=== PATIENT | male | born 1965 | race American Indian/Alaskan Native ===

== ENCOUNTER 2017-03-22 17:28 | Inpatient (IN) | payer MEDICARE, BC ==
[2017-03-22 17:34] VITALS: BMI 26.8
[2017-03-22 18:22] LABS: ADD MANUAL DIFF? NO
[2017-03-22 18:31] LABS: BASO # 0.01 [, K/mm3] (0.0-2.0); BASO % 0.2 % (0.0-3.0); EOS # 0.1 (0.0-0.7); EOS % 1.2 % (1.5-5.0); GRAN # 2.94 (1.4-6.5); GRAN % 59.7 % (50.0-68.0); HEMATOCRIT 38.9 % (42.0-52.0); LYMPH # 1.6 (1.2-3.4); MEAN CELL VOLUME 86.8 fL (80.0-105.0); MEAN CORPUSCULAR HEMOGLOBIN 30.4 pg (25.0-35.0); MEAN PLATELET VOLUME 8.7 fl (7.0-11.0); MONO # 0.3 (0.1-0.6); MONO % 6.9 % (1.0-6.0); PLATELET COUNT 222 [, 10^3/uL] (120.0-450.0); RED CELL DISTRIBUTION WIDTH 12.7 % (11.5-14.5); WHITE BLOOD COUNT 4.9 [, 10^3/ul] (4.5-11.0)
[2017-03-22 18:41] LABS: INR 2.85 (0.93-1.08); PARTIAL THROMBOPLASTIN TIME 39.8 Seconds (23.7-30.8)
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
[2017-03-22] MEDS ORDERED: Iohexol 350 MG/100 ML VIAL ONE (19:05)
[2017-03-22 19:29] LABS: ALB/GLOB RATIO 1.3 (1.1-1.8); ALKALINE PHOSPHATASE 59 U/L (38-133); ALT/SGPT 37 U/L (7-56); AST/SGOT 15 U/L (15-59); BILIRUBIN,TOTAL 0.8 mg/dL (0.2-1.3); BLOOD UREA NITROGEN 12 mg/dL (7-21); CALCIUM 9.8 mg/dL (8.4-10.5); CARBON DIOXIDE 31 mmol/L (21-33); GFR AFRICAN-AMERICAN > 60; GLUCOSE,RANDOM 95 mg/dL (70-110); POTASSIUM 3.9 mmol/L (3.6-5.0); SODIUM 140 mmol/L (132-148); TOTAL PROTEIN 7.5 g/dL (5.8-8.3)
[2017-03-22 19:43] LABS: CHLORIDE 101 mmol/L (98-107)
[2017-03-22 19:44] LABS: TROPONIN I 0.01 ng/mL
[2017-03-22] MEDS ORDERED: Morphine 2 mg/ml ISec IVP STA (23:27)
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
[2017-03-23 01:50] LABS: TROPONIN I 0.02 ng/mL
[2017-03-23 06:05] LABS: ADD MANUAL DIFF? NO
[2017-03-23 06:08] LABS: BASO # 0.02 [, K/mm3] (0.0-2.0); BASO % 0.4 % (0.0-3.0); EOS # 0.1 (0.0-0.7); GRAN # 2.67 (1.4-6.5); GRAN % 58.1 % (50.0-68.0); LYMPH # 1.5 (1.2-3.4); MEAN CELL VOLUME 86.3 fL (80.0-105.0); MEAN CORPUSCULAR HEMOGLOBIN 30.5 pg (25.0-35.0); MEAN CORPUSCULAR HGB CONC 35.3 g/dl (31.0-37.0); MEAN PLATELET VOLUME 7.9 fl (7.0-11.0); MONO # 0.3 (0.1-0.6); MONO % 6.5 % (1.0-6.0); PLATELET COUNT 181 [, 10^3/uL] (120.0-450.0); RED CELL DISTRIBUTION WIDTH 12.6 % (11.5-14.5); WHITE BLOOD COUNT 4.6 [, 10^3/ul] (4.5-11.0)
[2017-03-23 06:26] LABS: BLOOD UREA NITROGEN 11 mg/dL (7-21); CALCIUM 9.4 mg/dL (8.4-10.5); CARBON DIOXIDE 28 mmol/L (21-33); CHLORIDE 102 mmol/L (98-107); CHOLESTEROL 106 mg/dL (130-200); GFR AFRICAN-AMERICAN > 60; GLUCOSE,RANDOM 132 mg/dL (70-110); POTASSIUM 3.3 mmol/L (3.6-5.0); SODIUM 139 mmol/L (132-148)
[2017-03-23 06:37] LABS: TROPONIN I 0.03 ng/mL
[2017-03-23] MEDS ORDERED: Potassium Chloride 20 mEq ER Tab PO ONE (07:13)
--- NOTE | 2017-03-23 07:25 | RAD ---
HISTORY: chest pain COMPARISON: Comparison is made to 07/06/2016 FINDINGS: LUNGS: No active pulmonary disease. PLEURA: No significant pleural effusion identified, no pneumothorax apparent. CARDIOVASCULAR: Normal. OSSEOUS STRUCTURES: No significant abnormalities. VISUALIZED UPPER ABDOMEN: Normal. OTHER FINDINGS: None. IMPRESSION: No active disease.
[2017-03-23] MEDS: Insulin Reg-LOW-Coverage SC SCH ×4 (08:05→22:36)
--- NOTE | 2017-03-23 08:50 | CARD ---
APPROVED REPORT EKG Measurement Heart [id number] TN 150P40 [id number] <Conclusion> Marked sinus bradycardia Left ventricular hypertrophy with repolarization abnormality Septal infarct, age undetermined Abnormal ECG
--- NOTE | 2017-03-23 09:04 | CT ---
PROCEDURE: CT Angiography Chest, Abdomen and Pelvis with and without intravenous contrast HISTORY: ro disection COMPARISON: Comparison is made to the previous CT of the chest with contrast dated 06/19/2016 CT of the abdomen with contrast dated 12/16/2015 TECHNIQUE: Contiguous axial images of the chest, abdomen and pelvis were obtained in the phase of aortic enhancement. A noncontrast enhanced CT of the chest was also obtained to evaluate for possible intramural thrombus. Coronal and sagittal reformats were generated. IV dose administered: 100 mL Omnipaque 350 Radiation dose: Total exam DLP = 1540.67 mGy-cm. This CT exam was performed using one or more of the following dose reduction techniques: Automated exposure control, adjustment of the mA and/or kV according to patient size, and/or use of iterative reconstruction technique. FINDINGS: CT ANGIOGRAPHY OF THE CHEST WITH & WITHOUT CONTRAST: AORTA (CHEST AND ABDOMEN): The thoracic and abdominal aorta are unremarkable, without aneurysm, dissection or rupture. No intramural thrombus identified in the thoracic aorta on the non-contrast ct of the chest. There is focal dissection seen at the distal celiac trunk just before the bifurcation without evidence of obstruction aneurysm or extension into the branch vessels. The celiac axis, superior mesenteric artery, inferior mesenteric artery and the renal arteries are widely patent. The pelvic arteries are unremarkable. LUNGS: Mild emphysematous changes noted at the lung apices. No evidence of acute pulmonary disease. Mild posterior dependent atelectasis. MEDIASTINUM: Unremarkable. Normal caliber aorta and pulmonary arterial trunk. No aortic dissection. Normal size heart. LYMPH NODES: Unremarkable. PLEURA: Unremarkable. No pneumothorax. No pleural fluid. BONES: Unremarkable. OTHER FINDINGS: None. CT ANGIOGRAPHY OF THE ABDOMEN AND PELVIS WITH CONTRAST: LIVER: Unremarkable. No gross lesion or ductal dilatation. GALLBLADDER AND BILE DUCTS: Gallstones are seen without evidence of acute cholecystitis. The biliary tree is not dilated. PANCREAS: Unremarkable. No gross lesion or ductal dilatation. SPLEEN: Unremarkable. ADRENALS: Unremarkable. No mass. KIDNEYS AND URETERS: Unremarkable. No hydronephrosis. No solid mass. VASCULATURE: Unremarkable. No aortic aneurysm. STOMACH AND BOWEL: Unremarkable. No obstruction. No gross mural thickening. APPENDIX: Normal appendix. PERITONEUM: Unremarkable. No free fluid. No free air. LYMPH NODES: Unremarkable. No enlarged lymph nodes. BLADDER: Unremarkable. REPRODUCTIVE: Unremarkable. BONES: No acute fracture. OTHER FINDINGS: IVC filter is seen in place. IMPRESSION: No evidence of artery dissection or aneurysm. 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 All the aortic branches are patent. Cholelithiasis without evidence of acute cholecystitis or biliary tree dilatation. No evidence of acute pathology in the chest. Preliminary report was submitted by [facility].
[2017-03-23] MEDS: Meloxicam 7.5 MG TAB PO SCH ×2 (09:12→17:17)
[2017-03-23 10:19] LABS: MAGNESIUM 1.7 mg/dL (1.7-2.2)
--- NOTE | 2017-03-23 11:56 | PN ---
DATE: 03/23/2017 I reviewed the CTA of the abdomen on the patient. He is a 52-year-old vasculopath. His celiac axis demonstrates tortuosity at the trifurcation into the hepatic, left gastric, and splenic arteries. I do not believe a dissection is present. Certainly it is not clinically significant. No further vascular imaging of that area is required at this time. Monico Nix MD cc: [id number] TT: 03/23/2017 11:56:06 Confirmation # [id number] Dictation # [id number] payam COLES
--- NOTE | 2017-03-23 13:40 | US ---
HISTORY: Leg pain and swelling. Evaluate for DVT PHYSICIAN(S): Monico Nix MD. TECHNIQUE: Duplex sonography and color-flow Doppler with graded compression were used to evaluate the deep venous systems of both lower extremities. FINDINGS: The visualized deep venous systems of both lower extremities are sonographically normal and compressible. Normal wave forms and augmentation are seen. There is no sonographic evidence for deep venous thrombosis in the visualized segments of both lower extremities. IMPRESSION: No sonographic evidence for deep venous thrombosis in the visualized segments of both lower extremities.
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
[2017-03-24] MEDS ORDERED: Morphine 2 mg/ml ISec IVP STA (00:13)
[2017-03-24 00:35] VITALS: RESP 20
[2017-03-24 06:02] LABS: ADD MANUAL DIFF? NO
[2017-03-24 06:13] VITALS: O2SAT 99
[2017-03-24 06:21] LABS: INR 1.77 (0.93-1.08); PARTIAL THROMBOPLASTIN TIME 35.2 Seconds (23.7-30.8)
[2017-03-24 06:22] LABS: BASO # 0.01 [, K/mm3] (0.0-2.0); BASO % 0.2 % (0.0-3.0); EOS # 0.1 (0.0-0.7); EOS % 1.8 % (1.5-5.0); GRAN # 2.67 (1.4-6.5); GRAN % 59.9 % (50.0-68.0); HEMATOCRIT 36.7 % (42.0-52.0); LYMPH # 1.4 (1.2-3.4); LYMPH % 30.9 % (22.0-35.0); MEAN CELL VOLUME 86.2 fL (80.0-105.0); MEAN CORPUSCULAR HGB CONC 34.9 g/dl (31.0-37.0); MEAN PLATELET VOLUME 8.1 fl (7.0-11.0); MONO # 0.3 (0.1-0.6); MONO % 7.2 % (1.0-6.0); PLATELET COUNT 184 [, 10^3/uL] (120.0-450.0); RED CELL DISTRIBUTION WIDTH 12.5 % (11.5-14.5); WHITE BLOOD COUNT 4.5 [, 10^3/ul] (4.5-11.0)
[2017-03-24 06:55] LABS: BLOOD UREA NITROGEN 10 mg/dL (7-21); CALCIUM 9.3 mg/dL (8.4-10.5); CARBON DIOXIDE 28 mmol/L (21-33); CHLORIDE 103 mmol/L (98-107); GFR AFRICAN-AMERICAN > 60; GLUCOSE,RANDOM 135 mg/dL (70-110); POTASSIUM 3.9 mmol/L (3.6-5.0); SODIUM 138 mmol/L (132-148)
[2017-03-24] MEDS: Insulin Reg-LOW-Coverage SC SCH ×2 (07:50→12:42)
[2017-03-24] MEDS: Meloxicam 7.5 MG TAB PO SCH (09:17)
--- NOTE | 2017-03-24 09:39 | CON ---
DATE: 03/24/2017 CARDIOLOGY CONSULTATION HISTORY: The patient is a 52-year-old male who presents with diffuse body aches including the chest, belly, and lower extremity. Because of his extensive history, the patient presented to the Emergency Room. PAST MEDICAL HISTORY: Notable for coronary artery disease in which he underwent coronary stent of th e RCA in 06/2016 in which a drug-eluting stent was placed in the RCA. In addition, the patient has had a history of DVT and has been taking Coumadin this entire time. He denies shortness of breath. The patient's pain is much improved today. The patient's past medical history is also notable for diabetes mellitus and hypertension, as well as hypercholesterolemia. SOCIAL HISTORY: He denies smoking. REVIEW OF SYSTEMS: A 14-point review of systems was reviewed in detail. He is free of cardiac sympt omatology today. PHYSICAL EXAMINATION: VITAL SIGNS: Blood pressure 127/85. Heart rate is in the 50s. NECK: Negative JVD. LUNGS: Without rales. HEART: Reveals S1, S2. EXTREMITIES: Without edema. EKG shows diffuse ST-T changes, which are unchanged from his previous. LABORATORIES: Reveal troponins that are negative x 2. The glucose is 135. The hemoglobin is 12.8. CT angio reveals no dissection of the aorta in the chest. Cholelithiasis is noted. IMPRESSION: 1. Atypical chest pain extending to the belly as well as the lower extremities. 2. No evidence for acute coronary syndrome. 3. Stable angina. 4. Diabetes mellitus. 5. Hypertension. 6. Hypercholesterolemia. Given these findings, I do not think that his chest pain represents an acute coronary syndrome in [facility] there is no evidence so far. We will continue to obtain serial troponins. We will obtain an echocardiogram to evaluate his LV function. GI consultation has been called. Monico Hernandez MD cc: [phone] TT: 03/24/2017 09:39:32 Confirmation # [id number] Dictation # [id number] calvin
[2017-03-24 12:00] VITALS: BP 124/83; PULSE 60; TEMP 98.4
--- NOTE | 2017-03-24 12:26 | CP.PCM.DIS ---
<Luz Vidales - Last Filed: 03/25/17 10:07> Provider - Provider Date of Admission: 03/22/17 22:00 Attending physician: Tanner Roth MD Primary care physician: Tanner Roth MD Consults: IR: Dr Monico Nix Gi: Dr Clinton Cardio: Dr Hernandez Time Spent in preparation of Discharge (in minutes): 40 Diagnosis - Discharge Diagnosis (1) Atypical chest pain Status: Resolved (2) Diabetes Status: Chronic (3) HTN (hypertension) Status: Chronic (4) DVT (deep venous thrombosis) Status: Chronic (5) Pulmonary air embolism Status: Chronic (6) Myocardial infarct, old Status: Chronic (7) CVA (cerebral vascular accident) Status: Chronic Hospital Course - Lab Results Lab Results: Most Recent Lab Values WBC 4.5 10^3/ul (4.5-11.0) 03/24/17 05:30 RBC 4.26 10^6/uL (3.5-6.1) 03/24/17 05:30 Hgb 12.8 gm/dL (14.0-18.0) L 03/24/17 05:30 Hct 36.7 % (42.0-52.0) L 03/24/17 05:30 MCV 86.2 fL (80.0-105.0) 03/24/17 05:30 MCH 30.0 pg (25.0-35.0) 03/24/17 05:30 MCHC 34.9 g/dl (31.0-37.0) 03/24/17 05:30 RDW 12.5 % (11.5-14.5) 03/24/17 05:30 Plt Count 184 10^3/uL (120.0-450.0) 03/24/17 05:30 MPV 8.1 fl (7.0-11.0) 03/24/17 05:30 Gran % 59.9 % (50.0-68.0) 03/24/17 05:30 Lymph % (Auto) 30.9 % (22.0-35.0) 03/24/17 05:30 Aurora % (Auto) 7.2 % (1.0-6.0) H 03/24/17 05:30 Eos % (Auto) 1.8 % (1.5-5.0) 03/24/17 05:30 Baso % (Auto) 0.2 % (0.0-3.0) 03/24/17 05:30 Gran # 2.67 (1.4-6.5) 03/24/17 05:30 Lymph # 1.4 (1.2-3.4) 03/24/17 05:30 Aurora # 0.3 (0.1-0.6) 03/24/17 05:30 Eos # 0.1 (0.0-0.7) 03/24/17 05:30 Baso # 0.01 K/mm3 (0.0-2.0) 03/24/17 05:30 PT 19.1 Seconds (9.9-11.8) H 03/24/17 05:30 INR 1.77 (0.93-1.08) H 03/24/17 05:30 APTT 35.2 Seconds (23.7-30.8) H 03/24/17 05:30 Sodium 138 mmol/L (132-148) 03/24/17 05:30 Potassium 3.9 mmol/L (3.6-5.0) 03/24/17 05:30 Chloride 103 mmol/L (98-107) 03/24/17 05:30 Carbon Dioxide 28 mmol/L (21-33) 03/24/17 05:30 Anion Gap 11 (10-20) 03/24/17 05:30 BUN 10 mg/dL (7-21) 03/24/17 05:30 Creatinine 0.7 mg/dL (0.5-1.4) 03/24/17 05:30 Est GFR ( Amer) > 60 03/24/17 05:30 Est GFR (Non-Af Amer) > 60 03/24/17 05:30 POC Glucose (mg/dL) 92 mg/dL (65-110) 03/22/17 19:05 Random Glucose 135 mg/dL (70-110) H 03/24/17 05:30 Hemoglobin A1c 5.8 % (4.2-6.5) 03/23/17 01:10 Calcium 9.3 mg/dL (8.4-10.5) 03/24/17 05:30 Magnesium 1.7 mg/dL (1.7-2.2) 03/23/17 10:00 Total Bilirubin 0.8 mg/dL (0.2-1.3) 03/22/17 19:10 AST 15 U/L (15-59) 03/22/17 19:10 ALT 37 U/L (7-56) 03/22/17 19:10 Alkaline Phosphatase 59 U/L (38-133) 03/22/17 19:10 Lactate Dehydrogenase 327 U/L (333-699) L 03/23/17 05:00 Total Creatine Kinase 65 U/L (35-230) 03/23/17 05:00 Troponin I 0.03 ng/mL D 03/23/17 05:00 Total Protein 7.5 g/dL (5.8-8.3) 03/22/17 19:10 Albumin 4.3 g/dL (3.0-4.8) 03/22/17 19:10 Globulin 3.2 gm/dL 03/22/17 19:10 Albumin/Globulin Ratio 1.3 (1.1-1.8) 03/22/17 19:10 Triglycerides 134 mg/dL (35-160) 03/23/17 05:00 Cholesterol 106 mg/dL (130-200) L 03/23/17 05:00 LDL Cholesterol Direct 61 mg/dL (0-129) 03/23/17 05:00 HDL Cholesterol 26 mg/dL (29-60) L 03/23/17 05:00 Lipase 98 U/L (23-300) 03/23/17 10:00 - Hospital Course Hospital Course: Patient is a 52 y/o with PMH of DM type 2, hypertension, DVT with PE, [place]/CAD s/ p stents, h/o CVA with residual left hemiparesis presented with left sided chest pain, and epigastric tenderness for 2 days. In the ER patient was hypertensive with SBP of 160s with HR in the 50s. BB was held, and patient was giving home dose norvasc for his htn. Patient underwent basic labs which were normal, including normal cardiac markers and TSH. EKG with no ST/T wave abnormalities. Aspirin, lipitor, and plavix were resumed. Patient had CTA to rule out dissection or PE, which revealed focal dissection in the distal celiac trunk without aneurysm, which is not changed from patient's prior CT, from june 2016. Patient's coumadin was held. IR was consulted, and upon reviewing the images, didn't believe dissection was present. Patient was monitored on tele for 48 hrs, cardiology was consulted and recommended repeat echo. Furthermore, patient was evaluated by GI and recommended conservative management. 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 Patient to resume his coumadin, plavix and asa. - Date & Time of H&P Date of H&P: 03/23/17 Time of H&P: 01:03 Discharge Exam - Head Exam Head Exam: ATRAUMATIC, NORMAL INSPECTION, NORMOCEPHALIC - Eye Exam Eye Exam: Normal appearance, PERRL. absent: Scleral icterus - ENT Exam ENT Exam: Mucous Membranes Moist - Neck Exam Neck exam: Normal Inspection - Respiratory Exam Respiratory Exam: Clear to PA & Lateral, NORMAL BREATHING PATTERN, UNREMARKABLE. absent: Rales, Rhonchi, Wheezes, Respiratory Distress, Stridor - Cardiovascular Exam Cardiovascular Exam: REGULAR RHYTHM, RRR, +S1, +S2. absent: Diastolic murmur, Systolic Murmur - GI/Abdominal Exam GI & Abdominal Exam: Normal Bowel Sounds, Unremarkable. absent: Distended, Firm , Guarding, Rigid, Soft, Tenderness - Extremities Exam Extremities exam: normal inspection - Back Exam Back exam: NORMAL INSPECTION - Neurological Exam Neurological exam: Alert, Oriented x3 - Psychiatric Exam Psychiatric exam: Normal Affect, Normal Mood - Skin Skin Exam: Dry, Intact, Normal Color, Warm Discharge Plan - Follow Up Plan Condition: FAIR Disposition: HOME/ ROUTINE Patient education suggested?: Yes Instructions: Chest Pain (DC), Heart Healthy Diet (DC) Additional Instructions: Please take 5 mg of Coumadin when you get home Follow up with Dr Lockhart/Ira in the office Continue with all your home medications. Go to the nearest ER if you experience chest pain, shortness of breath, fever or chills. Referrals: Tanner Roth MD [Primary Care Provider] - <Jacob Lockhart - Last Filed: 03/26/17 09:21> Provider - Provider Date of Admission: 03/22/17 22:00 Attending physician: Tanner Roth MD Primary care physician: Tanner Roth MD Hospital Course - Lab Results Lab Results: Most Recent Lab Values WBC 4.5 10^3/ul (4.5-11.0) 03/24/17 05:30 RBC 4.26 10^6/uL (3.5-6.1) 03/24/17 05:30 Hgb 12.8 gm/dL (14.0-18.0) L 03/24/17 05:30 Hct 36.7 % (42.0-52.0) L 03/24/17 05:30 MCV 86.2 fL (80.0-105.0) 03/24/17 05:30 MCH 30.0 pg (25.0-35.0) 03/24/17 05:30 MCHC 34.9 g/dl (31.0-37.0) 03/24/17 05:30 RDW 12.5 % (11.5-14.5) 03/24/17 05:30 Plt Count 184 10^3/uL (120.0-450.0) 03/24/17 05:30 MPV 8.1 fl (7.0-11.0) 03/24/17 05:30 Gran % 59.9 % (50.0-68.0) 03/24/17 05:30 Lymph % (Auto) 30.9 % (22.0-35.0) 03/24/17 05:30 Aurora % (Auto) 7.2 % (1.0-6.0) H 03/24/17 05:30 Eos % (Auto) 1.8 % (1.5-5.0) 03/24/17 05:30 Baso % (Auto) 0.2 % (0.0-3.0) 03/24/17 05:30 Gran # 2.67 (1.4-6.5) 03/24/17 05:30 Lymph # 1.4 (1.2-3.4) 03/24/17 05:30 Aurora # 0.3 (0.1-0.6) 03/24/17 05:30 Eos # 0.1 (0.0-0.7) 03/24/17 05:30 Baso # 0.01 K/mm3 (0.0-2.0) 03/24/17 05:30 PT 19.1 Seconds (9.9-11.8) H 03/24/17 05:30 INR 1.77 (0.93-1.08) H 03/24/17 05:30 APTT 35.2 Seconds (23.7-30.8) H 03/24/17 05:30 Sodium 138 mmol/L (132-148) 03/24/17 05:30 Potassium 3.9 mmol/L (3.6-5.0) 03/24/17 05:30 Chloride 103 mmol/L (98-107) 03/24/17 05:30 Carbon Dioxide 28 mmol/L (21-33) 03/24/17 05:30 Anion Gap 11 (10-20) 03/24/17 05:30 BUN 10 mg/dL (7-21) 03/24/17 05:30 Creatinine 0.7 mg/dL (0.5-1.4) 03/24/17 05:30 Est GFR ( Amer) > 60 03/24/17 05:30 Est GFR (Non-Af Amer) > 60 03/24/17 05:30 POC Glucose (mg/dL) 171 mg/dL (65-110) H 03/24/17 11:28 Random Glucose 135 mg/dL (70-110) H 03/24/17 05:30 Hemoglobin A1c 5.8 % (4.2-6.5) 03/23/17 01:10 Calcium 9.3 mg/dL (8.4-10.5) 03/24/17 05:30 Magnesium 1.7 mg/dL (1.7-2.2) 03/23/17 10:00 Total Bilirubin 0.8 mg/dL (0.2-1.3) 03/22/17 19:10 AST 15 U/L (15-59) 03/22/17 19:10 ALT 37 U/L (7-56) 03/22/17 19:10 Alkaline Phosphatase 59 U/L (38-133) 03/22/17 19:10 Lactate Dehydrogenase 327 U/L (333-699) L 03/23/17 05:00 Total Creatine Kinase 65 U/L (35-230) 03/23/17 05:00 Troponin I 0.03 ng/mL D 03/23/17 05:00 Total Protein 7.5 g/dL (5.8-8.3) 03/22/17 19:10 Albumin 4.3 g/dL (3.0-4.8) 03/22/17 19:10 Globulin 3.2 gm/dL 03/22/17 19:10 Albumin/Globulin Ratio 1.3 (1.1-1.8) 03/22/17 19:10 Triglycerides 134 mg/dL (35-160) 03/23/17 05:00 Cholesterol 106 mg/dL (130-200) L 03/23/17 05:00 LDL Cholesterol Direct 61 mg/dL (0-129) 03/23/17 05:00 HDL Cholesterol 26 mg/dL (29-60) L 03/23/17 05:00 Lipase 98 U/L (23-300) 03/23/17 10:00 Attending/Attestation - Attestation I have personally seen and examined this patient.: Yes I have fully participated in the care of the patient.: Yes I have reviewed all pertinent clinical information, including history, physical exam and plan: Yes Notes (Text): 03/26/17 09:21 Medical record note made by the resident after discussion with my direction and input after the patient was personally seen and examined by me. I have reviewed the chart and agree that the record accurately reflects by personal performance of the history, physical exam, data review, and medical decision-making, in the course for the patient. I have also personally directed the plan of care.
--- NOTE | 2017-03-25 16:35 | CARD ---
APPROVED REPORT EXAM: Two-dimensional and M-mode echocardiogram with Doppler and color Doppler. INDICATION Chest Pain 2D DIMENSIONS Left Atrium (2D)5.4 (1.6-4.0cm)IVSd1.7 (0.7-1.1cm) LVDd4.6 (3.9-5.9cm)PWd1.7 (0.7-1.1cm) LVDs3.0 (2.5-4.0cm)FS (%) 35.1 % LVEF (%)64.5 (>50%) M-Mode DIMENSIONS Aortic Root3.80 (2.2-3.7cm)Aortic Cusp Exc.2.40 (1.5-2.0cm) Aortic Valve AoV Peak Gjdrozie050.0cm/Vineet Peak GR.8mmHg Mitral Valve MV E Xbfmmqit85.8cm/sMV A Bzxrtuhw44.8cm/sE/A ratio0.7 TDI Lateral E' Peak V6.73cm/sMedial E' Peak V4.97cm/sE/Lateral E'7.7 E/Medial E'10.4 Pulmonary Valve PV Peak Llzexhsi600.0cm/sPV Peak Grad.4mmHg Tricuspid Valve TR Peak [id number]/sRAP [id number] Peak Gr.21mmHg [id number] LEFT VENTRICLE The left ventricle is normal size. There is moderate to severe concentric left ventricular hypertrophy. The left ventricular ejection fraction is within the normal range. Mild Septal hypokinesis Transmitral Doppler flow pattern is Grade I-abnormal relaxation pattern. RIGHT VENTRICLE The right ventricle is normal size. There is normal right ventricular wall thickness. The right ventricular systolic function is normal. ATRIA The left atrium is mildly dilated. The right atrium size is normal. AORTIC VALVE The aortic valve is normal in structure. No aortic regurgitation is present. MITRAL VALVE The mitral valve is normal in structure. There is no mitral valve regurgitation noted. GREAT VESSELS The aortic root displays mild sclerocalcific changes of the aortic root. The IVC is normal in size and collapses >50% with inspiration. PERICARDIAL EFFUSION There is no pericardial effusion. <Conclusion> The left ventricle is normal size. There is moderate to severe concentric left ventricular hypertrophy. The left ventricular ejection fraction is within the normal range. Mild Septal hypokinesis Transmitral Doppler flow pattern is Grade I-abnormal relaxation pattern.
== END 2017-03-24 16:06 | disposition home or self-care (01) | DRG 313 ==
LOC: ED 17:28 → ERH 22:00 → 2RNO 03-23 00:07
PROVIDERS: ADMIT Internal Medicine; ATTEND Internal Medicine
DX: R07.89 Other chest pain (principal); I69.354 Hemiplegia and hemiparesis following cerebral infarction affecting left non-dominant side; I10 Essential (primary) hypertension; I25.119 Atherosclerotic heart disease of native coronary artery with unspecified angina pectoris; E11.9 Type 2 diabetes mellitus without complications; I77.79 Dissection of other specified artery; F32.9 Major depressive disorder, single episode, unspecified; K80.20 Calculus of gallbladder without cholecystitis without obstruction; R10.13 Epigastric pain; E78.00 Pure hypercholesterolemia, unspecified; I25.2 Old myocardial infarction; Z86.718 Personal history of other venous thrombosis and embolism; Z86.711 Personal history of pulmonary embolism; Z95.5 Presence of coronary angioplasty implant and graft; Z87.891 Personal history of nicotine dependence; Z82.49 Family history of ischemic heart disease and other diseases of the circulatory system; Z83.3 Family history of diabetes mellitus; Z82.3 Family history of stroke

== ENCOUNTER 2017-06-28 07:02 | Day surgery (SDC) | payer MEDICARE, BC ==
[2017-06-28] MEDS ORDERED: Midazolam 2 MG/2 ML VIAL ONE ×2 (07:30→08:27)
[2017-06-28] MEDS ORDERED: Lidocaine 2% Inj (20ml) ONE (07:30)
[2017-06-28 07:51] LABS: BASO # 0.01 K/mm3 (0.0-2.0); BASO % 0.2 % (0.0-3.0); EOS # 0.1 (0.0-0.7); EOS % 2.3 % (1.5-5.0); GRAN # 2.34 (1.4-6.5); GRAN % 53.7 % (50.0-68.0); HEMOGLOBIN 13.9 g/dL (14.0-18.0); LYMPH # 1.6 (1.2-3.4); MEAN CELL VOLUME 87.1 fl (80.0-105.0); MEAN CORPUSCULAR HEMOGLOBIN 30.4 pg (25.0-35.0); MEAN CORPUSCULAR HGB CONC 34.9 g/dl (31.0-37.0); MEAN PLATELET VOLUME 8.1 fl (7.0-11.0); MONO # 0.3 (0.1-0.6); MONO % 7.8 % (1.0-6.0); PLATELET COUNT 206 10^3/uL (120.0-450.0); RBC 4.57 10^6/uL (3.5-6.1); RED CELL DISTRIBUTION WIDTH 12.3 % (11.5-14.5); WHITE BLOOD COUNT 4.4 10^3/ul (4.5-11.0)
[2017-06-28 08:01] LABS: BLOOD UREA NITROGEN 14 mg/dL (7-21); CALCIUM 9.8 mg/dL (8.4-10.5); GFR AFRICAN-AMERICAN > 60; GFR NON-AFRICAN AMERICAN > 60; HDL CHOLESTEROL 32 mg/dL (29-60)
[2017-06-28 08:03] LABS: INR 1.05 (0.93-1.08); PARTIAL THROMBOPLASTIN TIME 29.4 Seconds (23.7-30.8); PROTHROMBIN TIME 11.3 Seconds (9.9-11.8)
[2017-06-28 08:12] LABS: LDL CHOLESTEROL 157 mg/dL (0-129)
[2017-06-28 08:15] VITALS: BMI 22.3
[2017-06-28] MEDS ORDERED: Iodixanol 320 MG/ML 200 ML BOTTLE IV ONE (08:27)
[2017-06-28] MEDS ORDERED: Sodium Chloride 0.9% 1,000 ML IV SCH (09:45)
[2017-06-28 09:51] VITALS: TEMP 97.5
[2017-06-28 13:44] VITALS: O2SAT 99
[2017-06-28 13:46] VITALS: BP 147/78; PULSE 52; RESP 19
--- NOTE | 2017-06-28 14:47 | CARDCATH ---
PROCEDURE DATE: 06/28/2017 HISTORY: The patient is a 52-year-old male who presents with recurrence of angina. He was seen in an outpatient office and because of his ongoing symptoms at rest, the patient was brought in for cardiac catheterization. The patient has diabetes mellitus, hypercholesterolemia, and previous stent in the past. PROCEDURE: Left heart catheterization with coronarography and left ventriculogram. The right femoral artery was cannulated with a 6-Palauan sheath. There were no complications. The findings on catheterization revealed a left ventricle that contracted normally. Estimated ejection fraction is 55%. His coronary anatomy revealed a right dominant circulation. The RCA was revealed intimal irregularities without significant stenoses. The left main artery was unremarkable. The LAD revealed a patent stent in its proximal portion. The rest of the LAD revealed diffuse intimal irregularities included an eccentric 50% stenoses in the mid/distal portion. The circumflex artery and obtuse marginal branch was free of significant disease. Angio-Seal was used to close the femoral artery site. The patient tolerated the procedure well. In summary, the procedure revealed a patent stent in the proximal LAD with a noncritical lesion in the mid/distal LAD of approximately 50%. LV function is normal. Given these findings, the patient's treatment will be continued with medical therapy. We will restart him on his Coumadin which he was on as an outpatient. Monico Hernandez MD
== END 2017-06-28 16:08 | disposition home or self-care (01) ==
LOC: SDSVAS 07:02 → CATH 07:02
PROVIDERS: ATTEND Internal Medicine Cardiovascular Disease
DX: I25.10 Atherosclerotic heart disease of native coronary artery without angina pectoris (principal); E11.9 Type 2 diabetes mellitus without complications; E78.00 Pure hypercholesterolemia, unspecified; Z95.5 Presence of coronary angioplasty implant and graft; Z79.84 Long term (current) use of oral hypoglycemic drugs
CPT/HCPCS: 36415; 80048; 80061; 85025; 85610; 85730; 86850; 86900; 93458; 99152; C1760; C1769; C2629; J1644; J2250; J3010; J7040

== ENCOUNTER 2017-07-20 10:00 | Inpatient (IN) | payer MEDICARE, BC ==
--- NOTE | 2017-07-20 10:22 | ED PDOC ---
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 Patient states he saw his PMD last week who advised coming to ER. Patient at home over past few days has been persistently short of breath but last night at rest developed chest pain, constant. Chest pain severe, nonradiating, persistent, and continued until this morning, thus he presented to ED. He states pain "feels like my stroke", and he described that when he has had a stroke in the past he experienced "pain" and also reports he has been feeling "more heaviness in my left arm than usual" " for past few days". Also reports intermittent pain in his left leg but also right leg. Also complains of lower back pain for several days, worse with movement. No associated urinary symptoms or incontinence of urine or stool reported. Time/Duration: < week Symptom Onset: Gradual Symptom Course: Unchanged Severity Level: Mild Context: Home Past Medical History - Provider Review Nursing Documentation Reviewed: Yes - Infectious Disease Hx of Infectious Diseases: None - Tetanus Immunization Tetanus Immunization: Unknown - Cardiac Hx Cardiac Disorders: Yes Hx NJ: Yes (stents) Hx Pacemaker: No - Pulmonary Hx Respiratory Disorders: No - Neurological Hx Neurological Disorder: Yes HX Cerebrovascular Accident: Yes Hx Paralysis: Yes (LT SIDED WEAKNESS) - HEENT Hx HEENT Disorder: No - Renal Hx Renal Disorder: No - Endocrine/Metabolic Hx Diabetes Mellitus Type 2: Yes - Hematological/Oncological Hx Blood Transfusions: No Hx Blood Transfusion Reaction: No - Integumentary Hx Dermatological Disorder: No - Musculoskeletal/Rheumatological Hx Musculoskeletal Disorders: Yes - Gastrointestinal Hx Gastrointestinal Disorders: No - Genitourinary/Gynecological Hx Genitourinary Disorders: No - Psychiatric Hx Emotional Abuse: No Hx Physical Abuse: No Hx Substance Use: Yes (MARIJUANA - 1 BAG EVERY OTHER DAY) - Surgical History Hx Cardiac Catheterization: Yes (stents) - Anesthesia Hx Anesthesia: Yes Hx Anesthesia Reactions: No Hx Malignant Hyperthermia: No - Suicidal Assessment Feels Threatened In Home Enviroment: No Family/Social History - Physician Review Nursing Documentation Reviewed: Yes Family/Social History: No Known Family HX Smoking Status: Never Smoked Hx Alcohol Use: No Hx Substance Use: Yes (MARIJUANA - 1 BAG EVERY OTHER DAY) Hx Substance Use Treatment: No Allergies/Home Meds Allergies/Adverse Reactions: Allergies No Known Allergies Allergy (Verified 07/20/17 10:11) Home Medications: Home Meds Medication Instructions Recorded Confirmed Gabapentin [Neurontin] 600 mg PO TID 06/24/16 07/20/17 Atorvastatin [Lipitor] 40 mg PO DIN 06/25/17 07/20/17 Sitagliptin Phos/Metformin HCl 1 each PO BID 06/25/17 07/20/17 [Janumet Xr 50-500 mg Tablet] Review of Systems - Review of Systems Constitutional: absent: Fatigue, Fevers, Night Sweats Eyes: absent: Vision Changes, Eye Pain ENT: absent: Hearing Changes, Voice Changes Respiratory: SOB. absent: Cough, Wheezing Cardiovascular: Chest Pain, MARKHAM Gastrointestinal: absent: Abdominal Pain, Diarrhea Genitourinary Male: absent: Dysuria, Frequency Musculoskeletal: Back Pain, Other (left leg pain, greater than right). absent: Arthralgias, Neck Pain, Joint Swelling Skin: absent: Rash, Pruritis Neurological: Focal Weakness, Gait Changes. absent: Headache, Dizziness, Speech Changes, Facial Droop, Disequilibrium Hemo/Lymphatic: absent: Adenopathy Psychiatric: absent: Depression Physical Exam - Physical Exam Narrative Physical Exam (Text): Head: Atraumatic. Normocephalic. Eyes: PERRL. EOMI. Conjunctivae are not pale. ENT: Mucous membranes are moist and intact. Oropharynx is clear and symmetric. Neck: Supple. Full ROM. No JVD. No lymphadenopathy. Cardiovascular: Regular rate. Regular rhythm. Systolic murmur. Distal pulses are 2+ and symmetric. Blood pressure and pulse equal in both upper extremities. Pulmonary/Chest: No evidence of respiratory distress. Clear to auscultation bilaterally. No wheezing, rales or rhonchi. Abdominal: Soft and non-distended. There is no tenderness. No rebound, guarding, or rigidity. No organomegaly. Good bowel sounds. Back: No CVA tenderness. Paraspinal tenderness. Extremities: No edema. No cyanosis. No clubbing. Full range of motion in all extremities. No calf tenderness. There are STRONG and palpable distal pulses bilaterally, strong femoral pulses. No knee or hip pain noted with ROM. No warmth or erythema. Skin: Skin is diaphoretic. Neurological: Alert, awake, and oriented. No facial droop. Patient with slight pronator drift left arm and leg. Reflexes symmetric and intact. No saddle anesthesia. No facial droop. Cranial nerves intact. Psychiatric: Good eye contact. Normal interaction, affect, and behavior. Vital Signs Reviewed: Yes Vital Signs Temp Pulse Resp BP Pulse Ox 07/20/17 14:07 57 L 16 138/85 100 07/20/17 12:13 55 L 16 141/80 100 07/20/17 10:01 98.4 F 56 L 16 151/91 H 97 Temperature: Afebrile Medical Decision Making ED Course and Treatment: 07/20/17 10:02 Impression: 52 year old male complaining of shortness of breath for 3-4 days and chest pain since yesterday. Differential Diagnosis included but are not limited to: CVA vs. NJ vs. aortic dissection vs. vascular disease vs. PVD Plan: -- EKG -- Head CT w/o contrast -- Chest X-ray -- Urinalysis -- Labs -- Reassess and disposition Prior Visits: Notes and results from previous visits were reviewed. Patient last seen in the ED on 03/22/17 for 2 day history of worsening chest pain. Patient was admitted to hospitalist care for further evaluation. Progress Notes: Patient's prior history extensively reviewed through past records as well as through the patient. He has significant past history of NJ, Pulmonary Embolism currently on Coumadin, as well as history of CVA. Prior CT's have been reviewed has has been noted to have vascular disease as well. On exam, patient reports left sided "heaviness". He believes this is more severe than his baseline, although on exam he does have motor strength which he does state is his baseline despite feeling of heaviness. 07/20/17 11:05 Chest X-ray: Dictator : Thomas Hercules MD IMPRESSION: No active disease. 07/20/17 12:17 CT HEAD WITHOUT CONTRAST: Dictator : Thomas Hercules MD FINDINGS: HEMORRHAGE:No intracranial hemorrhage. BRAIN:No mass effect or edema. There is a chronic infarct in the right medial occipital lobe with cystic encephalomalacia. No acute findings VENTRICLES:Unremarkable. No hydrocephalus. CALVARIUM:Unremarkable. PARANASAL SINUSES:Unremarkable as visualized. No significant inflammatory changes. MASTOID AIR CELLS:Unremarkable as visualized. No inflammatory changes. OTHER FINDINGS:None. IMPRESSION: No acute intracranial findings Not a tpa candidate as patient on Coumadin and sensation of heaviness for 2-[address] t wave changes ALTHOUGH WHEN COMPARED TO PRIOR it is similar in character and patient with initial unremarkable troponin after one day of chest pain described. Patient is noted to have pain to his legs, although strong palpable distal pulses, no acute calf pain. I did review prior ct's and given prior vascular disease, CT dissection ordered and reviewed. Patient with improvement in pain after Morphine. I discussed with patient limitations of imaging studies and labs, and due to his significant past history, case reviewed with Dr. Lockhart, he will be admitted for close monitoring and specialty consultations. Recent cardiac cath was reviewed. 07/24/17 11:55 - Lab Interpretations Lab Results: 07/20/17 10:30 07/20/17 10:30 Lab Results 07/20/17 10:30: Sodium 139, Potassium 3.7, Chloride 104, Carbon Dioxide 23, Anion Gap 16, BUN 11, Creatinine 0.7, Est GFR ( Amer) > 60, Est GFR (Non- Af Amer) > 60, Random Glucose 197 H, Calcium 9.6, Total Bilirubin 0.6, AST 21, ALT 18, Alkaline Phosphatase 64, Lactate Dehydrogenase 415, Total Creatine Kinase 90, Troponin I < 0.01 D, NT-Pro-B Natriuret Pep 29.7, Total Protein 7.4 , Albumin 4.6, Globulin 2.8, Albumin/Globulin Ratio 1.6 07/20/17 10:30: PT 19.4 H, INR 1.80 H, APTT 36.0 H 07/20/17 10:30: WBC 3.5 L D, RBC 4.47, Hgb 13.6 L, Hct 38.4 L, MCV 85.9, MCH 30.4, MCHC 35.4, RDW 12.0, Plt Count 206, MPV 8.1, Gran % 60.8, Lymph % (Auto) 30.3, [place] % (Auto) 6.6 H, Eos % (Auto) 2.0, Baso % (Auto) 0.3, Gran # 2.11, Lymph # 1.1 L, [place]on # 0.2, Eos # 0.1, Baso # 0.01 I have reviewed the lab results: Yes - RAD Interpretation Radiology Orders: 07/20/17 10:15 HEAD W/O CONTRAST [CT] Stat CHEST ONE VIEW [RAD] Stat Pilot Safety Inspector: ED Physician, Radiologist - EKG Interpretation Interpreted by ED Physician: Yes Type: 12 lead EKG - Medication Orders Current Medication Orders: Discontinued Medications Acetaminophen (Tylenol 325mg Tab) 650 mg PO Q4H PRN PRN Reason: Pain, moderate (4-7) Last Admin: 07/23/17 17:52 Dose: 650 mg Amlodipine Besylate (Norvasc) 10 mg PO DAILY [facility] Last Admin: 07/23/17 09:55 Dose: 10 mg Aspirin (Aspirin Chewable) 81 mg PO STAT STA Stop: 07/20/17 11:42 Last Admin: 07/20/17 11:48 Dose: 81 mg Aspirin (Ecotrin) 81 mg PO DAILY [facility] Last Admin: 07/23/17 09:55 Dose: 81 mg Atorvastatin Calcium (Lipitor) 40 mg PO DIN [facility] Last Admin: 07/23/17 17:54 Dose: 40 mg Clopidogrel Bisulfate (Plavix) 75 mg PO DAILY [facility] Last Admin: 07/23/17 09:55 Dose: 75 mg Docusate Sodium (Colace) 100 mg PO BID PRN PRN Reason: Constipation Last Admin: 07/23/17 09:53 Dose: 100 mg Gabapentin (Neurontin) 600 mg PO TID MICHAEL PRN Reason: Protocol Gabapentin (Neurontin) 600 mg PO TID MICHAEL PRN Reason: Protocol Last Admin: 07/23/17 17:52 Dose: 600 mg Gabapentin (Neurontin) 600 mg PO ONCE ONE PRN Reason: Protocol Stop: 07/20/17 20:31 Last Admin: 07/20/17 20:22 Dose: 600 mg Re-Assess: Reassess Psych Meds Document 07/20/17 21:22 PAUL (Rec: 07/20/17 21:30 PAUL [id number]) Reassess Psych Med Effective Magnesium Sulfate/Dextrose (Magnesium Sulfate 1 Gm/100 Ml D5w) 1 gm in 100 mls @ 100 mls/hr IVPB ONCE ONE Stop: 07/21/17 08:40 Last Admin: 07/21/17 09:45 Dose: 100 mls/hr Insulin Human Regular (Humulin R Low) 0 units SC ACHS MICHAEL PRN Reason: Protocol Last Admin: 07/23/17 17:51 Dose: 1 units Iohexol (Omnipaque 350 150 Ml) Confirm Administered Dose 150 ml .ROUTE .STK-MED ONE Stop: 07/20/17 12:59 Losartan Potassium (Cozaar) 100 mg PO DAILY MICHAEL Last Admin: 07/23/17 09:54 Dose: 100 mg Magnesium Oxide (Mag-Ox) 400 mg PO STAT STA Stop: 07/21/17 01:57 Last Admin: 07/21/17 02:12 Dose: 400 mg Morphine Sulfate (Morphine) 4 mg IVP STAT STA Stop: 07/20/17 12:54 Last Admin: 07/20/17 13:03 Dose: 4 mg Pantoprazole Sodium (Protonix Inj) 40 mg IVP Q12 [facility] Last Admin: 07/23/17 09:55 Dose: 40 mg Pneumococcal Polyvalent Vaccine (Pneumovax 23 Vaccine) 0.5 ml IM .ONCE ONE Stop: 07/20/17 16:54 Polyethylene Glycol (Miralax) 17 gm PO Q4H MICHAEL Stop: 07/22/17 22:46 Last Admin: 07/23/17 05:28 Dose: Not Given Non-Admin Reason: Patient Refused Sodium Phosphate (Fleet Enema) 135 ml RC ONCE ONE Stop: 07/23/17 12:14 Last Admin: 07/23/17 13:51 Dose: 135 ml Warfarin Sodium (Coumadin) 5 mg PO 1800 MICHAEL PRN Reason: Protocol Last Admin: 07/23/17 17:51 Dose: - Scribe Statement The provider has reviewed the documentation as recorded by the Edward Sena Provider Scribe Attestation: All medical record entries made by the Dominickibmikala were at my direction and personally dictated by me. I have reviewed the chart and agree that the record accurately reflects my personal performance of the history, physical exam, medical decision making, and the department course for this patient. I have also personally directed, reviewed, and agree with the discharge instructions and disposition. Disposition/Present on Arrival - Present on Arrival Any Indicators Present on Arrival: Yes History of DVT/PE: Yes History of Uncontrolled Diabetes: No Urinary Catheter: No History of Decub. Ulcer: No History Surgical Site Infection Following: None - Disposition Have Diagnosis and Disposition been Completed?: Yes Diagnosis: Chest pain, Leg pain, Back pain Disposition: HOSPITALIZED Disposition Time: 12:00 Patient Plan: Admission Condition: SERIOUS
[2017-07-20 10:46] LABS: BASO # 0.01 K/mm3 (0.0-2.0); BASO % 0.3 % (0.0-3.0); EOS # 0.1 (0.0-0.7); GRAN # 2.11 (1.4-6.5); GRAN % 60.8 % (50.0-68.0); HEMATOCRIT 38.4 % (42.0-52.0); LYMPH # 1.1 (1.2-3.4); LYMPH % 30.3 % (22.0-35.0); MEAN CELL VOLUME 85.9 fl (80.0-105.0); MEAN CORPUSCULAR HEMOGLOBIN 30.4 pg (25.0-35.0); MEAN CORPUSCULAR HGB CONC 35.4 g/dl (31.0-37.0); MEAN PLATELET VOLUME 8.1 fl (7.0-11.0); MONO # 0.2 (0.1-0.6); MONO % 6.6 % (1.0-6.0); WHITE BLOOD COUNT 3.5 10^3/ul (4.5-11.0)
--- NOTE | 2017-07-20 10:55 | CT ---
PROCEDURE: CT HEAD WITHOUT CONTRAST. HISTORY: left sided weakness COMPARISON: 06/21/2016 TECHNIQUE: Axial computed tomography images were obtained through the head/brain without intravenous contrast. Radiation dose: Total exam DLP = 677 mGy-cm. This CT exam was performed using one or more of the following dose reduction techniques: Automated exposure control, adjustment of the mA and/or kV according to patient size, and/or use of iterative reconstruction technique. FINDINGS: HEMORRHAGE: No intracranial hemorrhage. BRAIN: No mass effect or edema. There is a chronic infarct in the right medial occipital lobe with cystic encephalomalacia. No acute findings VENTRICLES: Unremarkable. No hydrocephalus. CALVARIUM: Unremarkable. PARANASAL SINUSES: Unremarkable as visualized. No significant inflammatory changes. MASTOID AIR CELLS: Unremarkable as visualized. No inflammatory changes. OTHER FINDINGS: None. IMPRESSION: No acute intracranial findings
[2017-07-20 10:56] LABS: INR 1.8 (0.93-1.08)
[2017-07-20 10:58] LABS: ALB/GLOB RATIO 1.6 (1.1-1.8); ALKALINE PHOSPHATASE 64 U/L (38-126); ALT/SGPT 18 U/L (7-56); AST/SGOT 21 U/L (17-59); BILIRUBIN,TOTAL 0.6 mg/dL (0.2-1.3); BLOOD UREA NITROGEN 11 mg/dL (7-21); CALCIUM 9.6 mg/dL (8.4-10.5); CARBON DIOXIDE 23 mmol/L (21-33); CHLORIDE 104 mmol/L (98-107); GFR AFRICAN-AMERICAN > 60; GLUCOSE,RANDOM 197 mg/dL (70-110); POTASSIUM 3.7 mmol/L (3.6-5.0); SODIUM 139 mmol/L (132-148); TOTAL PROTEIN 7.4 g/dL (5.8-8.3)
--- NOTE | 2017-07-20 11:07 | RAD ---
PROCEDURE: CHEST RADIOGRAPH, 1 VIEW HISTORY: sob COMPARISON: 03/22/2017 FINDINGS: LUNGS: Clear. PLEURA: No pneumothorax or pleural fluid seen. CARDIOVASCULAR: Normal. OSSEOUS STRUCTURES: No significant abnormalities. VISUALIZED UPPER ABDOMEN: Normal. OTHER FINDINGS: None. IMPRESSION: No active disease.
[2017-07-20 11:08] LABS: TROPONIN I < 0.01 ng/mL
[2017-07-20] MEDS ORDERED: Morphine 2 mg/ml ISec IVP STA (12:53)
[2017-07-20 14:05] LABS: URINE BILIRUBIN NEGATIVE (NEGATIVE); URINE BLOOD NEGATIVE (NEGATIVE); URINE GLUCOSE (UA) NEGATIVE (NEGATIVE); URINE KETONE NEGATIVE (NEGATIVE); URINE LEUKOCYTE ESTERASE NEGATIVE Leu/uL (NEGATIVE); URINE PROTEIN NEGATIVE mg/dL (<30 mg/dL)
[2017-07-20 14:06] LABS: URINE APPEARANCE CLEAR (CLEAR); URINE COLOR YELLOW (YELLOW)
--- NOTE | 2017-07-20 14:12 | CT ---
PROCEDURE: CT Angiography Chest, Abdomen and Pelvis with and without intravenous contrast HISTORY: chest pain/back pain COMPARISON: None. TECHNIQUE: Contiguous axial images of the chest, abdomen and pelvis were obtained in the phase of aortic enhancement. A noncontrast enhanced CT of the chest was also obtained to evaluate for possible intramural thrombus. Coronal and sagittal reformats were generated. IV dose administered: 150 mL Omnipaque 350 Radiation dose: Total exam DLP = 1445.21 mGy-cm. This CT exam was performed using one or more of the following dose reduction techniques: Automated exposure control, adjustment of the mA and/or kV according to patient size, and/or use of iterative reconstruction technique. FINDINGS: CT ANGIOGRAPHY OF THE CHEST WITH & WITHOUT CONTRAST: AORTA (CHEST AND ABDOMEN): The thoracic and abdominal aorta are unremarkable, without aneurysm, dissection or rupture. No intramural thrombus identified in the thoracic aorta on the non-contrast ct of the chest. The celiac axis, superior mesenteric artery, inferior mesenteric artery and the renal arteries are widely patent. The pelvic arteries are unremarkable. LUNGS: Clear. No nodule, mass or consolidation. Multiple subpleural blebs are noted in the right lung apex. MEDIASTINUM: Unremarkable. Normal caliber aorta and pulmonary arterial trunk. No aortic dissection. Normal size heart. LYMPH NODES: Unremarkable. PLEURA: Unremarkable. No pneumothorax. No pleural fluid. BONES: Unremarkable. OTHER FINDINGS: None. CT ANGIOGRAPHY OF THE ABDOMEN AND PELVIS WITH CONTRAST: LIVER: Unremarkable. No gross lesion or ductal dilatation. GALLBLADDER AND BILE DUCTS: Cholelithiasis. No mural thickening or pericholecystic fluid. PANCREAS: Unremarkable. No gross lesion or ductal dilatation. SPLEEN: Unremarkable. ADRENALS: Unremarkable. No mass. KIDNEYS AND URETERS: Unremarkable. No hydronephrosis. No solid mass. VASCULATURE: Inferior vena caval filter noted. STOMACH AND BOWEL: Unremarkable. No obstruction. No gross mural thickening. APPENDIX: Normal appendix. PERITONEUM: Unremarkable. No free fluid. No free air. LYMPH NODES: Unremarkable. No enlarged lymph nodes. BONES: No acute fracture. OTHER FINDINGS: None. IMPRESSION: No evidence of thoracic or abdominal aortic dissection or aneurysm. Inferior vena caval filter noted. No other significant abnormality identified. Minor findings as above.
[2017-07-20 16:52] VITALS: BMI 26.6
[2017-07-20] MEDS ORDERED: Pneumococcal 23-Valent Vaccine IM ONE (16:53)
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
[2017-07-20 19:39] LABS: MAGNESIUM 1.6 mg/dL (1.7-2.2); PHOSPHOROUS 3.5 mg/dL (2.5-4.5)
[2017-07-20 19:53] LABS: TROPONIN I < 0.01 ng/mL
[2017-07-20] MEDS: Insulin Reg-LOW-Coverage SC SCH (21:29)
--- NOTE | 2017-07-20 23:26 | CARD ---
APPROVED REPORT EKG Measurement Heart [id number] <Conclusion> Sinus bradycardia Left ventricular hypertrophy with repolarization abnormality Cannot rule out Septal infarct, age undetermined Consider lateral ischemia Abnormal ECG
[2017-07-21] MEDS ORDERED: Magnesium Oxide 400 mg Tab UD PO STA (01:56)
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
[2017-07-21 06:27] LABS: HEMATOCRIT 40.3 % (42.0-52.0); MEAN CELL VOLUME 85.4 fl (80.0-105.0); MEAN CORPUSCULAR HEMOGLOBIN 30.9 pg (25.0-35.0); MEAN CORPUSCULAR HGB CONC 36.2 g/dl (31.0-37.0); WHITE BLOOD COUNT 4.5 10^3/ul (4.5-11.0)
[2017-07-21 06:32] LABS: INR 1.71 (0.93-1.08); PARTIAL THROMBOPLASTIN TIME 34.2 Seconds (23.7-30.8)
[2017-07-21] MEDS ORDERED: Magnesium Sulfate 1 gm in D5W 1 GM/100 ML BAG IVPB ONE (07:41)
[2017-07-21 08:27] LABS: ALB/GLOB RATIO 1.7 (1.1-1.8); ALKALINE PHOSPHATASE 67 U/L (38-126); ALT/SGPT 37 U/L (7-56); AST/SGOT 17 U/L (17-59); BILIRUBIN,TOTAL 0.8 mg/dL (0.2-1.3); BLOOD UREA NITROGEN 11 mg/dL (7-21); CALCIUM 9.9 mg/dL (8.4-10.5); CARBON DIOXIDE 24 mmol/L (21-33); CHLORIDE 104 mmol/L (98-107); CHOLESTEROL 193 mg/dL (130-200); GFR AFRICAN-AMERICAN > 60; GLUCOSE,RANDOM 117 mg/dL (70-110); POTASSIUM 3.9 mmol/L (3.6-5.0); SODIUM 140 mmol/L (132-148); TOTAL PROTEIN 7.1 g/dL (5.8-8.3)
[2017-07-21] MEDS: Insulin Reg-LOW-Coverage SC SCH ×4 (08:43→22:35)
--- NOTE | 2017-07-21 09:03 | CON ---
CARDIOLOGY CONSULTATION DATE: 07/21/2017. HISTORY: The patient is a 52-year-old male with multiple admissions for diffuse body aches. He presents with again diffuse body aches described as pain in his pelvis and his belly and his chest and in his neck. The patient's past medical history is notable for coronary stent placed in June 2016 in the RCA. He is on Coumadin for previous DVT. His factors includes diabetes mellitus and hypertension. He underwent a cardiac catheterization 2 weeks ago which his stent was found to be patent with no critical lesions seen. SOCIAL HISTORY: Denies smoking. REVIEW OF SYSTEMS: Free of cardiac symptomatology. On physical exam, blood pressure 144/85, heart rate in the 50s. Neck: Negative JVD. Lungs: Without rales. Heart is S1, S2. Extremities: Without edema. EKG reveals normal sinus rhythm with diffuse ST-T changes. This is unchanged from his previous. LABORATORY DATA: Hemoglobin is 14.6. Chemistries, troponins are negative x2 with a glucose of 197. IMPRESSION: 1. Atypical chest pain associated with total body aches. 2. Stable angina. 3. CAD. 4. No evidence for acute coronary syndrome. 5. Previous PTCA and stent. 6. History of recent catheterization reveals no critical lesions. 7. Diabetes mellitus. 8. Hypertension. 9. Hypercholesterolemia. 10. History of deep venous thrombosis. Given these findings, a trial of his of Protonix to be appropriate. There is no evidence for acute coronary syndrome. Monico Hernandez MD
--- NOTE | 2017-07-21 09:48 | CP.PCM.PN ---
Subjective - Date & Time of Evaluation Date of Evaluation: 07/21/17 Time of Evaluation: 09:15 - Subjective Subjective: Patient seen and examined at bedside. No acute events since admission. Patient states that he continues to experience throbbing/aching pain near the sternum which radiates throughout his body. States that he is SOB with exertion. Also admits to back pain. Resting comfortably in bed. Denies fever, chills, abdominal pain, N/V, diarrhea, constipation. Objective - Vital Signs/Intake and Output Vital Signs (last 24 hours): Temp Pulse Resp BP Pulse Ox 98.2 F 49 L 20 144/85 100 07/21/17 06:00 07/21/17 06:00 07/21/17 06:00 07/21/17 06:00 07/21/17 06:00 Intake and Output: 07/21/17 07/21/17 06:59 18:59 Intake Total 0 Balance 0 - Medications Medications: Current Medications Amlodipine Besylate (Norvasc) 10 mg PO DAILY [facility] Aspirin (Ecotrin) 81 mg PO DAILY [facility] Atorvastatin Calcium (Lipitor) 40 mg PO DIN [facility] Last Admin: 07/20/17 18:54 Dose: 40 mg Clopidogrel Bisulfate (Plavix) 75 mg PO DAILY [facility] Last Admin: 07/20/17 18:54 Dose: 75 mg Gabapentin (Neurontin) 600 mg PO TID [facility] PRN Reason: Protocol Insulin Human Regular (Humulin R Low) 0 units SC ACHS [facility] PRN Reason: Protocol Last Admin: 07/21/17 08:43 Dose: Not Given Losartan Potassium (Cozaar) 100 mg PO DAILY [facility] Pantoprazole Sodium (Protonix Inj) 40 mg IVP Q12 [facility] Warfarin Sodium (Coumadin) 5 mg PO 1800 [facility] PRN Reason: Protocol Last Admin: 07/20/17 18:54 Dose: 5 mg - Labs Labs: 07/21/17 05:30 07/21/17 06:00 PT 18.5 Seconds (9.9-11.8) H 07/21/17 05:30 INR 1.71 (0.93-1.08) H 07/21/17 05:30 APTT 34.2 Seconds (23.7-30.8) H 07/21/17 05:30 - Additional Findings Additional findings: - Constitutional Appears: Non-toxic, No Acute Distress, Chronically Ill - Head Exam Head Exam: ATRAUMATIC, NORMAL INSPECTION, NORMOCEPHALIC - Eye Exam Eye Exam: Conjunctival injection, EOMI, Normal appearance, PERRL. absent: Scleral icterus Pupil Exam: NORMAL ACCOMODATION, PERRL. absent: Fixed, Irregular, Unequal - ENT Exam ENT Exam: Mucous Membranes Moist - Neck Exam Neck exam: Positive for: Full Rom, Normal Inspection. Negative for: Lymphadenopathy, Tenderness, Thyromegaly - Respiratory Exam Respiratory Exam: absent: Accessory Muscle Use, Chest Wall Tenderness, Rales, Rhonchi, Respiratory Distress - Cardiovascular Exam Cardiovascular Exam: Bradycardia, REGULAR RHYTHM, +S1, +S2. absent: Tachycardia , Irregular Rhythm, JVD, RRR, +S4 - GI/Abdominal Exam GI & Abdominal Exam: Normal Bowel Sounds, Soft. absent: Diminished Bowel Sounds , Distended, Firm, Hyperactive Bowel Sounds, Hypoactive Bowel Sounds, Rigid, Tenderness - Extremities Exam Extremities exam: Positive for: normal inspection, pedal pulses present (+1 radials bilaterally, faintly palpable dorsalis pedis bilaterally). Negative for : calf tenderness, pedal edema, tenderness - Back Exam Back exam: absent: CVA tenderness (L), CVA tenderness (R) - Neurological Exam Neurological exam: Alert, CN II-XII Intact, Oriented x3 Additional comments: motor and sensory grossly intact in all rogel 3/5 motor strength in left UE and 5/5 right UE 3/5 motor strength in left LE and 5/5 left LE Hesitant gait when moving from sitting to standing and maintaining pose Orthostatics: lying 148/88, sitting 142/92, standing 152/96 (dizziness when standing, prompting eye closing, no nystagmus) - Psychiatric Exam Psychiatric exam: Normal Affect, Normal Mood - Skin Skin Exam: Dry, Intact, Normal Color, Warm Assessment and Plan - Assessment and Plan (Free Text) Assessment: 52 y/o M with PMH of DM2, HTN, DVT with PE, 3 previous myocardial infarctions with stent placements, 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 CTA of chest and abdomen negative, Head CT negative, and troponins negative at this time. Will consult cardio and neuro for further follow up and continue home medications. Chest pain r/o aortic dissection Trops negative, continue to trend Cardiology consulted, Dr. Hernandez- stated it was atypical chest pain, no evidence of ACS, recommended PPI Continue ASA, Plavix CTA negative for dissection or PE Lipid Profile- ordered pending HgbA1c- ordered pending History of CVA Head CT negative Residual left side weakness, worsening numbness PT Eval pending OT Eval pending Hypertension Continue Norvasc and Cozaar Hold Lopressor due to bradycardia Hx DVT and PE Continue Warfarin 5 mg daily trend PT- INR, it is currently subtherapeutic at 1.71 Hypomagnesium Mag was 1.9, repleted and repeat Mag level DM 2 ISS low Finger sticks ACHS Gabapentin PPX Warfarin Protonix
--- NOTE | 2017-07-21 11:29 | CP.PCM.DIS ---
Addendum entered and electronically signed by Bradley Espinoza DO 07/21/17 17:25: Patient kept in hospital secondary to pending MRI report. Addendum entered and electronically signed by Bradley Espinoza DO 07/21/17 11:50: Physical Exam: MSK: Chest pain reproducible on palpation to the sternal region Original Note: <Bradley Espinoza - Last Filed: 07/21/17 11:47> Provider - Provider Date of Admission: 07/20/17 12:27 Attending physician: Tanner Roth MD Primary care physician: Tanner Roth MD Time Spent in preparation of Discharge (in minutes): 30 Diagnosis - Discharge Diagnosis (1) Chest pain Status: Acute Priority: Medium (2) Coronary artery disease Status: Acute Priority: Medium (3) Subtherapeutic anticoagulation Status: Acute Priority: Medium (4) Diabetes Status: Chronic Priority: Medium (5) HTN (hypertension) Status: Chronic Priority: Medium (6) Myocardial infarct, old Status: Chronic Priority: Medium Hospital Course - Lab Results Lab Results: Most Recent Lab Values WBC 4.5 10^3/ul (4.5-11.0) D 07/21/17 05:30 RBC 4.72 10^6/uL (3.5-6.1) 07/21/17 05:30 Hgb 14.6 g/dL (14.0-18.0) 07/21/17 05:30 Hct 40.3 % (42.0-52.0) L 07/21/17 05:30 MCV 85.4 fl (80.0-105.0) 07/21/17 05:30 MCH 30.9 pg (25.0-35.0) 07/21/17 05:30 MCHC 36.2 g/dl (31.0-37.0) 07/21/17 05:30 RDW 12.0 % (11.5-14.5) 07/21/17 05:30 Plt Count 199 10^3/uL (120.0-450.0) 07/21/17 05:30 MPV 8.0 fl (7.0-11.0) 07/21/17 05:30 Gran % 60.8 % (50.0-68.0) 07/20/17 10:30 Lymph % (Auto) 30.3 % (22.0-35.0) 07/20/17 10:30 Ness % (Auto) 6.6 % (1.0-6.0) H 07/20/17 10:30 Eos % (Auto) 2.0 % (1.5-5.0) 07/20/17 10:30 Baso % (Auto) 0.3 % (0.0-3.0) 07/20/17 10:30 Gran # 2.11 (1.4-6.5) 07/20/17 10:30 Lymph # 1.1 (1.2-3.4) L 07/20/17 10:30 Ness # 0.2 (0.1-0.6) 07/20/17 10:30 Eos # 0.1 (0.0-0.7) 07/20/17 10:30 Baso # 0.01 K/mm3 (0.0-2.0) 07/20/17 10:30 PT 18.5 Seconds (9.9-11.8) H 07/21/17 05:30 INR 1.71 (0.93-1.08) H 07/21/17 05:30 APTT 34.2 Seconds (23.7-30.8) H 07/21/17 05:30 Sodium 140 mmol/L (132-148) 07/21/17 06:00 Potassium 3.9 mmol/L (3.6-5.0) 07/21/17 06:00 Chloride 104 mmol/L (98-107) 07/21/17 06:00 Carbon Dioxide 24 mmol/L (21-33) 07/21/17 06:00 Anion Gap 16 (10-20) 07/21/17 06:00 BUN 11 mg/dL (7-21) 07/21/17 06:00 Creatinine 0.8 mg/dL (0.5-1.4) 07/21/17 06:00 Est GFR ( Amer) > 60 07/21/17 06:00 Est GFR (Non-Af Amer) > 60 07/21/17 06:00 POC Glucose (mg/dL) 183 mg/dL (65-110) H 07/21/17 10:59 Random Glucose 117 mg/dL (70-110) H 07/21/17 06:00 Calcium 9.9 mg/dL (8.4-10.5) 07/21/17 06:00 Phosphorus 3.5 mg/dL (2.5-4.5) 07/20/17 19:25 Magnesium 1.7 mg/dL (1.7-2.2) 07/21/17 06:30 Total Bilirubin 0.8 mg/dL (0.2-1.3) 07/21/17 06:00 AST 17 U/L (17-59) 07/21/17 06:00 ALT 37 U/L (7-56) 07/21/17 06:00 Alkaline Phosphatase 67 U/L (38-126) 07/21/17 06:00 Lactate Dehydrogenase 415 U/L (333-699) 07/20/17 10:30 Total Creatine Kinase 90 U/L (35-230) 07/20/17 10:30 Troponin I < 0.01 ng/mL 07/20/17 19:25 NT-Pro-B Natriuret Pep 29.7 pg/mL (0-450) 07/20/17 10:30 Total Protein 7.1 g/dL (5.8-8.3) 07/21/17 06:00 Albumin 4.5 g/dL (3.0-4.8) 07/21/17 06:00 Globulin 2.6 gm/dL 07/21/17 06:00 Albumin/Globulin Ratio 1.7 (1.1-1.8) 07/21/17 06:00 Triglycerides 182 mg/dL (35-160) H 07/21/17 06:00 Cholesterol 193 mg/dL (130-200) 07/21/17 06:00 LDL Cholesterol Direct 137 mg/dL (0-129) H 07/21/17 06:00 HDL Cholesterol 37 mg/dL (29-60) 07/21/17 06:00 TSH 3rd Generation 1.99 mIU/mL (0.46-4.68) 07/21/17 06:00 Urine Color Yellow (YELLOW) 07/20/17 13:50 Urine Appearance Clear (CLEAR) 07/20/17 13:50 Urine pH 7.0 (4.7-8.0) 07/20/17 13:50 Ur Specific [place] 1.010 (1.005-1.035) 07/20/17 13:50 Urine Protein Negative mg/dL (<30 mg/dL) 07/20/17 13:50 Urine Glucose (UA) Negative mg/dL (NEGATIVE) 07/20/17 13:50 Urine Ketones Negative mg/dL (NEGATIVE) 07/20/17 13:50 Urine Blood Negative (NEGATIVE) 07/20/17 13:50 Urine Nitrate Negative (NEGATIVE) 07/20/17 13:50 Urine Bilirubin Negative (NEGATIVE) 07/20/17 13:50 Urine Urobilinogen 1.0 E.U./dL (<1 E.U./dL) H 07/20/17 13:50 Ur Leukocyte Esterase Negative Josy/uL (NEGATIVE) 07/20/17 13:50 - Hospital Course Hospital Course: Patient is a 52 year old male PMH of DM2, HTN, DVT with PE, 3 previous myocardial infarctions with stent placements, 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 CTA of chest was negative for dissection and PE. Troponins negative x 2 to rule out acute NC. CT of the head was negative to rule out acute stroke. Cardiology and neurology were consulted. Cardiology determined there was no evidence of ACS and stated patient experienced atypical chest pain. Neurology stated that patients numbness and weakness were likely secondary to residual effects from his prior CVAs and recommended continuing ASA /Plavix/Lipitor for stroke prevention. During the hospital stay the patients INR was subtherapeutic and so his home warfarin will be increased from 2.5mg to 3mg. Patient instructed to also continue home medications and take medications as prescribed. He was instructed to follow up with primary care physician on Wednesday07/23/[address] Hernandez in 1 week. Patient informed to return to ED for evaluation of fever, chills, intractable headache, dizziness, chest pain, SOB, abdominal pain, N/V, diarrhea, constipation, and urinary symptoms. Patient understands, appreciates, and agrees with discharge plan. Patient is stable for discharge to home with self care. Discharge Exam - Head Exam Head Exam: ATRAUMATIC, NORMAL INSPECTION, NORMOCEPHALIC - Additional Findings Additional findings: - Constitutional Appears: Non-toxic, No Acute Distress, Chronically Ill - Head Exam Head Exam: ATRAUMATIC, NORMAL INSPECTION, NORMOCEPHALIC - Eye Exam Eye Exam: Conjunctival injection, EOMI, Normal appearance, PERRL. absent: Scleral icterus Pupil Exam: NORMAL ACCOMODATION, PERRL. absent: Fixed, Irregular, Unequal - ENT Exam ENT Exam: Mucous Membranes Moist - Neck Exam Neck exam: Positive for: Full Rom, Normal Inspection. Negative for: Lymphadenopathy, Tenderness, Thyromegaly - Respiratory Exam Respiratory Exam: absent: Accessory Muscle Use, Chest Wall Tenderness, Rales, Rhonchi, Respiratory Distress - Cardiovascular Exam Cardiovascular Exam: Bradycardia, REGULAR RHYTHM, +S1, +S2. absent: Tachycardia , Irregular Rhythm, JVD, RRR, +S4 - GI/Abdominal Exam GI & Abdominal Exam: Normal Bowel Sounds, Soft. absent: Diminished Bowel Sounds , Distended, Firm, Hyperactive Bowel Sounds, Hypoactive Bowel Sounds, Rigid, Tenderness - Extremities Exam Extremities exam: Positive for: normal inspection, pedal pulses present (+1 radials bilaterally, faintly palpable dorsalis pedis bilaterally). Negative for : calf tenderness, pedal edema, tenderness - Back Exam Back exam: absent: CVA tenderness (L), CVA tenderness (R) - Neurological Exam Neurological exam: Alert, CN II-XII Intact, Oriented x3 Additional comments: sensory intact to touch in all rogel 4/5 motor strength in left UE and 5/5 right UE 4/5 motor strength in left LE and 5/5 left LE - Psychiatric Exam Psychiatric exam: Normal Affect, Normal Mood - Skin Skin Exam: Dry, Intact, Normal Color, Warm Discharge Plan - Discharge Medications Prescriptions: Warfarin [Coumadin] 3 mg PO 1800 #2 tab - Follow Up Plan Condition: SERIOUS Disposition: TRANSF TO SNF Patient education suggested?: Yes Instructions: Chest Pain (DC), Chest Pain (GEN), Acute Abdominal Pain (DC) Additional Instructions: Discharge Instructions Patient is in dual antiplatelet therapy and anticoagulant. Please exercise fall precautions and bleeding precautions. Follow up with primary care doctor in [facility] Follow up with cardiology in 1-2 weeks New Meds Increase coumadin from 2.5mg daily to 3mg daily Please take this med per doctor instruction. Protonix trial x 4 weeks. Referrals: Tanner Roth MD [Primary Care Provider] - Monico Hernandez MD [Staff Provider] - <ChantelleJacob - Last Filed: 08/27/17 16:47> Provider - Provider Date of Admission: 07/20/17 12:27 Attending physician: Tanner Roth MD Primary care physician: Tanner Roth MD Hospital Course - Lab Results Lab Results: Most Recent Lab Values WBC 4.0 10^3/ul (4.5-11.0) L 07/22/17 06:15 RBC 4.63 10^6/uL (3.5-6.1) 07/22/17 06:15 Hgb 13.9 g/dL (14.0-18.0) L 07/22/17 06:15 Hct 39.9 % (42.0-52.0) L 07/22/17 06:15 MCV 86.2 fl (80.0-105.0) 07/22/17 06:15 MCH 30.0 pg (25.0-35.0) 07/22/17 06:15 MCHC 34.8 g/dl (31.0-37.0) 07/22/17 06:15 RDW 12.2 % (11.5-14.5) 07/22/17 06:15 Plt Count 201 10^3/uL (120.0-450.0) 07/22/17 06:15 MPV 8.2 fl (7.0-11.0) 07/22/17 06:15 Gran % 60.8 % (50.0-68.0) 07/20/17 10:30 Lymph % (Auto) 30.3 % (22.0-35.0) 07/20/17 10:30 Ness % (Auto) 6.6 % (1.0-6.0) H 07/20/17 10:30 Eos % (Auto) 2.0 % (1.5-5.0) 07/20/17 10:30 Baso % (Auto) 0.3 % (0.0-3.0) 07/20/17 10:30 Gran # 2.11 (1.4-6.5) 07/20/17 10:30 Lymph # 1.1 (1.2-3.4) L 07/20/17 10:30 Ness # 0.2 (0.1-0.6) 07/20/17 10:30 Eos # 0.1 (0.0-0.7) 07/20/17 10:30 Baso # 0.01 K/mm3 (0.0-2.0) 07/20/17 10:30 PT 18.2 Seconds (9.9-11.8) H 07/23/17 13:22 INR 1.69 (0.93-1.08) H 07/23/17 13:22 APTT 33.3 Seconds (23.7-30.8) H 07/22/17 06:15 Sodium 141 mmol/L (132-148) 07/22/17 06:15 Potassium 4.2 mmol/L (3.6-5.0) 07/22/17 06:15 Chloride 106 mmol/L (98-107) 07/22/17 06:15 Carbon Dioxide 27 mmol/L (21-33) 07/22/17 06:15 Anion Gap 12 (10-20) 07/22/17 06:15 BUN 14 mg/dL (7-21) 07/22/17 06:15 Creatinine 0.8 mg/dL (0.5-1.4) 07/22/17 06:15 Est GFR ( Amer) > 60 07/22/17 06:15 Est GFR (Non-Af Amer) > 60 07/22/17 06:15 POC Glucose (mg/dL) 195 mg/dL (65-110) H 07/23/17 15:58 Random Glucose 132 mg/dL (70-110) H 07/22/17 06:15 Hemoglobin A1c 6.2 % (4.2-6.5) 07/21/17 06:00 Calcium 9.8 mg/dL (8.4-10.5) 07/22/17 06:15 Phosphorus 3.5 mg/dL (2.5-4.5) 07/20/17 19:25 Magnesium 1.7 mg/dL (1.7-2.2) 07/21/17 06:30 Total Bilirubin 0.6 mg/dL (0.2-1.3) 07/22/17 06:15 AST 27 U/L (17-59) 07/22/17 06:15 ALT 40 U/L (7-56) 07/22/17 06:15 Alkaline Phosphatase 60 U/L (38-126) 07/22/17 06:15 Lactate Dehydrogenase 415 U/L (333-699) 07/20/17 10:30 Total Creatine Kinase 90 U/L (35-230) 07/20/17 10:30 Troponin I < 0.01 ng/mL 07/20/17 19:25 NT-Pro-B Natriuret Pep 29.7 pg/mL (0-450) 07/20/17 10:30 Total Protein 7.0 g/dL (5.8-8.3) 07/22/17 06:15 Albumin 4.2 g/dL (3.0-4.8) 07/22/17 06:15 Globulin 2.8 gm/dL 07/22/17 06:15 Albumin/Globulin Ratio 1.5 (1.1-1.8) 07/22/17 06:15 Triglycerides 182 mg/dL (35-160) H 07/21/17 06:00 Cholesterol 193 mg/dL (130-200) 07/21/17 06:00 LDL Cholesterol Direct 137 mg/dL (0-129) H 07/21/17 06:00 HDL Cholesterol 37 mg/dL (29-60) 07/21/17 06:00 TSH 3rd Generation 1.99 mIU/mL (0.46-4.68) 07/21/17 06:00 Urine Color Yellow (YELLOW) 07/20/17 13:50 Urine Appearance Clear (CLEAR) 07/20/17 13:50 Urine pH 7.0 (4.7-8.0) 07/20/17 13:50 Ur Specific [place] 1.010 (1.005-1.035) 07/20/17 13:50 Urine Protein Negative mg/dL (<30 mg/dL) 07/20/17 13:50 Urine Glucose (UA) Negative mg/dL (NEGATIVE) 07/20/17 13:50 Urine Ketones Negative mg/dL (NEGATIVE) 07/20/17 13:50 Urine Blood Negative (NEGATIVE) 07/20/17 13:50 Urine Nitrate Negative (NEGATIVE) 07/20/17 13:50 Urine Bilirubin Negative (NEGATIVE) 07/20/17 13:50 Urine Urobilinogen 1.0 E.U./dL (<1 E.U./dL) H 07/20/17 13:50 Ur Leukocyte Esterase Negative Josy/uL (NEGATIVE) 07/20/17 13:50 Attending/Attestation - Attestation I have personally seen and examined this patient.: Yes I have fully participated in the care of the patient.: Yes I have reviewed all pertinent clinical information, including history, physical exam and plan: Yes Notes (Text): 08/27/17 16:47 Medical record note made by the resident after discussion with my direction and input after the patient was personally seen and examined by me. I have reviewed the chart and agree that the record accurately reflects by personal performance of the history, physical exam, data review, and medical decision-making, in the course for the patient. I have also personally directed the plan of care.
--- NOTE | 2017-07-21 14:02 | CP.PCM.PN ---
<Dillon Sandhu - Last Filed: 07/21/17 13:58> Subjective - Date & Time of Evaluation Date of Evaluation: 07/21/17 Time of Evaluation: 10:20 - Subjective Subjective: Neurology Progress Note for Dr. De Guzman Service Patient seen and examined at bedside, no acute complaints at time of exam. Reports some dizziness with standing only. No overnight events reported. Denies current chest pain, shortness of breath, vision changes, nausea/emesis, or new/worsened paresthesias. Objective - Vital Signs/Intake and Output Vital Signs (last 24 hours): Temp Pulse Resp BP Pulse Ox 98.3 F 61 18 156/99 H 100 07/21/17 11:52 07/21/17 11:52 07/21/17 11:52 07/21/17 11:52 07/21/17 06:00 Intake and Output: 07/21/17 07/21/17 06:59 18:59 Intake Total 0 Balance 0 - Medications Medications: Current Medications Acetaminophen (Tylenol 325mg Tab) 650 mg PO Q4H PRN PRN Reason: Pain, moderate (4-7) Last Admin: 07/21/17 13:04 Dose: 650 mg Amlodipine Besylate (Norvasc) 10 mg PO DAILY [facility] Last Admin: 07/21/17 09:48 Dose: 10 mg Aspirin (Ecotrin) 81 mg PO DAILY [facility] Last Admin: 07/21/17 09:47 Dose: 81 mg Atorvastatin Calcium (Lipitor) 40 mg PO DIN [facility] Last Admin: 07/20/17 18:54 Dose: 40 mg Clopidogrel Bisulfate (Plavix) 75 mg PO DAILY [facility] Last Admin: 07/21/17 09:47 Dose: 75 mg Gabapentin (Neurontin) 600 mg PO TID [facility] PRN Reason: Protocol Last Admin: 07/21/17 09:47 Dose: 600 mg Insulin Human Regular (Humulin R Low) 0 units SC ACHS [facility] PRN Reason: Protocol Last Admin: 07/21/17 12:24 Dose: 1 units Losartan Potassium (Cozaar) 100 mg PO DAILY [facility] Last Admin: 07/21/17 09:47 Dose: 100 mg Pantoprazole Sodium (Protonix Inj) 40 mg IVP Q12 [facility] Last Admin: 07/21/17 09:48 Dose: 40 mg Warfarin Sodium (Coumadin) 5 mg PO 1800 [facility] PRN Reason: Protocol Last Admin: 07/20/17 18:54 Dose: 5 mg - Labs Labs: 07/21/17 05:30 07/21/17 06:00 PT 18.5 Seconds (9.9-11.8) H 07/21/17 05:30 INR 1.71 (0.93-1.08) H 07/21/17 05:30 APTT 34.2 Seconds (23.7-30.8) H 07/21/17 05:30 - Additional Findings Additional findings: - Constitutional Appears: Non-toxic, No Acute Distress, Chronically Ill - Head Exam Head Exam: ATRAUMATIC, NORMAL INSPECTION, NORMOCEPHALIC - Eye Exam Eye Exam: Conjunctival injection, EOMI. absent: Scleral icterus Pupil Exam: absent: Irregular, Unequal - ENT Exam ENT Exam: Mucous Membranes Moist - Neck Exam Neck exam: Positive for: Full Rom, Normal Inspection. - Respiratory Exam Respiratory Exam: Decreased Breath Sounds (mildly decreased breath sounds all rogel), Prolonged Expiratory Phase, Wheezes (faint end-expiratory wheezes in all rogel, unchanged from yesterday). absent: Accessory Muscle Use, Chest Wall Tenderness, Rales, Rhonchi, Respiratory Distress - Cardiovascular Exam Cardiovascular Exam: Bradycardia, REGULAR RHYTHM, +S1, +S2. absent: Tachycardia , Irregular Rhythm, JVD, RRR, +S4 - GI/Abdominal Exam GI & Abdominal Exam: Normal Bowel Sounds, Soft. absent: Diminished Bowel Sounds , Distended, Firm, Hyperactive Bowel Sounds, Hypoactive Bowel Sounds, Rigid, Tenderness - Extremities Exam Extremities exam: Positive for: normal inspection, pedal pulses present (+1 radials bilaterally, faintly palpable dorsalis pedis bilaterally). Negative for : calf tenderness, pedal edema, tenderness - Neurological Exam Neurological exam: Alert, CN II-XII Intact, Oriented x3 Additional comments: motor and sensory grossly intact in all rogel 4/5 motor strength in bilateral UE and LE Hesitant gait when moving from sitting to standing and maintaining pose - Psychiatric Exam Psychiatric exam: Normal Affect, Normal Mood - Skin Skin Exam: Dry, Intact, Normal Color, Warm Assessment and Plan - Assessment and Plan (Free Text) Assessment: This is a 52 yo AA M with PMH of DM2, HTN, DVT with PE, 3 prior MIs s/p stenting , 2 prior CVAs with residual left-sided weakness who presented to [facility] with initial complaint of shortness of breath, but is now complaining of bilateral LE pain and LUE numbness/pain. His symptoms are likely secondary to chronic lumbosacral neuritis (underlying cause of chronic back pain) as well as neuropathy (2/2 DM and residual from prior CVAs). Less likely new embolic disease as on dual anti-platelets and a blood thinner, but as INR indicates currently subtherapeutic, will obtain an MRI to rule out new embolic disease; if MRI is normal then clear for d/c from Neuro standpoint. Plan: 1) Continue current Neurontin regimen (600mg TID) 2) Noted to be on dual anti-platelets (ASA and Plavix) as well as blood thinner (Coumadin), high risk for bleeding if falls but benefits outweigh risks as this is regimen that patient has been successful with as per Primary 3) MRI ordered to rule out embolic disease; if MRI normal, clear for d/c from neuro standpoint 4) PT/OT assessment for possible RICARDO after d/c Patient seen, reviewed, and discussed with attending, Dr. Maricruz De Guzman. <Renzo De Guzman - Last Filed: 07/21/17 14:55> Objective - Vital Signs/Intake and Output Vital Signs (last 24 hours): Temp Pulse Resp BP Pulse Ox 98.3 F 61 18 156/99 H 100 07/21/17 11:52 07/21/17 11:52 07/21/17 11:52 07/21/17 11:52 07/21/17 06:00 Intake and Output: 07/21/17 07/21/17 06:59 18:59 Intake Total 0 Balance 0 - Medications Medications: Current Medications Acetaminophen (Tylenol 325mg Tab) 650 mg PO Q4H PRN PRN Reason: Pain, moderate (4-7) Last Admin: 07/21/17 13:04 Dose: 650 mg Amlodipine Besylate (Norvasc) 10 mg PO DAILY [facility] Last Admin: 07/21/17 09:48 Dose: 10 mg Aspirin (Ecotrin) 81 mg PO DAILY [facility] Last Admin: 07/21/17 09:47 Dose: 81 mg Atorvastatin Calcium (Lipitor) 40 mg PO DIN [facility] Last Admin: 07/20/17 18:54 Dose: 40 mg Clopidogrel Bisulfate (Plavix) 75 mg PO DAILY [facility] Last Admin: 07/21/17 09:47 Dose: 75 mg Gabapentin (Neurontin) 600 mg PO TID [facility] PRN Reason: Protocol Last Admin: 07/21/17 09:47 Dose: 600 mg Insulin Human Regular (Humulin R Low) 0 units SC ACHS [facility] PRN Reason: Protocol Last Admin: 07/21/17 12:24 Dose: 1 units Losartan Potassium (Cozaar) 100 mg PO DAILY [facility] Last Admin: 07/21/17 09:47 Dose: 100 mg Pantoprazole Sodium (Protonix Inj) 40 mg IVP Q12 [facility] Last Admin: 07/21/17 09:48 Dose: 40 mg Warfarin Sodium (Coumadin) 5 mg PO 1800 [facility] PRN Reason: Protocol Last Admin: 07/20/17 18:54 Dose: 5 mg - Labs Labs: 07/21/17 05:30 07/21/17 06:00 PT 18.5 Seconds (9.9-11.8) H 07/21/17 05:30 INR 1.71 (0.93-1.08) H 07/21/17 05:30 APTT 34.2 Seconds (23.7-30.8) H 07/21/17 05:30 Attending/Attestation - Attestation I have personally seen and examined this patient.: Yes I have fully participated in the care of the patient.: Yes I have reviewed all pertinent clinical information, including history, physical exam and plan: Yes
--- NOTE | 2017-07-21 18:02 | MRI ---
PROCEDURE: MRI BRAIN WITHOUT CONTRAST HISTORY: LEFT SIDE WEKANESS. COMPARISON: Comparison is made to the previous study dated 06/21/2016 TECHNIQUE: Multiplanar, multisequence MR images of the brain were obtained without intravenous contrast enhancement. FINDINGS: HEMORRHAGE: None DWI: No evidence of an acute or early subacute infarction. BRAIN PARENCHYMA: Again seen is focal encephalomalacia at the right occipital lobe surrounding with the mild edema. No evidence of mass lesion mass effect or midline shift. Few small foci of hyperintense signal in the white matter likely represent mild chronic microvascular disease. VENTRICLES: Mild ex vacuo dietitian of the right lateral ventricle occipital horn. CRANIUM: Unremarkable. ORBITS: Grossly unremarkable. PARANASAL SINUSES/MASTOIDS: Clear VASCULAR SYSTEM: Skull base flow voids intact. OTHER FINDINGS: None. IMPRESSION: No evidence of acute infarction or acute pathology in the brain. No significant interval change compared to the previous study dated 06/21/2016. Re- demonstration of old infarction at the right occipital lobe.
[2017-07-22 07:21] LABS: HEMATOCRIT 39.9 % (42.0-52.0); MEAN CELL VOLUME 86.2 fl (80.0-105.0); MEAN CORPUSCULAR HGB CONC 34.8 g/dl (31.0-37.0); MEAN PLATELET VOLUME 8.2 fl (7.0-11.0); RED CELL DISTRIBUTION WIDTH 12.2 % (11.5-14.5)
[2017-07-22 07:25] LABS: ALB/GLOB RATIO 1.5 (1.1-1.8); ALKALINE PHOSPHATASE 60 U/L (38-126); ALT/SGPT 40 U/L (7-56); AST/SGOT 27 U/L (17-59); BILIRUBIN,TOTAL 0.6 mg/dL (0.2-1.3); BLOOD UREA NITROGEN 14 mg/dL (7-21); CALCIUM 9.8 mg/dL (8.4-10.5); CARBON DIOXIDE 27 mmol/L (21-33); CHLORIDE 106 mmol/L (98-107); GFR AFRICAN-AMERICAN > 60; GLUCOSE,RANDOM 132 mg/dL (70-110); POTASSIUM 4.2 mmol/L (3.6-5.0); SODIUM 141 mmol/L (132-148)
[2017-07-22 07:27] LABS: INR 1.61 (0.93-1.08); PARTIAL THROMBOPLASTIN TIME 33.3 Seconds (23.7-30.8)
[2017-07-22] MEDS: Insulin Reg-LOW-Coverage SC SCH ×4 (08:46→21:40)
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
--- NOTE | 2017-07-22 11:37 | CP.PCM.PN ---
Subjective - Date & Time of Evaluation Date of Evaluation: 07/22/17 Time of Evaluation: 10:30 - Subjective Subjective: Patient seen and examined. No acute events overnight. Patient states chest pain has improved. However, he states that he has nonradiating epigastric pain. Patient is tolerating diet. Admits to constipation. Denies f/c/cp/sob/n/v/ diarrhea. Objective - Vital Signs/Intake and Output Vital Signs (last 24 hours): Temp Pulse Resp BP Pulse Ox 98.5 F 55 L 18 152/66 H 99 07/22/17 05:58 07/22/17 06:00 07/22/17 05:58 07/22/17 10:05 07/22/17 05:58 Intake and Output: 07/22/17 07/22/17 06:59 18:59 Intake Total 740 Balance 740 - Medications Medications: Current Medications Acetaminophen (Tylenol 325mg Tab) 650 mg PO Q4H PRN PRN Reason: Pain, moderate (4-7) Last Admin: 07/21/17 20:26 Dose: 650 mg Amlodipine Besylate (Norvasc) 10 mg PO DAILY [facility] Last Admin: 07/22/17 10:05 Dose: 10 mg Aspirin (Ecotrin) 81 mg PO DAILY [facility] Last Admin: 07/22/17 10:06 Dose: 81 mg Atorvastatin Calcium (Lipitor) 40 mg PO DIN [facility] Last Admin: 07/21/17 18:12 Dose: 40 mg Clopidogrel Bisulfate (Plavix) 75 mg PO DAILY [facility] Last Admin: 07/22/17 10:06 Dose: 75 mg Docusate Sodium (Colace) 100 mg PO BID PRN PRN Reason: Constipation Last Admin: 07/22/17 00:22 Dose: 100 mg Gabapentin (Neurontin) 600 mg PO TID [facility] PRN Reason: Protocol Last Admin: 07/22/17 10:06 Dose: 600 mg Insulin Human Regular (Humulin R Low) 0 units SC ACHS [facility] PRN Reason: Protocol Last Admin: 07/22/17 08:46 Dose: Not Given Losartan Potassium (Cozaar) 100 mg PO DAILY [facility] Last Admin: 07/22/17 10:06 Dose: 100 mg Pantoprazole Sodium (Protonix Inj) 40 mg IVP Q12 [facility] Last Admin: 07/22/17 10:06 Dose: 40 mg Polyethylene Glycol (Miralax) 17 gm PO Q4H [facility] Stop: 07/22/17 22:46 Warfarin Sodium (Coumadin) 5 mg PO 1800 [facility] PRN Reason: Protocol Last Admin: 07/21/17 18:12 Dose: 5 mg - Labs Labs: 07/22/17 06:15 07/22/17 06:15 PT 17.4 Seconds (9.9-11.8) H 07/22/17 06:15 INR 1.61 (0.93-1.08) H 07/22/17 06:15 APTT 33.3 Seconds (23.7-30.8) H 07/22/17 06:15 - Additional Findings Additional findings: - Head Exam Head Exam: ATRAUMATIC, NORMAL INSPECTION, NORMOCEPHALIC - Additional Findings Additional findings: - Constitutional Appears: Non-toxic, No Acute Distress, Chronically Ill - Head Exam Head Exam: ATRAUMATIC, NORMAL INSPECTION, NORMOCEPHALIC - Eye Exam Eye Exam: Conjunctival injection, EOMI, Normal appearance, PERRL. absent: Scleral icterus Pupil Exam: NORMAL ACCOMODATION, PERRL. absent: Fixed, Irregular, Unequal - ENT Exam ENT Exam: Mucous Membranes Moist - Neck Exam Neck exam: Positive for: Full Rom, Normal Inspection. Negative for: Lymphadenopathy, Tenderness, Thyromegaly - Respiratory Exam Respiratory Exam: absent: Accessory Muscle Use, Chest Wall Tenderness, Rales, Rhonchi, Respiratory Distress - Cardiovascular Exam Cardiovascular Exam: Bradycardia, REGULAR RHYTHM, +S1, +S2. absent: Tachycardia , Irregular Rhythm, JVD, RRR, +S4 - GI/Abdominal Exam GI & Abdominal Exam: Normal Bowel Sounds, Soft, tender to palpation in epigastric region. absent: Diminished Bowel Sounds, Distended, Firm, Hyperactive Bowel Sounds, Hypoactive Bowel Sounds, Rigid - Extremities Exam Extremities exam: Positive for: normal inspection, pedal pulses present (+1 radials bilaterally, faintly palpable dorsalis pedis bilaterally). Negative for : calf tenderness, pedal edema, tenderness - Back Exam Back exam: absent: CVA tenderness (L), CVA tenderness (R) - Neurological Exam Neurological exam: Alert, CN II-XII Intact, Oriented x3 Additional comments: sensory intact to touch in all rogel 4/5 motor strength in left UE and 5/5 right UE 4/5 motor strength in left LE and 5/5 left LE - Psychiatric Exam Psychiatric exam: Normal Affect, Normal Mood - Skin Skin Exam: Dry, Intact, Normal Color, Warm Assessment and Plan (1) Chest pain Status: Acute (2) Coronary artery disease Status: Acute (3) Subtherapeutic anticoagulation Status: Acute (4) Diabetes Status: Chronic (5) HTN (hypertension) Status: Chronic (6) Myocardial infarct, old Status: Chronic - Assessment and Plan (Free Text) Assessment: 52 y/o M with PMH of DM2, HTN, DVT with PE, 3 previous myocardial infarctions with stent placements, 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 Abdominal Pain - ultrasound of gallbladde rule out gallstones - CT of abdomen - GI Consult Chest pain - CTA negative r/o aortic dissection and PE - Trops negative- no ACS continue to trend - Cardiology consulted, Dr. Hernandez- no ACS, recommended PPI trial - Continue ASA, Plavix Constipation - Miralax regiment History of CVA - Head CT negative - Residual left side weakness, worsening numbness - RICARDO on discharge pending case management - Neuro following- MRI reviewed, no acute findings Hypertension - Continue Norvasc and Cozaar - Hold Lopressor due to bradycardia Hx DVT and PE - PT noted to decrease from 1.71 to 1.61 - Continue Warfarin 5 mg daily recheck PT- INR tmr DM 2 - ISS low - Finger sticks ACHS - Gabapentin PPX - Warfarin - Protonix
[2017-07-22] MEDS: POLYETHYLENE GLYCOL 3350 17 GM/Dose PACKET PO SCH ×3 (12:28→18:25)
[2017-07-22 12:37] VITALS: RESP 20
--- NOTE | 2017-07-22 12:51 | PN ---
DATE: 07/22/2017 SUBJECTIVE: The patient is ambulating without symptoms. PHYSICAL EXAMINATION: VITAL SIGNS: Blood pressure is 152/66, heart rate in the 50s. NECK: Negative JVD. LUNGS: Without rales. HEART: S1, S2. EXTREMITIES: Without edema. LABORATORY DATA: Hemoglobin is 13.9. Chemistries, troponins are negative. IMPRESSION 1. Stable angina. 2. Coronary artery disease. 3. History of percutaneous transluminal coronary angioplasty and stent. 4. Diabetes mellitus. 5. History of deep venous thrombosis. PLAN: Given these findings, the patient will discontinue telemetry today. The patient is for GI workup. Monico Hernandez MD
--- NOTE | 2017-07-22 13:14 | CT ---
PROCEDURE: CT Abdomen and Pelvis without intravenous contrast HISTORY: epigastric pain COMPARISON: 12/16/2015 TECHNIQUE: Without contrast.. Contrast Dose: 0 Radiation dose: Total exam DLP = 670.63 mGy-cm. This CT exam was performed using one or more of the following dose reduction techniques: Automated exposure control, adjustment of the mA and/or kV according to patient size, and/or use of iterative reconstruction technique. FINDINGS: LOWER THORAX: Linear scar/ atelectasis in left lower lobe. LIVER: Unremarkable. No gross lesion or ductal dilatation. GALLBLADDER AND BILE DUCTS: Contracted with calcified gallstones. No mural thickening or pericholecystic fluid. PANCREAS: Unremarkable. No gross lesion or ductal dilatation. SPLEEN: Unremarkable. ADRENALS: Unremarkable. No mass. KIDNEYS AND URETERS: Unremarkable. No hydronephrosis. No solid mass. VASCULATURE: Unremarkable. No aortic aneurysm. BOWEL: Unremarkable. No obstruction. No gross mural thickening. APPENDIX: Unremarkable. Normal appendix. PERITONEUM: Unremarkable. No free fluid. No free air. LYMPH NODES: Unremarkable. No enlarged lymph nodes. BLADDER: Nondistended REPRODUCTIVE: Unremarkable prostate BONES: No acute fracture. OTHER FINDINGS: None. IMPRESSION: Cholelithiasis without evidence of cholecystitis. No other significant abnormality.
--- NOTE | 2017-07-22 13:43 | US ---
HISTORY: epigastric pain COMPARISON: None. TECHNIQUE: Sonographic evaluation of the right upper quadrant of the abdomen. FINDINGS: LIVER: Measures 16.7 cm in length. Normal echogenicity of the liver parenchyma. No mass. No intrahepatic bile duct dilatation. GALLBLADDER: Numerous gallstones. Contracted. Mild mural thickening up to 4 mm. No pericholecystic fluid. Negative sonographic Nuñez sign. COMMON BILE DUCT: Measures 4 mm. No stones. No dilatation. PANCREAS: Limited visualization. No gross abnormality. RIGHT KIDNEY: Measures 11.2 cm in length. Normal echogenicity. No calculus, mass, or hydronephrosis. AORTA: Could not be visualized due to overlying bowel gas. IVC: Unremarkable. OTHER FINDINGS: None . IMPRESSION: Cholelithiasis without sonographic evidence of cholecystitis. Otherwise unremarkable.
--- NOTE | 2017-07-22 21:19 | CP.PCM.PN ---
<Dillon Sandhu - Last Filed: 07/22/17 21:08> Subjective - Date & Time of Evaluation Date of Evaluation: 07/22/17 Time of Evaluation: 10:30 - Subjective Subjective: Neurology Progress Note for Dr. De Guzman Service Patient seen and examined at bedside, still no acute complaints at time of exam. No further dizziness with standing reported. No overnight events reported. Denies current chest pain, shortness of breath, vision changes, nausea/emesis, or new/worsened paresthesias. Objective - Vital Signs/Intake and Output Vital Signs (last 24 hours): Temp Pulse Resp BP Pulse Ox 98.1 F 57 L 20 141/93 H 99 07/22/17 17:40 07/22/17 17:40 07/22/17 17:40 07/22/17 17:40 07/22/17 05:58 - Medications Medications: Current Medications Acetaminophen (Tylenol 325mg Tab) 650 mg PO Q4H PRN PRN Reason: Pain, moderate (4-7) Last Admin: 07/22/17 15:39 Dose: 650 mg Amlodipine Besylate (Norvasc) 10 mg PO DAILY [facility] Last Admin: 07/22/17 10:05 Dose: 10 mg Aspirin (Ecotrin) 81 mg PO DAILY [facility] Last Admin: 07/22/17 10:06 Dose: 81 mg Atorvastatin Calcium (Lipitor) 40 mg PO DIN [facility] Last Admin: 07/22/17 18:21 Dose: 40 mg Clopidogrel Bisulfate (Plavix) 75 mg PO DAILY [facility] Last Admin: 07/22/17 10:06 Dose: 75 mg Docusate Sodium (Colace) 100 mg PO BID PRN PRN Reason: Constipation Last Admin: 07/22/17 14:47 Dose: 100 mg Gabapentin (Neurontin) 600 mg PO TID [facility] PRN Reason: Protocol Last Admin: 07/22/17 18:21 Dose: 600 mg Insulin Human Regular (Humulin R Low) 0 units SC ACHS [facility] PRN Reason: Protocol Last Admin: 07/22/17 18:21 Dose: 1 units Losartan Potassium (Cozaar) 100 mg PO DAILY [facility] Last Admin: 07/22/17 10:06 Dose: 100 mg Pantoprazole Sodium (Protonix Inj) 40 mg IVP Q12 [facility] Last Admin: 07/22/17 10:06 Dose: 40 mg Polyethylene Glycol (Miralax) 17 gm PO Q4H [facility] Stop: 07/22/17 22:46 Last Admin: 07/22/17 18:25 Dose: 17 gm Warfarin Sodium (Coumadin) 5 mg PO 1800 [facility]EL PRN Reason: Protocol Last Admin: 07/22/17 18:21 Dose: 5 mg - Labs Labs: 07/22/17 06:15 07/22/17 06:15 PT 17.4 Seconds (9.9-11.8) H 07/22/17 06:15 INR 1.61 (0.93-1.08) H 07/22/17 06:15 APTT 33.3 Seconds (23.7-30.8) H 07/22/17 06:15 - Additional Findings Additional findings: - Constitutional Appears: Non-toxic, No Acute Distress, Chronically Ill - Head Exam Head Exam: ATRAUMATIC, NORMAL INSPECTION, NORMOCEPHALIC - Eye Exam Eye Exam: Conjunctival injection (improved), EOMI. absent: Scleral icterus Pupil Exam: absent: Irregular, Unequal - ENT Exam ENT Exam: Mucous Membranes Moist - Neck Exam Neck exam: Positive for: Full Rom, Normal Inspection. - Respiratory Exam Respiratory Exam: Decreased Breath Sounds (mildly decreased breath sounds all rogel), Prolonged Expiratory Phase. absent: Accessory Muscle Use, Chest Wall Tenderness, Wheezes, Rales, Rhonchi, Respiratory Distress - Cardiovascular Exam Cardiovascular Exam: Bradycardia, REGULAR RHYTHM, +S1, +S2. absent: Tachycardia , Irregular Rhythm, JVD, RRR, +S4 - GI/Abdominal Exam GI & Abdominal Exam: Normal Bowel Sounds, Soft. absent: Diminished Bowel Sounds , Distended, Firm, Hyperactive Bowel Sounds, Hypoactive Bowel Sounds, Rigid, Tenderness - Extremities Exam Extremities exam: Positive for: normal inspection. 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 His symptoms are likely secondary to chronic lumbosacral neuritis (underlying cause of chronic back pain) as well as neuropathy (2/2 DM and residual from prior CVAs). MRI brain negative for new acute infarct, so clear for discharge from Neuro standpoint. Patient instructed to follow up as outpatient at Neuro office (has not followed up in over 1 yr). Plan: 1) Continue current Neurontin regimen (600mg TID) 2) Noted to be on dual anti-platelets (ASA and Plavix) as well as blood thinner (Coumadin), high risk for bleeding if falls but benefits outweigh risks as this is regimen that patient has been successful with as per Primary 3) MRI negative for new infarct 4) PT/OT assessment for possible RICARDO after d/c Patient seen, reviewed, and discussed with attending, Dr. De Guzman. Please reconsult if patient experiences acute change in condition. <Renzo De Guzman - Last Filed: 07/23/17 10:18> Objective - Vital Signs/Intake and Output Vital Signs (last 24 hours): Temp Pulse Resp BP Pulse Ox 98.1 F 80 20 139/91 H 99 07/22/17 17:40 07/23/17 06:00 07/22/17 17:40 07/23/17 09:55 07/22/17 05:58 Intake and Output: 07/23/17 07/23/17 06:59 18:59 Intake Total 0 Balance 0 - Medications Medications: Current Medications Acetaminophen (Tylenol 325mg Tab) 650 mg PO Q4H PRN PRN Reason: Pain, moderate (4-7) Last Admin: 07/23/17 05:31 Dose: 650 mg Amlodipine Besylate (Norvasc) 10 mg PO DAILY [facility] Last Admin: 07/23/17 09:55 Dose: 10 mg Aspirin (Ecotrin) 81 mg PO DAILY [facility] Last Admin: 07/23/17 09:55 Dose: 81 mg Atorvastatin Calcium (Lipitor) 40 mg PO DIN [facility] Last Admin: 07/22/17 18:21 Dose: 40 mg Clopidogrel Bisulfate (Plavix) 75 mg PO DAILY [facility] Last Admin: 07/23/17 09:55 Dose: 75 mg Docusate Sodium (Colace) 100 mg PO BID PRN PRN Reason: Constipation Last Admin: 07/23/17 09:53 Dose: 100 mg Gabapentin (Neurontin) 600 mg PO TID [facility] PRN Reason: Protocol Last Admin: 07/23/17 09:55 Dose: 600 mg Insulin Human Regular (Humulin R Low) 0 units SC ACHS [facility] PRN Reason: Protocol Last Admin: 07/23/17 08:24 Dose: Not Given Losartan Potassium (Cozaar) 100 mg PO DAILY [facility] Last Admin: 07/23/17 09:54 Dose: 100 mg Pantoprazole Sodium (Protonix Inj) 40 mg IVP Q12 [facility] Last Admin: 07/23/17 09:55 Dose: 40 mg Warfarin Sodium (Coumadin) 5 mg PO 1800 [facility]EL PRN Reason: Protocol Last Admin: 07/22/17 18:21 Dose: 5 mg - Labs Labs: 07/22/17 06:15 07/22/17 06:15 PT 17.4 Seconds (9.9-11.8) H 07/22/17 06:15 INR 1.61 (0.93-1.08) H 07/22/17 06:15 APTT 33.3 Seconds (23.7-30.8) H 07/22/17 06:15 Attending/Attestation - Attestation I have personally seen and examined this patient.: Yes I have fully participated in the care of the patient.: Yes I have reviewed all pertinent clinical information, including history, physical exam and plan: Yes
[2017-07-23] MEDS: POLYETHYLENE GLYCOL 3350 17 GM/Dose PACKET PO SCH (05:28)
[2017-07-23] MEDS: Insulin Reg-LOW-Coverage SC SCH ×3 (08:24→17:51)
--- NOTE | 2017-07-23 12:22 | CP.PCM.DIS ---
<Bradley Espinoza - Last Filed: 07/23/17 14:06> Provider - Provider Date of Admission: 07/20/17 12:27 Attending physician: Tanner Roth MD Primary care physician: Tanner Roth MD Time Spent in preparation of Discharge (in minutes): 30 Diagnosis - Discharge Diagnosis (1) Chest pain Status: Acute Priority: Medium (2) Coronary artery disease Status: Acute Priority: Medium (3) Subtherapeutic anticoagulation Status: Acute Priority: Medium (4) Diabetes Status: Chronic Priority: Medium (5) HTN (hypertension) Status: Chronic Priority: Medium (6) Myocardial infarct, old Status: Chronic Priority: Medium (7) Constipation Status: Acute Priority: Medium (8) Abdominal pain Status: Acute Priority: Medium Hospital Course - Lab Results Lab Results: Most Recent Lab Values WBC 4.0 10^3/ul (4.5-11.0) L 07/22/17 06:15 RBC 4.63 10^6/uL (3.5-6.1) 07/22/17 06:15 Hgb 13.9 g/dL (14.0-18.0) L 07/22/17 06:15 Hct 39.9 % (42.0-52.0) L 07/22/17 06:15 MCV 86.2 fl (80.0-105.0) 07/22/17 06:15 MCH 30.0 pg (25.0-35.0) 07/22/17 06:15 MCHC 34.8 g/dl (31.0-37.0) 07/22/17 06:15 RDW 12.2 % (11.5-14.5) 07/22/17 06:15 Plt Count 201 10^3/uL (120.0-450.0) 07/22/17 06:15 MPV 8.2 fl (7.0-11.0) 07/22/17 06:15 Gran % 60.8 % (50.0-68.0) 07/20/17 10:30 Lymph % (Auto) 30.3 % (22.0-35.0) 07/20/17 10:30 [place] % (Auto) 6.6 % (1.0-6.0) H 07/20/17 10:30 Eos % (Auto) 2.0 % (1.5-5.0) 07/20/17 10:30 Baso % (Auto) 0.3 % (0.0-3.0) 07/20/17 10:30 Gran # 2.11 (1.4-6.5) 07/20/17 10:30 Lymph # 1.1 (1.2-3.4) L 07/20/17 10:30 [place] # 0.2 (0.1-0.6) 07/20/17 10:30 Eos # 0.1 (0.0-0.7) 07/20/17 10:30 Baso # 0.01 K/mm3 (0.0-2.0) 07/20/17 10:30 PT 17.4 Seconds (9.9-11.8) H 07/22/17 06:15 INR 1.61 (0.93-1.08) H 07/22/17 06:15 APTT 33.3 Seconds (23.7-30.8) H 07/22/17 06:15 Sodium 141 mmol/L (132-148) 07/22/17 06:15 Potassium 4.2 mmol/L (3.6-5.0) 07/22/17 06:15 Chloride 106 mmol/L (98-107) 07/22/17 06:15 Carbon Dioxide 27 mmol/L (21-33) 07/22/17 06:15 Anion Gap 12 (10-20) 07/22/17 06:15 BUN 14 mg/dL (7-21) 07/22/17 06:15 Creatinine 0.8 mg/dL (0.5-1.4) 07/22/17 06:15 Est GFR ( Amer) > 60 07/22/17 06:15 Est GFR (Non-Af Amer) > 60 07/22/17 06:15 POC Glucose (mg/dL) 211 mg/dL (65-110) H 07/23/17 11:06 Random Glucose 132 mg/dL (70-110) H 07/22/17 06:15 Hemoglobin A1c 6.2 % (4.2-6.5) 07/21/17 06:00 Calcium 9.8 mg/dL (8.4-10.5) 07/22/17 06:15 Phosphorus 3.5 mg/dL (2.5-4.5) 07/20/17 19:25 Magnesium 1.7 mg/dL (1.7-2.2) 07/21/17 06:30 Total Bilirubin 0.6 mg/dL (0.2-1.3) 07/22/17 06:15 AST 27 U/L (17-59) 07/22/17 06:15 ALT 40 U/L (7-56) 07/22/17 06:15 Alkaline Phosphatase 60 U/L (38-126) 07/22/17 06:15 Lactate Dehydrogenase 415 U/L (333-699) 07/20/17 10:30 Total Creatine Kinase 90 U/L (35-230) 07/20/17 10:30 Troponin I < 0.01 ng/mL 07/20/17 19:25 NT-Pro-B Natriuret Pep 29.7 pg/mL (0-450) 07/20/17 10:30 Total Protein 7.0 g/dL (5.8-8.3) 07/22/17 06:15 Albumin 4.2 g/dL (3.0-4.8) 07/22/17 06:15 Globulin 2.8 gm/dL 07/22/17 06:15 Albumin/Globulin Ratio 1.5 (1.1-1.8) 07/22/17 06:15 Triglycerides 182 mg/dL (35-160) H 07/21/17 06:00 Cholesterol 193 mg/dL (130-200) 07/21/17 06:00 LDL Cholesterol Direct 137 mg/dL (0-129) H 07/21/17 06:00 HDL Cholesterol 37 mg/dL (29-60) 07/21/17 06:00 TSH 3rd Generation 1.99 mIU/mL (0.46-4.68) 07/21/17 06:00 Urine Color Yellow (YELLOW) 07/20/17 13:50 Urine Appearance Clear (CLEAR) 07/20/17 13:50 Urine pH 7.0 (4.7-8.0) 07/20/17 13:50 Ur Specific [place] 1.010 (1.005-1.035) 07/20/17 13:50 Urine Protein Negative mg/dL (<30 mg/dL) 07/20/17 13:50 Urine Glucose (UA) Negative mg/dL (NEGATIVE) 07/20/17 13:50 Urine Ketones Negative mg/dL (NEGATIVE) 07/20/17 13:50 Urine Blood Negative (NEGATIVE) 07/20/17 13:50 Urine Nitrate Negative (NEGATIVE) 07/20/17 13:50 Urine Bilirubin Negative (NEGATIVE) 07/20/17 13:50 Urine Urobilinogen 1.0 E.U./dL (<1 E.U./dL) H 07/20/17 13:50 Ur Leukocyte Esterase Negative Josy/uL (NEGATIVE) 07/20/17 13:50 - Hospital Course Hospital Course: Patient is a 52 year old male PMH of DM2, HTN, DVT with PE, 3 previous myocardial infarctions with stent placements, 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 CTA of chest was negative for dissection and PE. Troponins negative x 2 to rule out acute [place]. CT of the head was negative to rule out acute stroke. Cardiology and neurology were consulted. Cardiology determined there was no evidence of ACS and stated patient experienced atypical chest pain. Neurology stated that patients numbness and weakness were likely secondary to residual effects from his prior CVAs and recommended continuing ASA /Plavix/Lipitor for stroke prevention. MRI was ordered and showed no evidence of acute infarction or acute pathology in the brain. During the hospital stay the patients INR was subtherapeutic and so his home warfarin will be increased from 2.5mg to 3mg. Patient also c/o abdominal pain. GI was consulted. Gallbladder ultrasound and CT of abdomen revealed cholelithiasis without sonographic evidence of cholecystitis. Patients abdominal discomfort likely due to constipation. Patient given miralax and fleet enema. Patient instructed to also continue home medications and take medications as prescribed. He was instructed to follow up with primary care physician at [facility] and Dr. Hernandez in 1 week. Patient informed to return to ED for evaluation of fever, chills, intractable headache, dizziness, chest pain, SOB, abdominal pain, N/V, diarrhea , constipation, and urinary symptoms. Patient understands, appreciates, and agrees with discharge plan. Patient is stable for discharge to [facility]. Discharge Exam - Head Exam Head Exam: ATRAUMATIC, NORMAL INSPECTION, NORMOCEPHALIC - Additional Findings Additional findings: - Head Exam Head Exam: ATRAUMATIC, NORMAL INSPECTION, NORMOCEPHALIC - Additional Findings Additional findings: - Constitutional Appears: Non-toxic, No Acute Distress, Chronically Ill - Head Exam Head Exam: ATRAUMATIC, NORMAL INSPECTION, NORMOCEPHALIC - Eye Exam Eye Exam: Conjunctival injection, EOMI, Normal appearance, PERRL. absent: Scleral icterus Pupil Exam: NORMAL ACCOMODATION, PERRL. absent: Fixed, Irregular, Unequal - ENT Exam ENT Exam: Mucous Membranes Moist - Neck Exam Neck exam: Positive for: Full Rom, Normal Inspection. Negative for: Lymphadenopathy, Tenderness, Thyromegaly - Respiratory Exam Respiratory Exam: absent: Accessory Muscle Use, Chest Wall Tenderness, Rales, Rhonchi, Respiratory Distress - Cardiovascular Exam Cardiovascular Exam: Bradycardia, REGULAR RHYTHM, +S1, +S2. absent: Tachycardia , Irregular Rhythm, JVD, RRR, +S4 - GI/Abdominal Exam GI & Abdominal Exam: Normal Bowel Sounds, Soft, tender to palpation in epigastric region. absent: Diminished Bowel Sounds, Distended, Firm, Hyperactive Bowel Sounds, Hypoactive Bowel Sounds, Rigid - Extremities Exam Extremities exam: Positive for: normal inspection, pedal pulses present (+1 radials bilaterally, faintly palpable dorsalis pedis bilaterally). Negative for : calf tenderness, pedal edema, tenderness - Back Exam Back exam: absent: CVA tenderness (L), CVA tenderness (R) - Neurological Exam Neurological exam: Alert, CN II-XII Intact, Oriented x3 Additional comments: sensory intact to touch in all rogel 4/5 motor strength in left UE and 5/5 right UE 4/5 motor strength in left LE and 5/5 left LE - Psychiatric Exam Psychiatric exam: Normal Affect, Normal Mood - Skin Skin Exam: Dry, Intact, Normal Color, Warm Discharge Plan - Discharge Medications Prescriptions: Warfarin [Coumadin] 3 mg PO 1800 #2 tab - Follow Up Plan Condition: SERIOUS Disposition: TRANSF TO SNF Instructions: Chest Pain (DC), Chest Pain (GEN), Acute Abdominal Pain (DC) Additional Instructions: Discharge Instructions Patient is in dual antiplatelet therapy and anticoagulant. Please exercise fall precautions and bleeding precautions. Follow up with primary care doctor in [facility] Follow up with cardiology in 1-2 weeks New Meds Increase coumadin from 2.5mg daily to 3mg daily Please take this med per doctor instruction. Protonix trial x 4 weeks. Referrals: Tanner Roht MD [Primary Care Provider] - Monico Hernandez MD [Staff Provider] - <Jacob Lockhart - Last Filed: 08/27/17 16:48> Provider - Provider Date of Admission: 07/20/17 12:27 Attending physician: Tanner Roth MD Primary care physician: Tanner Roth MD Hospital Course - Lab Results Lab Results: Most Recent Lab Values WBC 4.0 10^3/ul (4.5-11.0) L 07/22/17 06:15 RBC 4.63 10^6/uL (3.5-6.1) 07/22/17 06:15 Hgb 13.9 g/dL (14.0-18.0) L 07/22/17 06:15 Hct 39.9 % (42.0-52.0) L 07/22/17 06:15 MCV 86.2 fl (80.0-105.0) 07/22/17 06:15 MCH 30.0 pg (25.0-35.0) 07/22/17 06:15 MCHC 34.8 g/dl (31.0-37.0) 07/22/17 06:15 RDW 12.2 % (11.5-14.5) 07/22/17 06:15 Plt Count 201 10^3/uL (120.0-450.0) 07/22/17 06:15 MPV 8.2 fl (7.0-11.0) 07/22/17 06:15 Gran % 60.8 % (50.0-68.0) 07/20/17 10:30 Lymph % (Auto) 30.3 % (22.0-35.0) 07/20/17 10:30 [place] % (Auto) 6.6 % (1.0-6.0) H 07/20/17 10:30 Eos % (Auto) 2.0 % (1.5-5.0) 07/20/17 10:30 Baso % (Auto) 0.3 % (0.0-3.0) 07/20/17 10:30 Gran # 2.11 (1.4-6.5) 07/20/17 10:30 Lymph # 1.1 (1.2-3.4) L 07/20/17 10:30 [place] # 0.2 (0.1-0.6) 07/20/17 10:30 Eos # 0.1 (0.0-0.7) 07/20/17 10:30 Baso # 0.01 K/mm3 (0.0-2.0) 07/20/17 10:30 PT 18.2 Seconds (9.9-11.8) H 07/23/17 13:22 INR 1.69 (0.93-1.08) H 07/23/17 13:22 APTT 33.3 Seconds (23.7-30.8) H 07/22/17 06:15 Sodium 141 mmol/L (132-148) 07/22/17 06:15 Potassium 4.2 mmol/L (3.6-5.0) 07/22/17 06:15 Chloride 106 mmol/L (98-107) 07/22/17 06:15 Carbon Dioxide 27 mmol/L (21-33) 07/22/17 06:15 Anion Gap 12 (10-20) 07/22/17 06:15 BUN 14 mg/dL (7-21) 07/22/17 06:15 Creatinine 0.8 mg/dL (0.5-1.4) 07/22/17 06:15 Est GFR ( Amer) > 60 07/22/17 06:15 Est GFR (Non-Af Amer) > 60 07/22/17 06:15 POC Glucose (mg/dL) 195 mg/dL (65-110) H 07/23/17 15:58 Random Glucose 132 mg/dL (70-110) H 07/22/17 06:15 Hemoglobin A1c 6.2 % (4.2-6.5) 07/21/17 06:00 Calcium 9.8 mg/dL (8.4-10.5) 07/22/17 06:15 Phosphorus 3.5 mg/dL (2.5-4.5) 07/20/17 19:25 Magnesium 1.7 mg/dL (1.7-2.2) 07/21/17 06:30 Total Bilirubin 0.6 mg/dL (0.2-1.3) 07/22/17 06:15 AST 27 U/L (17-59) 07/22/17 06:15 ALT 40 U/L (7-56) 07/22/17 06:15 Alkaline Phosphatase 60 U/L (38-126) 07/22/17 06:15 Lactate Dehydrogenase 415 U/L (333-699) 07/20/17 10:30 Total Creatine Kinase 90 U/L (35-230) 07/20/17 10:30 Troponin I < 0.01 ng/mL 07/20/17 19:25 NT-Pro-B Natriuret Pep 29.7 pg/mL (0-450) 07/20/17 10:30 Total Protein 7.0 g/dL (5.8-8.3) 07/22/17 06:15 Albumin 4.2 g/dL (3.0-4.8) 07/22/17 06:15 Globulin 2.8 gm/dL 07/22/17 06:15 Albumin/Globulin Ratio 1.5 (1.1-1.8) 07/22/17 06:15 Triglycerides 182 mg/dL (35-160) H 07/21/17 06:00 Cholesterol 193 mg/dL (130-200) 07/21/17 06:00 LDL Cholesterol Direct 137 mg/dL (0-129) H 07/21/17 06:00 HDL Cholesterol 37 mg/dL (29-60) 07/21/17 06:00 TSH 3rd Generation 1.99 mIU/mL (0.46-4.68) 07/21/17 06:00 Urine Color Yellow (YELLOW) 07/20/17 13:50 Urine Appearance Clear (CLEAR) 07/20/17 13:50 Urine pH 7.0 (4.7-8.0) 07/20/17 13:50 Ur Specific [place] 1.010 (1.005-1.035) 07/20/17 13:50 Urine Protein Negative mg/dL (<30 mg/dL) 07/20/17 13:50 Urine Glucose (UA) Negative mg/dL (NEGATIVE) 07/20/17 13:50 Urine Ketones Negative mg/dL (NEGATIVE) 07/20/17 13:50 Urine Blood Negative (NEGATIVE) 07/20/17 13:50 Urine Nitrate Negative (NEGATIVE) 07/20/17 13:50 Urine Bilirubin Negative (NEGATIVE) 07/20/17 13:50 Urine Urobilinogen 1.0 E.U./dL (<1 E.U./dL) H 07/20/17 13:50 Ur Leukocyte Esterase Negative Josy/uL (NEGATIVE) 07/20/17 13:50 Attending/Attestation - Attestation I have personally seen and examined this patient.: Yes I have fully participated in the care of the patient.: Yes I have reviewed all pertinent clinical information, including history, physical exam and plan: Yes Notes (Text): 08/27/17 16:48 Medical record note made by the resident after discussion with my direction and input after the patient was personally seen and examined by me. I have reviewed the chart and agree that the record accurately reflects by personal performance of the history, physical exam, data review, and medical decision-making, in the course for the patient. I have also personally directed the plan of care.
[2017-07-23 13:47] LABS: INR 1.69 (0.93-1.08)
[2017-07-23 16:37] VITALS: BP 152/100; PULSE 74; TEMP 98.3; O2SAT 99
== END 2017-07-23 20:52 | DRG 313 ==
LOC: ED 10:00 → ERH 12:27 → 2RNO 14:59 → 3RSO 07-22 20:50
PROVIDERS: ADMIT Internal Medicine; ATTEND Internal Medicine
DX: R07.89 Other chest pain (principal); I25.2 Old myocardial infarction; E11.40 Type 2 diabetes mellitus with diabetic neuropathy, unspecified; I69.354 Hemiplegia and hemiparesis following cerebral infarction affecting left non-dominant side; I10 Essential (primary) hypertension; I25.118 Atherosclerotic heart disease of native coronary artery with other forms of angina pectoris; E78.00 Pure hypercholesterolemia, unspecified; K80.20 Calculus of gallbladder without cholecystitis without obstruction; K59.00 Constipation, unspecified; R10.13 Epigastric pain; M54.17 Radiculopathy, lumbosacral region; G89.29 Other chronic pain; R79.1 Abnormal coagulation profile; H40.9 Unspecified glaucoma; H54.8 Legal blindness, as defined in USA; Z86.718 Personal history of other venous thrombosis and embolism; Z86.711 Personal history of pulmonary embolism; Z95.5 Presence of coronary angioplasty implant and graft; Z87.891 Personal history of nicotine dependence; Z82.3 Family history of stroke; Z82.49 Family history of ischemic heart disease and other diseases of the circulatory system; Z83.3 Family history of diabetes mellitus

== ENCOUNTER 2017-09-06 20:19 | Observation (INO) | payer MEDICARE, BC ==
--- NOTE | 2017-09-06 22:41 | ED PDOC ---
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 Patient states that his last CVA occurred in July, states that he was seen and treated here in this emergency room and was subsequently admitted. After his admission he was then transferred to rehabilitation, states that he was there for 6 weeks and was just discharged today. After being discharged from rehabilitation he went to see his PMD to obtain refills of his medications and to have approval for his wheelchair request. Patient states that when he was asked to walk by Dr. Lockhart in the office he was told that he was "not walking right" and to go to the emergency room to be kept for observation overnight. Patient states that he has spasms when he walks to the left leg and that the symptoms he had when he was at rehabilitation and upon discharge from rehabilitation today. He states that these spasms to his left leg are not new since having his most stroke. Otherwise the patient denies any fever, chills, headache, dizziness, chest pain , shortness of breath, abdominal pain, nausea, vomiting, any new focal weakness or numbness. He has no additional complaints at this time. PMD Chantelle (Malorie Cook PA-C) Past Medical History - Provider Review Nursing Documentation Reviewed: Yes - Infectious Disease Hx of Infectious Diseases: None - Tetanus Immunization Tetanus Immunization: Unknown - Cardiac Hx [place]: Yes (X3) - Pulmonary Hx Respiratory Disorders: No - Neurological Hx Neurological Disorder: Yes HX Cerebrovascular Accident: Yes Hx Paralysis: Yes (LT SIDED WEAKNESS) - HEENT Hx HEENT Disorder: No - Renal Hx Renal Disorder: No - Endocrine/Metabolic Hx Diabetes Mellitus Type 2: Yes - Hematological/Oncological Hx Blood Transfusions: No Hx Blood Transfusion Reaction: No - Integumentary Hx Dermatological Disorder: No - Musculoskeletal/Rheumatological Hx Musculoskeletal Disorders: Yes - Gastrointestinal Hx Gastrointestinal Disorders: No - Genitourinary/Gynecological Hx Genitourinary Disorders: No - Psychiatric Hx Emotional Abuse: No Hx Physical Abuse: No Hx Substance Use: Yes (MARIJUANA - 1 BAG EVERY OTHER DAY) - Surgical History Hx Cardiac Catheterization: Yes (stents) - Anesthesia Hx Anesthesia: Yes Hx Anesthesia Reactions: No Hx Malignant Hyperthermia: No - Suicidal Assessment Feels Threatened In Home Enviroment: No <Malorie Cook PA-C - Last Filed: 09/07/17 00:29> Family/Social History - Physician Review Nursing Documentation Reviewed: Yes Family/Social History: Unknown Family HX Smoking Status: Never Smoked Hx Alcohol Use: No Hx Substance Use: Yes (MARIJUANA - 1 BAG EVERY OTHER DAY) Hx Substance Use Treatment: No <Malorie Coko PA-C - Last Filed: 09/07/17 00:29> Allergies/Home Meds <Benigno Delgado - Last Filed: 09/06/17 23:22> <Malorie Cook PA-C - Last Filed: 09/07/17 00:29> Allergies/Adverse Reactions: Allergies No Known Allergies Allergy (Verified 09/06/17 21:04) Home Medications: Home Meds Medication Instructions Recorded Confirmed Gabapentin [Neurontin] 600 mg PO TID 06/24/16 09/06/17 Atorvastatin [Lipitor] 40 mg PO HS 06/25/17 09/06/17 Brimonidine Tartrate/Timolol 1 drop EACHEYE Q12 09/06/17 09/06/17 [Combigan 0.2%-0.5% Eye Drops] Insulin Regular [HumuLIN R] 1 unit SQ 09/06/17 Insulin Detemir [Levemir] 20 unit SQ HS 09/06/17 09/06/17 Oxycodone HCl/Acetaminophen 1 tab PO Q6 PRN 09/06/17 09/06/17 [Acetaminophen-Oxycodone 325 mg-5 mg] Pantoprazole Sodium [Protonix] 40 mg PO Q12 09/06/17 09/06/17 Warfarin [Coumadin] 10 mg PO HS 09/06/17 09/06/17 hydrALAZINE [hydralazine 50 mg PO Q8 09/06/17 09/06/17 Hydrochloride] Review of Systems - Review of Systems Constitutional: Normal. absent: Fatigue, Weight Change, Fevers Respiratory: Normal. absent: SOB, Cough, Sputum Cardiovascular: Normal. absent: Chest Pain, Palpitations, Edema Gastrointestinal: Normal. absent: Abdominal Pain, Nausea, Vomiting Musculoskeletal: Normal, Other (+L leg spasm ). absent: Arthralgias, Back Pain , Neck Pain Skin: Normal. absent: Rash, Pruritis, Skin Lesions Neurological: Normal, Other (+h/o CVA with residual L sided weakness, +L sided neuropathy). 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 Plan: -- Labs -- IV -- EKG -- CXR -- Reassess and disposition 09/07/17 00:27 CXR : NAD, as read by PA Labs reviewed. Case d/w Dr. Lockhart, request that the patient stay for inpt observation with consult to neuro Dr. Watkins. Patient states he fully agrees with and understands further plan of care. (Malorie Cook PA-C) - Lab Interpretations Lab Results: 09/06/17 23:25 09/06/17 23:25 Lab Results 09/06/17 23:25: Sodium 137, Potassium 4.2, Chloride 101, Carbon Dioxide 25, Anion Gap 15, BUN 13, Creatinine 0.9, Est GFR ( Amer) > 60, Est GFR (Non- Af Amer) > 60, Random Glucose 236 H, Calcium 9.4, Total Bilirubin 0.7, AST 29, ALT 33, Alkaline Phosphatase 76, Total Protein 6.8, Albumin 4.2, Globulin 2.6, Albumin/Globulin Ratio 1.6 09/06/17 23:25: WBC 5.1 D, RBC 4.21, Hgb 12.7 L, Hct 35.7 L, MCV 84.8, MCH 30.2 , MCHC 35.6, RDW 12.2, Plt Count 192, MPV 8.1, Gran % 56.1, Lymph % (Auto) 34.1 , [place] % (Auto) 7.8 H, Eos % (Auto) 1.8, Baso % (Auto) 0.2, Gran # 2.86, Lymph # 1.7, [place] # 0.4, Eos # 0.1, Baso # 0.01 - RAD Interpretation Radiology Orders: 09/06/17 21:45 CHEST TWO VIEWS (PA/LAT) [RAD] Stat - PA / DUMP WORKER / Resident Statement NAOMI has reviewed & agrees with the documentation as recorded. NAOMI has examined the patient and agrees with the treatment plan. <Benigno Delgado - Last Filed: 09/06/17 23:22> - PA / DUMP WORKER / Resident Statement NAOMI has reviewed & agrees with the documentation as recorded. <Malorie Cook PA-C - Last Filed: 09/07/17 00:29> Disposition/Present on Arrival <Benigno Delgado - Last Filed: 09/06/17 23:22> - Present on Arrival Any Indicators Present on Arrival: Yes History of DVT/PE: Yes History of Uncontrolled Diabetes: No Urinary Catheter: No History of Decub. Ulcer: No History Surgical Site Infection Following: None - Disposition Have Diagnosis and Disposition been Completed?: Yes Disposition Time: 00:00 Patient Plan: Observation <Malorie Cook PA-C - Last Filed: 09/07/17 00:29> - Disposition Diagnosis: Muscle spasm of left lower extremity, H/O: CVA (cerebrovascular accident) Disposition: HOSPITALIZED Condition: STABLE Forms: [email or web address] (Ukrainian)
[2017-09-06 23:37] LABS: BASO # 0.01 K/mm3 (0.0-2.0); BASO % 0.2 % (0.0-3.0); EOS # 0.1 (0.0-0.7); EOS % 1.8 % (1.5-5.0); GRAN # 2.86 (1.4-6.5); GRAN % 56.1 % (50.0-68.0); HEMATOCRIT 35.7 % (42.0-52.0); LYMPH # 1.7 (1.2-3.4); LYMPH % 34.1 % (22.0-35.0); MEAN CELL VOLUME 84.8 fl (80.0-105.0); MEAN CORPUSCULAR HEMOGLOBIN 30.2 pg (25.0-35.0); MEAN CORPUSCULAR HGB CONC 35.6 g/dl (31.0-37.0); MEAN PLATELET VOLUME 8.1 fl (7.0-11.0); MONO # 0.4 (0.1-0.6); MONO % 7.8 % (1.0-6.0); RED CELL DISTRIBUTION WIDTH 12.2 % (11.5-14.5); WHITE BLOOD COUNT 5.1 10^3/ul (4.5-11.0)
[2017-09-06 23:51] LABS: ALB/GLOB RATIO 1.6 (1.1-1.8); ALKALINE PHOSPHATASE 76 U/L (38-126); ALT/SGPT 33 U/L (7-56); AST/SGOT 29 U/L (17-59); BILIRUBIN,TOTAL 0.7 mg/dL (0.2-1.3); BLOOD UREA NITROGEN 13 mg/dL (7-21); CALCIUM 9.4 mg/dL (8.4-10.5); CARBON DIOXIDE 25 mmol/L (21-33); CHLORIDE 101 mmol/L (98-107); GFR AFRICAN-AMERICAN > 60; GLUCOSE,RANDOM 236 mg/dL (70-110); POTASSIUM 4.2 mmol/L (3.6-5.0); SODIUM 137 mmol/L (132-148); TOTAL PROTEIN 6.8 g/dL (5.8-8.3)
[2017-09-07] MEDS ORDERED: Oxycodone/Acetaminophen 5/325 mg Tab PO ONE (03:35)
[2017-09-07] MEDS ORDERED: Oxycodone/Acetaminophen 5/325 mg Tab ONE (03:55)
[2017-09-07] MEDS: Insulin Lispro (humaLOG) LOW Coverage SC SCH ×3 (04:45→11:46)
[2017-09-07 07:04] VITALS: PULSE 60; BMI 28.9
[2017-09-07] MEDS ORDERED: Oxycodone/Acetaminophen 5/325 mg Tab PO PRN (07:23)
--- NOTE | 2017-09-07 08:37 | RAD ---
HISTORY: leg spasm COMPARISON: Portable chest 07/20/2017. TECHNIQUE: Chest PA and lateral FINDINGS: LUNGS: No active pulmonary disease. PLEURA: No significant pleural effusion identified. No pneumothorax apparent. CARDIOVASCULAR: Normal. OSSEOUS STRUCTURES: No significant abnormalities. VISUALIZED UPPER ABDOMEN: Normal. OTHER FINDINGS: None. IMPRESSION: No interval acute cardiopulmonary disease appreciated.
[2017-09-07 08:41] LABS: BASO # 0.01 K/mm3 (0.0-2.0); BASO % 0.2 % (0.0-3.0); EOS # 0.1 (0.0-0.7); EOS % 1.9 % (1.5-5.0); GRAN # 2.44 (1.4-6.5); GRAN % 57.4 % (50.0-68.0); LYMPH # 1.4 (1.2-3.4); LYMPH % 33.4 % (22.0-35.0); MEAN CELL VOLUME 84.9 fl (80.0-105.0); MEAN CORPUSCULAR HEMOGLOBIN 29.5 pg (25.0-35.0); MEAN CORPUSCULAR HGB CONC 34.7 g/dl (31.0-37.0); MEAN PLATELET VOLUME 7.9 fl (7.0-11.0); MONO # 0.3 (0.1-0.6); MONO % 7.1 % (1.0-6.0); RED CELL DISTRIBUTION WIDTH 12.1 % (11.5-14.5); WHITE BLOOD COUNT 4.3 10^3/ul (4.5-11.0)
[2017-09-07 08:54] LABS: BLOOD UREA NITROGEN 13 mg/dL (7-21); CALCIUM 9.8 mg/dL (8.4-10.5); CARBON DIOXIDE 26 mmol/L (21-33); CHLORIDE 101 mmol/L (98-107); GFR AFRICAN-AMERICAN > 60; POTASSIUM 4.2 mmol/L (3.6-5.0); SODIUM 137 mmol/L (132-148)
[2017-09-07 08:57] LABS: GLUCOSE,RANDOM 313 mg/dL (70-110)
[2017-09-07 08:59] LABS: INR 1.15 (0.93-1.08)
[2017-09-07 09:21] VITALS: RESP 18; TEMP 97.9; O2SAT 99
[2017-09-07 09:46] VITALS: BP 128/89
--- NOTE | 2017-09-07 09:50 | CP.PCM.CON ---
History of Present Illness - History of Present Illness History of Present Illness: Neurology consult note for Dr. De Guzman's service cc: muscle spasms HPI: Patient is a 52 year-old male with past medical history significant for DM2 , HTN, DVT with PE s/p IVC filter placement, 3 prior MA's s/p PCI, 4 previous CVA's with residual left sided weakness that presented to [facility] for evaluation of leg spasms. Per patient, he was seen by his PMD, Dr. Lockhart who urged him to come to the emergency room due to abnormal gait. Patient stated that since his 4th CVA, he has had spasms of his left leg. He reports that he had been having these spasms at rehabilitation center and are not a new issue since his most recent stroke. Neurology consulted for evaluation of muscle spasms. Patient denied fever, chills, cough, headache, dizziness, nausea, vomiting, abdominal pain, chest pain, SOB, numbness, tingling. 12point ROS as per HPI above, otherwise negative PHMx: as stated above PSHx: IVC filter placement, PCI Allergies: NKDA Social Hx: former smoker, denies alcohol and illicit drug use Family Hx: DM2, CVA, HTN PMD: Dr. Roth Past Patient History - Infectious Disease Hx of Infectious Diseases: None - Tetanus Immunizations Tetanus Immunization: Unknown - Past Medical History & Family History Past Medical History?: Yes - Past Social History Smoking Status: Former Smoker - CARDIAC Hx Heart Attack: Yes (X3) - PULMONARY Hx Respiratory Disorders: No - NEUROLOGICAL Hx Neurological Disorder: Yes HX Cerebrovascular Accident: Yes - HEENT Hx HEENT Problems: No - RENAL Hx Chronic Kidney Disease: No - ENDOCRINE/METABOLIC Hx Diabetes Mellitus Type 2: Yes - HEMATOLOGICAL/ONCOLOGICAL Hx Blood Disorders: No - INTEGUMENTARY Hx Dermatological Problems: No - MUSCULOSKELETAL/RHEUMATOLOGICAL Hx Musculoskeletal Disorders: Yes Hx Falls: Yes - GASTROINTESTINAL Hx Gastrointestinal Disorders: No - GENITOURINARY/GYNECOLOGICAL Hx Genitourinary Disorders: No - PSYCHIATRIC Hx Emotional Abuse: No Hx Physical Abuse: No - SURGICAL HISTORY Hx Surgeries: Yes Hx Cardiac Catheterization: Yes (stents) - ANESTHESIA Hx Anesthesia: Yes Hx Anesthesia Reactions: No Hx Malignant Hyperthermia: No Meds Allergies/Adverse Reactions: Allergies Allergy/AdvReac Type Severity Reaction Status Date / Time No Known Allergies Allergy Verified 09/06/17 21:04 - Medications Medications: Current Medications Amlodipine Besylate (Norvasc) 10 mg PO DAILY [facility] Last Admin: 09/07/17 09:43 Dose: 10 mg Aspirin (Ecotrin) 81 mg PO DAILY [facility] Last Admin: 09/07/17 09:43 Dose: 81 mg Atorvastatin Calcium (Lipitor) 40 mg PO HS [facility] Clopidogrel Bisulfate (Plavix) 75 mg PO DAILY [facility] Last Admin: 09/07/17 09:43 Dose: 75 mg Gabapentin (Neurontin) 600 mg PO TID [facility] PRN Reason: Protocol Last Admin: 09/07/17 09:43 Dose: 600 mg Hydralazine HCl (Apresoline) 50 mg PO Q8 [facility] Insulin Detemir (Levemir) 20 unit SC HS [facility] Insulin Human Lispro (Humalog Low) 0 units SC ACHS [facility] PRN Reason: Protocol Last Admin: 09/07/17 08:55 Dose: 4 units Losartan Potassium (Cozaar) 100 mg PO DAILY [facility] Last Admin: 09/07/17 09:43 Dose: 100 mg Non-Formulary Medication (Brimonidine Tartrate/Timolol [Combigan 0.2%-0.5% Eye Drops]) 1 drop EACHEYE Q12 [facility] Oxycodone/Acetaminophen (Percocet 5/325 Mg Tab) 1 tab PO Q6 PRN PRN Reason: Pain, severe (8-10) Stop: 09/10/17 07:24 Pantoprazole Sodium (Protonix Ec Tab) 40 mg PO Q12 [facility] Last Admin: 09/07/17 09:43 Dose: 40 mg Warfarin Sodium (Coumadin) 10 mg PO HS [facility] PRN Reason: Protocol Results - Vital Signs Recent Vital Signs: Last Vital Signs Temp 97.9 F 09/07/17 08:00 Pulse 60 09/07/17 08:00 Resp 18 09/07/17 08:00 BP 128/89 09/07/17 09:43 Pulse Ox 99 09/07/17 08:00 - Labs Result Diagrams: 09/07/17 08:15 09/07/17 08:15 Labs: Laboratory Results - last 24 hr 09/07/17 09/07/17 09/07/17 08:15 08:15 08:15 WBC 4.3 L RBC 4.24 Hgb 12.5 L Hct 36.0 L MCV 84.9 MCH 29.5 MCHC 34.7 RDW 12.1 Plt Count 177 MPV 7.9 Gran % 57.4 Lymph % (Auto) 33.4 [place] % (Auto) 7.1 H Eos % (Auto) 1.9 Baso % (Auto) 0.2 Gran # 2.44 Lymph # 1.4 [place] # 0.3 Eos # 0.1 Baso # 0.01 PT 12.7 H INR 1.15 H Sodium 137 Potassium 4.2 Chloride 101 Carbon Dioxide 26 Anion Gap 14 BUN 13 Creatinine 0.8 Est GFR ( Amer) > 60 Est GFR (Non-Af Amer) > 60 POC Glucose (mg/dL) Random Glucose 313 H* D Calcium 9.8 09/07/17 08:26 WBC RBC Hgb Hct MCV MCH MCHC RDW Plt Count MPV Gran % Lymph % (Auto) [place] % (Auto) Eos % (Auto) Baso % (Auto) Gran # Lymph # [place] # Eos # Baso # PT INR Sodium Potassium Chloride Carbon Dioxide Anion Gap BUN Creatinine Est GFR ( Amer) Est GFR (Non-Af Amer) POC Glucose (mg/dL) 348 H Random Glucose Calcium Assessment & Plan - Assessment and Plan (Free Text) Plan: 52 year-old male with history of DM2, HTN, DVT with PE s/p IVC filter placement , 3 prior MA's s/p PCI, 4 previous CVA with residual left sided weakness presents c/o . Neurology consulted for evaluation of muscle spasms.
[2017-09-07] MEDS ORDERED: Non Formulary Medication (Brimonidine Tartrate/Timolol [Combigan 0.2%-0.5% Eye Drops] 1 DR EACHEYE SCH ×2 (10:00)
[2017-09-07] MEDS ORDERED: Pantoprazole 40 mg EC Tab PO SCH (10:00)
--- NOTE | 2017-09-07 10:15 | CARD ---
APPROVED REPORT EKG Measurement Heart [id number] CT [id number] <Conclusion> Sinus bradycardia Left ventricular hypertrophy with QRS widening and extensive repolarization abnormality No change
--- NOTE | 2017-09-07 10:45 | CON ---
NEUROLOGY CONSULTATION REPORT REASON FOR CONSULTATION: Spasms in the left lower extremity. HISTORY OF PRESENT ILLNESS: The patient is a 32-year-old male who came to the emergency room with difficulty walking because of spasms in his left lower extremity. The patient has history of stroke with residual left-sided weakness. The patient frequently starts to walk. It is very difficult for him to walk more than a block because his left leg starts to spasm. He did underwent physical therapy, which helped him a little, but he still having difficulty with walking. He is also complaining of pain in his left upper extremity. REVIEW OF SYSTEMS: Denies any headache, dizziness, chest pain, shortness of breath, abdominal pain, constipation, diarrhea, dysuria, cough, or sputum production. PAST MEDICAL HISTORY: Includes hypertension, diabetes mellitus, DVT with pulmonary embolism, myocardial infarction, cerebrovascular accident with left-sided weakness. MEDICATIONS AT HOME: Included hydralazine, Levemir, Protonix, Coumadin, Plavix, Neurontin, Cozaar, aspirin, Percocet, Lipitor, Norvasc, Humulin. ALLERGIES: NO KNOWN DRUG ALLERGIES. SOCIAL HISTORY: He is a former smoker. Denies use of alcohol use. He does use marijuana. FAMILY HISTORY: Reviewed and noncontributory to the case. PHYSICAL EXAMINATION: GENERAL: The patient is a middle aged male, lying on the bed, in no acute distress. VITAL SIGNS: His blood pressure is 128/89, heart rate is 60 per minute, breathing at a rate of 16 per minute, temperature is 97.9 degree Fahrenheit. HEENT: Normocephalic and atraumatic. NECK: Supple. There are no carotid bruits. LUNGS: Clear. CARDIOVASCULAR: S1 and S2 audible. No murmurs. ABDOMEN: Soft and nontender. Bowel sounds are present. NEUROLOGY: Mental status. The patient is awake, alert and oriented to time, place and person. Speech is fluent. Naming and repetition normal. Memory and cognition are intact. Cranial Nerve Examination: Pupils are 3 mm bilaterally, reactive to light. Visual rogel are full. Extraocular movements are intact. There is no significant facial asymmetry. Palate is upgoing bilaterally and tongue is midline. Motor Examination: Tone is slightly increased on the left side. There is left-sided hemiparesis with power about 4/5 on the left side and 5/5 on the right side. Plantars downgoing bilaterally. Gait is deferred at the moment. LABORATORY DATA: Labs reviewed shows WBC of 4.3, hemoglobin 12.5, hematocrit 36.0, and platelets of 177. Sodium is 137, potassium 4.2, chloride of 101, carbon dioxide 26, BUN 13, creatinine 0.8, and glucose of 313. IMPRESSION: 1. Spasms in the left lower extremity causing the patient to have gait dysfunction with increasing difficulty with walking. 2. History of cerebrovascular accident with residual left-sided weakness. RECOMMENDATIONS: 1. At this time, I am starting the patient on baclofen to help spasms in his lower extremities. 2. The patient to have physical therapy for gait imbalance. 3. Please continue other treatment and supportive care. Thank you for the opportunity to participate in the care of this patient. Prashant Watkins MD
[2017-09-07] MEDS ORDERED: Insulin Lispro (humaLOG) LOW Coverage SC SCH (11:30)
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
--- NOTE | 2017-09-07 14:20 | CP.PCM.DIS ---
Provider - Provider Date of Admission: 09/07/17 00:26 Attending physician: Tanner Roth MD Consults: Cardiology: Dr. Hernandez Neurology: Dr. Watkins Time Spent in preparation of Discharge (in minutes): 45 Hospital Course - Lab Results Lab Results: Most Recent Lab Values WBC 4.3 10^3/ul (4.5-11.0) L 09/07/17 08:15 RBC 4.24 10^6/uL (3.5-6.1) 09/07/17 08:15 Hgb 12.5 g/dL (14.0-18.0) L 09/07/17 08:15 Hct 36.0 % (42.0-52.0) L 09/07/17 08:15 MCV 84.9 fl (80.0-105.0) 09/07/17 08:15 MCH 29.5 pg (25.0-35.0) 09/07/17 08:15 MCHC 34.7 g/dl (31.0-37.0) 09/07/17 08:15 RDW 12.1 % (11.5-14.5) 09/07/17 08:15 Plt Count 177 10^3/uL (120.0-450.0) 09/07/17 08:15 MPV 7.9 fl (7.0-11.0) 09/07/17 08:15 Gran % 57.4 % (50.0-68.0) 09/07/17 08:15 Lymph % (Auto) 33.4 % (22.0-35.0) 09/07/17 08:15 [place] % (Auto) 7.1 % (1.0-6.0) H 09/07/17 08:15 Eos % (Auto) 1.9 % (1.5-5.0) 09/07/17 08:15 Baso % (Auto) 0.2 % (0.0-3.0) 09/07/17 08:15 Gran # 2.44 (1.4-6.5) 09/07/17 08:15 Lymph # 1.4 (1.2-3.4) 09/07/17 08:15 [place] # 0.3 (0.1-0.6) 09/07/17 08:15 Eos # 0.1 (0.0-0.7) 09/07/17 08:15 Baso # 0.01 K/mm3 (0.0-2.0) 09/07/17 08:15 PT 12.7 SECONDS (9.4-12.5) H 09/07/17 08:15 INR 1.15 (0.93-1.08) H 09/07/17 08:15 Sodium 137 mmol/L (132-148) 09/07/17 08:15 Potassium 4.2 mmol/L (3.6-5.0) 09/07/17 08:15 Chloride 101 mmol/L (98-107) 09/07/17 08:15 Carbon Dioxide 26 mmol/L (21-33) 09/07/17 08:15 Anion Gap 14 (10-20) 09/07/17 08:15 BUN 13 mg/dL (7-21) 09/07/17 08:15 Creatinine 0.8 mg/dL (0.8-1.5) 09/07/17 08:15 Est GFR ( Amer) > 60 09/07/17 08:15 Est GFR (Non-Af Amer) > 60 09/07/17 08:15 POC Glucose (mg/dL) 348 mg/dL (65-110) H 09/07/17 08:26 Random Glucose 313 mg/dL (70-110) H* D 09/07/17 08:15 Calcium 9.8 mg/dL (8.4-10.5) 09/07/17 08:15 Total Bilirubin 0.7 mg/dL (0.2-1.3) 09/06/17 23:25 AST 29 U/L (17-59) 09/06/17 23:25 ALT 33 U/L (7-56) 09/06/17 23:25 Alkaline Phosphatase 76 U/L (38-126) 09/06/17 23:25 Troponin I 0.02 ng/mL D 09/07/17 08:30 Total Protein 6.8 g/dL (5.8-8.3) 09/06/17 23:25 Albumin 4.2 g/dL (3.0-4.8) 09/06/17 23:25 Globulin 2.6 gm/dL 09/06/17 23:25 Albumin/Globulin Ratio 1.6 (1.1-1.8) 09/06/17 23:25 - Hospital Course Hospital Course: Patient was admitted for observation of left sided muscle cramping. Patient was seen by cardiology and neurology. Patient is cleared by Neurology and is to fill prescription for baclofen and follow up as outpatient for further evaluation. Patient is to follow up with Dr. Hernandez for outpatient. Physical Exam: Please refer to History and Physical for physical exam Discharge Plan - Discharge Medications Prescriptions: Baclofen [Lioresal] 5 mg PO TID #30 tab - Follow Up Plan Condition: STABLE Disposition: HOME/ ROUTINE Additional Instructions: - please take the baclofen as prescribed for muscle spasm - please continue with home medications - Take Coumadin 10 mg when you get home tonight. - Continue with the rest of your medications. - Please follow up with Dr Lockhart in the office and Dr Hernandez. - Please come back if the symptoms persists or worsens. Referrals: Jacob Lockhart MD [Staff Provider] - Monico Hernandez MD [Staff Provider] -
[2017-09-07] MEDS ORDERED: Insulin Detemir 100 units/ml Vial (Levemir) SC SCH (22:00)
== END 2017-09-07 19:47 | disposition home or self-care (01) ==
LOC: ED 20:19 → ERH 09-07 00:26 → 5RSO 09-07 02:15
PROVIDERS: ADMIT Internal Medicine; ATTEND Internal Medicine
DX: R25.2 Cramp and spasm (principal); I69.354 Hemiplegia and hemiparesis following cerebral infarction affecting left non-dominant side; I10 Essential (primary) hypertension; E78.5 Hyperlipidemia, unspecified; E11.40 Type 2 diabetes mellitus with diabetic neuropathy, unspecified; I25.2 Old myocardial infarction; F12.90 Cannabis use, unspecified, uncomplicated; Z79.4 Long term (current) use of insulin; Z86.711 Personal history of pulmonary embolism; Z79.01 Long term (current) use of anticoagulants; Z79.899 Other long term (current) drug therapy; Z87.891 Personal history of nicotine dependence; Z82.3 Family history of stroke; Z80.1 Family history of malignant neoplasm of trachea, bronchus and lung; Z82.49 Family history of ischemic heart disease and other diseases of the circulatory system
CPT/HCPCS: 36415; 71020; 80048; 80053; 82948; 84484; 85025; 85610; 93005; 99283; G0378

== ENCOUNTER 2018-02-07 16:37 | Inpatient (IN) | payer MEDICARE, BC ==
[2018-02-07 16:45] VITALS: BMI 25.8
--- NOTE | 2018-02-07 16:56 | ED PDOC ---
Arrival/HPI - General Chief Complaint: Chest Pain Time Seen by Provider: 02/07/18 16:43 Historian: Patient - History of Present Illness Narrative History of Present Illness (Text): 53yoM, hx of DVT/PE with IVC filter and pt states on anti-coagulation and stated on eliquis, CAD w MN, Stroke with left sided weakness, HTN, HL, DM, having chest pain generalized chest pain for about 1 hour, with mild sob and secondarily stated having some mild generalized weakness since the last stroke and otherwise no n/v/bedolla/dizziness/abdomen pain/pain w urination/drug use. given 81mg at time of chest pain. 02/07/18 16:53 02/07/18 16:56 02/07/18 18:49 Time/Duration: 1 hour Symptom Onset: Gradual Symptom Course: Unchanged Quality: Aching Severity Level: 1 Activities at Onset: Rest Context: Sitting Past Medical History - Provider Review Nursing Documentation Reviewed: Yes - Travel History Have you recently traveled outside [place] w/in the past 3 mons?: No - Infectious Disease Hx of Infectious Diseases: None - Tetanus Immunization Tetanus Immunization: Unknown - Cardiac Hx MN: Yes (X3) - Pulmonary Hx Respiratory Disorders: No - Neurological Hx Neurological Disorder: Yes HX Cerebrovascular Accident: Yes - HEENT Hx HEENT Disorder: No - Renal Hx Renal Disorder: No - Endocrine/Metabolic Hx Diabetes Mellitus Type 2: Yes - Hematological/Oncological Hx Blood Disorders: No - Integumentary Hx Dermatological Disorder: No - Musculoskeletal/Rheumatological Hx Musculoskeletal Disorders: Yes Hx Falls: Yes - Gastrointestinal Hx Gastrointestinal Disorders: No - Genitourinary/Gynecological Hx Genitourinary Disorders: No - Psychiatric Hx Emotional Abuse: No Hx Physical Abuse: No Hx Substance Use: Yes (MARIJUANA - 1 BAG EVERY OTHER DAY) - Surgical History Hx Cardiac Catheterization: Yes (stents) - Anesthesia Hx Anesthesia: Yes Hx Anesthesia Reactions: No Hx Malignant Hyperthermia: No - Suicidal Assessment Feels Threatened In Home Enviroment: No Family/Social History - Physician Review Nursing Documentation Reviewed: Yes Family/Social History: No Known Family HX Smoking Status: Former Smoker Hx Alcohol Use: No Hx Substance Use: Yes (MARIJUANA - 1 BAG EVERY OTHER DAY) Hx Substance Use Treatment: No Allergies/Home Meds Allergies/Adverse Reactions: Allergies No Known Allergies Allergy (Verified 02/07/18 16:45) Home Medications: Home Meds Medication Instructions Recorded Confirmed Gabapentin [Neurontin] 600 mg PO TID 06/24/16 09/06/17 Atorvastatin [Lipitor] 40 mg PO HS 06/25/17 09/06/17 Brimonidine Tartrate/Timolol 1 drop EACHEYE Q12 09/06/17 09/06/17 [Combigan 0.2%-0.5% Eye Drops] Insulin Regular [HumuLIN R] 1 unit SQ 09/06/17 Insulin Detemir [Levemir] 20 unit SQ HS 09/06/17 09/06/17 Oxycodone HCl/Acetaminophen 1 tab PO Q6 PRN 09/06/17 09/06/17 [Oxycodone-Acetaminophen 5-325] Pantoprazole Sodium [Protonix] 40 mg PO Q12 09/06/17 09/06/17 Warfarin [Coumadin] 10 mg PO HS 09/06/17 09/06/17 hydrALAZINE [Apresoline] 50 mg PO Q8 09/06/17 09/06/17 Review of Systems - Review of Systems Constitutional: Normal Eyes: Normal ENT: Normal Respiratory: SOB Cardiovascular: Chest Pain Gastrointestinal: Normal Genitourinary Male: Normal Musculoskeletal: Normal Skin: Normal Neurological: Normal Endocrine: Normal Hemo/Lymphatic: Normal Psychiatric: Normal Physical Exam Vital Signs Reviewed: Yes Vital Signs Temp Pulse Resp BP Pulse Ox 02/07/18 16:54 98.1 F 60 18 138/85 98 Appearance: Positive for: Well-Appearing, Non-Toxic, Comfortable Pain Distress: None Mental Status: Positive for: Alert and Oriented X 3 - Systems Exam Head: Present: Atraumatic, Normocephalic Pupils: Present: PERRL Extroacular Muscles: Present: EOMI Conjunctiva: Present: Normal Ears: Present: Normal Mouth: Present: Moist Mucous Membranes Pharnyx: Present: Normal Nose (External): Present: Atraumatic Nose (Internal): Present: Normal Inspection Neck: Present: Normal Range of Motion Respiratory/Chest: Present: Clear to Auscultation, Good Air Exchange Cardiovascular: Present: Regular Rate and Rhythm Abdomen: No: Tenderness, Distention, Normal Bowel Sounds, Peritoneal Signs, Rebound, Guarding, McBurney's Point Tender, Rovsing's Sign Present, Hernias, Feeding Tubes, Ostomy Tubes, Mass/Organomegaly, Scars, Other Back: Present: Normal Inspection Upper Extremity: Present: Normal Inspection Lower Extremity: Present: Normal Inspection Neurological: Present: GCS=15, Speech Normal, Motor Func Grossly Intact Skin: Present: Warm, Normal Color Psychiatric: Present: Alert, Oriented x 3, Normal Insight, Normal Concentration Medical Decision Making ED Course and Treatment: 53yoM, hx of DVT/PE with IVC filter and pt states on anti-coagulation and stated on eliquis which Dr. Stevens had started him on after coumadin stopped which pt feels strongly he is on eliquis, CAD w [place], Stroke with left sided weakness, HTN, HL, DM, having chest pain generalized chest pain for about 1 hour , with mild sob and secondarily stated having some mild generalized weakness since the last stroke and otherwise no n/v/bedolla/dizziness/abdomen pain/pain w urination/drug use. given 81mg at time of chest pain. wbc 5.8 hb 13.5 plts 215 CXR no active disease ECG: sinus bradycardia. similar 09/06/17. 02/07/18 16:58 02/07/18 18:31 02/07/18 18:33 02/07/18 18:50 CT head: no acute intracranial. no significant interval change from the prior. d/w Dr. Fitzpatrick who stated he will take patient and pt stated he knows Dr. Fitzpatrick. admit to tele, due to pt stating on eliquis will give low dose 2.5 as pt unclear on dose but strongly states he is on eliquis, consult cardiology Dr. Hernandez, q8hrs ECG/Troponin. 02/07/18 18:52 02/07/18 19:01 Reassessment Condition: Re-examined, Improved - Lab Interpretations Lab Results: 02/07/18 17:50 02/07/18 17:50 Lab Results 02/07/18 17:50: Sodium 139, Potassium 3.8, Chloride 101, Carbon Dioxide 28, Anion Gap 13, BUN 13, Creatinine 0.8, Est GFR ( Amer) > 60, Est GFR (Non- Af Amer) > 60, Random Glucose 193 H, Calcium 9.9, Magnesium 1.6 L, Total Bilirubin 0.3, AST 25, ALT 42, Alkaline Phosphatase 70, Lactate Dehydrogenase 413, Total Creatine Kinase 169, Troponin I 0.02, NT-Pro-B Natriuret Pep 20.6, Total Protein 7.1, Albumin 4.1, Globulin 3.0, Albumin/Globulin Ratio 1.4 02/07/18 17:50: PT 11.1, INR 0.97, APTT 31.2 02/07/18 17:50: WBC 5.8 D, RBC 4.53, Hgb 13.5 L, Hct 39.2 L, MCV 86.5, MCH 29.8 , MCHC 34.4, RDW 12.5, Plt Count 215, MPV 8.5, Gran % 69.8 H, Lymph % (Auto) 24.9, [place] % (Auto) 4.2, Eos % (Auto) 0.9 L, Baso % (Auto) 0.2, Gran # 4.04, Lymph # (Auto) 1.4, [place] # (Auto) 0.2, Eos # (Auto) 0.1, Baso # (Auto) 0.01 I have reviewed the lab results: Yes - RAD Interpretation Radiology Orders: 02/07/18 16:52 HEAD W/O CONTRAST [CT] Stat CHEST PORTABLE [RAD] Stat Continuous Dryout Operator: ED Physician (cxr no acute), Radiologist (see mdm) - EKG Interpretation Interpreted by ED Physician: Yes (sinus bradycardia, flipped t waves i, ii, iii , avl, avf, v3, v4, v5, v6) Type: 12 lead EKG Comparison: Similar to previous EKG (09/06/17) - Medication Orders Current Medication Orders: Apixaban (Eliquis) 2.5 mg PO ONCE ONE PRN Reason: Protocol Stop: 02/07/18 22:01 Magnesium Sulfate/Dextrose (Magnesium Sulfate 1 Gm/100 Ml D5w) 1 gm in 100 mls @ 100 mls/hr IVPB ONCE ONE Stop: 02/07/18 19:31 Disposition/Present on Arrival - Present on Arrival Any Indicators Present on Arrival: No History of DVT/PE: Yes History of Uncontrolled Diabetes: No Urinary Catheter: No History of Decub. Ulcer: No History Surgical Site Infection Following: None - Disposition Have Diagnosis and Disposition been Completed?: Yes Diagnosis: Chest pain Disposition: HOSPITALIZED Disposition Time: 19:03 Patient Plan: Admission, Telemetry Condition: IMPROVED Discharge Instructions (ExitCare): Chest Pain (ED) Referrals: Tanner Roth MD [Primary Care Provider] - Follow up with primary Forms: [employer] (Uzbek)
--- NOTE | 2018-02-07 18:07 | RAD ---
HISTORY: Chest pain. COMPARISON: 09/06/2017 FINDINGS: LUNGS: No active pulmonary disease. PLEURA: No significant pleural effusion identified, no pneumothorax apparent. CARDIOVASCULAR: No radiographic findings to suggest acute or significant cardiovascular disease. OSSEOUS STRUCTURES: No significant abnormalities. VISUALIZED UPPER ABDOMEN: Normal. OTHER FINDINGS: None. IMPRESSION: No active disease. No significant interval change compared to the prior examination(s).
[2018-02-07 18:13] LABS: ALB/GLOB RATIO 1.4 (1.1-1.8); ALBUMIN 4.1 g/dL (3.0-4.8); ALT/SGPT 42 U/L (7-56); AST/SGOT 25 U/L (17-59); BLOOD UREA NITROGEN 13 mg/dL (7-21); CALCIUM 9.9 mg/dL (8.4-10.5); GFR AFRICAN-AMERICAN > 60; GFR NON-AFRICAN AMERICAN > 60
[2018-02-07 18:18] LABS: BASO # 0.01 K/mm3 (0.0-2.0); BASO % 0.2 % (0.0-3.0); EOS # 0.1 (0.0-0.7); EOS % 0.9 % (1.5-5.0); GRAN # 4.04 (1.4-6.5); GRAN % 69.8 % (50.0-68.0); HEMOGLOBIN 13.5 g/dL (14.0-18.0); LYMPH # 1.4 (1.2-3.4); LYMPH % 24.9 % (22.0-35.0); MEAN CELL VOLUME 86.5 fl (80.0-105.0); MEAN CORPUSCULAR HEMOGLOBIN 29.8 pg (25.0-35.0); MEAN CORPUSCULAR HGB CONC 34.4 g/dl (31.0-37.0); MEAN PLATELET VOLUME 8.5 fl (7.0-11.0); MONO # 0.2 (0.1-0.6); MONO % 4.2 % (1.0-6.0); RBC 4.53 10^6/uL (3.5-6.1); RED CELL DISTRIBUTION WIDTH 12.5 % (11.5-14.5); WHITE BLOOD COUNT 5.8 10^3/ul (4.5-11.0)
[2018-02-07 18:24] LABS: B-TYPE NATRIURETIC PEPTIDE 20.6 pg/mL (0-450); TROPONIN I 0.02 ng/mL
[2018-02-07 18:25] LABS: INR 0.97 (0.93-1.08); PARTIAL THROMBOPLASTIN TIME 31.2 Seconds (25.1-36.5); PROTHROMBIN TIME 11.1 SECONDS (9.4-12.5)
[2018-02-07] MEDS ORDERED: Magnesium Sulfate 1 gm in D5W 1 GM/100 ML BAG IVPB ONE (18:32)
--- NOTE | 2018-02-07 18:33 | CT ---
PROCEDURE: CT HEAD WITHOUT CONTRAST. HISTORY: 53yoM, hx of cva and feeling progressive weakness COMPARISON: 07/20/2017 CT brain. 07/21/2017 MRI head TECHNIQUE: Axial computed tomography images were obtained through the head/brain without intravenous contrast. Radiation dose: Total exam DLP = 852.28 mGy-cm. This CT exam was performed using one or more of the following dose reduction techniques: Automated exposure control, adjustment of the mA and/or kV according to patient size, and/or use of iterative reconstruction technique. FINDINGS: HEMORRHAGE: No intracranial hemorrhage. BRAIN: No mass effect or edema. Stable old right occipital infarct. VENTRICLES: Unremarkable. No hydrocephalus. CALVARIUM: Unremarkable. PARANASAL SINUSES: Unremarkable as visualized. No significant inflammatory changes. MASTOID AIR CELLS: Unremarkable as visualized. No inflammatory changes. OTHER FINDINGS: None. IMPRESSION: No acute intracranial abnormalities. No significant findings to account for the clinical presentation. No significant interval change compared to the prior examination(s).
[2018-02-07 22:00] LABS: URINE BILIRUBIN NEGATIVE (NEGATIVE); URINE BLOOD NEGATIVE (NEGATIVE); URINE GLUCOSE (UA) NEGATIVE (NEGATIVE); URINE LEUKOCYTE ESTERASE NEGATIVE Leu/uL (NEGATIVE); URINE PROTEIN NEGATIVE mg/dL (<30 mg/dL); URINE UROBILINOGEN 0.2 E.U./dL (<1 E.U./dL)
[2018-02-07 22:03] LABS: URINE APPEARANCE CLEAR (CLEAR); URINE COLOR YELLOW (YELLOW)
--- NOTE | 2018-02-07 23:42 | CARD ---
APPROVED REPORT EKG Measurement Heart [id number] <Conclusion> Sinus bradycardia Possible Left atrial enlargement Left ventricular hypertrophy with repolarization abnormality Cannot rule out Septal infarct, age undetermined Abnormal ECG
--- NOTE | 2018-02-07 23:48 | CP.PCM.PN ---
Subjective - Date & Time of Evaluation Date of Evaluation: 02/07/18 Time of Evaluation: 23:47 - Subjective Subjective: Patient was seen at bedside. He complained of legs pain and requested for neurontin which he is on at home. I had ordered Neurontin 600 mg PO x1. I went to see him. He was asleep. Later on he woke up, requested for neurontin again. I went to see him . He complains of both leg pain. Has no other complaints. Medical record was reviewed. This 53 year old male was admitted for chest pain, sob, mild generalized weakness. Has PMH of DVT,PE, IVC filter, CT, CAD , stroke, left sided weakness, HTN,HLD , DM. Objective - Vital Signs/Intake and Output Vital Signs (last 24 hours): Temp Pulse Resp BP Pulse Ox 98.1 F 55 L 18 142/89 98 02/07/18 16:54 02/07/18 22:40 02/07/18 22:40 02/07/18 22:40 02/07/18 22:40 - Labs Labs: PT 11.1 SECONDS (9.4-12.5) 02/07/18 17:50 INR 0.97 (0.93-1.08) 02/07/18 17:50 APTT 31.2 Seconds (25.1-36.5) 02/07/18 17:50 Most Recent Lab Values WBC 5.8 10^3/ul (4.5-11.0) D 02/07/18 17:50 RBC 4.53 10^6/uL (3.5-6.1) 02/07/18 17:50 Hgb 13.5 g/dL (14.0-18.0) L 02/07/18 17:50 Hct 39.2 % (42.0-52.0) L 02/07/18 17:50 MCV 86.5 fl (80.0-105.0) 02/07/18 17:50 MCH 29.8 pg (25.0-35.0) 02/07/18 17:50 MCHC 34.4 g/dl (31.0-37.0) 02/07/18 17:50 RDW 12.5 % (11.5-14.5) 02/07/18 17:50 Plt Count 215 10^3/uL (120.0-450.0) 02/07/18 17:50 MPV 8.5 fl (7.0-11.0) 02/07/18 17:50 Gran % 69.8 % (50.0-68.0) H 02/07/18 17:50 Lymph % (Auto) 24.9 % (22.0-35.0) 02/07/18 17:50 [place] % (Auto) 4.2 % (1.0-6.0) 02/07/18 17:50 Eos % (Auto) 0.9 % (1.5-5.0) L 02/07/18 17:50 Baso % (Auto) 0.2 % (0.0-3.0) 02/07/18 17:50 Gran # 4.04 (1.4-6.5) 02/07/18 17:50 Lymph # (Auto) 1.4 (1.2-3.4) 02/07/18 17:50 [place] # (Auto) 0.2 (0.1-0.6) 02/07/18 17:50 Eos # (Auto) 0.1 (0.0-0.7) 02/07/18 17:50 Baso # (Auto) 0.01 K/mm3 (0.0-2.0) 02/07/18 17:50 PT 11.1 SECONDS (9.4-12.5) 02/07/18 17:50 INR 0.97 (0.93-1.08) 02/07/18 17:50 APTT 31.2 Seconds (25.1-36.5) 02/07/18 17:50 Sodium 139 mmol/L (132-148) 02/07/18 17:50 Potassium 3.8 mmol/L (3.6-5.0) 02/07/18 17:50 Chloride 101 mmol/L (98-107) 02/07/18 17:50 Carbon Dioxide 28 mmol/L (21-33) 02/07/18 17:50 Anion Gap 13 (10-20) 02/07/18 17:50 BUN 13 mg/dL (7-21) 02/07/18 17:50 Creatinine 0.8 mg/dl (0.8-1.5) 02/07/18 17:50 Est GFR ( Amer) > 60 02/07/18 17:50 Est GFR (Non-Af Amer) > 60 02/07/18 17:50 Random Glucose 193 mg/dL (70-110) H 02/07/18 17:50 Calcium 9.9 mg/dL (8.4-10.5) 02/07/18 17:50 Magnesium 1.6 mg/dL (1.7-2.2) L 02/07/18 17:50 Total Bilirubin 0.3 mg/dL (0.2-1.3) 02/07/18 17:50 AST 25 U/L (17-59) 02/07/18 17:50 ALT 42 U/L (7-56) 02/07/18 17:50 Alkaline Phosphatase 70 U/L (38-126) 02/07/18 17:50 Lactate Dehydrogenase 413 U/L (333-699) 02/07/18 17:50 Total Creatine Kinase 169 U/L (35-230) 02/07/18 17:50 Troponin I 0.02 ng/mL 02/07/18 21:58 NT-Pro-B Natriuret Pep 20.6 pg/mL (0-450) 02/07/18 17:50 Total Protein 7.1 g/dL (5.8-8.3) 02/07/18 17:50 Albumin 4.1 g/dL (3.0-4.8) 02/07/18 17:50 Globulin 3.0 gm/dL 02/07/18 17:50 Albumin/Globulin Ratio 1.4 (1.1-1.8) 02/07/18 17:50 Urine Color Yellow (YELLOW) 02/07/18 21:55 Urine Appearance Clear (CLEAR) 02/07/18 21:55 Urine pH 6.0 (4.7-8.0) 02/07/18 21:55 Ur Specific [place] 1.020 (1.005-1.035) 02/07/18 21:55 Urine Protein Negative mg/dL (<30 mg/dL) 02/07/18 21:55 Urine Glucose (UA) Negative mg/dL (NEGATIVE) 02/07/18 21:55 Urine Ketones Negative mg/dL (NEGATIVE) 02/07/18 21:55 Urine Blood Negative (NEGATIVE) 02/07/18 21:55 Urine Nitrate Negative (NEGATIVE) 02/07/18 21:55 Urine Bilirubin Negative (NEGATIVE) 02/07/18 21:55 Urine Urobilinogen 0.2 E.U./dL (<1 E.U./dL) 02/07/18 21:55 Ur Leukocyte Esterase Negative Josy/uL (NEGATIVE) 02/07/18 21:55 - Constitutional Appears: Well, No Acute Distress - Head Exam Head Exam: ATRAUMATIC, NORMAL INSPECTION, NORMOCEPHALIC - Eye Exam Eye Exam: Normal appearance - ENT Exam ENT Exam: Normal External Ear Exam - Neck Exam Neck Exam: Normal Inspection - Respiratory Exam Respiratory Exam: NORMAL BREATHING PATTERN - Cardiovascular Exam Cardiovascular Exam: absent: JVD - GI/Abdominal Exam GI & Abdominal Exam: absent: Distended - Rectal Exam Rectal Exam: Deferred - Exam Additional comments: Deferred. - Extremities Exam Extremities Exam: Normal Inspection. absent: Pedal Edema - Back Exam Back Exam: NORMAL INSPECTION - Neurological Exam Neurological Exam: Alert, Awake, Oriented x3 - Psychiatric Exam Psychiatric exam: Normal Affect, Normal Mood - Skin Skin Exam: Normal Color Assessment and Plan - Assessment and Plan (Free Text) Assessment: Legs pain. Diabetic neuropathy. HTN. HLD. DM. CAD. S/P IVC Hx DVT. Hx PE. Plan: Neurontin 600 mg was given. Ordered Motrin 600 mg PO x 1.
--- NOTE | 2018-02-08 13:37 | RAD ---
PROCEDURE: Left Hip and pelvis X-ray Radiographs. HISTORY: decreased mobility COMPARISON: None. FINDINGS: BONES: There is a CAM shaped variation of the femoral heads and a prominent lip of the superior acetabulum. 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 Clinical correlation is suggested JOINTS: Normal. SOFT TISSUES: Normal. OTHER FINDINGS: None. IMPRESSION: There is a CAM shaped variation of the femoral heads and a prominent lip of the superior acetabulum. 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 Clinical correlation is suggested
[2018-02-08] MEDS ORDERED: Insulin Regular 1 UNITS/0.01 ML ML SC SCH (16:30)
[2018-02-08] MEDS: Insulin Reg-LOW-Coverage SC SCH ×2 (17:47→22:03)
--- NOTE | 2018-02-08 20:40 | HP ---
HISTORY OF PRESENT ILLNESS: I was called to the emergency room to see him. I saw him in his bed this morning. He is a 53-year-old man, who presents with left-sided weakness, chest pain for about an hour, mild shortness of breath. He has generalized mild weakness. He felt like a stroke. He comes to the emergency room. PAST MEDICAL HISTORY: His past medical history, which is very long of DVT, PE, IVC filter. He has been on Eliquis. CAD, [place], strokes, left-sided weakness, hypertension, high cholesterol, diabetes. There is a lot more. He had 3 MIs, CVA, diabetes, falls. He smokes marijuana. He had cardiac stents. FAMILY HISTORY: There is diabetes in the family. SOCIAL HISTORY: He is a former smoker. Denies alcohol, but does smoke marijuana everyday or every other day. ALLERGIES: NO KNOWN DRUG ALLERGIES. MEDICATIONS: He takes Neurontin; Lipitor; Combivent; insulin Levemir; oxycodone, not sure where he is getting that from; Protonix; Coumadin and Apresoline. I believe he is off the Coumadin. He is on Eliquis now. REVIEW OF SYSTEMS: No acute vision or hearing changes. He does have some shortness of breath. There is some chest pain and some weakness. No skin issues. No anxiety or depression. PHYSICAL EXAMINATION: VITAL SIGNS: He has a 98.1 temp, 60 pulse, 18 respiratory rate, 138/85 blood pressure, 90% O2 sat on room air. GENERAL: At this time, he is well appearing, nontoxic, comfortable alert and oriented x3. HEENT: His extraocular muscles are intact. Pupils equal, reactive to light. Throat is moist. NECK: Supple. HEART: Regular rate. LUNGS: Decreased breath sounds, but clear to auscultation bilaterally. ABDOMEN: Soft, nontender. Positive bowel sounds. No guarding. No rebound. No CVA tenderness. EXTREMITIES: Have no edema. NEUROLOGIC: GCS is 15. Cranial nerves II through XII grossly intact. Alert and oriented x3. He has a DVT, PE with IVC filter in place. He is on Eliquis. He stopped the Coumadin already. Generalized weakness. He has left-sided weakness mostly. He is here for chest pain. We will get Cardiology involved. LABORATORY DATA: He had multiple tests. He has a urine that is clean. He has 139 sodium, potassium 3.8, BUN 13, creatinine 0.8, GFR is greater than 60, sugar is 193, calcium is 9.3, magnesium 1.6, total bili is 0.3, AST is 25, ALT is 42, alk phos 70, lactate dehydrogenase is troponin is 0.02. BNP is 20.6, total protein 7.1. INR is 0.97. He has a 5.8 white count, 13.5 hemoglobin, 39.2 hematocrit with 215 platelets. IMPRESSION: I will consult Dr. Hernandez, Cardiology. If he feels he could be discharged today, he will be discharged. He should be on observation status and hopefully will be discharged later today after the care with Cardiology. Yaakov Fitzpatrick DO MTDJennifer
--- NOTE | 2018-02-08 21:01 | CARD ---
APPROVED REPORT EKG Measurement Heart [id number] <Conclusion> Sinus bradycardia Left ventricular hypertrophy with repolarization abnormality Abnormal ECG
[2018-02-08] MEDS: Insulin Detemir 100 units/ml Vial (Levemir) SC SCH (22:01)
[2018-02-08] MEDS: Pantoprazole 40 mg EC Tab PO SCH (22:01)
[2018-02-08] MEDS: Non Formulary Medication (Brimonidine Tartrate/Timolol [Combigan 0.2%-0.5% Eye Drops] 1 DR EACHEYE SCH (22:02)
--- NOTE | 2018-02-08 23:38 | CON ---
DATE: 02/08/2018 CARDIOLOGY CONSULTATION HISTORY OF PRESENT ILLNESS: The patient is a 53-year-old male who presents with substernal chest pain consistent with his angina in the past. PAST MEDICAL HISTORY: Notable for diabetes mellitus, hypertension and hypercholesterolemia. He has had two stents placed in the past. In addition, the patient is complaining of marked weakness in the left lower extremity with diffuse pain, which cause him issues to ambulate. Patient's past medical history also includes a history of CVA in the past. He is on anticoagulation because of history of DVTs. SOCIAL HISTORY: The patient denies smoking. REVIEW OF SYSTEMS: A 14-point review of systems is reviewed. Other than his substernal angina at rest, there are no other cardiac symptoms. PHYSICAL EXAMINATION: VITAL SIGNS: Blood pressure 130/95, heart rate is in the 50s. NECK: Negative JVD. LUNGS: Without rales. HEART: S1 and S2. EXTREMITIES: Without edema. DIAGNOSTICS: EKG shows normal sinus rhythm with diffuse ST-T changes and very deep T-wave changes across his anterior precordium. LABORATORY DATA: Reveal troponin that is 0.02. Glucose is 193. Hemoglobin is 13.5. IMPRESSION: 1. Recurrent angina at rest. 2. Marked EKG changes which is now unchanged. 3. No evidence for acute coronary syndrome. 4. History of deep venous thrombosis. 5. Diabetes mellitus. 6. Hypertension. 7. Hypercholesterolemia. 8. History of cerebrovascular accident. 9. Marked left lower extremity pain restricting his ambulation. PLAN: Given these findings, the patient will obtain 3 serial troponins. The patient will need to have a catheterization performed. We will need to discontinue his Eliquis for 24 hours. We will schedule catheterization for morning. He is on aspirin and Plavix. In addition, we will obtain an x-ray of his left hip which is the origin of his pain. If negative, we will begin physical therapy. Monico Hernandez MD
[2018-02-09] MEDS: Insulin Reg-LOW-Coverage SC SCH ×4 (08:15→21:19)
[2018-02-09 09:25] LABS: ALB/GLOB RATIO 1.4 (1.1-1.8); ALT/SGPT 39 U/L (7-56); AST/SGOT 25 U/L (17-59); BLOOD UREA NITROGEN 12 mg/dL (7-21); CALCIUM 9.7 mg/dL (8.4-10.5); GFR AFRICAN-AMERICAN > 60; GFR NON-AFRICAN AMERICAN > 60
[2018-02-09] MEDS: Pantoprazole 40 mg EC Tab PO SCH ×2 (10:11→21:22)
[2018-02-09] MEDS: Non Formulary Medication (Brimonidine Tartrate/Timolol [Combigan 0.2%-0.5% Eye Drops] 1 DR EACHEYE SCH ×2 (10:18→21:19)
[2018-02-09 11:24] LABS: HDL CHOLESTEROL 35 mg/dL (29-60)
[2018-02-09 11:35] LABS: LDL CHOLESTEROL 121 mg/dL (0-129)
--- NOTE | 2018-02-09 14:09 | PN ---
DATE: SUBJECTIVE: He came in with chest pain and now he is having severe leg pain, we called an Orthopedics to take a look at that. He is going to have cardiac cath tomorrow by Dr. Monico Hernandez. He is currently on Apresoline, Combigan eyedrops, Cozaar, Ecotrin, insulin, Levemir, Lipitor, Motrin, Neurontin, Norvasc, Plavix and Protonix. PHYSICAL EXAMINATION: VITAL SIGNS: 97.6 temperature, 62 pulse, 129/89 blood pressure, 19 respiratory rate, 100%, O2 sat on room air. HEENT: Head is atraumatic, normocephalic. HEART: Regular rate. LUNGS: Decreased breath sounds, but clear. ABDOMEN: Soft. EXTREMITIES: Weak and tender. LABORATORY DATA: He has a 5.8 white count, 13.5 hemoglobin and 215 platelets. Last blood sugar was 225. No chemistry this morning. ASSESSMENT AND PLAN: I will order labs, I do not know why they were not done. I will put them in. He is going to go for cardiac cath tomorrow as per Dr. Hernandez. I also called in Orthopedics for his severe leg pain. He needs physical therapy. He might need TCU or subacute rehab and there is no physical therapy at all. We will order physical therapy also as per Cardiology at this time. Yaakov Fitzpatrick DO [facility]
--- NOTE | 2018-02-09 14:24 | PN ---
DATE: 02/09/2018 CARDIOLOGY FOLLOWUP SUBJECTIVE: The patient is in bed, comfortable. PHYSICAL EXAMINATION VITAL SIGNS: Blood pressure 124/78, heart rate in the 60s. NECK: Negative JVD. LUNGS: Without rales. HEART: S1 and S2. EXTREMITIES: Without change. LABORATORY DATA: BUN and creatinine unremarkable. Glucose is 215. Troponin is 0.02. Hemoglobin is 13.5. IMPRESSION 1. Recurrent angina including angina at rest. 2. No evidence for acute coronary syndrome. 3. Diabetes mellitus. 4. Hypertension. 5. History of cerebrovascular accident. 6. History of percutaneous transluminal coronary angioplasty in the past. PLAN: Patient's Eliquis has been stopped. We will proceed to cardiac catheterization in the morning. Monico Hernandez MD
--- NOTE | 2018-02-09 14:27 | CT ---
PROCEDURE: CT Lumbar Spine without contrast HISTORY: lt sciatica COMPARISON: None. TECHNIQUE: Axial computed tomography images were obtained of the lumbar spine without the use of intravenous contrast. Coronal and sagittal reformatted images were created and reviewed. Radiation dose: Total exam DLP = 522 mGy-cm. This CT exam was performed using one or more of the following dose reduction techniques: Automated exposure control, adjustment of the mA and/or kV according to patient size, and/or use of iterative reconstruction technique. FINDINGS: VERTEBRAE: Unremarkable. No fracture. Normal alignment. DISCS/SPINAL CANAL/NEURAL FORAMINA: L1-2: Unremarkable. L2-3: Facet arthropathy L3-4: Facet arthropathy L4-5: Disc degeneration and facet arthropathy with a moderate degree of central stenosis L5-S1: There is disc degeneration with loss of disc height and disc bulging. This produces moderate to severe bilateral foraminal stenosis. There is no significant central stenosis PARASPINAL SOFT TISSUES: Unremarkable. OTHER FINDINGS: Caval filter IMPRESSION: Facet and disc degeneration a multiple levels. Moderate central stenosis at L4-5. Moderate to severe bilateral foraminal stenosis at L5-S1
--- NOTE | 2018-02-09 14:31 | RAD ---
PROCEDURE: Radiographs of the Left Shoulder HISTORY: lt shoulder pain COMPARISON: No prior. FINDINGS: BONES: Normal. No fracture. JOINTS: Normal. Glenohumeral and acromioclavicular joints preserved. No osteoarthritis. SOFT TISSUES: Normal. OTHER FINDINGS: None. IMPRESSION: Normal radiographs of the left shoulder.
[2018-02-09] MEDS: Insulin Detemir 100 units/ml Vial (Levemir) SC SCH (21:19)
--- NOTE | 2018-02-10 00:46 | CON ---
DATE: 02/09/2018 ORTHOPEDIC CONSULT HISTORY OF PRESENT ILLNESS: The patient is a 53-year-old male with history of weakness to his lower extremities where he fell prior to admission and he has discomfort of his left hip. X-ray showed femoral acetabular impingement, worse on the left than the right, with a supra-acetabular osteophyte with a little fracture in it, but not needing surgery. He does have symptoms also of left-sided radiculopathy of the lower extremities. With neuropathy, it is difficult to get reflexes, but his motor strength clinically is not bad. He can do a quad set and range of motion of his legs. He has good dorsalis pedis pulse and he has tenderness to left hip trochanter consistent with bursitis of the left hip, and he has stiffness of his left shoulder which appears to be of a bursitis in nature than tendinitis. So, I was going to order a left shoulder x-ray to follow up on the left shoulder pain and decreased range of motion. I am going to ask for a CAT scan of his lumbar spine to investigate for left-sided radiculopathy, and physical therapy for the osteoarthritis of his hip, which is contributing to do strengthening exercises of his lower legs As therapy does not help as much as I would like it to, we may need a cortisone injection to his left hip and left shoulder. FINAL DIAGNOSES: Weakness of the lower extremities with radiculopathy of his lower leg, left hip osteoarthritis and left shoulder bursitis. PLAN: Evaluate with a CAT scan of his lumbar spine, x-ray of the shoulder, and ask him to go for physical therapy, to ambulate with a walker, and to discourage a wheelchair he wants, but that would make him even weaker right now. So, we will see how much we could help with physical therapy to improve his strength. Thomas Braden DO [facility]
[2018-02-10 06:51] LABS: HEMOGLOBIN 14.3 g/dL (14.0-18.0); MEAN CELL VOLUME 85.8 fl (80.0-105.0); MEAN CORPUSCULAR HEMOGLOBIN 29.9 pg (25.0-35.0); MEAN CORPUSCULAR HGB CONC 34.9 g/dl (31.0-37.0); MEAN PLATELET VOLUME 8.3 fl (7.0-11.0); RBC 4.78 10^6/uL (3.5-6.1); RED CELL DISTRIBUTION WIDTH 12.3 % (11.5-14.5); WHITE BLOOD COUNT 4.2 10^3/ul (4.5-11.0)
[2018-02-10 07:08] LABS: ALB/GLOB RATIO 1.4 (1.1-1.8); ALT/SGPT 41 U/L (7-56); AST/SGOT 23 U/L (17-59); BLOOD UREA NITROGEN 14 mg/dL (7-21); CALCIUM 9.8 mg/dL (8.4-10.5); GFR AFRICAN-AMERICAN > 60; GFR NON-AFRICAN AMERICAN > 60
[2018-02-10] MEDS ORDERED: Lidocaine 2% Inj (20ml) ONE (07:33)
[2018-02-10] MEDS ORDERED: Iohexol 350mgl/ml 50 ML ONE (07:34)
[2018-02-10] MEDS: Insulin Reg-LOW-Coverage SC SCH ×4 (07:36→22:00)
[2018-02-10] MEDS ORDERED: Midazolam 2 MG/2 ML VIAL ONE ×2 (08:19→08:29)
[2018-02-10] MEDS ORDERED: Sodium Chloride 0.9% 1,000 ML IV SCH (09:30)
[2018-02-10] MEDS: Pantoprazole 40 mg EC Tab PO SCH ×2 (10:27→22:00)
[2018-02-10] MEDS: Non Formulary Medication (Brimonidine Tartrate/Timolol [Combigan 0.2%-0.5% Eye Drops] 1 DR EACHEYE SCH ×2 (10:48→22:00)
--- NOTE | 2018-02-10 13:05 | PN ---
DATE: SUBJECTIVE: I saw him getting ready for his cardiac cath. He is still uncomfortable in his legs, difficulty walking. He is going to need to have subacute rehab, I believe. He is on Apresoline, Combigan, Cozaar, Ecotrin, insulin, Levemir, Lioresal, Lipitor, Motrin, Neurontin, Norvasc, Plavix and Protonix. PHYSICAL EXAMINATION: VITAL SIGNS: He has a 98.1 temperature, 66 pulse, 139/80 blood pressure, 19 respiratory rate, 99% O2 sat on room air. HEENT: His head is atraumatic, normocephalic. HEART: Regular rate. LUNGS: Decreased breath sounds, but clear. ABDOMEN: Soft. EXTREMITIES: No edema, but painful. LABORATORY DATA: He has a 4.2 white count, 14.3 hemoglobin, 41 hematocrit with a 212 platelets. INR 0.97. Sodium 138, potassium of 4.2, BUN 40, creatinine 0.9, GFR is greater than 60, sugars are 248 and 182 and 191 and 236 of tightness of blood sugars; calcium is 9.8, total bilirubin is 0.6, AST is 23, ALT is 41, alkaline phosphatase is 72, total protein 6.9. Urine was clean. ASSESSMENT AND PLAN: He is being seen by Orthopedics. He had a shoulder x-ray and a lumbar spine CAT scan. He is in the process of going for a cardiac catheterization. I am hoping that he can be discharged tomorrow to subacute rehab. On CAT scan of the lumbar spine, he has disc degeneration, central stenosis of L4-L5 and L5-S1. Orthopedics is on the case. Normal radiographs of the left shoulder. Cardiology is on the case. He does well with the pharmaceutical officer and hopefully tomorrow we can transfer him to subacute rehab. I have discussed with case management. He came in with chest pain and he has got leg pains. He has recurrent angina, diabetes, hypertension, cerebrovascular accident history as per Cardiology. Yaakov Fitzpatrick DO
--- NOTE | 2018-02-10 14:29 | CARDCATH ---
PROCEDURE DATE: 02/10/2018 HISTORY: The patient is a 53-year-old male with multiple cardiac risk factors including diabetes mellitus, hypertension, and hypercholesterolemia who presents with unstable angina. The patient has had multivessel PTCA in the past. Because of his ongoing symptoms including progression to symptoms at rest, cardiac catheterization was recommended. PROCEDURES: Left heart catheterization with coronary arteriography and left ventriculogram, followed by percutaneous transluminal coronary angioplasty and stent of an LAD with a drug-eluting stent. The right femoral artery was cannulated with a 6-Frisian sheath. There were no complications. I performed moderate sedation which included the presence of an independent trained observer who assisted in monitoring the patient's level of consciousness and physiologic status. After administration of Versed and fentanyl, my intra-service time was 30 minutes. The findings on catheterization included a left ventricle that contracted normally. Estimated ejection fraction of 60%. His coronary anatomy revealed a right dominant circulation. The RCA revealed diffuse atherosclerosis with a patent stent that was placed previously. The left main artery was unremarkable. The LAD had a patent stent in its proximal portion. In the midportion, there was a new 80% to 90% stenosis noted, best seen in the cranial projection. The diagonal vessels revealed intimal irregularities without significant stenosis. The circumflex artery and obtuse marginal branches revealed intimal irregularities without significant stenosis. The patient was started on intravenous Angiomax on the fluoroscopic guide, the guiding catheter was placed in the ostium of the left main artery. A 0.014 ATW wire was used to cross the critical lesion. A 2.5 x 12 mm drug-eluting stent was placed and deployed at 16 ounces of pressure. Repeat coronary arteriography revealed an excellent result with no residual stenosis and JEWEL III flow. Angio-Seal was used to close the femoral artery site. The patient tolerated the procedure well. In summary, the procedure was successful, PTCA and stent of a critically stenosed mid LAD stenoses of 80% with a drug-eluting stent. Cardiac catheterization reveals patent stents in the proximal LAD, patent stents in the RCA, normal LV function with a new LAD stenosis in the midportion of the LAD. Given these findings, the patient will need to remain on aspirin indefinitely and Plavix for at least a year and undergo a strict cardiac risk reduction program. In addition, the patient's anticoagulation, in which he was placed on for DVTs, has been free of DVT since before 2011. Given the risk of aspirin, Plavix, and anticoagulation, we would consider stopping the anticoagulation and place the patient on aspirin indefinitely and Plavix for at least a year. Monico Hernandez MD
--- NOTE | 2018-02-10 18:27 | CARD ---
APPROVED REPORT EKG Measurement Heart [id number] <Conclusion> Sinus bradycardia Left ventricular hypertrophy with repolarization abnormality Cannot rule out Septal infarct, age undetermined Abnormal ECG
[2018-02-10 20:31] VITALS: RESP 20
[2018-02-10] MEDS ORDERED: Oxycodone/Acetaminophen 5/325 mg Tab PO STA (21:34)
--- NOTE | 2018-02-10 21:36 | CP.PCM.PN ---
Subjective - Date & Time of Evaluation Date of Evaluation: 02/10/18 Time of Evaluation: 21:35 - Subjective Subjective: draft bedolla hip pain bp 134/78 Objective - Vital Signs/Intake and Output Vital Signs (last 24 hours): Temp Pulse Resp BP Pulse Ox 97.6 F 62 20 131/81 100 02/10/18 18:00 02/10/18 18:00 02/10/18 18:00 02/10/18 18:00 02/10/18 18:00 - Medications Medications: Current Medications Amlodipine Besylate (Norvasc) 10 mg PO DAILY [facility] Last Admin: 02/10/18 10:26 Dose: 10 mg Aspirin (Ecotrin) 81 mg PO DAILY [facility] Last Admin: 02/10/18 06:51 Dose: 81 mg Atorvastatin Calcium (Lipitor) 40 mg PO [facility] Last Admin: 02/09/18 21:22 Dose: 40 mg Baclofen (Lioresal) 5 mg PO TID [facility] Last Admin: 02/10/18 18:21 Dose: 5 mg Clopidogrel Bisulfate (Plavix) 75 mg PO DAILY [facility] Last Admin: 02/10/18 06:51 Dose: 75 mg Gabapentin (Neurontin) 600 mg PO TID [facility] PRN Reason: Protocol Last Admin: 02/10/18 18:21 Dose: 600 mg Hydralazine HCl (Apresoline) 50 mg PO Q8 [facility] Last Admin: 02/10/18 14:40 Dose: 50 mg Ibuprofen (Motrin Tab) 600 mg PO Q6H PRN PRN Reason: Pain, Mild (1-3) Last Admin: 02/10/18 06:20 Dose: 600 mg Insulin Detemir (Levemir) 20 unit SC [facility] Last Admin: 02/09/18 21:19 Dose: Not Given Insulin Human Regular (Humulin R Low) 0 units SC [facility] PRN Reason: Protocol Last Admin: 02/10/18 18:21 Dose: 1 units Losartan Potassium (Cozaar) 100 mg PO DAILY [facility] Last Admin: 02/10/18 10:27 Dose: 100 mg Non-Formulary Medication (Brimonidine Tartrate/Timolol [Combigan 0.2%-0.5% Eye Drops]) 1 drop EACHEYE Q12 [facility] Last Admin: 02/10/18 10:48 Dose: Not Given Pantoprazole Sodium (Protonix Ec Tab) 40 mg PO Q12 [facility] Last Admin: 02/10/18 10:27 Dose: 40 mg Sitagliptin Phosphate (Januvia) 50 mg PO DAILY [facility] Last Admin: 02/10/18 11:37 Dose: 50 mg - Labs Labs: 02/10/18 06:30 02/10/18 06:30 PT 11.1 SECONDS (9.4-12.5) 02/07/18 17:50 INR 0.97 (0.93-1.08) 02/07/18 17:50 APTT 31.2 Seconds (25.1-36.5) 02/07/18 17:50
[2018-02-10] MEDS: Insulin Detemir 100 units/ml Vial (Levemir) SC SCH (22:01)
[2018-02-11 06:24] VITALS: TEMP 98.4; O2SAT 100
[2018-02-11 06:29] LABS: BASO # 0.01 K/mm3 (0.0-2.0); BASO % 0.2 % (0.0-3.0); EOS # 0.1 (0.0-0.7); EOS % 1.9 % (1.5-5.0); GRAN # 3.78 (1.4-6.5); GRAN % 65.2 % (50.0-68.0); LYMPH # 1.5 (1.2-3.4); LYMPH % 26.1 % (22.0-35.0); MEAN CORPUSCULAR HEMOGLOBIN 29.7 pg (25.0-35.0); MEAN CORPUSCULAR HGB CONC 34.6 g/dl (31.0-37.0); MEAN PLATELET VOLUME 8.4 fl (7.0-11.0); MONO # 0.4 (0.1-0.6); MONO % 6.6 % (1.0-6.0); RBC 4.71 10^6/uL (3.5-6.1); RED CELL DISTRIBUTION WIDTH 12.4 % (11.5-14.5); WHITE BLOOD COUNT 5.8 10^3/ul (4.5-11.0)
[2018-02-11 06:58] LABS: ALB/GLOB RATIO 1.3 (1.1-1.8); ALT/SGPT 30 U/L (7-56); AST/SGOT 16 U/L (17-59); BLOOD UREA NITROGEN 17 mg/dL (7-21); CALCIUM 10.1 mg/dL (8.4-10.5); GFR AFRICAN-AMERICAN > 60; GFR NON-AFRICAN AMERICAN > 60
[2018-02-11] MEDS: Insulin Reg-LOW-Coverage SC SCH ×2 (07:30→12:13)
[2018-02-11] MEDS ORDERED: Bupivacaine 0.5% Inj(30mL) IJ ONE (08:44)
[2018-02-11] MEDS ORDERED: MethylPREDNISolone Depo 40 mg/ml Inj IM ONE (08:44)
--- NOTE | 2018-02-11 10:39 | PN ---
DATE: 02/11/2018 CARDIOLOGY FOLLOWUP SUBJECTIVE: The patient is asymptomatic post PTCA. PHYSICAL EXAMINATION VITAL SIGNS: Blood pressure is 125/70, the heart rate is in the 50s. NECK: Negative JVD. LUNGS: Without rales. HEART: Reveals S1, S2. EXTREMITIES: Without edema. The right groin site is stable. LABORATORY DATA: Hemoglobin is 14. Chemistries are unremarkable other than a glucose of 244. IMPRESSION: 1. Status post percutaneous transluminal coronary angioplasty and stent of a left anterior descending artery with drug-eluting stent. 2. Coronary artery disease. 3. Hypercholesterolemia. 4. Diabetes mellitus. 5. Hypertension. 6. History of cerebrovascular accident in the past. PLAN: Given these findings, the patient is stable for discharge. The patient needs to stay on aspirin and Plavix with Plavix for least a year. We will stop his anticoagulation given that he has not had a DVT documented since before 2011. Monico Hernandez MD
[2018-02-11] MEDS: Non Formulary Medication (Brimonidine Tartrate/Timolol [Combigan 0.2%-0.5% Eye Drops] 1 DR EACHEYE SCH (11:00)
[2018-02-11 13:29] VITALS: BP 156/94; PULSE 60
--- NOTE | 2018-02-11 20:24 | CARD ---
APPROVED REPORT EKG Measurement Heart [id number] TN 148P40 [id number] <Conclusion> Sinus bradycardia Left ventricular hypertrophy with repolarization abnormality Cannot rule out Septal infarct, age undetermined Abnormal ECG
--- NOTE | 2018-02-12 04:06 | DS ---
HOSPITAL COURSE: He should be discharged today to a subacute rehab. He is feeling a little bit better, but he still has a very bad leg pain. He is on Apresoline, Cozaar, Ecotrin, Januvia, Levemir, Lioresal, Lipitor, Motrin, Neurontin, Norvasc, Plavix and Protonix. PHYSICAL EXAMINATION: VITAL SIGNS: He has a 98.4 temp, 54 pulse, 125/70 blood pressure, 20 respiratory rate and 100% O2 sat on room air. HEENT: Head is atraumatic, normocephalic. HEART: Regular rate. LUNGS: Decreased breath sounds, but clear. ABDOMEN: Soft. EXTREMITIES: No edema, but painful from time to time. LABORATORY DATA: He has a 5.8 white count, 14 hemoglobin, 40.5 hematocrit with 226 platelets. He has a 136 sodium, potassium 4.2, BUN is 17, creatinine 0.9, GFR is greater than 60; sugar is 244 and then it was 177, I will increase the Januvia to 100 mg and calcium is 10.1. AST is 16, ALT is 30, alk phos 75 and total protein 6.9. ASSESSMENT AND PLAN: Hopefully, he will be discharged today to a subacute rehab, [facility]. I will discuss with Case Management. He was here for chest pain, leg pains and diabetes. Yaakov Fitzpatrick DO [facility]
--- NOTE | 2018-02-14 08:37 | PROCN ---
DATE: 02/11/2018 INDICATIONS: The patient was seen 2 days ago for a left shoulder pain. X-rays done yesterday showing areas of subacromial impingement, type 2 acromion with AC joint arthritis with pain with attempt of abduction across the armpits, positive for AC joint arthritis. He has the ability to abduct the shoulders, with the rotator cuffs intact and rotation is present, but he should feel better with an injection of Depo-Medrol and Marcaine in the subacromial space, which was done through lateral portal. I told him he may need a selective AC joint injection and biceps injection in the future. Hopefully I can follow-up in subacute rehab. At this time, we will see how the left subacromial space injection of Depo-Medrol helps him, and we can do therapy if he does feel better. FINAL DIAGNOSES: Subacromial impingement with acromioclavicular joint arthritis and biceps tendonitis of the left shoulder. Thomas Braden DO [facility]
== END 2018-02-11 17:12 | DRG 247 ==
LOC: ED 16:37 → ERH 18:46 → 3RSO 23:43 → OBSVTOIN 02-08 12:23 → 2RNO 02-10 09:43
PROVIDERS: ADMIT Family Medicine; ATTEND Family Medicine
PROC: 027034Z Dilation of Coronary Artery, One Artery with Drug-eluting Intraluminal Device, Percutaneous Approach (ICD-10-PCS; principal; 2018-02-10)
PROC: 4A023N7 Measurement of Cardiac Sampling and Pressure, Left Heart, Percutaneous Approach (ICD-10-PCS; 2018-02-10)
PROC: B2151ZZ Fluoroscopy of Left Heart using Low Osmolar Contrast (ICD-10-PCS; 2018-02-10)
PROC: B2111ZZ Fluoroscopy of Multiple Coronary Arteries using Low Osmolar Contrast (ICD-10-PCS; 2018-02-10)
DX: I25.110 Atherosclerotic heart disease of native coronary artery with unstable angina pectoris (principal); I10 Essential (primary) hypertension; E78.00 Pure hypercholesterolemia, unspecified; E11.40 Type 2 diabetes mellitus with diabetic neuropathy, unspecified; M75.22 Bicipital tendinitis, left shoulder; M19.012 Primary osteoarthritis, left shoulder; M16.12 Unilateral primary osteoarthritis, left hip; M70.72 Other bursitis of hip, left hip; M75.52 Bursitis of left shoulder; F12.90 Cannabis use, unspecified, uncomplicated; M48.061 Spinal stenosis, lumbar region without neurogenic claudication; M51.37 Other intervertebral disc degeneration, lumbosacral region; Z79.01 Long term (current) use of anticoagulants; Z87.891 Personal history of nicotine dependence; Z86.73 Personal history of transient ischemic attack (TIA), and cerebral infarction without residual deficits; I25.2 Old myocardial infarction; Z86.718 Personal history of other venous thrombosis and embolism; Z86.711 Personal history of pulmonary embolism

== ENCOUNTER 2018-10-03 19:08 | Inpatient (IN) | payer MEDICARE, BC ==
--- NOTE | 2018-10-03 19:45 | ED PDOC ---
Arrival/HPI - General Chief Complaint: Chest Pain Time Seen by Provider: 10/03/18 19:20 Historian: Patient - History of Present Illness Narrative History of Present Illness (Text): 10/03/18 19:30 53 year old male, with past medical history of CVA, WI with stents, and PE on Eliquis, presents to the Emergency department complaining of chest pain since today. Patient states worsening symptoms at rest with radiation of pain to right arm. Patient reports seeing Dr. Roth with the presented symptoms, who subsequently referred patient to the Emergency department for evaluation. Patient denies any other associated somatic complaints. Patient denies any fever, chills, nausea, vomiting, neck pain, back pain, jaw pain, headache, dizziness, shortness of breath or any other complaints. School Director: Dr. Hernandez Time/Duration: 4-6 hours Symptom Onset: Gradual Symptom Course: Unchanged Quality: Aching Activities at Onset: Light Context: Home Past Medical History - Provider Review Nursing Documentation Reviewed: Yes - Infectious Disease Hx of Infectious Diseases: None - Tetanus Immunization Tetanus Immunization: Unknown - Cardiac Hx Cardiac Disorders: Yes Hx WI: Yes Hx Hypertension: Yes - Pulmonary Hx Respiratory Disorders: Yes Hx Pulmonary Embolism: Yes - Neurological Hx Neurological Disorder: Yes HX Cerebrovascular Accident: Yes (left sided weakness) - HEENT Hx HEENT Disorder: Yes Hx Glaucoma: Yes - Renal Hx Renal Disorder: No - Endocrine/Metabolic Hx Endocrine Disorders: Yes Hx Diabetes Mellitus Type 2: Yes - Hematological/Oncological Hx Blood Disorders: Yes (DVT/PE with IVC filter) - Integumentary Hx Dermatological Disorder: No - Musculoskeletal/Rheumatological Hx Musculoskeletal Disorders: Yes Hx Falls: Yes - Gastrointestinal Hx Gastrointestinal Disorders: No - Genitourinary/Gynecological Hx Genitourinary Disorders: Yes Hx Prostate Problems: Yes - Psychiatric Hx Psychophysiologic Disorder: No Hx Substance Use: Yes - Surgical History Hx Cardiac Catheterization: Yes (stents) - Anesthesia Hx Anesthesia Reactions: No Hx Malignant Hyperthermia: No - Suicidal Assessment Feels Threatened In Home Enviroment: No Family/Social History - Physician Review Nursing Documentation Reviewed: Yes Family/Social History: Unknown Family HX Smoking Status: Never Smoked Hx Alcohol Use: No Hx Substance Use: Yes Hx Substance Use Treatment: No Allergies/Home Meds Allergies/Adverse Reactions: Allergies No Known Allergies Allergy (Verified 02/07/18 16:45) Home Medications: Home Meds Medication Instructions Recorded Confirmed Gabapentin [Neurontin] 600 mg PO TID 06/24/16 03/07/18 Atorvastatin [Lipitor] 40 mg PO HS 06/25/17 03/07/18 Brimonidine Tartrate/Timolol 1 drop EACHEYE Q12 09/06/17 03/07/18 [Combigan 0.2%-0.5% Eye Drops] Insulin Regular [HumuLIN R] 1 unit SQ DAILY 09/06/17 03/07/18 Insulin Detemir [Levemir] 20 unit SQ HS 09/06/17 03/07/18 Oxycodone HCl/Acetaminophen 1 tab PO Q6 PRN 09/06/17 03/07/18 [Oxycodone-Acetaminophen 5-325] Pantoprazole Sodium [Protonix] 40 mg PO Q12 09/06/17 03/07/18 Warfarin [Coumadin] 10 mg PO HS 09/06/17 03/07/18 hydrALAZINE [Apresoline] 50 mg PO Q8 09/06/17 03/07/18 Review of Systems - Review of Systems Constitutional: absent: Fevers Eyes: absent: Vision Changes Respiratory: absent: SOB, Cough Cardiovascular: Chest Pain. absent: MARKHAM Gastrointestinal: absent: Abdominal Pain, Diarrhea, Nausea, Vomiting Genitourinary Male: absent: Dysuria Musculoskeletal: absent: Back Pain, Neck Pain Skin: absent: Rash Neurological: absent: Headache, Dizziness Endocrine: absent: Polyuria Psychiatric: absent: Anxiety Physical Exam Vital Signs Reviewed: Yes Vital Signs Temp Pulse Resp BP Pulse Ox 10/03/18 19:21 98.5 F 60 20 143/87 99 Temperature: Afebrile Blood Pressure: Normal Pulse: Regular Respiratory Rate: Normal Appearance: Positive for: Well-Appearing, Non-Toxic, Comfortable Pain Distress: None Mental Status: Positive for: Alert and Oriented X 3 - Systems Exam Head: Present: Atraumatic, Normocephalic Pupils: Present: PERRL Extroacular Muscles: Present: EOMI Conjunctiva: Present: Normal Neck: Present: Normal Range of Motion Respiratory/Chest: Present: Clear to Auscultation, Good Air Exchange. No: Respiratory Distress, Accessory Muscle Use Cardiovascular: Present: Regular Rate and Rhythm, Normal S1, S2, Peripheal Pulses Present (equal). No: Murmurs Abdomen: No: Tenderness, Distention, Peritoneal Signs Back: Present: Normal Inspection Upper Extremity: Present: Normal Inspection, Normal ROM (b/l). No: Cyanosis, Edema Lower Extremity: Present: Normal Inspection, Normal ROM. No: Edema Neurological: Present: GCS=15, CN II-XII Intact, Speech Normal Skin: Present: Warm, Dry, Normal Color. No: Rashes Psychiatric: Present: Alert, Oriented x 3, Normal Insight, Normal Concentration Medical Decision Making ED Course and Treatment: 10/03/18 19:29 Impression: 53 year old male presents to the Emergency department complaining of chest pain. Plan: -- Labs -- Chest X-ray -- Aspirin -- Reassess and disposition Prior Visits: Notes and results from previous visits were reviewed. Progress Notes: 10/03/18 20:16 EKG shows NSR at 60bpm with LVH 10/03/18 20:38 Patient reports chest pain is resolved but complaining of generalized myalgas. Due to multiple risk factors, will transfer to tele observation under hospitalist. - RAD Interpretation Radiology Orders: 10/03/18 19:29 CHEST PORTABLE [RAD] Stat - Medication Orders Current Medication Orders: Discontinued Medications Aspirin (Aspirin Chewable) 324 mg PO STAT STA Stop: 10/03/18 19:31 Last Admin: 10/03/18 19:35 Dose: 324 mg - Scribe Statement The provider has reviewed the documentation as recorded by the Dominickibmikala Guy. All medical record entries made by the Dominickibmikala were at my direction and personally dictated by me. I have reviewed the chart and agree that the record accurately reflects my personal performance of the history, physical exam, medical decision making, and the department course for this patient. I have also personally directed, reviewed, and agree with the discharge instructions and disposition. Disposition/Present on Arrival - Present on Arrival Any Indicators Present on Arrival: No History of DVT/PE: No History of Uncontrolled Diabetes: No Urinary Catheter: No History of Decub. Ulcer: No History Surgical Site Infection Following: None - Disposition Have Diagnosis and Disposition been Completed?: Yes Diagnosis: Chest pain Disposition: HOSPITALIZED Disposition Time: 19:21 Patient Plan: Observation Condition: FAIR
[2018-10-03 20:00] LABS: INR 1.15; PARTIAL THROMBOPLASTIN TIME 33.8 Seconds (25.1-36.5); PROTHROMBIN TIME 13.2 SECONDS (9.4-12.5)
[2018-10-03 20:01] LABS: ALB/GLOB RATIO 1.5 (1.1-1.8); ALBUMIN 4.7 g/dL (3.0-4.8); ALT/SGPT 22 U/L (7-56); AST/SGOT 21 U/L (17-59); BLOOD UREA NITROGEN 9 mg/dL (7-21); CALCIUM 9.5 mg/dL (8.4-10.5); GFR NON-AFRICAN AMERICAN > 60
[2018-10-03 20:02] LABS: BASO # 0.01 K/mm3 (0.0-2.0); BASO % 0.2 % (0.0-3.0); EOS # 0.1 (0.0-0.7); EOS % 1.3 % (1.5-5.0); GRAN # 3.48 (1.4-6.5); GRAN % 67.1 % (50.0-68.0); HEMOGLOBIN 12.8 g/dL (14.0-18.0); LYMPH # 1.4 (1.2-3.4); LYMPH % 26.2 % (22.0-35.0); MEAN CELL VOLUME 88.2 fl (80.0-105.0); MEAN CORPUSCULAR HEMOGLOBIN 30.8 pg (25.0-35.0); MEAN PLATELET VOLUME 8.2 fl (7.0-11.0); MONO # 0.3 (0.1-0.6); MONO % 5.2 % (1.0-6.0); RBC 4.15 10^6/uL (3.5-6.1); RED CELL DISTRIBUTION WIDTH 12.5 % (11.5-14.5); WHITE BLOOD COUNT 5.2 10^3/uL (4.5-11.0)
[2018-10-03 20:12] LABS: TROPONIN I 0.02 ng/mL
[2018-10-03] MEDS ORDERED: Magnesium Sulfate 1 gm in D5W 1 GM/100 ML BAG IVPB ONE (20:16)
--- NOTE | 2018-10-03 21:19 | CP.PCM.HP ---
History of Present Illness - History of Present Illness History of Present Illness: Marii Thapa PGY1 H&P for Dr. Watkins Pt is a 53M with PMH 4 episodes CVA, CAD, 3 MIs s/p stent placements, DM2, DVT, HTN, HLD, and angina presents to ED complaining of chest pain. He reports the pain began at 2pm today on the L side of his chest, and describes it as someone sitting on his chest. He reports sitting down when this happened, denies any preceding strenuous activity or trauma. He rates the pain a 9/10 and reports radiation to the L shoulder. He also reports associated numbness and tingling in the R arm and hand and R leg. He also reports sweating, shortness of breath, dizziness, nausea, abdominal pain, and vision changes, which he describes as seeing black spots. He denies any loss of consciousness, headache, vomiting, diarrhea, dysuria, constipation. He says his symptoms of chest pain, nausea, numbness and tingling in the R arm have not improved since coming to the ED. SxH: IVC filter placement SocH: denies smoking, alcohol, recreational drug use FamH: mom- at 70, CVA, DM. dad- at 70, heart disease Allergies: NKDA Meds: Eliquis 5 BID, lipitor 40, brimonidine tartrate/timolol drops, protonix 40, norvasc 10, ASA 81, plavix 75, losartan 100 PMD: Dr. Roth Manager Furniture: Dr. Hernandez Pharmacy: [facility] [phone] Present on Admission - Present on Admission Any Indicators Present on Admission: Yes History of DVT/PE: Yes Review of Systems - Review of Systems Review of Systems: as per HPI Past Patient History - Infectious Disease Hx of Infectious Diseases: None - Tetanus Immunizations Tetanus Immunization: Unknown - Past Medical History & Family History Past Medical History?: Yes - Past Social History Smoking Status: Never Smoked - CARDIAC Hx Cardiac Disorders: Yes Hx Heart Attack: Yes Hx Hypertension: Yes - PULMONARY Hx Respiratory Disorders: Yes Hx Pulmonary Embolism: Yes - NEUROLOGICAL Hx Neurological Disorder: Yes HX Cerebrovascular Accident: Yes (left sided weakness) - HEENT Hx HEENT Problems: Yes Hx Glaucoma: Yes - RENAL Hx Chronic Kidney Disease: No - ENDOCRINE/METABOLIC Hx Endocrine Disorders: Yes Hx Diabetes Mellitus Type 2: Yes - HEMATOLOGICAL/ONCOLOGICAL Hx Blood Disorders: Yes (DVT/PE with IVC filter) - INTEGUMENTARY Hx Dermatological Problems: No - MUSCULOSKELETAL/RHEUMATOLOGICAL Hx Musculoskeletal Disorders: Yes Hx Falls: Yes - GASTROINTESTINAL Hx Gastrointestinal Disorders: No - GENITOURINARY/GYNECOLOGICAL Hx Genitourinary Disorders: Yes Hx Prostate Problems: Yes - PSYCHIATRIC Hx Psychophysiologic Disorder: No Hx Substance Use: Yes - SURGICAL HISTORY Hx Cardiac Catheterization: Yes (stents) - ANESTHESIA Hx Anesthesia Reactions: No Hx Malignant Hyperthermia: No Meds Allergies/Adverse Reactions: Allergies Allergy/AdvReac Type Severity Reaction Status Date / Time No Known Allergies Allergy Verified 02/07/18 16:45 Physical Exam - Constitutional Appears: Well, No Acute Distress - Head Exam Head Exam: ATRAUMATIC, NORMOCEPHALIC - Eye Exam Eye Exam: EOMI, Normal appearance, PERRL Pupil Exam: NORMAL ACCOMODATION - ENT Exam ENT Exam: Mucous Membranes Moist - Neck Exam Neck exam: Positive for: Tenderness. Negative for: Lymphadenopathy Additional comments: tenderness to palpation of b/l trapezius muscles, hypertonicity - Respiratory Exam Respiratory Exam: Clear to Auscultation Bilateral, NORMAL BREATHING PATTERN. absent: Rales, Rhonchi, Wheezes, Respiratory Distress - Cardiovascular Exam Cardiovascular Exam: REGULAR RHYTHM, +S1, +S2. absent: Gallop, Rubs, Systolic Murmur Additional comments: tenderness to palpation of L chest lateral to sternum - GI/Abdominal Exam GI & Abdominal Exam: Normal Bowel Sounds, Soft, Tenderness. absent: Distended, Firm, Guarding, Rebound Additional comments: generalized tenderness to palpation of all 4 quadrants, no guarding or rebound tenderness. no suprapubic tenderness. - Extremities Exam Extremities exam: Positive for: normal inspection. Negative for: calf tenderness, pedal edema - Back Exam Back exam: absent: CVA tenderness (L), CVA tenderness (R) - Neurological Exam Neurological exam: Alert, CN II-XII Intact, Oriented x3, Reflexes Normal - Expanded Neurological Exam Expanded Sensory exam: Lower Extremity Light Touch: Normal, Upper Extremity Light Touch: Normal Neuro motor strength exam: Left Upper Extremity: 4, Right Upper Extremity: 5, Left Lower Extremity: 4, Right Lower Extremity: 5 DTR: Achilles Tendon Left: 2+, Achilles Tendon Right: 2+, Brachioradialis Left: 2+, Brachioradialis Right: 2+, Patellar Left: 2+, Patellar Right: 2+ - Psychiatric Exam Psychiatric exam: Normal Affect, Normal Mood - Skin Skin Exam: Dry Results - Vital Signs Recent Vital Signs: Last Vital Signs Temp 98.5 F 10/03/18 19:21 Pulse 60 10/03/18 19:21 Resp 20 10/03/18 19:21 BP 143/87 10/03/18 19:21 Pulse Ox 99 10/03/18 19:21 - Labs Result Diagrams: 10/03/18 19:43 10/03/18 19:43 Labs: Laboratory Results - last 24 hr 10/03/18 10/03/18 10/03/18 19:43 19:43 19:43 WBC 5.2 RBC 4.15 Hgb 12.8 L Hct 36.6 L MCV 88.2 MCH 30.8 MCHC 35.0 RDW 12.5 Plt Count 194 MPV 8.2 Gran % 67.1 Lymph % (Auto) 26.2 [place] % (Auto) 5.2 Eos % (Auto) 1.3 L Baso % (Auto) 0.2 Gran # 3.48 Lymph # (Auto) 1.4 [place] # (Auto) 0.3 Eos # (Auto) 0.1 Baso # (Auto) 0.01 PT 13.2 H INR 1.15 APTT 33.8 Sodium 139 Potassium 3.8 Chloride 106 Carbon Dioxide 24 Anion Gap 13 BUN 9 Creatinine 1.1 Est GFR ( Amer) > 60 Est GFR (Non-Af Amer) > 60 Random Glucose 151 H Calcium 9.5 Phosphorus 3.9 Magnesium 1.6 L Total Bilirubin 0.9 AST 21 ALT 22 Alkaline Phosphatase 73 Lactate Dehydrogenase 388 Total Creatine Kinase 180 Troponin I 0.02 NT-Pro-B Natriuret Pep 28.0 Total Protein 7.9 Albumin 4.7 Globulin 3.2 Albumin/Globulin Ratio 1.5 Assessment & Plan - Assessment and Plan (Free Text) Assessment: 53M with PMH 4 episodes CVA, CAD, 3 MIs s/p stent placements, DM2, DVT, HTN, HLD, and angina presents to ED complaining of chest pain, admitted for further evaluation and treatment of ACS r/o. Plan: Chest Pain, ACS r/o - pt reports continuation of pressure-like pain - received ASA 324 and nitroglycerin in the ED - EKG: NSR, LVH - troponins neg x1 - f/u troponins - f/u repeat EKG - admit to tele - CXR: no infiltrates, effusions, atelectases appreciated, f/u official report - ECHO 03/02: moderate LVH, low normal LV systolic function, mild TR, EF 50% - Stress test 03/02: normal wall motion of LV, distal anteroseptal defect suspicious of ischemia - f/u TSH - ibuprofen 600mg q6h PRN for pain CAD - continue home ASA 81mg PO daily - continue home lipitor 40mg PO HS - continue home plavix 75mg PO daily - f/u lipid panel HTN - continue home norvasc 10mg PO daily - continue home hydralazine 50mg PO q8h - continue home losartan 100mg PO daily Hx of DVT - continue home eliquis 5mg PO BID DM2 - f/u HbA1c - lispro 12 SC AC Hx of Glaucoma - continue home combigan drops daily Hypomagnesemia - Mg 1.6 - repleted Mg 1g Normocytic Anemia - H/H 12.8/36.6 - baseline Hb 13 - f/u B12, folate - f/u Fe, TIBC PPX DVT: pt on eliquis GI: Protonix 40 po HHD Case reviewed with Dr. Watkins
[2018-10-03] MEDS ORDERED: Dextrose 50% SYRINGE Inj (50 ml) IV PRN (21:29)
[2018-10-03] MEDS ORDERED: Pantoprazole 40 mg EC Tab PO STA (21:37)
[2018-10-03 22:07] LABS: IRON 97 ug/dL (45-180)
[2018-10-03 22:17] LABS: % IRON SATURATION 26 % (20-55); TOTAL IRON BINDING CAPACITY 374 ug/dL (261-462)
[2018-10-03] MEDS: Insulin Reg-MEDIUM-Coverage SC SCH (22:29)
[2018-10-03 23:40] LABS: HDL CHOLESTEROL 32 mg/dL (29-60)
[2018-10-03 23:50] LABS: LDL CHOLESTEROL 68 mg/dL (0-129)
[2018-10-04 02:12] VITALS: BMI 28.3
[2018-10-04 06:33] LABS: MEAN CORPUSCULAR HEMOGLOBIN 31.2 pg (25.0-35.0); MEAN CORPUSCULAR HGB CONC 35.4 g/dl (31.0-37.0); MEAN PLATELET VOLUME 8.2 fl (7.0-11.0); RBC 4.17 10^6/uL (3.5-6.1); RED CELL DISTRIBUTION WIDTH 12.3 % (11.5-14.5)
[2018-10-04 07:22] LABS: ALB/GLOB RATIO 1.4 (1.1-1.8); ALBUMIN 4.1 g/dL (3.0-4.8); ALT/SGPT 23 U/L (7-56); AST/SGOT 18 U/L (17-59); BLOOD UREA NITROGEN 14 mg/dL (7-21); CALCIUM 9.2 mg/dL (8.4-10.5); GFR NON-AFRICAN AMERICAN > 60
[2018-10-04] MEDS ORDERED: Potassium Chloride 40 mEq/30 ml LIQ UD PO STA (07:43)
[2018-10-04] MEDS: Insulin Reg-MEDIUM-Coverage SC SCH ×4 (08:08→22:50)
[2018-10-04] MEDS: Insulin Lispro 1 UNITS/0.01 ML SC SCH ×3 (08:27→18:28)
[2018-10-04] MEDS: Pantoprazole 40 mg EC Tab PO SCH (09:27)
--- NOTE | 2018-10-04 09:43 | RAD ---
Date of service: 10/03/2018 HISTORY: chest pain COMPARISON: Frontal chest radiograph 02/07/2018. FINDINGS: LUNGS: No active pulmonary disease. PLEURA: No significant pleural effusion identified, no pneumothorax apparent. CARDIOVASCULAR: No aortic atherosclerotic calcification present. Stable cardiac silhouette. No pulmonary vascular congestion. OSSEOUS STRUCTURES: No significant abnormalities. VISUALIZED UPPER ABDOMEN: Normal. OTHER FINDINGS: None. IMPRESSION: No interval acute cardiopulmonary disease appreciable.
--- NOTE | 2018-10-04 10:03 | CARD ---
APPROVED REPORT Date of service: 10/03/2018 EKG Measurement Heart [id number] <Conclusion> Sinus bradycardia LVH ASMI, age unknown STTW changes c/w ischemia No change from earlier ECG
--- NOTE | 2018-10-04 10:09 | CARD ---
APPROVED REPORT Date of service: 10/04/2018 EKG Measurement Heart [id number] <Conclusion> Sinus bradycardia Left ventricular hypertrophy Marked STTW changes c/w ischemia No change
--- NOTE | 2018-10-04 10:11 | CARD ---
APPROVED REPORT Date of service: 10/03/2018 EKG Measurement Heart [id number] <Conclusion> Normal sinus rhythm Left ventricular hypertrophy ASMI, age unknown STTW changes c/w ischemia No change
[2018-10-04] MEDS ORDERED: Morphine 2 mg/ml ISec IVP STA (10:40)
[2018-10-04] MEDS: Non Formulary Medication (Brimonidine Tartrate/Timolol [Combigan 0.2%-0.5% Eye Drops] 1 DR EACHEYE SCH ×2 (10:53→22:10)
[2018-10-04 13:52] LABS: FOLATE 13.9 ng/mL
--- NOTE | 2018-10-04 14:38 | CP.PCM.PN ---
<Raiza Dogn - Last Filed: 10/04/18 14:34> Subjective - Date & Time of Evaluation Date of Evaluation: 10/04/18 Time of Evaluation: 14:34 - Subjective Subjective: PGY1 Medicine Progress Note for Dr. Vasquez Patient was seen and evaluated at bedside this morning. No acute events overnight. Patient states he was able to sleep overnight without issue. Patient continues to complaint of chest pain that he describes as pressure-like 9/10 and radiating down his right arm. Patient states the pain is constant and gets worse when laying down and with inspiration. Of note, patient also admits to constant chronic abdominal pain. Patient otherwise denies headache, shortness of breath, nausea, vomiting, fever, chills, diarrhea, constipation, numbness and/or tingling in lower extremities. Objective - Vital Signs/Intake and Output Vital Signs (last 24 hours): Temp Pulse Resp BP Pulse Ox 98.4 F 57 L 20 123/87 98 10/04/18 12:00 10/04/18 14:00 10/04/18 12:00 10/04/18 12:00 10/03/18 22:42 Intake and Output: 10/04/18 10/04/18 06:59 18:59 Intake Total 240 Balance 240 - Medications Medications: Current Medications Amlodipine Besylate (Norvasc) 10 mg PO DAILY [facility] Last Admin: 10/04/18 09:27 Dose: 10 mg Aspirin (Ecotrin) 81 mg PO DAILY [facility] Last Admin: 10/04/18 09:27 Dose: 81 mg Atorvastatin Calcium (Lipitor) 40 mg PO HS [facility] Last Admin: 10/03/18 22:40 Dose: 40 mg Clopidogrel Bisulfate (Plavix) 75 mg PO DAILY [facility] Last Admin: 10/04/18 09:27 Dose: 75 mg Gabapentin (Neurontin) 600 mg PO TID [facility]; Protocol Last Admin: 10/04/18 14:05 Dose: 600 mg Hydralazine HCl (Apresoline) 50 mg PO Q8 [facility] Last Admin: 10/04/18 14:04 Dose: 50 mg Insulin Human Lispro (Humalog) 12 units SC AC [facility] Last Admin: 10/04/18 12:17 Dose: Not Given Insulin Human Regular (Humulin R Med) 0 units SC ACHS [facility]; Protocol Last Admin: 10/04/18 12:17 Dose: Not Given Losartan Potassium (Cozaar) 100 mg PO DAILY [facility] Last Admin: 10/04/18 09:27 Dose: 100 mg Non-Formulary Medication (Brimonidine Tartrate/Timolol [Combigan 0.2%-0.5% Eye Drops]) 1 drop EACHEYE Q12 [facility] Last Admin: 10/04/18 10:53 Dose: Not Given Pantoprazole Sodium (Protonix Ec Tab) 40 mg PO DAILY [facility] Last Admin: 10/04/18 09:27 Dose: 40 mg - Labs Labs: 10/04/18 06:00 10/04/18 06:00 PT 13.2 SECONDS (9.4-12.5) H 10/03/18 19:43 INR 1.15 10/03/18 19:43 APTT 33.8 Seconds (25.1-36.5) 10/03/18 19:43 - Additional Findings Additional findings: - Constitutional Appears: Well, Non-toxic, No Acute Distress - Constitutional Appears: Well, No Acute Distress - Head Exam Head Exam: ATRAUMATIC, NORMOCEPHALIC - Eye Exam Eye Exam: EOMI, Normal appearance, PERRL Pupil Exam: NORMAL ACCOMODATION - ENT Exam ENT Exam: Mucous Membranes Moist - Neck Exam Neck exam: Positive for: Tenderness. Negative for: Lymphadenopathy Additional comments: tenderness to palpation of b/l trapezius muscles, hypertonicity - Respiratory Exam Respiratory Exam: Clear to Auscultation Bilateral, NORMAL BREATHING PATTERN. absent: Rales, Rhonchi, Wheezes, Respiratory Distress - Cardiovascular Exam Cardiovascular Exam: REGULAR RHYTHM, +S1, +S2. absent: Gallop, Rubs, Systolic Murmur Additional comments: tenderness to palpation of L chest lateral to sternum - GI/Abdominal Exam GI & Abdominal Exam: Normal Bowel Sounds, Soft, Tenderness. absent: Distended, Firm, Guarding, Rebound Additional comments: generalized tenderness to palpation of all 4 quadrants, no guarding or rebound t enderness. no suprapubic tenderness. - Extremities Exam Extremities exam: Positive for: normal inspection. Negative for: calf tenderness, pedal edema - Back Exam Back exam: absent: CVA tenderness (L), CVA tenderness (R) - Neurological Exam Neurological exam: Alert, CN II-XII Intact, Oriented x3, Reflexes Normal - Expanded Neurological Exam Expanded Sensory exam: Lower Extremity Light Touch: Normal, Upper Extremity Light Touch: Normal Neuro motor strength exam: Left Upper Extremity: 4, Right Upper Extremity: 5, Left Lower Extremity: 4, Right Lower Extremity: 5 DTR: Achilles Tendon Left: 2+, Achilles Tendon Right: 2+, Brachioradialis Left: 2+, Brachioradialis Right: 2+, Patellar Left: 2+, Patellar Right: 2+ - Psychiatric Exam Psychiatric exam: Normal Affect, Normal Mood - Skin Skin Exam: Dry Assessment and Plan - Assessment and Plan (Free Text) Assessment: 53-year-old Male with PMH 4 episodes CVA, CAD, History of DE x3, status-post stent placements (x2), DM2, DVT, HTN, HLD, and unstable angina presents to ED complaining of chest pain, patient was subsequently admitted to telemetry for further evaluation and treatment of ACS rule-out. Plan is for cath with Dr. Hernandez 10/05. Plan: Chest Pain, ACS rule-out - Patient admits to continuation of pressure-like pain - ASA 324 and nitroglycerin administered in the ED - EKG: NSR, LVH - Troponins neg x3 - Repeat EKG - CXR: no infiltrates, effusions, atelectases appreciated, please see official report - ECHO 03/02: moderate LVH, low normal LV systolic function, mild TR, EF 50% - Stress test 03/02: normal wall motion of LV, distal anteroseptal defect suspicious of ischemia - TSH=1.57 - Ibuprofen 600mg q6h PRN for pain - Morphine 2mg IVP administered once - Eliquis discontinued for planned cath tomorrow with Dr. Hernandez - Cardiology (Dr. Hernandez) consulted; recommendations appreciated CAD s/p stent placement - Continue home ASA 81mg PO daily - Continue home lipitor 40mg PO HS - Continue home plavix 75mg PO daily - Lipid panel obtained; unremarkable for hyperlipidemia - Cath planned for tomorrow with Dr. Hernandez (10/05) History of Hypertension - Continue home norvasc 10mg PO daily - Continue home hydralazine 50mg PO q8h - Continue home losartan 100mg PO daily - Monitor Hx of DVT - Discontinue home eliquis 5mg PO BID due to planned cath for tomorrow - Patient has IVC filter that was placed in 2009 (was not removed) Type 2 Diabetes Mellitus - VaV7j=3.3 - Lispro 12 SC AC - Hypoglycemic protocol - Monitor BG Accucheck History of Glaucoma - Continue home combigan drops daily Hypomagnesemia - Recheck magnesium - Replete magnesium as needed - Monitor CMP, Mg, Phos Normocytic Anemia - H/H 12.8/36.6 - baseline Hb 13 - Vitamin H43=270 - Folate=13.9 - Follow-up Fe, TIBC Abdominal pain, chronic - Abdominal ultrasound - LFTs within normal limits PPX DVT: pt on eliquis (discontinued 10/04 for planned cath on 10/05 GI: Protonix 40 po HHD Patient seen and case discussed in detail with Dr. Christina Dong PGY1 <Josselyn Vasquez - Last Filed: 10/04/18 15:42> Objective - Vital Signs/Intake and Output Vital Signs (last 24 hours): Temp Pulse Resp BP Pulse Ox 98.4 F 57 L 20 123/87 98 10/04/18 12:00 10/04/18 14:00 10/04/18 12:00 10/04/18 12:00 10/03/18 22:42 Intake and Output: 10/04/18 10/04/18 06:59 18:59 Intake Total 240 Balance 240 - Medications Medications: Current Medications Amlodipine Besylate (Norvasc) 10 mg PO DAILY [facility] Last Admin: 10/04/18 09:27 Dose: 10 mg Aspirin (Ecotrin) 81 mg PO DAILY [facility] Last Admin: 10/04/18 09:27 Dose: 81 mg Atorvastatin Calcium (Lipitor) 40 mg PO HS [facility] Last Admin: 10/03/18 22:40 Dose: 40 mg Clopidogrel Bisulfate (Plavix) 75 mg PO DAILY [facility] Last Admin: 10/04/18 09:27 Dose: 75 mg Gabapentin (Neurontin) 600 mg PO TID [facility]; Protocol Last Admin: 10/04/18 14:05 Dose: 600 mg Hydralazine HCl (Apresoline) 50 mg PO Q8 [facility] Last Admin: 10/04/18 14:04 Dose: 50 mg Insulin Human Lispro (Humalog) 12 units SC AC [facility] Last Admin: 10/04/18 12:17 Dose: Not Given Insulin Human Regular (Humulin R Med) 0 units SC ACHS [facility]; Protocol Last Admin: 11/20/18 12:17 Dose: Not Given Losartan Potassium (Cozaar) 100 mg PO DAILY [facility] Last Admin: 10/04/18 09:27 Dose: 100 mg Non-Formulary Medication (Brimonidine Tartrate/Timolol [Combigan 0.2%-0.5% Eye Drops]) 1 drop EACHEYE Q12 [facility] Last Admin: 10/04/18 10:53 Dose: Not Given Pantoprazole Sodium (Protonix Ec Tab) 40 mg PO DAILY [facility] Last Admin: 10/04/18 09:27 Dose: 40 mg - Labs Labs: 10/04/18 06:00 10/04/18 06:00 PT 13.2 SECONDS (9.4-12.5) H 10/03/18 19:43 INR 1.15 10/03/18 19:43 APTT 33.8 Seconds (25.1-36.5) 10/03/18 19:43 Attending/Attestation - Attestation I have personally seen and examined this patient.: Yes I have fully participated in the care of the patient.: Yes I have reviewed all pertinent clinical information, including history, physical exam and plan: Yes Notes (Text): 10/04/18 15:35 Medical record note made by the resident after discussion with my direction and input after the patient was personally seen and examined by me. I have reviewed the chart and agree that the record accurately reflects by personal performance of the history, physical exam, data review, and medical decision-making, in the course for the patient. I have also personally directed the plan of care. 53 yrs old Male with PMH of CVA, CAD,DM2, DVT,on anticoagulation with Apixiban , HTN, HLD, SP Mid LAD stent 01/30 and H/O RCA stent is admitted with chest pain, Serial troponins are normal. Patient is still having chest pain, has been evaluated by cardiology and is scheduled for cardiac catherization tomorrow. Management plan was discussed in detail with patient. Education was provided.
--- NOTE | 2018-10-04 16:25 | US ---
Date of service: 10/04/2018 HISTORY: ruq pain COMPARISON: None. TECHNIQUE: Sonographic evaluation of the abdomen. FINDINGS: LIVER: Measures 16.7 x 10.11 x 16.17 cm. Normal echogenicity of the liver parenchyma. No mass. No intrahepatic bile duct dilatation. GALLBLADDER: Gallstones. No focal tenderness or wall edema. COMMON BILE DUCT: Measures 4 mm. No stones. No dilatation. PANCREAS: Not visualized RIGHT KIDNEY: Measures 10.3 x 5.2 x 6.0cm. Normal echogenicity. No calculus, mass, or hydronephrosis. LEFT KIDNEY: Measures 10.97 x 5.93 x 4.75cm. Normal echogenicity. No calculus, mass, or hydronephrosis. SPLEEN: Normal in size and contour. No mass. 9.0 x 4.5 x 4.5 cm AORTA: Not visualized IVC: Unremarkable. OTHER FINDINGS: None. IMPRESSION: Multiple gallstones
--- NOTE | 2018-10-04 19:36 | CON ---
DATE OF CONSULTATION: 10/04/2018 HISTORY: The patient is a 53-year-old male who presents with several days of progressive substernal chest pain described as somebody sitting on his chest. The symptoms have progressed to chest pain at rest. PAST MEDICAL HISTORY: Multivessel PTCA and stent, the last one performed in 01/2018. In addition, the patient has had a CVA in the past as well as documented pulmonary embolism in which he has been treated with Eliquis. His cardiac risk factors include hypercholesterolemia, hypertension and diabetes mellitus. SOCIAL HISTORY: The patient does not smoke. REVIEW OF SYSTEMS: A 14-point review of systems is reviewed in detail. His symptoms are predominately substernal chest discomfort as described above without shortness of breath without edema. No previous history of peptic ulcer disease. PHYSICAL EXAMINATION: VITAL SIGNS: Blood pressure is 123/87, heart rate is in the 50s. NECK: Negative JVD. LUNGS: Without rales. HEART: S1, S2. EXTREMITIES: Without edema. LABORATORY DATA: EKG shows normal sinus rhythm with diffuse ST-T changes. Hemoglobin is 13. Chemistries, BUN and creatinine unremarkable. Glucose is 160. Troponins are negative x2. IMPRESSION: 1. Unstable angina. 2. Progression of symptoms to angina at rest. 3. Multivessel coronary artery disease. 4. History of PTCA and stent in the past. 5. Diabetes mellitus. 6. Hypertension. 7. Hypercholesterolemia. 8. History of cerebrovascular accident. 9. History of pulmonary embolism. PLAN: Given these findings, we will discontinue his Eliquis. The patient is already on Plavix as well as baby aspirin. We will proceed to cardiac catheterization in the morning once his Eliquis anticoagulant has reduced its effect. Discussed the risks and benefits with the patient in detail and he is agreeable. Monico Hernandez MD
[2018-10-04] MEDS: Morphine 2 mg/ml ISec IVP PRN (21:40)
[2018-10-05 06:50] LABS: HEMOGLOBIN 13.5 g/dL (14.0-18.0); MEAN CELL VOLUME 88.3 fl (80.0-105.0); MEAN CORPUSCULAR HEMOGLOBIN 30.9 pg (25.0-35.0); MEAN PLATELET VOLUME 8.3 fl (7.0-11.0); RBC 4.37 10^6/uL (3.5-6.1); RED CELL DISTRIBUTION WIDTH 12.5 % (11.5-14.5)
[2018-10-05 07:51] LABS: ALB/GLOB RATIO 1.5 (1.1-1.8); ALBUMIN 4.2 g/dL (3.0-4.8); ALT/SGPT 24 U/L (7-56); AST/SGOT 18 U/L (17-59); BLOOD UREA NITROGEN 17 mg/dL (7-21); CALCIUM 9.2 mg/dL (8.4-10.5); GFR NON-AFRICAN AMERICAN > 60
[2018-10-05] MEDS: Insulin Reg-MEDIUM-Coverage SC SCH ×4 (07:51→22:00)
[2018-10-05] MEDS: Insulin Lispro 1 UNITS/0.01 ML SC SCH ×3 (07:52→18:21)
[2018-10-05] MEDS ORDERED: Lidocaine 2% Inj (20ml) ONE (10:17)
[2018-10-05] MEDS ORDERED: Iodixanol 320 MG/ML 200 ML BOTTLE IV ONE (10:18)
[2018-10-05] MEDS ORDERED: Iohexol 350mgl/ml 50 ML ONE (10:18)
[2018-10-05] MEDS ORDERED: Nitroglycerin 50mg in D5W 50 MG/250 ML BOTTLE IV ONE (10:18)
[2018-10-05] MEDS ORDERED: Midazolam 2 MG/2 ML VIAL ONE ×2 (10:38→10:46)
[2018-10-05] MEDS ORDERED: Sodium Chloride 0.9% 1,000 ML IV SCH (11:15)
--- NOTE | 2018-10-05 12:50 | CP.PCM.DIS ---
<Raiza Dong - Last Filed: 10/05/18 14:41> Provider - Provider Date of Admission: 10/04/18 15:33 Attending physician: Kim Espinoza DO Primary care physician: Tanner Roth MD Consults: Cardiology: Dr. Hernandez Time Spent in preparation of Discharge (in minutes): 45 Hospital Course - Lab Results Lab Results: Most Recent Lab Values WBC 5.0 10^3/uL (4.5-11.0) D 10/05/18 07:00 RBC 4.37 10^6/uL (3.5-6.1) 10/05/18 07:00 Hgb 13.5 g/dL (14.0-18.0) L 10/05/18 07:00 Hct 38.6 % (42.0-52.0) L 10/05/18 07:00 MCV 88.3 fl (80.0-105.0) 10/05/18 07:00 MCH 30.9 pg (25.0-35.0) 10/05/18 07:00 MCHC 35.0 g/dl (31.0-37.0) 10/05/18 07:00 RDW 12.5 % (11.5-14.5) 10/05/18 07:00 Plt Count 192 10^3/uL (120.0-450.0) 10/05/18 07:00 MPV 8.3 fl (7.0-11.0) 10/05/18 07:00 Gran % 67.1 % (50.0-68.0) 10/03/18 19:43 Lymph % (Auto) 26.2 % (22.0-35.0) 10/03/18 19:43 [place] % (Auto) 5.2 % (1.0-6.0) 10/03/18 19:43 Eos % (Auto) 1.3 % (1.5-5.0) L 10/03/18 19:43 Baso % (Auto) 0.2 % (0.0-3.0) 10/03/18 19:43 Gran # 3.48 (1.4-6.5) 10/03/18 19:43 Lymph # (Auto) 1.4 (1.2-3.4) 10/03/18 19:43 [place] # (Auto) 0.3 (0.1-0.6) 10/03/18 19:43 Eos # (Auto) 0.1 (0.0-0.7) 10/03/18 19:43 Baso # (Auto) 0.01 K/mm3 (0.0-2.0) 10/03/18 19:43 PT 13.2 SECONDS (9.4-12.5) H 10/03/18 19:43 INR 1.15 10/03/18 19:43 APTT 33.8 Seconds (25.1-36.5) 10/03/18 19:43 Sodium 139 mmol/L (132-148) 10/05/18 06:20 Potassium 3.9 mmol/L (3.6-5.0) 10/05/18 06:20 Chloride 106 mmol/L (98-107) 10/05/18 06:20 Carbon Dioxide 26 mmol/L (21-33) 10/05/18 06:20 Anion Gap 11 (10-20) 10/05/18 06:20 BUN 17 mg/dL (7-21) 10/05/18 06:20 Creatinine 1.0 mg/dl (0.8-1.5) 10/05/18 06:20 Est GFR ( Amer) > 60 10/05/18 06:20 Est GFR (Non-Af Amer) > 60 10/05/18 06:20 POC Glucose (mg/dL) 99 mg/dL (65-110) 10/05/18 12:04 Random Glucose 126 mg/dL (70-110) H 10/05/18 06:20 Hemoglobin A1c 6.3 % (4.2-6.5) 10/03/18 21:00 Calcium 9.2 mg/dL (8.4-10.5) 10/05/18 06:20 Phosphorus 3.3 mg/dL (2.5-4.5) 10/05/18 06:20 Magnesium 1.8 mg/dL (1.7-2.2) 10/05/18 06:20 Iron 97 ug/dL (45-180) 10/03/18 21:00 TIBC 374 ug/dL (261-462) 10/03/18 21:00 % Saturation 26 % (20-55) 10/03/18 21:00 Total Bilirubin 0.6 mg/dL (0.2-1.3) 10/05/18 06:20 AST 18 U/L (17-59) 10/05/18 06:20 ALT 24 U/L (7-56) 10/05/18 06:20 Alkaline Phosphatase 69 U/L (38-126) 10/05/18 06:20 Lactate Dehydrogenase 388 U/L (333-699) 10/03/18 19:43 Total Creatine Kinase 180 U/L (35-230) 10/03/18 19:43 Troponin I 0.01 ng/mL 10/04/18 06:00 NT-Pro-B Natriuret Pep 28.0 pg/mL (0-450) 10/03/18 19:43 Total Protein 7.1 g/dL (5.8-8.3) 10/05/18 06:20 Albumin 4.2 g/dL (3.0-4.8) 10/05/18 06:20 Globulin 2.9 gm/dL 10/05/18 06:20 Albumin/Globulin Ratio 1.5 (1.1-1.8) 10/05/18 06:20 Triglycerides 94 mg/dL (35-160) 10/03/18 21:00 Cholesterol 107 mg/dL (130-200) L 10/03/18 21:00 LDL Cholesterol Direct 68 mg/dL (0-129) 10/03/18 21:00 HDL Cholesterol 32 mg/dL (29-60) 10/03/18 21:00 Vitamin B12 256 pg/mL (239-931) 10/03/18 21:00 Folate 13.9 ng/mL 10/03/18 21:00 TSH 3rd Generation 1.57 mIU/mL (0.46-4.68) 10/03/18 21:00 - Hospital Course Hospital Course: PGY1 Discharge Summary and Hospital Course for Dr. Alexis Macdonald History of Present Illness Patient is a 53-year-old male with past medical history of 4 episodes of CVA, CAD, 3 MIs status-post stent placement, Diabetes Mellitus Type 2, DVT, Hypertension, Hyperlipidemia, and angina presents to ED complaining of chest pain. Patient also reports sweating, shortness of breath, dizziness, nausea, abdominal pain. Please see Patient's chart for complete summary of details. Patient was subsequently admitted for observation and Acute Coronary Syndrome rule-out. Cardiology was consulted (Dr. Hernandez) and Patient subsequently underwent catheterization with Dr. Hernandez 10/05 which revealed diffuse atherosclerosis, 50% stenosis in the distal LAD which is unchanged from previous, and normal LV function. Please see report for details. Thus, per Cardiology, the Patient's chest pain is not of cardiac origin and no further cardiac workup is necessary at this time. Please see chart for detailed summary. Today, Patient is status- post cath 10/05. Patient has no new complaints. Patient was hemodynamically stable and medically optimized for discharge. Consultants on the case agreed. Patient was instructed to follow-up with primary care physician within 3-5 days. Patient given both verbal and written instructions. All instructions explained to the patient in detail. Patient both understand and agree to all instructions. Please see full chart for more detail. Discharge Instructions provided to the Patient: Please follow up with your primary care doctor, Dr. Roth for hospital follow up. Continue to follow up with Dr. Hernandez as outpatient. The following changes are being made to your home medications: 1. STOP TAKING Aspirin 81mg Continue all other home medications as previously prescribed. If your symptoms return, please seek emergency medical attention immediately. Patient seen and case discussed in detail with Dr. Renae Dong PGY1 Discharge Exam - Additional Findings Additional findings: - Constitutional Appears: Well, Non-toxic, No Acute Distress - Constitutional Appears: Well, No Acute Distress - Head Exam Head Exam: ATRAUMATIC, NORMOCEPHALIC - Eye Exam Eye Exam: EOMI, Normal appearance, PERRL Pupil Exam: NORMAL ACCOMODATION - ENT Exam ENT Exam: Mucous Membranes Moist - Neck Exam Neck exam: Positive for: Tenderness. Negative for: Lymphadenopathy Additional comments: tenderness to palpation of b/l trapezius muscles, hypertonicity - Respiratory Exam Respiratory Exam: Clear to Auscultation Bilateral, NORMAL BREATHING PATTERN. absent: Rales, Rhonchi, Wheezes, Respiratory Distress - Cardiovascular Exam Cardiovascular Exam: REGULAR RHYTHM, +S1, +S2. absent: Gallop, Rubs, Systolic Murmur Additional comments: tenderness to palpation of L chest lateral to sternum - GI/Abdominal Exam GI & Abdominal Exam: Normal Bowel Sounds, Soft, Tenderness. absent: Distended, Firm, Guarding, Rebound Additional comments: generalized tenderness to palpation of all 4 quadrants, no guarding or rebound tenderness. no suprapubic tenderness. - Extremities Exam Extremities exam: Positive for: normal inspection. Negative for: calf tenderness, pedal edema - Back Exam Back exam: absent: CVA tenderness (L), CVA tenderness (R) - Neurological Exam Neurological exam: Alert, CN II-XII Intact, Oriented x3, Reflexes Normal - Expanded Neurological Exam Expanded Sensory exam: Lower Extremity Light Touch: Normal, Upper Extremity Light Touch: Normal Neuro motor strength exam: Left Upper Extremity: 4, Right Upper Extremity: 5, Left Lower Extremity: 4, Right Lower Extremity: 5 DTR: Achilles Tendon Left: 2+, Achilles Tendon Right: 2+, Brachioradialis Left: 2+, Brachioradialis Right: 2+, Patellar Left: 2+, Patellar Right: 2+ - Psychiatric Exam Psychiatric exam: Normal Affect, Normal Mood - Skin Skin Exam: Dry Discharge Plan - Follow Up Plan Condition: FAIR Disposition: HOME/ ROUTINE Instructions: Chest Pain (ED), Chest Pain (DC), Chest Pain (GEN) Additional Instructions: Please follow up with your primary care doctor, Dr. Roth, within 3-5 days of being discharged from the hospital. Please discuss all medical issues addressed during your admission. Please follow up with manager post (heart doctor), Dr. Hernandez, within one week of being discharged from the hospital. The following changes are being made to your home medications: 1. STOP TAKING Aspirin 81mg Continue all other home medications as previously prescribed. If your symptoms return, please seek emergency medical attention immediately. Referrals: Tanner Roth MD [Primary Care Provider] - Monico Hernandez MD [Staff Provider] - <Kim Espinoza - Last Filed: 10/06/18 13:01> Provider - Provider Date of Admission: 10/04/18 15:33 Attending physician: Kim Espinoza DO Primary care physician: Tanner Roth MD Hospital Course - Lab Results Lab Results: Most Recent Lab Values WBC 4.5 10^3/uL (4.5-11.0) 10/06/18 06:45 RBC 4.58 10^6/uL (3.5-6.1) 10/06/18 06:45 Hgb 14.3 g/dL (14.0-18.0) 10/06/18 06:45 Hct 40.7 % (42.0-52.0) L 10/06/18 06:45 MCV 88.9 fl (80.0-105.0) 10/06/18 06:45 MCH 31.2 pg (25.0-35.0) 10/06/18 06:45 MCHC 35.1 g/dl (31.0-37.0) 10/06/18 06:45 RDW 12.5 % (11.5-14.5) 10/06/18 06:45 Plt Count 191 10^3/uL (120.0-450.0) 10/06/18 06:45 MPV 8.2 fl (7.0-11.0) 10/06/18 06:45 Gran % 67.1 % (50.0-68.0) 10/03/18 19:43 Lymph % (Auto) 26.2 % (22.0-35.0) 10/03/18 19:43 [place] % (Auto) 5.2 % (1.0-6.0) 10/03/18 19:43 Eos % (Auto) 1.3 % (1.5-5.0) L 10/03/18 19:43 Baso % (Auto) 0.2 % (0.0-3.0) 10/03/18 19:43 Gran # 3.48 (1.4-6.5) 10/03/18 19:43 Lymph # (Auto) 1.4 (1.2-3.4) 10/03/18 19:43 [place] # (Auto) 0.3 (0.1-0.6) 10/03/18 19:43 Eos # (Auto) 0.1 (0.0-0.7) 10/03/18 19:43 Baso # (Auto) 0.01 K/mm3 (0.0-2.0) 10/03/18 19:43 PT 13.2 SECONDS (9.4-12.5) H 10/03/18 19:43 INR 1.15 10/03/18 19:43 APTT 33.8 Seconds (25.1-36.5) 10/03/18 19:43 Sodium 139 mmol/L (132-148) 10/06/18 06:45 Potassium 3.9 mmol/L (3.6-5.0) 10/06/18 06:45 Chloride 105 mmol/L (98-107) 10/06/18 06:45 Carbon Dioxide 26 mmol/L (21-33) 10/06/18 06:45 Anion Gap 12 (10-20) 10/06/18 06:45 BUN 13 mg/dL (7-21) 10/06/18 06:45 Creatinine 0.9 mg/dl (0.8-1.5) 10/06/18 06:45 Est GFR ( Amer) > 60 10/06/18 06:45 Est GFR (Non-Af Amer) > 60 10/06/18 06:45 POC Glucose (mg/dL) 84 mg/dL (65-110) 10/06/18 12:09 Random Glucose 127 mg/dL (70-110) H 10/06/18 06:45 Hemoglobin A1c 6.3 % (4.2-6.5) 10/03/18 21:00 Calcium 9.5 mg/dL (8.4-10.5) 10/06/18 06:45 Phosphorus 3.3 mg/dL (2.5-4.5) 10/06/18 06:45 Magnesium 1.8 mg/dL (1.7-2.2) 10/06/18 06:45 Iron 97 ug/dL (45-180) 10/03/18 21:00 TIBC 374 ug/dL (261-462) 10/03/18 21:00 % Saturation 26 % (20-55) 10/03/18 21:00 Total Bilirubin 1.0 mg/dL (0.2-1.3) 10/06/18 06:45 AST 15 U/L (17-59) L 10/06/18 06:45 ALT 27 U/L (7-56) 10/06/18 06:45 Alkaline Phosphatase 80 U/L (38-126) 10/06/18 06:45 Lactate Dehydrogenase 388 U/L (333-699) 10/03/18 19:43 Total Creatine Kinase 180 U/L (35-230) 10/03/18 19:43 Troponin I 0.01 ng/mL 10/04/18 06:00 NT-Pro-B Natriuret Pep 28.0 pg/mL (0-450) 10/03/18 19:43 Total Protein 7.5 g/dL (5.8-8.3) 10/06/18 06:45 Albumin 4.5 g/dL (3.0-4.8) 10/06/18 06:45 Globulin 3.0 gm/dL 10/06/18 06:45 Albumin/Globulin Ratio 1.5 (1.1-1.8) 10/06/18 06:45 Triglycerides 94 mg/dL (35-160) 10/03/18 21:00 Cholesterol 107 mg/dL (130-200) L 10/03/18 21:00 LDL Cholesterol Direct 68 mg/dL (0-129) 10/03/18 21:00 HDL Cholesterol 32 mg/dL (29-60) 10/03/18 21:00 Vitamin B12 256 pg/mL (239-931) 10/03/18 21:00 Folate 13.9 ng/mL 10/03/18 21:00 TSH 3rd Generation 1.57 mIU/mL (0.46-4.68) 10/03/18 21:00 Attending/Attestation - Attestation I have personally seen and examined this patient.: Yes I have fully participated in the care of the patient.: Yes I have reviewed all pertinent clinical information, including history, physical exam and plan: Yes Notes (Text): Please note that discharge was cancelled secondary to patient being having dizziness and being unable to ambulate. Please see below progress note. Patient seen and examined by me with resident at 11:15AM and again at 6:30PM on 10/05/18. Case including HPI, physical exam, and assessment and plan discussed with resident. Agree with above with following additions/corrections. Patient is a 53-year-old male with past medical history significant for CVA, coronary artery disease, type 2 diabetes, DVT, PE, hypertension, hyperlipidemia, and angina that presented to the emergency room with chest pain. Patient is s/p cardiac catheterization. Patient states he is feeling ok. States he is still having chest pain. Also complains of some abdominal pain but states that it is chronic. Patient states he is having very little pain at his right groin catheterization site. No shortness of breath. No headaches. No fevers or chills. No dysuria. No nausea or vomiting. Patient re-examined at 6:30PM. Patient complaining of some dizziness when standing up. Physical exam: General: Awake and alert lying in bed in no acute distress HEENT: Normocephalic, atraumatic. Extraocular muscles intact, pupils equal and reactive, no scleral icterus. Oropharynx is pink and moist. Neck is supple. Cardiovascular: Regular rhythm. Normal S1 and S2. No murmurs, rubs, or gallops appreciated Pulmonary: Normal respiratory effort. No rhonchi, rales, or wheezing appreciated. Gastrointestinal: Soft, nondistended. Mild generalized tenderness. Positive bowel sounds all 4 quadrants. No guarding. Musculoskeletal: Moves all extremities. No calf tenderness. No edema appreciated. Central nervous system: Awake and alert. Dermatologic: Skin warm and dry. Right groin dressing clean, dry, and intact. Assessment and plan: Patient is a 53-year-old male with past medical history significant for CVA, coronary artery disease, type 2 diabetes, DVT, PE, hypertension, hyperlipidemia, and angina that presented to the emergency room with chest pain. 1. Chest pain. Unstable angina. History of coronary artery disease. Patient is s/p cardiac catheterization. Per manager post procedure revealed patent stents in corornary tree, diffuse atherosclerosis, 50% stenosis in the distal LAD which is unchanged, normal LV function. Per cardiology chest pain is not of cardiac origin. Per cardiology, patient to continue Eliquis and Plavix but not aspirin. Continue Lipitor and Cozaar. 2. Hypertension. Continue Norvasc, hydralazine, and Cozaar. 3. History of DVT/PE. Continue Eliquis. 4. Type 2 diabetes. Continue insulin sliding scale. Continue lispro 12 units subcutaneous before meals. Monitor Accu-Cheks. Hgb A1C 6.3. 5. History of glaucoma. Continue home combigan drops 6. GI/DVT prophylaxis. Protonix/Eliquis Case was discussed in detail with the patient regarding current diagnosis and treatment plan. All questions answered.
[2018-10-05] MEDS: Non Formulary Medication (Brimonidine Tartrate/Timolol [Combigan 0.2%-0.5% Eye Drops] 1 DR EACHEYE SCH ×2 (13:11→22:00)
[2018-10-05] MEDS: Pantoprazole 40 mg EC Tab PO SCH (13:23)
--- NOTE | 2018-10-05 13:39 | CARDCATH ---
PROCEDURE DATE: 10/05/2018 HISTORY: The patient is a 53-year-old male with multiple cardiac risk factors with diabetes mellitus, hypertension and hypercholesterolemia as well as history of pulmonary embolism who presents with progressive substernal chest pain including angina at rest described as pressure-like sensation over his chest. Because of these ongoing symptoms, cardiac catheterization was recommended. PROCEDURE: Left heart catheterization with coronary arteriography and left ventriculogram. The right femoral artery was cannulated with 6-[place] sheath. There were no complications. I performed moderate sedation which included the presence of an independent trained observer that assisted in monitoring the patient's level of consciousness and physiologic status. After administration of Versed and fentanyl, my intra service time was 15 minutes. The findings on catheterization revealed a left ventricle that contracted normally. Estimated ejection fraction 55-60%. Coronary anatomy revealed right dominant circulation. The RCA revealed diffuse atherosclerosis throughout its coronary tree with a patent stent. The left main artery was unremarkable. The LAD revealed diffuse atherosclerosis with a patent stent in the proximal portion as well as the midportion. Distal to the stent, there is a 50% stenoses noted in the distal portion of the LAD. The diagonal vessels revealed diffuse atherosclerosis. The circumflex artery and obtuse marginal branches revealed diffuse atherosclerosis without critical lesions. Angio-Seal was used to close the femoral artery site. The patient tolerated the procedure well. In summary, the procedure revealed patent stents in his coronary tree. Diffuse atherosclerosis noted. A 50% stenosis in the distal LAD which is unchanged from his previous. Normal LV function. Given these findings, the patient's treatment will be continued medical therapy. We will restart him on his Eliquis today. His chest pain is not of cardiac origin. No further cardiac workup is necessary at this time. If he has to be discharged, he should be discharged on Eliquis 5 b.i.d. as well as Plavix 75 daily. No aspirin should be given. Monico Hernandez MD
[2018-10-06 07:05] LABS: HEMOGLOBIN 14.3 g/dL (14.0-18.0); MEAN CELL VOLUME 88.9 fl (80.0-105.0); MEAN CORPUSCULAR HEMOGLOBIN 31.2 pg (25.0-35.0); MEAN CORPUSCULAR HGB CONC 35.1 g/dl (31.0-37.0); MEAN PLATELET VOLUME 8.2 fl (7.0-11.0); RBC 4.58 10^6/uL (3.5-6.1); RED CELL DISTRIBUTION WIDTH 12.5 % (11.5-14.5); WHITE BLOOD COUNT 4.5 10^3/uL (4.5-11.0)
[2018-10-06 07:37] LABS: ALB/GLOB RATIO 1.5 (1.1-1.8); ALBUMIN 4.5 g/dL (3.0-4.8); ALT/SGPT 27 U/L (7-56); AST/SGOT 15 U/L (17-59); BLOOD UREA NITROGEN 13 mg/dL (7-21); CALCIUM 9.5 mg/dL (8.4-10.5); GFR NON-AFRICAN AMERICAN > 60
[2018-10-06] MEDS ORDERED: Iohexol 350 MG/100 ML VIAL ONE (09:15)
[2018-10-06] MEDS: Insulin Reg-MEDIUM-Coverage SC SCH ×4 (09:34→22:00)
[2018-10-06] MEDS: Insulin Lispro 1 UNITS/0.01 ML SC SCH ×3 (09:38→16:13)
[2018-10-06] MEDS: Morphine 2 mg/ml ISec IVP PRN ×2 (09:39→20:07)
[2018-10-06] MEDS: Pantoprazole 40 mg EC Tab PO SCH (09:39)
--- NOTE | 2018-10-06 10:28 | CT ---
Date of service: 10/06/2018 PROCEDURE: CT Chest with contrast (Pulmonary Angiogram) HISTORY: Chest pain COMPARISON: None available. TECHNIQUE: Axial computed tomography images were obtained of the chest in the pulmonary arterial phase of enhancement. Coronal and sagittal reformatted images were created and reviewed. Intravenous contrast dose: 100 cc of Omni 350 Radiation dose: Total exam DLP = 445.39 mGy-cm. This CT exam was performed using one or more of the following dose reduction techniques: Automated exposure control, adjustment of the mA and/or kV according to patient size, and/or use of iterative reconstruction technique. FINDINGS: PULMONARY ARTERIES: Unremarkable. No pulmonary embolism. AORTA: No acute findings. No thoracic aortic aneurysm. No aortic atherosclerotic calcification or mural plaque present. LUNGS: Unremarkable. No nodule, mass or pulmonary consolidation. PLEURAL SPACES: Unremarkable. No effusion or pneumothorax. HEART: Unremarkable. No cardiomegaly. No significant pericardial effusion. LYMPH NODES: No lymphadenopathy. BONES, CHEST WALL: Unremarkable. No fracture or destructive lesion OTHER FINDINGS: Unremarkable. IMPRESSION: Unremarkable CT pulmonary angiogram. No pulmonary embolus.
--- NOTE | 2018-10-06 11:23 | CP.PCM.PN ---
<Raiza Dong - Last Filed: 10/06/18 11:20> Subjective - Date & Time of Evaluation Date of Evaluation: 10/06/18 Time of Evaluation: 11:20 - Subjective Subjective: PGY1 Medicine Progress Note for Dr. Renae Espinoza Patient was seen and evaluated at bedside this morning. Today he is status post- op day 1 (cath with Dr. Hernandez). Patient was hemodynamically stable for discharge in the afternoon yesterday, however he felt dizzy. Thus, patient remained hospitalized overnight. Today, patient admits to continued chest pain, back pain, and bilateral lower extremity pain. Patient also states he felt dizzy earlier this morning when he walked to go use the restroom. 12 Point ROS otherwise negative. Objective - Vital Signs/Intake and Output Vital Signs (last 24 hours): Temp Pulse Resp BP Pulse Ox 98 F 60 18 120/77 96 10/06/18 06:00 10/06/18 06:07 10/06/18 06:00 10/06/18 09:39 10/06/18 06:00 Intake and Output: 10/06/18 10/06/18 06:59 18:59 Intake Total 720 Output Total 650 Balance 70 - Medications Medications: Current Medications Acetaminophen (Tylenol 325mg Tab) 650 mg PO Q6H PRN PRN Reason: Pain, moderate (4-7) Last Admin: 10/05/18 18:25 Dose: 650 mg Amlodipine Besylate (Norvasc) 10 mg PO DAILY [facility] Last Admin: 10/06/18 09:39 Dose: 10 mg Apixaban (Eliquis) 5 mg PO BID [facility]; Protocol Last Admin: 10/06/18 09:39 Dose: 5 mg Atorvastatin Calcium (Lipitor) 40 mg PO HS [facility] Last Admin: 10/05/18 22:28 Dose: 40 mg Clopidogrel Bisulfate (Plavix) 75 mg PO DAILY [facility] Last Admin: 10/06/18 09:39 Dose: 75 mg Gabapentin (Neurontin) 600 mg PO TID [facility]; Protocol Last Admin: 10/06/18 09:39 Dose: 600 mg Hydralazine HCl (Apresoline) 50 mg PO Q8 [facility] Last Admin: 10/06/18 06:07 Dose: 50 mg Insulin Human Lispro (Humalog) 12 units SC AC [facility] Last Admin: 11/22/18 09:38 Dose: 12 units Insulin Human Regular (Humulin R Med) 0 units SC ACHS [facility]; Protocol Last Admin: 10/06/18 09:34 Dose: Not Given Losartan Potassium (Cozaar) 100 mg PO DAILY [facility] Last Admin: 10/06/18 09:39 Dose: 100 mg Morphine Sulfate (Morphine) 2 mg IVP Q4H PRN PRN Reason: Pain, severe (8-10) Last Admin: 10/06/18 09:39 Dose: 2 mg Non-Formulary Medication (Brimonidine Tartrate/Timolol [Combigan 0.2%-0.5% Eye Drops]) 1 drop EACHEYE Q12 [facility] Last Admin: 10/05/18 22:00 Dose: Not Given Pantoprazole Sodium (Protonix Ec Tab) 40 mg PO DAILY [facility] Last Admin: 10/06/18 09:39 Dose: 40 mg - Labs Labs: 10/06/18 06:45 10/06/18 06:45 PT 13.2 SECONDS (9.4-12.5) H 10/03/18 19:43 INR 1.15 10/03/18 19:43 APTT 33.8 Seconds (25.1-36.5) 10/03/18 19:43 - Additional Findings Additional findings: - Constitutional Appears: Well, No Acute Distress - Head Exam Head Exam: ATRAUMATIC, NORMOCEPHALIC - Eye Exam Eye Exam: EOMI, Normal appearance, PERRL Pupil Exam: NORMAL ACCOMODATION - ENT Exam ENT Exam: Mucous Membranes Moist - Neck Exam Neck exam: Positive for: Tenderness. Negative for: Lymphadenopathy Additional comments: tenderness to palpation of b/l trapezius muscles, hypertonicity - Respiratory Exam Respiratory Exam: Clear to Auscultation Bilateral, NORMAL BREATHING PATTERN. absent: Rales, Rhonchi, Wheezes, Respiratory Distress - Cardiovascular Exam Cardiovascular Exam: REGULAR RHYTHM, +S1, +S2. absent: Gallop, Rubs, Systolic Murmur Additional comments: tenderness to palpation of L chest lateral to sternum - GI/Abdominal Exam GI & Abdominal Exam: Normal Bowel Sounds, Soft, Tenderness. absent: Distended, Firm, Guarding, Rebound Additional comments: generalized tenderness to palpation of all 4 quadrants, no guarding or rebound tenderness. no suprapubic tenderness. - Extremities Exam Extremities exam: Positive for: normal inspection. Negative for: calf tenderness, pedal edema Note, right groin with dressing. Dressing in tact, clean, and dry. - Back Exam Back exam: absent: CVA tenderness (L), CVA tenderness (R) - Neurological Exam Neurological exam: Alert, CN II-XII Intact, Oriented x3, Reflexes Normal - Expanded Neurological Exam Expanded Sensory exam: Lower Extremity Light Touch: Normal, Upper Extremity Light Touch: Normal Neuro motor strength exam: Left Upper Extremity: 4, Right Upper Extremity: 5, Left Lower Extremity: 4, Right Lower Extremity: 5 DTR: Achilles Tendon Left: 2+, Achilles Tendon Right: 2+, Brachioradialis Left: 2+, Brachioradialis Right: 2+, Patellar Left: 2+, Patellar Right: 2+ - Psychiatric Exam Psychiatric exam: Normal Affect, Normal Mood Assessment and Plan - Assessment and Plan (Free Text) Assessment: 53-year-old Male with PMH 4 episodes CVA, CAD, History of [place] x3, status-post stent placements (x2), DM2, DVT, HTN, HLD, and unstable angina presents to ED complaining of chest pain, patient was subsequently admitted to telemetry for further evaluation and treatment of ACS rule-out. Patient is s/p catheterization with Dr. Hernandez (10/05). Today he is POD-1. Patient complained of dizziness on 10/05 following catheterization. Thus patient's discharge was canceled yesterday. Patient will continue to be monitored in telemetry until medically optimized. Plan: Chest Pain, ACS rule-out - Patient admits to continuation of pressure-like pain - ASA 324 and nitroglycerin administered in the ED - EKG: NSR, LVH - Troponins neg x3 - Repeat EKG - CXR: no infiltrates, effusions, atelectases appreciated, please see official report - ECHO 03/02: moderate LVH, low normal LV systolic function, mild TR, EF 50% - Stress test 03/02: normal wall motion of LV, distal anteroseptal defect suspicious of ischemia - TSH=1.57 - Ibuprofen 600mg q6h PRN for pain - Morphine 2mg IVP administered once - Eliquis discontinued for planned cath tomorrow with Dr. Hernandez - Cardiology (Dr. Hernandez) consulted; recommendations appreciated Dizziness - Neurology consulted (Dr. Gab Kauffman) recommendations appreciated - Physical Therapy eval and treat CAD s/p stent placement (10/05) - Continue home ASA 81mg PO daily - Continue home lipitor 40mg PO HS - Continue home plavix 75mg PO daily - Lipid panel obtained; unremarkable for hyperlipidemia - Cath planned for tomorrow with Dr. Hernandez (10/05) History of Hypertension - Continue home norvasc 10mg PO daily - Continue home hydralazine 50mg PO q8h - Continue home losartan 100mg PO daily - Monitor Hx of DVT - Discontinue home eliquis 5mg PO BID due to planned cath for tomorrow - Patient has IVC filter that was placed in 2009 (was not removed) Type 2 Diabetes Mellitus - MnG6m=6.3 - Lispro 12 SC AC - Hypoglycemic protocol - Monitor BG Accucheck History of Glaucoma - Continue home combigan drops daily Hypomagnesemia - Recheck magnesium - Replete magnesium as needed - Monitor CMP, Mg, Phos Normocytic Anemia - H/H 12.8/36.6 - baseline Hb 13 - Vitamin H04=190 - Folate=13.9 - Follow-up Fe, TIBC Abdominal pain, chronic - Abdominal ultrasound - LFTs within normal limits PPX DVT: pt on eliquis (discontinued 10/04 for planned cath on 10/05 GI: Protonix 40 po HHD Patient seen and case discussed in detail with Attending Physician Dr. Renae Dong PGY1 <Kim Espinoza R - Last Filed: 10/07/18 18:20> Objective - Vital Signs/Intake and Output Vital Signs (last 24 hours): Temp Pulse Resp BP Pulse Ox 97.1 F L 65 21 136/96 H 100 10/07/18 18:00 10/07/18 18:00 10/07/18 18:00 10/07/18 18:00 10/07/18 06:00 Intake and Output: 10/07/18 10/07/18 06:59 18:59 Intake Total 1200 Output Total 1100 Balance 100 - Medications Medications: Current Medications Acetaminophen (Tylenol 325mg Tab) 650 mg PO Q6H PRN PRN Reason: Pain, moderate (4-7) Last Admin: 10/07/18 14:19 Dose: 650 mg Amlodipine Besylate (Norvasc) 10 mg PO DAILY [facility] Last Admin: 10/07/18 09:11 Dose: 10 mg Apixaban (Eliquis) 5 mg PO BID [facility]; Protocol Last Admin: 10/07/18 17:26 Dose: 5 mg Atorvastatin Calcium (Lipitor) 40 mg PO HS [facility] Last Admin: 10/06/18 22:28 Dose: 40 mg Clopidogrel Bisulfate (Plavix) 75 mg PO DAILY [facility] Last Admin: 10/07/18 09:11 Dose: 75 mg Gabapentin (Neurontin) 600 mg PO TID [facility]; Protocol Last Admin: 10/07/18 17:26 Dose: 600 mg Hydralazine HCl (Apresoline) 50 mg PO Q8 [facility] Last Admin: 10/07/18 14:18 Dose: 50 mg Insulin Human Lispro (Humalog) 12 units SC AC [facility] Last Admin: 10/07/18 17:06 Dose: Not Given Insulin Human Regular (Humulin R Med) 0 units SC ACHS [facility]; Protocol Last Admin: 10/07/18 17:06 Dose: Not Given Losartan Potassium (Cozaar) 100 mg PO DAILY [facility] Last Admin: 10/07/18 09:11 Dose: 100 mg Non-Formulary Medication (Brimonidine Tartrate/Timolol [Combigan 0.2%-0.5% Eye Drops]) 1 drop EACHEYE Q12 [facility] Last Admin: 10/07/18 09:12 Dose: Not Given Pantoprazole Sodium (Protonix Ec Tab) 40 mg PO DAILY [facility] Last Admin: 10/07/18 09:11 Dose: 40 mg - Labs Labs: 10/07/18 06:30 10/07/18 06:30 PT 13.2 SECONDS (9.4-12.5) H 10/03/18 19:43 INR 1.15 10/03/18 19:43 APTT 33.8 Seconds (25.1-36.5) 10/03/18 19:43 Attending/Attestation - Attestation I have personally seen and examined this patient.: Yes I have fully participated in the care of the patient.: Yes I have reviewed all pertinent clinical information, including history, physical exam and plan: Yes Notes (Text): Patient seen and examined by me with resident at 9AM on 10/06/18. Case including HPI, physical exam, and assessment and plan discussed with resident. Agree with above with following additions/corrections. Patient is a 53-year-old male with past medical history significant for CVA, coronary artery disease, type 2 diabetes, DVT, PE, hypertension, hyperlipidemia, and angina that presented to the emergency room with chest pain. Patient states he is feeling ok. Patient states that he is still feeling dizzy when he stands up and tries to walk. Also complains of constant chest and back pain that is worse with movement. No associated shortness of breath. No head aches or lightheadedness. No fevers or chills. No dysuria. No nausea or vomiting. Also with chronic abdominal pain. Patient points to epigastric region. No diarrhea or constipation. Patient also complains of chronic bilateral leg pain. Physical exam: General: Awake and alert lying in bed in no acute distress HEENT: Normocephalic, atraumatic. Extraocular muscles intact, pupils equal and reactive, no scleral icterus. Oropharynx is pink and moist. Neck is supple. Cardiovascular: Regular rhythm. Normal S1 and S2. No murmurs, rubs, or gallops appreciated Pulmonary: Normal respiratory effort. No rhonchi, rales, or wheezing appreciated. Gastrointestinal: Soft, nondistended. Mild epigastric tenderness. Positive bowel sounds all 4 quadrants. No guarding. Musculoskeletal: Moves all extremities. No calf tenderness. No edema appreciated. Central nervous system: AAOx3 Dermatologic: Skin warm and dry. Right groin dressing clean, dry, and intact; no signs of bleeding. Assessment and plan: Patient is a 53-year-old male with past medical history significant for CVA, coronary artery disease, type 2 diabetes, DVT, PE, hypertension, hyperlipidemia, and angina that presented to the emergency room with chest pain. 1. Dizziness. Unsteady on feet. PT following, recommendations appreciated. Neurology consulted, follow up recommendations. 2. Chest pain. History of coronary artery disease. Patient is s/p cardiac catheterization. Per automobile relocation engineer, cath procedure revealed patent stents in corornary tree, diffuse atherosclerosis, 50% stenosis in the distal LAD which is unchanged, normal LV function. Per cardiology chest pain is not of cardiac origin. Per cardiology, patient to continue Eliquis and Plavix but not aspirin. Continue Lipitor and Cozaar. 3. Hypertension. Continue Norvasc, hydralazine, and Cozaar. 4. History of DVT/PE. Continue Eliquis. 5. Type 2 diabetes. Continue insulin sliding scale. Continue lispro 12 units subcutaneous before meals. Monitor Accu-Cheks. Hgb A1C 6.3. 6. History of glaucoma. Continue home combigan drops 7. GI/DVT prophylaxis. Protonix/Eliquis Case was discussed in detail with the patient regarding current diagnosis and treatment plan. All questions answered.
[2018-10-06] MEDS: Non Formulary Medication (Brimonidine Tartrate/Timolol [Combigan 0.2%-0.5% Eye Drops] 1 DR EACHEYE SCH ×2 (11:37→22:27)
[2018-10-07 07:02] LABS: HEMOGLOBIN 13.5 g/dL (14.0-18.0); MEAN CELL VOLUME 88.5 fl (80.0-105.0); MEAN CORPUSCULAR HEMOGLOBIN 31.1 pg (25.0-35.0); MEAN CORPUSCULAR HGB CONC 35.2 g/dl (31.0-37.0); MEAN PLATELET VOLUME 8.4 fl (7.0-11.0); RBC 4.34 10^6/uL (3.5-6.1); RED CELL DISTRIBUTION WIDTH 12.3 % (11.5-14.5); WHITE BLOOD COUNT 4.7 10^3/uL (4.5-11.0)
[2018-10-07 07:25] LABS: ALB/GLOB RATIO 1.5 (1.1-1.8); ALBUMIN 4.1 g/dL (3.0-4.8); ALT/SGPT 23 U/L (7-56); AST/SGOT 13 U/L (17-59); BLOOD UREA NITROGEN 20 mg/dL (7-21); CALCIUM 9.9 mg/dL (8.4-10.5); GFR NON-AFRICAN AMERICAN > 60
[2018-10-07] MEDS: Insulin Lispro 1 UNITS/0.01 ML SC SCH ×3 (08:30→17:06)
[2018-10-07] MEDS: Insulin Reg-MEDIUM-Coverage SC SCH ×4 (08:30→21:46)
[2018-10-07] MEDS: Pantoprazole 40 mg EC Tab PO SCH (09:11)
[2018-10-07] MEDS: Non Formulary Medication (Brimonidine Tartrate/Timolol [Combigan 0.2%-0.5% Eye Drops] 1 DR EACHEYE SCH ×2 (09:12→21:36)
[2018-10-07] MEDS: Morphine 2 mg/ml ISec IVP PRN (09:35)
--- NOTE | 2018-10-07 11:12 | PN ---
DATE: 10/07/2018 CARDIOLOGY FOLLOWUP SUBJECTIVE: The patient is chest pain free, feels well. No more dizziness. PHYSICAL EXAMINATION: VITAL SIGNS: Blood pressure 142/83, heart rate in the 60s. NECK: Negative JVD. LUNGS: Without rales. HEART: With S1, S2. EXTREMITIES: Without edema. LABORATORY DATA: Hemoglobin is 13.5. Chemistries, BUN and creatinine unremarkable. IMPRESSION: 1. Chest pain associated with diffuse body aches. 2. Status post catheterization that reveals all patent stents. 3. History of coronary artery disease. 4. History of pulmonary embolism. 5. History of percutaneous transluminal coronary angioplasty and stent. 6. Diabetes mellitus. Given these findings, the patient's cardiac status is stable. The patient is to be discharged on no aspirin. He will continue on his Plavix as well as his Eliquis. Follow up instructions have been given to the patient in detail. Monico Hernandez MD
--- NOTE | 2018-10-07 11:53 | CP.PCM.PN ---
<Yani Mota - Last Filed: 10/07/18 11:45> Subjective - Date & Time of Evaluation Date of Evaluation: 10/07/18 Time of Evaluation: 11:46 - Subjective Subjective: INTERNAL MEDICINE PROGRESS NOTE FOR DR. EROS Mota PGY-1 Pt seen and examined at bedside this am. Pt reports non-specific pain and soreness over back and bilateral lower extremities. He reports sharp pain in R arm, without associated chest pain, diaphoresis, shortness of breath, nausea, vomiting. Objective - Vital Signs/Intake and Output Vital Signs (last 24 hours): Temp Pulse Resp BP Pulse Ox 98.1 F 54 L 20 147/69 100 10/07/18 06:00 10/07/18 06:09 10/07/18 06:00 10/07/18 09:11 10/07/18 06:00 Intake and Output: 10/07/18 10/07/18 06:59 18:59 Intake Total 1200 Output Total 1100 Balance 100 - Medications Medications: Current Medications Acetaminophen (Tylenol 325mg Tab) 650 mg PO Q6H PRN PRN Reason: Pain, moderate (4-7) Last Admin: 10/06/18 16:13 Dose: 650 mg Amlodipine Besylate (Norvasc) 10 mg PO DAILY [facility] Last Admin: 10/07/18 09:11 Dose: 10 mg Apixaban (Eliquis) 5 mg PO BID [facility]; Protocol Last Admin: 10/07/18 09:11 Dose: 5 mg Atorvastatin Calcium (Lipitor) 40 mg PO HS [facility] Last Admin: 10/06/18 22:28 Dose: 40 mg Clopidogrel Bisulfate (Plavix) 75 mg PO DAILY [facility] Last Admin: 10/07/18 09:11 Dose: 75 mg Gabapentin (Neurontin) 600 mg PO TID [facility]; Protocol Last Admin: 10/07/18 09:11 Dose: 600 mg Hydralazine HCl (Apresoline) 50 mg PO Q8 [facility] Last Admin: 10/07/18 06:09 Dose: 50 mg Insulin Human Lispro (Humalog) 12 units SC AC [facility] Last Admin: 10/07/18 08:30 Dose: Not Given Insulin Human Regular (Humulin R Med) 0 units SC ACHS [facility]; Protocol Last Admin: 10/07/18 08:30 Dose: Not Given Losartan Potassium (Cozaar) 100 mg PO DAILY [facility] Last Admin: 10/07/18 09:11 Dose: 100 mg Non-Formulary Medication (Brimonidine Tartrate/Timolol [Combigan 0.2%-0.5% Eye Drops]) 1 drop EACHEYE Q12 [facility] Last Admin: 10/07/18 09:12 Dose: Not Given Pantoprazole Sodium (Protonix Ec Tab) 40 mg PO DAILY [facility] Last Admin: 10/07/18 09:11 Dose: 40 mg - Labs Labs: 10/07/18 06:30 10/07/18 06:30 PT 13.2 SECONDS (9.4-12.5) H 10/03/18 19:43 INR 1.15 10/03/18 19:43 APTT 33.8 Seconds (25.1-36.5) 10/03/18 19:43 - Constitutional Appears: Well, Non-toxic, No Acute Distress - Head Exam Head Exam: NORMAL INSPECTION, NORMOCEPHALIC - Eye Exam Eye Exam: EOMI, Normal appearance - ENT Exam ENT Exam: Mucous Membranes Moist, Normal Exam - Neck Exam Neck Exam: Normal Inspection, Tenderness - Respiratory Exam Respiratory Exam: Clear to Ausculation Bilateral, NORMAL BREATHING PATTERN - Cardiovascular Exam Cardiovascular Exam: REGULAR RHYTHM, +S1, +S2 Additional comments: chest tenderness to palpation - GI/Abdominal Exam GI & Abdominal Exam: Tenderness (generalized) - Extremities Exam Additional comments: R groin dressing c/d/i - Neurological Exam Neurological Exam: Alert, Awake, Oriented x3 Neuro motor strength exam: Left Upper Extremity: 5, Right Upper Extremity: 5, Left Lower Extremity: 5, Right Lower Extremity: 5 - Psychiatric Exam Psychiatric exam: Normal Affect, Normal Mood - Skin Skin Exam: Dry, Intact, Warm Assessment and Plan - Assessment and Plan (Free Text) Assessment: 53-year-old Male with PMH 4 episodes CVA, CAD, History of [place] x3, status-post stent placements (x2), DM2, DVT, HTN, HLD, and unstable angina presents to ED complaining of chest pain, patient was subsequently admitted to telemetry for further evaluation and treatment of ACS rule-out. Patient is s/p catheterization with Dr. Hernandez (10/05). Today he is POD2. Patient complained of dizziness on 10/05 following catheterization. Thus patient's discharge was canceled. Patient will continue to be monitored in telemetry Plan: Chest Pain, ACS rule-out s/p cardiac cath Now, likely musculoskeletal. Discontinue morphine d/t dizziness continue with tylenol for pain control EKG: NSR, LVH Troponins neg x3 CXR: no infiltrates, effusions, atelectases appreciated, please see official report ECHO 03/02: moderate LVH, low normal LV systolic function, mild TR, EF 50% Stress test 03/02: normal wall motion of LV, distal anteroseptal defect suspicious of ischemia TSH=1.57 Cardiology (Dr. Hernandez) consulted; recommendations appreciated Dizziness Discontinue morphine as it may be contributing to dizziness CT head w/o contrast to r/o stroke Neurology consulted (Dr. Gab Kauffman) recommendations appreciated Physical Therapy eval and treat CAD s/p stent placement (10/05) ASA 81mg PO daily lipitor 40mg PO HS Continue plavix 75mg PO daily History of Hypertension Continue home norvasc 10mg PO daily Continue home hydralazine 50mg PO q8h Continue home losartan 100mg PO daily Monitor Hx of DVT Continue home eliquis 5mg PO BID Patient has IVC filter that was placed in 2009 (was not removed) Type 2 Diabetes Mellitus MdF5e=2.3 Lispro 12 SC AC Hypoglycemic protocol Monitor BG Accucheck History of Glaucoma Continue home brimonidine drops daily Normocytic Anemia H/H 12.8/36.6 baseline Hb 13 Vitamin N95=725 Folate=13.9 Follow-up Fe, TIBC Abdominal pain, chronic Abdominal ultrasound reveals multiple gallstones LFTs within normal limits PPX DVT: Eliquis GI: Protonix 40 po HHD Case seen, examined and discussed with attending physician, Dr. Espinoza <Kim Espinoza R - Last Filed: 10/07/18 18:26> Objective - Vital Signs/Intake and Output Vital Signs (last 24 hours): Temp Pulse Resp BP Pulse Ox 97.1 F L 65 21 136/96 H 100 10/07/18 18:00 10/07/18 18:00 10/07/18 18:00 10/07/18 18:00 10/07/18 06:00 Intake and Output: 10/07/18 10/07/18 06:59 18:59 Intake Total 1200 Output Total 1100 Balance 100 - Medications Medications: Current Medications Acetaminophen (Tylenol 325mg Tab) 650 mg PO Q6H PRN PRN Reason: Pain, moderate (4-7) Last Admin: 10/07/18 14:19 Dose: 650 mg Amlodipine Besylate (Norvasc) 10 mg PO DAILY [facility] Last Admin: 10/07/18 09:11 Dose: 10 mg Apixaban (Eliquis) 5 mg PO BID [facility]; Protocol Last Admin: 10/07/18 17:26 Dose: 5 mg Atorvastatin Calcium (Lipitor) 40 mg PO HS [facility] Last Admin: 10/06/18 22:28 Dose: 40 mg Clopidogrel Bisulfate (Plavix) 75 mg PO DAILY [facility] Last Admin: 10/07/18 09:11 Dose: 75 mg Gabapentin (Neurontin) 600 mg PO TID [facility]; Protocol Last Admin: 10/07/18 17:26 Dose: 600 mg Hydralazine HCl (Apresoline) 50 mg PO Q8 [facility] Last Admin: 10/07/18 14:18 Dose: 50 mg Insulin Human Lispro (Humalog) 12 units SC AC [facility] Last Admin: 10/07/18 17:06 Dose: Not Given Insulin Human Regular (Humulin R Med) [address] [facility]; Protocol Last Admin: 10/07/18 17:06 Dose: Not Given Losartan Potassium (Cozaar) 100 mg PO DAILY [facility] Last Admin: 10/07/18 09:11 Dose: 100 mg Non-Formulary Medication (Brimonidine Tartrate/Timolol [Combigan 0.2%-0.5% Eye Drops]) 1 drop EACHEYE Q12 [facility] Last Admin: 10/07/18 09:12 Dose: Not Given Pantoprazole Sodium (Protonix Ec Tab) 40 mg PO DAILY [facility] Last Admin: 10/07/18 09:11 Dose: 40 mg - Labs Labs: 10/07/18 06:30 10/07/18 06:30 PT 13.2 SECONDS (9.4-12.5) H 10/03/18 19:43 INR 1.15 10/03/18 19:43 APTT 33.8 Seconds (25.1-36.5) 10/03/18 19:43 Attending/Attestation - Attestation I have personally seen and examined this patient.: Yes I have fully participated in the care of the patient.: Yes I have reviewed all pertinent clinical information, including history, physical exam and plan: Yes Notes (Text): Patient seen and examined by me with resident at 9:30AM on 10/07/18. Case includ ing HPI, physical exam, and assessment and plan discussed with resident. Agree with above with following additions/corrections. Patient is a 53-year-old male with past medical history significant for CVA, coronary artery disease, type 2 diabetes, DVT, PE, hypertension, hyperlipidemia, and angina that presented to the emergency room with chest pain. Patient states he is still not feeling great. States he is still unsteady on his feet and feels dizzy when standing. Patient also complains of abdominal pain, chest pain, back pain, and bilateral lower extremity pain. Patient denies shortness of breath. No headaches or lightheadedness. No fevers or chills. No dysuria. No nausea or vomiting. No diarrhea or constipation. Physical exam: General: Awake and alert lying in bed in no acute distress HEENT: Normocephalic, atraumatic. Extraocular muscles intact, pupils equal and reactive, no scleral icterus. Oropharynx is pink and moist. Neck is supple. Cardiovascular: Regular rhythm. Normal S1 and S2. No murmurs, rubs, or gallops appreciated Pulmonary: Normal respiratory effort. No rhonchi, rales, or wheezing appreciated. Gastrointestinal: Soft, nondistended. Mild epigastric tenderness. Positive bowel sounds all 4 quadrants. No guarding. Musculoskeletal: Moves all extremities. No calf tenderness. No edema appreciated. Central nervous system: AAOx3 Dermatologic: Skin warm and dry. Assessment and plan: Patient is a 53-year-old male with past medical history significant for CVA, coronary artery disease, type 2 diabetes, DVT, PE, hypertension, hyperlipidemia, and angina that presented to the emergency room with chest pain. 1. Dizziness. Unsteady on feet. Physical therapy following, recommendations appreciated. Neurology consulted, follow up recommendations. Head CT per radiologist showed reidentified encephalomalacia within the right occipital lobe consistent with remote infarct, nonspecific white matter changes, acute on chronic ischemia cannot be excluded. MRI brain ordered. 2. Chest pain. History of coronary artery disease. Patient s/p cardiac catheterization which per service restorer emergency showed patent stents in corornary tree, diffuse atherosclerosis, 50% stenosis in the distal LAD which is unchanged, normal LV function. Per service restorer emergency, chest pain not of cardiac origin. Per cardiology, patient to continue Eliquis and Plavix but not aspirin. Continue Lipitor and Cozaar. 3. Hypertension. Continue Norvasc, hydralazine, and Cozaar. 4. History of DVT/PE. Bilateral lower extremity pain likely secondary to history of DVT. No edema or signs of infection. Continue Eliquis. 5. Type 2 diabetes. Continue insulin sliding scale. Continue lispro 12 units subcutaneous before meals. Monitor Accu-Cheks. Hgb A1C 6.3. 6. History of glaucoma. Continue home combigan drops 7. GI/DVT prophylaxis. Protonix/Eliquis Dispo: Pending neurology evaluation. May require RICARDO. Case was discussed in detail with the patient regarding current diagnosis and treatment plan. All questions answered.
--- NOTE | 2018-10-07 13:31 | CT ---
Date of service: 10/07/2018 PROCEDURE: CT HEAD WITHOUT CONTRAST. HISTORY: r/o stroke COMPARISON: Noncontrast head CT performed 02/07/18 TECHNIQUE: Axial computed tomography images were obtained through the head/brain without intravenous contrast. Radiation dose: Total exam DLP = 908.88 mGy-cm. This CT exam was performed using one or more of the following dose reduction techniques: Automated exposure control, adjustment of the mA and/or kV according to patient size, and/or use of iterative reconstruction technique. FINDINGS: HEMORRHAGE: No intracranial hemorrhage. BRAIN: No mass effect or edema. Re-identified right occipital encephalomalacia consistent with remote infarct. Mild scattered white matter hypodensities, which are nonspecific, but often seen with chronic microvascular ischemic disease. Please note that MRI with diffusion imaging is more sensitive in the detection of acute ischemic event. VENTRICLES: No hydrocephalus. CALVARIUM: Unremarkable. PARANASAL SINUSES: Unremarkable as visualized. No significant inflammatory changes. MASTOID AIR CELLS: Unremarkable as visualized. No inflammatory changes. OTHER FINDINGS: None. IMPRESSION: Re-identified encephalomalacia within the right occipital lobe consistent with remote infarct. Nonspecific white matter changes. Acute on chronic ischemia cannot be excluded. Please note that MRI with diffusion imaging is more sensitive in the detection of acute ischemic event.
--- NOTE | 2018-10-07 23:36 | CON ---
DATE: HISTORY OF PRESENT ILLNESS: This is a 53-year-old black male with past medical history of CVA, coronary artery disease, diabetes, hypertension, and came here to the emergency room with the chest pain and called to evaluate because the patient was also complaining of dizziness and also has a difficulty ambulating. PAST MEDICAL HISTORY: Stroke, hypertension, diabetes, and history of [place]. The patient also had a cardiac cath with Dr. Elam. PHYSICAL EXAMINATION GENERAL: The patient is sitting comfortably, not in distress. Dizziness is better now and the patient is getting physical therapy. For coronary artery disease, the patient is on aspirin, Lipitor, and Norvasc for his high blood pressure, and medication for his diabetes. HEENT: Normocephalic and atraumatic. NECK: Supple. NEUROLOGIC: Alert, awake, and oriented x3. No aphasia. Cranial nerves II through XII were tested. Pupils reactive. EOM intact. Visual rogel full. No facial asymmetry. Tongue midline. Motor examination; moves all the extremities equally. Toe normal. Plantars are downgoing. Sensory appears intact. Cerebellar, gait deferred because the patient is still unsteady to walk. LABORATORY DATA: CAT scan of the head was done which was reported negative. PLAN: We will followup. I suggested him to do EMG in the office for peripheral neuropathy. Jose Roberto De Guzman MD
[2018-10-08 07:39] LABS: HEMOGLOBIN 13.2 g/dL (14.0-18.0); MEAN CELL VOLUME 88.7 fl (80.0-105.0); MEAN CORPUSCULAR HEMOGLOBIN 30.6 pg (25.0-35.0); MEAN CORPUSCULAR HGB CONC 34.5 g/dl (31.0-37.0); MEAN PLATELET VOLUME 8.3 fl (7.0-11.0); RBC 4.32 10^6/uL (3.5-6.1); RED CELL DISTRIBUTION WIDTH 12.4 % (11.5-14.5); WHITE BLOOD COUNT 3.3 10^3/uL (4.5-11.0)
[2018-10-08] MEDS: Insulin Reg-MEDIUM-Coverage SC SCH ×4 (07:52→21:17)
[2018-10-08] MEDS: Insulin Lispro 1 UNITS/0.01 ML SC SCH ×3 (07:52→20:34)
[2018-10-08 08:00] LABS: ALB/GLOB RATIO 1.5 (1.1-1.8); ALBUMIN 4.3 g/dL (3.0-4.8); ALT/SGPT 22 U/L (7-56); AST/SGOT 19 U/L (17-59); BLOOD UREA NITROGEN 14 mg/dL (7-21); CALCIUM 9.6 mg/dL (8.4-10.5); GFR NON-AFRICAN AMERICAN > 60
[2018-10-08] MEDS: Pantoprazole 40 mg EC Tab PO SCH (09:57)
[2018-10-08] MEDS: Non Formulary Medication (Brimonidine Tartrate/Timolol [Combigan 0.2%-0.5% Eye Drops] 1 DR EACHEYE SCH ×2 (09:58→21:17)
[2018-10-08] MEDS: POLYETHYLENE GLYCOL 3350 17 GM/Dose PACKET PO SCH ×2 (10:37→17:52)
--- NOTE | 2018-10-08 11:25 | CP.PCM.PN ---
<Yani Mota - Last Filed: 10/08/18 11:18> Subjective - Date & Time of Evaluation Date of Evaluation: 10/08/18 Time of Evaluation: 11:18 - Subjective Subjective: INTERNAL MEDICINE PROGRESS NOTE FOR DR. EROS Mota PGY-1 Pt seen and examined at bedside this am. He continues to report back pain and abdominal pain. He reports constipation. Other 12 point ROS is unremarkable. Objective - Vital Signs/Intake and Output Vital Signs (last 24 hours): Temp Pulse Resp BP Pulse Ox 98.2 F 59 L 20 134/73 100 10/08/18 05:55 10/08/18 06:24 10/08/18 05:55 10/08/18 09:57 10/08/18 05:55 Intake and Output: 10/08/18 10/08/18 06:59 18:59 Intake Total 720 Output Total 1300 Balance -580 - Medications Medications: Current Medications Acetaminophen (Tylenol 325mg Tab) 650 mg PO Q6H PRN PRN Reason: Pain, moderate (4-7) Last Admin: 10/08/18 06:27 Dose: 650 mg Amlodipine Besylate (Norvasc) 10 mg PO DAILY [facility] Last Admin: 10/08/18 09:57 Dose: 10 mg Apixaban (Eliquis) 5 mg PO BID [facility]; Protocol Last Admin: 10/08/18 09:57 Dose: 5 mg Atorvastatin Calcium (Lipitor) 40 mg PO HS [facility] Last Admin: 10/07/18 21:36 Dose: 40 mg Clopidogrel Bisulfate (Plavix) 75 mg PO DAILY [facility] Last Admin: 10/08/18 09:57 Dose: 75 mg Docusate Sodium (Colace) 100 mg PO TID [facility] Gabapentin (Neurontin) 600 mg PO TID [facility]; Protocol Last Admin: 10/08/18 09:57 Dose: 600 mg Hydralazine HCl (Apresoline) 50 mg PO Q8 [facility] Last Admin: 10/08/18 06:24 Dose: 50 mg Insulin Human Lispro (Humalog) 12 units SC AC [facility] Last Admin: 10/08/18 07:52 Dose: Not Given Insulin Human Regular (Humulin R Med) 0 units SC ACHS [facility]; Protocol Last Admin: 10/08/18 07:52 Dose: Not Given Losartan Potassium (Cozaar) 100 mg PO DAILY [facility] Last Admin: 10/08/18 09:57 Dose: 100 mg Non-Formulary Medication (Brimonidine Tartrate/Timolol [Combigan 0.2%-0.5% Eye Drops]) 1 drop EACHEYE Q12 [facility] Last Admin: 10/08/18 09:58 Dose: Not Given Pantoprazole Sodium (Protonix Ec Tab) 40 mg PO DAILY [facility] Last Admin: 10/08/18 09:57 Dose: 40 mg Polyethylene Glycol (Miralax) 17 gm PO BID [facility] Last Admin: 10/08/18 10:37 Dose: 17 gm Tramadol HCl (Ultram) 50 mg PO TID PRN PRN Reason: Pain, severe (8-10) Last Admin: 10/08/18 10:37 Dose: 50 mg - Labs Labs: 10/08/18 07:00 10/08/18 07:00 PT 13.2 SECONDS (9.4-12.5) H 10/03/18 19:43 INR 1.15 10/03/18 19:43 APTT 33.8 Seconds (25.1-36.5) 10/03/18 19:43 - Constitutional Appears: Well, Non-toxic, No Acute Distress - Head Exam Head Exam: NORMAL INSPECTION, NORMOCEPHALIC - Eye Exam Eye Exam: EOMI, Normal appearance - ENT Exam ENT Exam: Mucous Membranes Moist, Normal Exam - Neck Exam Neck Exam: Normal Inspection - Respiratory Exam Respiratory Exam: Clear to Ausculation Bilateral, NORMAL BREATHING PATTERN - Cardiovascular Exam Cardiovascular Exam: REGULAR RHYTHM, +S1, +S2 - GI/Abdominal Exam GI & Abdominal Exam: Tenderness (diffuse), Normal Bowel Sounds - Extremities Exam Extremities Exam: Normal Inspection. absent: Calf Tenderness - Back Exam Back Exam: NORMAL INSPECTION - Neurological Exam Neurological Exam: Alert, Awake, Oriented x3 - Psychiatric Exam Psychiatric exam: Normal Affect, Normal Mood - Skin Skin Exam: Dry, Intact, Warm Assessment and Plan - Assessment and Plan (Free Text) Assessment: 53-year-old Male with PMH 4 episodes CVA, CAD, History of [place] x3, status-post stent placements (x2), DM2, DVT, HTN, HLD, and unstable angina admitted for chest pain Plan: Chest Pain, ACS rule-out s/p cardiac cath: showed patent stents in coronary tree, diffuse atherosclerosis, 50% stenosis in the distal LAD which is unchanged, normal LV function. Per rehab care assistant, chest pain not of cardiac origin. Per cardiology, patient to continue Eliquis and Plavix but not aspirin. Continue Lipitor and Cozaar. tramadol for pain control Troponins neg x3 CXR: no infiltrates, effusions, atelectases appreciated, please see official report ECHO 03/02: moderate LVH, low normal LV systolic function, mild TR, EF 50% Stress test 03/02: normal wall motion of LV, distal anteroseptal defect suspicious of ischemia TSH=1.57 Dizziness Discontinue morphine as it may be contributing to dizziness CT head showed reidentified encephalomalacia within the right occipital lobe consistent with remote infarct, nonspecific white matter changes, acute on chr onic ischemia cannot be excluded. MRI brain ordered, awaiting official read Neurology consulted (Dr. Gab Kauffman) recommendations appreciated. EMG outpatient for peripheral neuropathy Physical Therapy recs subacute rehab Constipation Start miralax Monitor abdominal pain CAD s/p stent placement (10/05) Lipitor 40mg PO HS Continue plavix 75mg PO daily History of Hypertension Continue home norvasc 10mg PO daily Continue home hydralazine 50mg PO q8h Continue home losartan 100mg PO daily Monitor Hx of DVT No signs of swelling Continue home eliquis 5mg PO BID Patient has IVC filter that was placed in 2009 (was not removed) Type 2 Diabetes Mellitus AxV5e=4.3 Lispro 12 SC AC Hypoglycemic protocol Monitor BG Accucheck History of Glaucoma Continue home brimonidine drops daily Normocytic Anemia H/H stable Monitor Abdominal pain, chronic Abdominal ultrasound reveals multiple gallstones LFTs within normal limits PPX: DVT: Eliquis GI: Protonix 40 po HHD Case seen, examined and discussed with attending physician, Dr. Espinoza <Kim Espinoza R - Last Filed: 10/08/18 15:05> Objective - Vital Signs/Intake and Output Vital Signs (last 24 hours): Temp Pulse Resp BP Pulse Ox 97.4 F L 55 L 18 127/84 100 10/08/18 12:00 10/08/18 13:35 10/08/18 12:00 10/08/18 13:35 10/08/18 05:55 Intake and Output: 10/08/18 10/08/18 06:59 18:59 Intake Total 720 Output Total 1300 Balance -580 - Medications Medications: Current Medications Acetaminophen (Tylenol 325mg Tab) 650 mg PO Q6H PRN PRN Reason: Pain, moderate (4-7) Last Admin: 10/08/18 06:27 Dose: 650 mg Amlodipine Besylate (Norvasc) 10 mg PO DAILY [facility] Last Admin: 10/08/18 09:57 Dose: 10 mg Apixaban (Eliquis) 5 mg PO BID [facility]; Protocol Last Admin: 10/08/18 09:57 Dose: 5 mg Atorvastatin Calcium (Lipitor) 40 mg PO HS [facility] Last Admin: 10/07/18 21:36 Dose: 40 mg Clopidogrel Bisulfate (Plavix) 75 mg PO DAILY [facility] Last Admin: 10/08/18 09:57 Dose: 75 mg Docusate Sodium (Colace) 100 mg PO TID [facility] Last Admin: 10/08/18 13:36 Dose: 100 mg Gabapentin (Neurontin) 600 mg PO TID [facility]; Protocol Last Admin: 10/08/18 13:35 Dose: 600 mg Hydralazine HCl (Apresoline) 50 mg PO Q8 [facility] Last Admin: 10/08/18 13:35 Dose: 50 mg Insulin Human Lispro (Humalog) 12 units SC AC [facility] Last Admin: 10/08/18 12:28 Dose: 12 units Insulin Human Regular (Humulin R Med) 0 units SC ACHS [facility]; Protocol Last Admin: 10/08/18 12:27 Dose: 1 unit Losartan Potassium (Cozaar) 100 mg PO DAILY [facility] Last Admin: 10/08/18 09:57 Dose: 100 mg Non-Formulary Medication (Brimonidine Tartrate/Timolol [Combigan 0.2%-0.5% Eye Drops]) 1 drop EACHEYE Q12 [facility] Last Admin: 10/08/18 09:58 Dose: Not Given Pantoprazole Sodium (Protonix Ec Tab) 40 mg PO DAILY [facility] Last Admin: 10/08/18 09:57 Dose: 40 mg Polyethylene Glycol (Miralax) 17 gm PO BID [facility] Last Admin: 10/08/18 10:37 Dose: 17 gm Tramadol HCl (Ultram) 50 mg PO TID PRN PRN Reason: Pain, severe (8-10) Last Admin: 10/08/18 10:37 Dose: 50 mg - Labs Labs: 10/08/18 07:00 10/08/18 07:00 PT 13.2 SECONDS (9.4-12.5) H 10/03/18 19:43 INR 1.15 10/03/18 19:43 APTT 33.8 Seconds (25.1-36.5) 10/03/18 19:43 Attending/Attestation - Attestation I have personally seen and examined this patient.: Yes I have fully participated in the care of the patient.: Yes I have reviewed all pertinent clinical information, including history, physical exam and plan: Yes Notes (Text): Patient seen and examined by me with resident at 10:30AM on 10/08/18. Case including HPI, physical exam, and assessment and plan discussed with resident. Agree with above with following additions/corrections. Patient is a 53-year-old male with past medical history significant for CVA, coronary artery disease, type 2 diabetes, DVT, PE, hypertension, hyperlipidemia, and angina that presented to the emergency room with chest pain. Patient states he is feeling a little better today. Still with Dizziness. States he still feels unsteady on his feet. Patient still with abdominal pain, chest pain, back pain, and bilateral leg pain. Patient states that he feels he may be constipation. Patient denies any nausea or vomiting. Patient is tolerating diet. No shortness of breath. No headaches or lightheadedness. No fevers or chills. No dysuria. Physical exam: General: Awake and alert lying in bed in no acute distress HEENT: Normocephalic, atraumatic. Extraocular muscles intact, pupils equal and reactive, no scleral icterus. Oropharynx is pink and moist. Neck is supple. Cardiovascular: Regular rhythm. Normal S1 and S2. No murmurs, rubs, or gallops appreciated Pulmonary: Normal respiratory effort. No rhonchi, rales, or wheezing appreciated. Gastrointestinal: Soft, nondistended. Generalized abdominal tenderness, not present when patient is distracted. Positive bowel sounds all 4 quadrants. No guarding. Musculoskeletal: Moves all extremities. No calf tenderness. No edema appreciated. Central nervous system: AAOx3 Dermatologic: Skin warm and dry. Assessment and plan: Patient is a 53-year-old male with past medical history significant for CVA, coronary artery disease, type 2 diabetes, DVT, PE, hypertension, hyperlipidemia, and angina that presented to the emergency room with chest pain. 1. Dizziness. Unsteady on feet. Physical therapy following, recommendations appreciated. RICARDO recommended. Neurology following, recommendations appreciated. EMG recommended in the office for peripheral neuropathy. Head CT per r adiologist showed reidentified encephalomalacia within the right occipital lobe consistent with remote infarct, nonspecific white matter changes, acute on chronic ischemia cannot be excluded. MRI brain results pending. Continue Plavix, Lipitor, and Eliquis. 2. Chest pain. History of coronary artery disease. Likely musculoskeletal. Patient s/p cardiac catheterization which per rehab care assistant showed patent stents in corornary tree, diffuse atherosclerosis, 50% stenosis in the distal LAD which is unchanged, normal LV function. Per rehab care assistant, chest pain not of cardiac origin. Per cardiology, patient to continue Eliquis and Plavix but not aspirin. Continue Lipitor and Cozaar. Chest CT per radiologist showed unremarkable CT angiogram, no pulmonary embolism. 3. Generalized pain. Peripheral neuropathy. Place on tramadol as needed. Continue with gabapentin. 4. Constipation. Started on MiraLAX and Colace. 5. Hypertension. Continue Norvasc, hydralazine, and Cozaar. 6. History of DVT/PE. Bilateral lower extremity pain likely secondary to history of DVT. Continue Eliquis. No edema or signs of infection. 7. Type 2 diabetes. Continue insulin sliding scale. Continue lispro 12 units subcutaneous before meals. Monitor Accu-Cheks. Hgb A1C 6.3. 8. History of glaucoma. Continue home combigan drops 9. GI/DVT prophylaxis. Protonix/Eliquis Dispo: Pending RICARDO placement Case was discussed in detail with the patient regarding current diagnosis and treatment plan. All questions answered.
[2018-10-09] MEDS: Insulin Lispro 1 UNITS/0.01 ML SC SCH ×3 (07:30→16:29)
[2018-10-09] MEDS: Insulin Reg-MEDIUM-Coverage SC SCH ×4 (08:11→22:00)
[2018-10-09] MEDS: POLYETHYLENE GLYCOL 3350 17 GM/Dose PACKET PO SCH ×2 (09:15→17:24)
[2018-10-09] MEDS: Pantoprazole 40 mg EC Tab PO SCH (09:15)
[2018-10-09] MEDS: Non Formulary Medication (Brimonidine Tartrate/Timolol [Combigan 0.2%-0.5% Eye Drops] 1 DR EACHEYE SCH ×2 (10:30→22:00)
--- NOTE | 2018-10-09 12:59 | CP.PCM.PN ---
<Yani Mota - Last Filed: 10/09/18 13:20> Subjective - Date & Time of Evaluation Date of Evaluation: 10/09/18 Time of Evaluation: 12:00 - Subjective Subjective: INTERNAL MEDICINE PROGRESS NOTE FOR DR. AYAAN Mota PGY1 Pt seen and examined at bedside this am. No acute nursing events overnight. Pt report new complaint of back pain. He report he would like to get out of bed with assistance. Other 12 point ROS is unremarkable. Objective - Vital Signs/Intake and Output Vital Signs (last 24 hours): Temp Pulse Resp BP Pulse Ox 97.7 F 60 20 123/83 98 10/09/18 06:00 10/09/18 06:24 10/09/18 06:00 10/09/18 09:15 10/09/18 06:00 Intake and Output: 10/09/18 10/09/18 06:59 18:59 Intake Total 780 Output Total 800 Balance -20 - Medications Medications: Current Medications Acetaminophen (Tylenol 325mg Tab) 650 mg PO Q6H PRN PRN Reason: Pain, moderate (4-7) Last Admin: 10/08/18 06:27 Dose: 650 mg Amlodipine Besylate (Norvasc) 10 mg PO DAILY [facility] Last Admin: 10/09/18 09:15 Dose: 10 mg Apixaban (Eliquis) 5 mg PO BID [facility]; Protocol Last Admin: 10/09/18 09:15 Dose: 5 mg Atorvastatin Calcium (Lipitor) 40 mg PO HS [facility] Last Admin: 10/08/18 21:18 Dose: 40 mg Clopidogrel Bisulfate (Plavix) 75 mg PO DAILY [facility] Last Admin: 10/09/18 09:15 Dose: 75 mg Docusate Sodium (Colace) 100 mg PO TID [facility] Last Admin: 10/09/18 09:15 Dose: 100 mg Gabapentin (Neurontin) 600 mg PO TID [facility]; Protocol Last Admin: 10/09/18 09:15 Dose: 600 mg Hydralazine HCl (Apresoline) 50 mg PO Q8 [facility] Last Admin: 10/09/18 06:24 Dose: 50 mg Insulin Human Lispro (Humalog) 5 units SC AC [facility]EL Insulin Human Regular (Humulin R Med) 0 units SC ACHS [facility]; Protocol Last Admin: 10/09/18 08:11 Dose: Not Given Losartan Potassium (Cozaar) 100 mg PO DAILY [facility] Last Admin: 10/09/18 09:16 Dose: 100 mg Non-Formulary Medication (Brimonidine Tartrate/Timolol [Combigan 0.2%-0.5% Eye Drops]) 1 drop EACHEYE Q12 [facility] Last Admin: 10/08/18 21:17 Dose: Not Given Pantoprazole Sodium (Protonix Ec Tab) 40 mg PO DAILY [facility] Last Admin: 10/09/18 09:15 Dose: 40 mg Polyethylene Glycol (Miralax) 17 gm PO BID [facility] Last Admin: 10/09/18 09:15 Dose: 17 gm Tramadol HCl (Ultram) 50 mg PO TID PRN PRN Reason: Pain, severe (8-10) Last Admin: 10/08/18 17:56 Dose: 50 mg - Labs Labs: 10/08/18 07:00 10/08/18 07:00 PT 13.2 SECONDS (9.4-12.5) H 10/03/18 19:43 INR 1.15 10/03/18 19:43 APTT 33.8 Seconds (25.1-36.5) 10/03/18 19:43 - Constitutional Appears: Well, Non-toxic, No Acute Distress - Head Exam Head Exam: NORMAL INSPECTION, NORMOCEPHALIC - Eye Exam Eye Exam: EOMI, Normal appearance - ENT Exam ENT Exam: Mucous Membranes Moist, Normal Exam - Neck Exam Neck Exam: Normal Inspection - Respiratory Exam Respiratory Exam: Clear to Ausculation Bilateral, NORMAL BREATHING PATTERN - Cardiovascular Exam Cardiovascular Exam: Bradycardia, +S1, +S2 - GI/Abdominal Exam GI & Abdominal Exam: Soft. absent: Distended, Rebound - Back Exam Back Exam: NORMAL INSPECTION. absent: CVA tenderness (L), CVA tenderness (R) - Neurological Exam Neurological Exam: Alert, Awake, Oriented x3 - Psychiatric Exam Psychiatric exam: Normal Affect, Normal Mood - Skin Skin Exam: Dry, Intact, Warm Assessment and Plan - Assessment and Plan (Free Text) Assessment: 53-year-old Male with PMH 4 episodes CVA, CAD, History of [place] x3, status-post stent placements (x2), DM2, DVT, HTN, HLD, and unstable angina admitted for chest pain Plan: Chest Pain, ACS rule-out Likely musculoskeletal Encourage OOB to chair s/p cardiac cath: showed patent stents in coronary tree, diffuse atherosclerosis, 50% stenosis in the distal LAD which is unchanged, normal LV function. Per rn complex care, chest pain not of cardiac origin. Per cardiology, patient to continue Eliquis and Plavix but not aspirin. Continue Lipitor and Cozaar. tramadol for pain control Troponins neg x3 Dizziness Discontinue morphine as it may be contributing to dizziness CT head showed reidentified encephalomalacia within the right occipital lobe consistent with remote infarct, nonspecific white matter changes, acute on chronic ischemia cannot be excluded. Neurology consulted (Dr. Gab Kauffman) recommendations appreciated. EMG outpatient for peripheral neuropathy Physical Therapy recs subacute rehab Constipation Start miralax Monitor abdominal pain CAD s/p stent placement (10/05) Lipitor 40mg PO HS Continue plavix 75mg PO daily History of Hypertension Continue home norvasc 10mg PO daily Continue home hydralazine 50mg PO q8h Continue home losartan 100mg PO daily Monitor Hx of DVT No signs of swelling Continue home eliquis 5mg PO BID Patient has IVC filter that was placed in 2009 (was not removed) Type 2 Diabetes Mellitus BjP7c=8.3 Decrease insulin to 5u SC AC Hypoglycemic protocol Monitor BG Accucheck History of Glaucoma Continue home brimonidine drops daily Normocytic Anemia H/H stable Monitor Abdominal pain, chronic Abdominal ultrasound reveals multiple gallstones LFTs within normal limits PPX: DVT: Eliquis GI: Protonix 40 po HHD Dispo: Pending placement to subacute rehab Case seen, examined and discussed with attending physician, Dr. Buchanan <Dar Buchanan - Last Filed: 10/11/18 07:39> Objective - Vital Signs/Intake and Output Vital Signs (last 24 hours): Temp Pulse Resp BP Pulse Ox 98 F 54 L 16 120/83 99 10/10/18 14:00 10/10/18 14:33 10/10/18 14:00 10/10/18 14:33 10/10/18 14:00 - Labs Labs: 10/10/18 06:20 10/10/18 06:20 PT 13.2 SECONDS (9.4-12.5) H 10/03/18 19:43 INR 1.15 10/03/18 19:43 APTT 33.8 Seconds (25.1-36.5) 10/03/18 19:43 Attending/Attestation - Attestation I have personally seen and examined this patient.: Yes I have fully participated in the care of the patient.: Yes I have reviewed all pertinent clinical information, including history, physical exam and plan: Yes Notes (Text): 10/11/18 07:34 Attending note: Patient seen and examined with resident. Patient is alert and awake. Denies any chest pain, shortness of breath. Complaining of generalized discomfort. Wants to get out of bed. Denies any fevers, chills. Tolerating diet. Patient is a 53-year-old male with past medical history significant for CVA, coronary artery disease, type 2 diabetes, DVT, PE, hypertension, hyperlipidemia, and angina that presented to the emergency room with chest pain. 1. Dizziness. Unsteady on feet. Physical therapy evaluation appreciated. RICARDO recommended. OUt of bed to chair as tolerated. nursing staff will assist the patient today. Neurology following, recommendations appreciated. EMG recommended in the office for peripheral neuropathy. Head CT showed reidentified encephalomalacia within the right occipital lobe consistent with remote infarct, nonspecific white matter changes, acute on chronic ischemia cannot be excluded. MRI showed no acute infarct or hemorrhage. 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 Continue Plavix, Lipitor, and Eliquis. 2. Chest pain. resolved. Likely musculoskeletal. Patient s/p cardiac catheterization showed patent stents in corornary tree, diffuse atherosclerosis, 50% stenosis in the distal LAD which is unchanged, normal LV function. Chest CTshowed unremarkable CT angiogram, no pulmonary embolism. 3. Generalized pain. Peripheral neuropathy. Place on tramadol as needed. Continue with gabapentin. 4. Constipation. Started on MiraLAX and Colace. 5. Hypertension. Continue Norvasc, hydralazine, and Cozaar. 6. History of DVT/PE. Bilateral lower extremity pain likely secondary to history of DVT. Continue Eliquis. No edema or signs of infection. 7. Type 2 diabetes. Continue insulin sliding scale. Continue lispro 12 units subcutaneous before meals. Monitor Accu-Cheks. Hgb A1C 6.3. 8. History of glaucoma. Continue home combigan drops 9. GI/DVT prophylaxis. Protonix/Eliquis Pending RICARDO placement. we will follow up with mental health case manager tomorrow. Upon discharge patient will follow-up with PMD .
--- NOTE | 2018-10-09 15:08 | MRI ---
Date of service: 10/07/2018 PROCEDURE: MRI BRAIN WITHOUT CONTRAST HISTORY: ?CVA COMPARISON: Comparison made with CT scan of the brain dated 10/07/2018.. TECHNIQUE: Multiplanar, multisequence MR images of the brain were obtained without intravenous contrast enhancement. FINDINGS: HEMORRHAGE: No acute parenchymal, subarachnoid nor extra-axial hemorrhage. No evidence of hemosiderin deposition is identified on gradient echo weighted sequence. DWI: No evidence of an acute or early subacute infarction seen on diffusion imaging. 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 Minimal chronic periventricular white matter ischemic changes are present. Few small chronic appearing lacunar type infarcts seen scattered about the deep and subcortical white matter both cerebral hemispheres. None of these changes exhibit restricted diffusion. Mild generalized volume loss. No obvious parenchymal nor extra-axial mass or collection seen on this noncontrast exam VENTRICLES: No obstructive hydrocephalus. CRANIUM: Calvarium grossly unremarkable ORBITS: Changes of bilateral cataract surgery again noted PARANASAL SINUSES/MASTOIDS: Clear VASCULAR SYSTEM: The visualized major vascular flow voids at skull base patent.. OTHER FINDINGS: None. IMPRESSION: No evidence of acute intracranial hemorrhage or infarct. Chronic right INTERNET MARKETING ASSISTANT territory infarct with relatively large area of encephalomalacia involving the right occipital pole as well as the posterior basal ganglia bordering the MCA territory watershed zone again noted unchanged.. Mild generalized volume loss.
[2018-10-10 07:11] LABS: HEMOGLOBIN 13.4 g/dL (14.0-18.0); MEAN CORPUSCULAR HEMOGLOBIN 30.7 pg (25.0-35.0); MEAN CORPUSCULAR HGB CONC 34.5 g/dl (31.0-37.0); MEAN PLATELET VOLUME 8.4 fl (7.0-11.0); RBC 4.36 10^6/uL (3.5-6.1); RED CELL DISTRIBUTION WIDTH 12.2 % (11.5-14.5); WHITE BLOOD COUNT 3.7 10^3/uL (4.5-11.0)
[2018-10-10 07:27] LABS: ALB/GLOB RATIO 1.4 (1.1-1.8); ALBUMIN 4.4 g/dL (3.0-4.8); ALT/SGPT 26 U/L (7-56); AST/SGOT 23 U/L (17-59); BLOOD UREA NITROGEN 20 mg/dL (7-21); CALCIUM 9.7 mg/dL (8.4-10.5); GFR NON-AFRICAN AMERICAN > 60
[2018-10-10] MEDS: Insulin Reg-MEDIUM-Coverage SC SCH ×3 (08:13→16:01)
[2018-10-10] MEDS: Insulin Lispro 1 UNITS/0.01 ML SC SCH ×3 (08:28→16:01)
[2018-10-10] MEDS: POLYETHYLENE GLYCOL 3350 17 GM/Dose PACKET PO SCH (09:26)
[2018-10-10] MEDS: Pantoprazole 40 mg EC Tab PO SCH (09:26)
[2018-10-10] MEDS: Non Formulary Medication (Brimonidine Tartrate/Timolol [Combigan 0.2%-0.5% Eye Drops] 1 DR EACHEYE SCH (09:27)
[2018-10-10] MEDS ORDERED: Magnesium Citrate Oral SOL (300 ml) PO ONE (10:01)
--- NOTE | 2018-10-10 10:17 | PN ---
DATE: 10/10/2018 CARDIOLOGY FOLLOWUP SUBJECTIVE: The patient has difficulty walking secondary to pains in his left lower extremity. OBJECTIVE: VITAL SIGNS: Blood pressure 120/80, heart rate in the 70s. NECK: Negative JVD. LUNGS: Without rales. HEART: S1, S2. EXTREMITIES: Without edema. LABORATORY DATA: His glucose is 117, hemoglobin is 13.4. IMPRESSION: 1. Stable angina. 2. Coronary artery disease. 3. History of multivessel percutaneous transluminal coronary angioplasty in the past. 4. Hypertension. 5. Diabetes mellitus. PLAN: Given these findings, the patient would benefit from in physical therapy to improve his ambulation. Monico Hernandez MD
[2018-10-10 14:37] VITALS: BP 120/83; PULSE 54
[2018-10-10 15:11] VITALS: RESP 16; TEMP 98; O2SAT 99
--- NOTE | 2018-10-10 17:31 | CP.PCM.DIS ---
<Raiza Dong - Last Filed: 10/10/18 17:20> Provider - Provider Date of Admission: 10/04/18 15:33 Attending physician: Dar Buchanan MD Primary care physician: Tanner Roth MD Consults: Cardiology: Dr. Hernandez Time Spent in preparation of Discharge (in minutes): 45 Hospital Course - Lab Results Lab Results: Most Recent Lab Values WBC 3.7 10^3/uL (4.5-11.0) L 10/10/18 06:20 RBC 4.36 10^6/uL (3.5-6.1) 10/10/18 06:20 Hgb 13.4 g/dL (14.0-18.0) L 10/10/18 06:20 Hct 38.8 % (42.0-52.0) L 10/10/18 06:20 MCV 89.0 fl (80.0-105.0) 10/10/18 06:20 MCH 30.7 pg (25.0-35.0) 10/10/18 06:20 MCHC 34.5 g/dl (31.0-37.0) 10/10/18 06:20 RDW 12.2 % (11.5-14.5) 10/10/18 06:20 Plt Count 192 10^3/uL (120.0-450.0) 10/10/18 06:20 MPV 8.4 fl (7.0-11.0) 10/10/18 06:20 Gran % 67.1 % (50.0-68.0) 10/03/18 19:43 Lymph % (Auto) 26.2 % (22.0-35.0) 10/03/18 19:43 Mineral % (Auto) 5.2 % (1.0-6.0) 10/03/18 19:43 Eos % (Auto) 1.3 % (1.5-5.0) L 10/03/18 19:43 Baso % (Auto) 0.2 % (0.0-3.0) 10/03/18 19:43 Gran # 3.48 (1.4-6.5) 10/03/18 19:43 Lymph # (Auto) 1.4 (1.2-3.4) 10/03/18 19:43 Mineral # (Auto) 0.3 (0.1-0.6) 10/03/18 19:43 Eos # (Auto) 0.1 (0.0-0.7) 10/03/18 19:43 Baso # (Auto) 0.01 K/mm3 (0.0-2.0) 10/03/18 19:43 PT 13.2 SECONDS (9.4-12.5) H 10/03/18 19:43 INR 1.15 10/03/18 19:43 APTT 33.8 Seconds (25.1-36.5) 10/03/18 19:43 Sodium 139 mmol/L (132-148) 10/10/18 06:20 Potassium 4.7 mmol/L (3.6-5.0) 10/10/18 06:20 Chloride 103 mmol/L (98-107) 10/10/18 06:20 Carbon Dioxide 29 mmol/L (21-33) 10/10/18 06:20 Anion Gap 12 (10-20) 10/10/18 06:20 BUN 20 mg/dL (7-21) 10/10/18 06:20 Creatinine 0.9 mg/dl (0.8-1.5) 10/10/18 06:20 Est GFR ( Amer) > 60 10/10/18 06:20 Est GFR (Non-Af Amer) > 60 10/10/18 06:20 POC Glucose (mg/dL) 94 mg/dL (65-110) 10/10/18 15:48 Random Glucose 117 mg/dL (70-110) H 10/10/18 06:20 Hemoglobin A1c 6.3 % (4.2-6.5) 10/03/18 21:00 Calcium 9.7 mg/dL (8.4-10.5) 10/10/18 06:20 Phosphorus 3.4 mg/dL (2.5-4.5) 10/08/18 07:00 Magnesium 1.7 mg/dL (1.7-2.2) 10/08/18 07:00 Iron 97 ug/dL (45-180) 10/03/18 21:00 TIBC 374 ug/dL (261-462) 10/03/18 21:00 % Saturation 26 % (20-55) 10/03/18 21:00 Total Bilirubin 0.7 mg/dL (0.2-1.3) 10/10/18 06:20 AST 23 U/L (17-59) 10/10/18 06:20 ALT 26 U/L (7-56) 10/10/18 06:20 Alkaline Phosphatase 68 U/L (38-126) 10/10/18 06:20 Lactate Dehydrogenase 388 U/L (333-699) 10/03/18 19:43 Total Creatine Kinase 180 U/L (35-230) 10/03/18 19:43 Troponin I 0.01 ng/mL 10/04/18 06:00 NT-Pro-B Natriuret Pep 28.0 pg/mL (0-450) 10/03/18 19:43 Total Protein 7.4 g/dL (5.8-8.3) 10/10/18 06:20 Albumin 4.4 g/dL (3.0-4.8) 10/10/18 06:20 Globulin 3.1 gm/dL 10/10/18 06:20 Albumin/Globulin Ratio 1.4 (1.1-1.8) 10/10/18 06:20 Triglycerides 94 mg/dL (35-160) 10/03/18 21:00 Cholesterol 107 mg/dL (130-200) L 10/03/18 21:00 LDL Cholesterol Direct 68 mg/dL (0-129) 10/03/18 21:00 HDL Cholesterol 32 mg/dL (29-60) 10/03/18 21:00 Vitamin B12 256 pg/mL (239-931) 10/03/18 21:00 Folate 13.9 ng/mL 10/03/18 21:00 TSH 3rd Generation 1.57 mIU/mL (0.46-4.68) 10/03/18 21:00 - Hospital Course Hospital Course: PGY1 Discharge Summary and Hospital Course for Dr. Alexis Macdonald History of Present Illness Patient is a 53-year-old male with past medical history of 4 episodes of CVA, CAD, 3 MIs status-post stent placement, Diabetes Mellitus Type 2, DVT, Hypertension, Hyperlipidemia, and angina presents to ED complaining of chest pain. Patient also reports sweating, shortness of breath, dizziness, nausea, abdominal pain. Please see Patient's chart for complete summary of details. Patient was subsequently admitted for observation and Acute Coronary Syndrome rule-out. Cardiology was consulted (Dr. Hernandez) and Patient subsequently underwent catheterization with Dr. Hernandez 10/05 which revealed diffuse atherosclerosis, 50% stenosis in the distal LAD which is unchanged from previous, and normal LV function. Please see report for details. Thus, per Cardiology, the Patient's chest pain is not of cardiac origin and no further cardiac workup is necessary at this time. Please see chart for detailed summary. Today, Patient is status- post cath 10/05. After cath, Patient stated he felt dizzy, and was unable to walk without experiencing dizziness. CT of head was obtained 10/07 and revealed encephalomalacia within the right occipital lobe consistent with remote infarct, nonspecific white matter changes, acute on chronic ischemia cannot be excluded (Please see report for details.) Neurology (Dr. De Guzman) was consulted and recommended MRI of brain, which was obtained on 10/07 and revealed no evidence of acute intracranial hemorrhage or infarct. Chronic right DIPLOMATIC COURIER territory infarct with relatively large area of encephalomalacia involving the right occipital pole as well as the posterior basal ganglia bordering the MCA territory watershed zone again noted unchanged, mild generalized volume loss (Please see full report for details.) Physical Therapy was consulted, and recommended subacute rehab. Patient was accepted and medically optimized to be discharged to subacute rehab. On day of discharge, the Patient had no new complaints. Patient was hemodynamically stable and medically optimized for discharge to subacute rehab. Consultants on the case agreed. Patient was instructed to follow-up with primary care physician within 3-5 days. Patient given both verbal and written instructions. All instructions explained to the patient in detail. Patient both understand and agree to all instructions. Please see full chart for more detail. Discharge Instructions provided to the Patient: Please follow up with your primary care doctor, Dr. Roth for hospital follow up. Continue to follow up with French Weaver (Heart Doctor) Dr. Hernandez as outpatient. The following changes are being made to your home medications: 1. STOP TAKING Aspirin 81mg Continue all other home medications as previously prescribed. If your symptoms return, please seek emergency medical attention immediately. Patient seen and case discussed in detail with Dr. Renae Dong PGY1 Discharge Exam - Head Exam Head Exam: NORMAL INSPECTION, NORMOCEPHALIC - Additional Findings Additional findings: - Constitutional Appears: Well, Non-toxic, No Acute Distress - Head Exam Head Exam: NORMAL INSPECTION, NORMOCEPHALIC - Eye Exam Eye Exam: EOMI, Normal appearance - ENT Exam ENT Exam: Mucous Membranes Moist, Normal Exam - Neck Exam Neck Exam: Normal Inspection - Respiratory Exam Respiratory Exam: Clear to Ausculation Bilateral, NORMAL BREATHING PATTERN - Cardiovascular Exam Cardiovascular Exam: REGULAR RHYTHM, +S1, +S2 - GI/Abdominal Exam GI & Abdominal Exam: Tenderness (diffuse), Normal Bowel Sounds - Extremities Exam Extremities Exam: Normal Inspection. absent: Calf Tenderness - Back Exam Back Exam: NORMAL INSPECTION - Neurological Exam Neurological Exam: Alert, Awake, Oriented x3 - Psychiatric Exam Psychiatric exam: Normal Affect, Normal Mood - Skin Skin Exam: Dry, Intact, Warm Discharge Plan - Follow Up Plan Condition: FAIR Disposition: TRANSF TO SNF Instructions: Constipation, Adult (DC), Acute Abdomen (Belly Pain), Adult (DC), Chest Pain (DC), Chest Pain (GEN) Additional Instructions: Please follow up with your primary care doctor, Dr. Roth, within 3-5 days of being discharged from the hospital. Please discuss all medical issues addressed during your admission. Please follow up with bridge club manager (heart doctor), Dr. Hernandez, within one week of being discharged from the hospital. The following changes are being made to your home medications: 1. STOP TAKING Aspirin 81mg Continue all other home medications as previously prescribed. If your symptoms return, please seek emergency medical attention immediately. Referrals: Tanner Roth MD [Primary Care Provider] - Renzo De Guzman MD [Staff Provider] - Monico Hernandez MD [Staff Provider] - <Dar Buchanan - Last Filed: 10/11/18 07:45> Provider - Provider Date of Admission: 10/04/18 15:33 Attending physician: Dar Buchanan MD Primary care physician: Tanner Roth MD Hospital Course - Lab Results Lab Results: Most Recent Lab Values WBC 3.7 10^3/uL (4.5-11.0) L 10/10/18 06:20 RBC 4.36 10^6/uL (3.5-6.1) 10/10/18 06:20 Hgb 13.4 g/dL (14.0-18.0) L 10/10/18 06:20 Hct 38.8 % (42.0-52.0) L 10/10/18 06:20 MCV 89.0 fl (80.0-105.0) 10/10/18 06:20 MCH 30.7 pg (25.0-35.0) 10/10/18 06:20 MCHC 34.5 g/dl (31.0-37.0) 10/10/18 06:20 RDW 12.2 % (11.5-14.5) 10/10/18 06:20 Plt Count 192 10^3/uL (120.0-450.0) 10/10/18 06:20 MPV 8.4 fl (7.0-11.0) 10/10/18 06:20 Gran % 67.1 % (50.0-68.0) 10/03/18 19:43 Lymph % (Auto) 26.2 % (22.0-35.0) 10/03/18 19:43 Mineral % (Auto) 5.2 % (1.0-6.0) 10/03/18 19:43 Eos % (Auto) 1.3 % (1.5-5.0) L 10/03/18 19:43 Baso % (Auto) 0.2 % (0.0-3.0) 10/03/18 19:43 Gran # 3.48 (1.4-6.5) 10/03/18 19:43 Lymph # (Auto) 1.4 (1.2-3.4) 10/03/18 19:43 Mineral # (Auto) 0.3 (0.1-0.6) 10/03/18 19:43 Eos # (Auto) 0.1 (0.0-0.7) 10/03/18 19:43 Baso # (Auto) 0.01 K/mm3 (0.0-2.0) 10/03/18 19:43 PT 13.2 SECONDS (9.4-12.5) H 10/03/18 19:43 INR 1.15 10/03/18 19:43 APTT 33.8 Seconds (25.1-36.5) 10/03/18 19:43 Sodium 139 mmol/L (132-148) 10/10/18 06:20 Potassium 4.7 mmol/L (3.6-5.0) 10/10/18 06:20 Chloride 103 mmol/L (98-107) 10/10/18 06:20 Carbon Dioxide 29 mmol/L (21-33) 10/10/18 06:20 Anion Gap 12 (10-20) 10/10/18 06:20 BUN 20 mg/dL (7-21) 10/10/18 06:20 Creatinine 0.9 mg/dl (0.8-1.5) 10/10/18 06:20 Est GFR ( Amer) > 60 10/10/18 06:20 Est GFR (Non-Af Amer) > 60 10/10/18 06:20 POC Glucose (mg/dL) 94 mg/dL (65-110) 10/10/18 15:48 Random Glucose 117 mg/dL (70-110) H 10/10/18 06:20 Hemoglobin A1c 6.3 % (4.2-6.5) 10/03/18 21:00 Calcium 9.7 mg/dL (8.4-10.5) 10/10/18 06:20 Phosphorus 3.4 mg/dL (2.5-4.5) 10/08/18 07:00 Magnesium 1.7 mg/dL (1.7-2.2) 10/08/18 07:00 Iron 97 ug/dL (45-180) 10/03/18 21:00 TIBC 374 ug/dL (261-462) 10/03/18 21:00 % Saturation 26 % (20-55) 10/03/18 21:00 Total Bilirubin 0.7 mg/dL (0.2-1.3) 10/10/18 06:20 AST 23 U/L (17-59) 10/10/18 06:20 ALT 26 U/L (7-56) 10/10/18 06:20 Alkaline Phosphatase 68 U/L (38-126) 10/10/18 06:20 Lactate Dehydrogenase 388 U/L (333-699) 10/03/18 19:43 Total Creatine Kinase 180 U/L (35-230) 10/03/18 19:43 Troponin I 0.01 ng/mL 10/04/18 06:00 NT-Pro-B Natriuret Pep 28.0 pg/mL (0-450) 10/03/18 19:43 Total Protein 7.4 g/dL (5.8-8.3) 10/10/18 06:20 Albumin 4.4 g/dL (3.0-4.8) 10/10/18 06:20 Globulin 3.1 gm/dL 10/10/18 06:20 Albumin/Globulin Ratio 1.4 (1.1-1.8) 10/10/18 06:20 Triglycerides 94 mg/dL (35-160) 10/03/18 21:00 Cholesterol 107 mg/dL (130-200) L 10/03/18 21:00 LDL Cholesterol Direct 68 mg/dL (0-129) 10/03/18 21:00 HDL Cholesterol 32 mg/dL (29-60) 10/03/18 21:00 Vitamin B12 256 pg/mL (239-931) 10/03/18 21:00 Folate 13.9 ng/mL 10/03/18 21:00 TSH 3rd Generation 1.57 mIU/mL (0.46-4.68) 10/03/18 21:00 Attending/Attestation - Attestation I have personally seen and examined this patient.: Yes I have fully participated in the care of the patient.: Yes I have reviewed all pertinent clinical information, including history, physical exam and plan: Yes Notes (Text): 10/11/18 07:40 Attending note: Patient seen and examined with resident. Patient is alert and awake. Denies any chest pain, shortness of breath. Complaining of generalized discomfort. Denies any fevers, chills. Tolerating diet. Patient is a 53-year-old male with past medical history significant for CVA, coronary artery disease, type 2 diabetes, DVT, PE, hypertension, hyperlipidemia, and angina that presented to the emergency room with chest pain. 1. Dizziness. Unsteady on feet. Physical therapy evaluation appreciated. RICARDO recommended. Neurology evaluation appreciated. EMG recommended in the office for peripheral neuropathy. Head CT showed reidentified encephalomalacia within the right occipital lobe consistent with remote infarct, nonspecific white matter changes, acute on chronic ischemia cannot be excluded. MRI showed no acute infarct or hemorrhage. Showed chronic right DIPLOMATIC COURIER infarct and encephalomalacia in the right occipital lobe and posterior ganglia. Continue Plavix, Lipitor, and Eliquis. 2. Chest pain. resolved. Likely musculoskeletal. Patient s/p cardiac catheterization showed patent stents in corornary tree, diffuse atherosclerosis, 50% stenosis in the distal LAD which is unchanged, normal LV function. Chest CTshowed unremarkable CT angiogram, no pulmonary embolism. 3. Generalized pain. Peripheral neuropathy. Place on tramadol as needed. Continue with gabapentin. 4. Constipation. Started on MiraLAX and Colace. 5. Hypertension. Continue Norvasc, hydralazine, and Cozaar. 6. History of DVT/PE. Bilateral lower extremity pain likely secondary to history of DVT. Continue Eliquis. No edema or signs of infection. 7. Type 2 diabetes. Continue insulin sliding scale. Continue lispro 12 units subcutaneous before meals. Monitor Accu-Cheks. Hgb A1C 6.3. 8. History of glaucoma. Continue home combigan drops 9. GI/DVT prophylaxis. Protonix/Eliquis digital production manager and geriatric social work professor evaluation appreciated. Patient will be transferred to [facility] for rehabilitation. PMD informed. Follow-up with neurology/PMD and cardiology as outpatient. Upon discharge patient will follow-up with PMD . Diagnosis; Gait instability Neuropathy Chronic encephalomalacia/DIPLOMATIC COURIER territory Coronary artery disease Hypertension Diabetes
== END 2018-10-10 17:00 | DRG 287 ==
LOC: ED 19:08 → ERH 20:23 → 2RSO 22:54 → OBSVTOIN 10-04 15:33 → 2RSO 10-05 11:37 → 5RNO 10-08 15:20
PROVIDERS: ADMIT Internal Medicine; ATTEND Internal Medicine
PROC: 4A023N7 Measurement of Cardiac Sampling and Pressure, Left Heart, Percutaneous Approach (ICD-10-PCS; principal; 2018-10-05)
PROC: B2111ZZ Fluoroscopy of Multiple Coronary Arteries using Low Osmolar Contrast (ICD-10-PCS; 2018-10-05)
PROC: B2151ZZ Fluoroscopy of Left Heart using Low Osmolar Contrast (ICD-10-PCS; 2018-10-05)
DX: I25.110 Atherosclerotic heart disease of native coronary artery with unstable angina pectoris (principal); E11.9 Type 2 diabetes mellitus without complications; Z86.73 Personal history of transient ischemic attack (TIA), and cerebral infarction without residual deficits; R53.1 Weakness; Z79.4 Long term (current) use of insulin; Z79.01 Long term (current) use of anticoagulants; Z86.711 Personal history of pulmonary embolism; Z95.5 Presence of coronary angioplasty implant and graft; E78.00 Pure hypercholesterolemia, unspecified; I11.9 Hypertensive heart disease without heart failure; E78.5 Hyperlipidemia, unspecified; G62.9 Polyneuropathy, unspecified; G89.29 Other chronic pain; R10.9 Unspecified abdominal pain; G93.89 Other specified disorders of brain; H40.9 Unspecified glaucoma; I10 Essential (primary) hypertension; I25.2 Old myocardial infarction; K59.00 Constipation, unspecified; Z79.02 Long term (current) use of antithrombotics/antiplatelets; Z82.3 Family history of stroke; Z83.3 Family history of diabetes mellitus; Z86.718 Personal history of other venous thrombosis and embolism; E83.42 Hypomagnesemia; D64.9 Anemia, unspecified

== ENCOUNTER 2018-10-20 17:07 | Inpatient (IN) | payer MEDICARE, BC ==
--- NOTE | 2018-10-20 17:43 | ED PDOC ---
Arrival/HPI - General Chief Complaint: Chest Pain Time Seen by Provider: 10/20/18 17:14 Historian: Patient - History of Present Illness Narrative History of Present Illness (Text): 10/20/18 17:37 53 yr old male w/ hx of CVA, CAD w/ stents, IVCF p/w chest pain. Pt notes chest pain started 3d ago, feels exactly like previous visit here for which he had a cardiac catherization. He notes the pain is throbbing, center of chest, rad iating into L wrist, stabbing, worse when he moves his body but non reproducible to palpation. No abdominal pain or constipation. No dark or bloody stool. No trauma or fall. No GI or complaints. Pt notes he had a recent cardiac cath without significant changes. He notes taking his plavix today. No other complaints. PMD: Tanner Roth Time/Duration: > week (pt notes chest pain started 3 days ago ) Symptom Onset: Sudden Symptom Course: Unchanged Quality: Throbbing (pt describes chest pain as throbbing) Activities at Onset: Light Past Medical History - Provider Review Nursing Documentation Reviewed: Yes - Infectious Disease Hx of Infectious Diseases: None - Tetanus Immunization Tetanus Immunization: Unknown - Cardiac Hx Cardiac Disorders: Yes Hx Hypertension: Yes - Pulmonary Hx Respiratory Disorders: Yes - Neurological HX Cerebrovascular Accident: Yes (left sided weakness) - HEENT Hx HEENT Disorder: Yes Hx Glaucoma: Yes - Renal Hx Renal Disorder: No - Endocrine/Metabolic Hx Diabetes Mellitus Type 2: Yes - Hematological/Oncological Hx Blood Transfusions: No - Integumentary Hx Dermatological Disorder: No - Musculoskeletal/Rheumatological Hx Musculoskeletal Disorders: Yes Hx Falls: Yes - Gastrointestinal Hx Gastrointestinal Disorders: No - Genitourinary/Gynecological Hx Genitourinary Disorders: Yes Hx Prostate Problems: Yes - Psychiatric Hx Psychophysiologic Disorder: No Hx Substance Use: Yes - Surgical History Hx Cardiac Catheterization: Yes (stents) Hx Coronary Stent: Yes Other/Comment: ICV filter - Anesthesia Hx Anesthesia: Yes Hx Anesthesia Reactions: No Hx Malignant Hyperthermia: No - Suicidal Assessment Feels Threatened In Home Enviroment: No Family/Social History - Physician Review Nursing Documentation Reviewed: Yes Family/Social History: Unknown Family HX Smoking Status: Never Smoked Hx Alcohol Use: No Hx Substance Use: Yes Hx Substance Use Treatment: No Allergies/Home Meds Allergies/Adverse Reactions: Allergies No Known Allergies Allergy (Verified 02/07/18 16:45) Home Medications: Home Meds Medication Instructions Recorded Confirmed RX: Atorvastatin [Lipitor] 40 mg PO HS 06/25/17 10/03/18 RX: Brimonidine Tartrate/Timolol 1 drop EACHEYE Q12 09/06/17 10/03/18 [Combigan 0.2%-0.5% Eye Drops] RX: Insulin Regular [HumuLIN R] See Protocol SQ DAILY 09/06/17 10/03/18 RX: Pantoprazole Sodium [Protonix] 40 mg PO DAILY 09/06/17 10/03/18 RX: hydrALAZINE [Apresoline] 50 mg PO Q8 09/06/17 10/03/18 RX: Gabapentin [Neurontin] 600 mg PO TID 10/03/18 10/03/18 RX: Nitroglycerin 0.2 mg/hr 1 patch TD DAILY 10/03/18 10/03/18 [Nitro-Dur 0.2 mg/hr Patch] Review of Systems - Physician Review All systems were reviewed & negative as marked: Yes - Review of Systems Constitutional: Normal. absent: Fatigue, Weight Change, Fevers Eyes: Normal. absent: Vision Changes ENT: Normal. absent: Hearing Changes, Tinnitus Respiratory: Normal. absent: SOB, Cough Cardiovascular: Chest Pain (pt notes chest pain that started 3 days ago ). absent: Normal, Palpitations, Edema Gastrointestinal: Normal. absent: Abdominal Pain, Stool Changes, Constipation, Diarrhea, Appetite Changes, Hematochezia, Hematemesis, Anorexia, Food Intolerance Genitourinary Male: Normal. absent: Dysuria, Frequency Musculoskeletal: Normal. absent: Arthralgias, Back Pain, Neck Pain, Joint Swelling Skin: Normal. absent: Rash, Pruritis, Skin Lesions, Laceration Neurological: Normal. absent: Headache, Dizziness, Focal Weakness Endocrine: Normal. absent: Diaphoresis, Polyuria Psychiatric: Normal. absent: Anxiety, Depression Physical Exam Vital Signs Reviewed: Yes Vital Signs Temp Pulse Resp BP Pulse Ox 10/20/18 17:24 98.4 F 60 18 150/88 99 Temperature: Afebrile Blood Pressure: Normal Pulse: Regular Respiratory Rate: Normal Appearance: Positive for: Well-Appearing Pain Distress: None Mental Status: Positive for: Alert and Oriented X 3 - Systems Exam Head: Present: Atraumatic Pupils: Present: PERRL Extroacular Muscles: Present: EOMI Conjunctiva: Present: Normal Mouth: Present: Moist Mucous Membranes Nose (Internal): Present: Normal Inspection Neck: Present: Normal Range of Motion. No: Meningeal Signs Respiratory/Chest: Present: Clear to Auscultation, Good Air Exchange Cardiovascular: Present: Regular Rate and Rhythm, Normal S1, S2 Abdomen: Present: Tenderness, Normal Bowel Sounds. No: Distention, Peritoneal Signs Back: Present: Normal Inspection. No: CVA Tenderness Upper Extremity: Present: Normal Inspection. No: Cyanosis, Edema Lower Extremity: Present: Normal Inspection. No: Edema Neurological: Present: GCS=15, CN II-XII Intact, Speech Normal Skin: Present: Warm, Dry Psychiatric: Present: Alert, Oriented x 3 Medical Decision Making ED Course and Treatment: 10/20/18 17:46 53 yr old male w/ hx of CAD w/ stents, IVCF recent cardiac cath p/w chest pain. Negative cardiac cath from 10/05. Pt notes CP started 3d ago but feels exactly alike previous CP for which he was at rehab after being d/c from [facility] for CP. Pt notes taking his plavix today. EK, NSR, No stemi. Deep T wave inversions seen previously. No major changes from previous EKG. Appreciate consult w/ Dr. Hernandez: share EKG findings, reccomends serial troponins and no stemi activation at this time. Plan: -- EKG -- CMP -- Magnesium -- Troponin I -- CBC (with differential) -- D Dimer -- X-Ray of chest -- Reassess and disposition Prior Visits: Notes and results from previous visits were reviewed. Patient was last seen in the emergency department on 10/03/18 presents to the Emergency department complaining of chest pain since that day. Pt was hospitalized in fair condition. 10/20/18 1700 Troponin, XR unremarkable dimer negative pending 2nd trop appreciate consult w/ Dr. Ramsey: to admit to his service - RAD Interpretation Radiology Orders: 10/20/18 17:24 CHEST PORTABLE [RAD] Stat - Scribe Statement The provider has reviewed the documentation as recorded by the Scribe Iesha Christy All medical record entries made by the Scribe were at my direction and personally dictated by me. I have reviewed the chart and agree that the record accurately reflects my personal performance of the history, physical exam, medical decision making, and the department course for this patient. I have also personally directed, reviewed, and agree with the discharge instructions and disposition. Disposition/Present on Arrival - Present on Arrival Any Indicators Present on Arrival: No History of DVT/PE: No History of Uncontrolled Diabetes: No Urinary Catheter: No History of Decub. Ulcer: No History Surgical Site Infection Following: None - Disposition Have Diagnosis and Disposition been Completed?: Yes Diagnosis: Chest pain Disposition Time: 19:00 Condition: GOOD Discharge Instructions (ExitCare): Chest Pain (ED) Referrals: Tosin Pope Reveda, [Primary Care Provider] - Follow up with primary Forms: [employer] ([place])
[2018-10-20 18:10] LABS: ALB/GLOB RATIO 1.5 (1.1-1.8); ALBUMIN 4.4 g/dL (3.0-4.8); ALT/SGPT 43 U/L (7-56); AST/SGOT 22 U/L (17-59); BLOOD UREA NITROGEN 15 mg/dL (7-21); CALCIUM 9.7 mg/dL (8.4-10.5); GFR NON-AFRICAN AMERICAN > 60
[2018-10-20 18:11] LABS: TROPONIN I < 0.01 ng/mL
[2018-10-20 18:41] LABS: BASO # 0.01 K/mm3 (0.0-2.0); BASO % 0.3 % (0.0-3.0); EOS # 0.1 (0.0-0.7); EOS % 1.9 % (1.5-5.0); GRAN # 2.13 (1.4-6.5); GRAN % 56.4 % (50.0-68.0); HEMOGLOBIN 14.6 g/dL (14.0-18.0); LYMPH # 1.3 (1.2-3.4); MEAN CELL VOLUME 88.4 fl (80.0-105.0); MEAN CORPUSCULAR HEMOGLOBIN 31.3 pg (25.0-35.0); MEAN CORPUSCULAR HGB CONC 35.4 g/dl (31.0-37.0); MEAN PLATELET VOLUME 8.1 fl (7.0-11.0); MONO # 0.3 (0.1-0.6); MONO % 7.4 % (1.0-6.0); RBC 4.66 10^6/uL (3.5-6.1); RED CELL DISTRIBUTION WIDTH 12.2 % (11.5-14.5); WHITE BLOOD COUNT 3.8 10^3/uL (4.5-11.0)
--- NOTE | 2018-10-20 20:00 | CP.PCM.HP ---
<Scotty Alvarado - Last Filed: 10/20/18 20:58> History of Present Illness - History of Present Illness History of Present Illness: 53M with PMH of CVA, CAD, 3 MIs s/p stent placements, DM2, DVT, HTN, HLD, and angina presents to ED complaining of chest pain which began 3 days ago. Patient states pain is an 8/10 and sharp in quality with radiation to his left arm. He states the pain is worse with exertion and improves upon rest. Patient states pain is similar to the pain he had last time for which he was admitted for chest pain and eventually had a cardiac cath with Dr. Hernandez. Patient states he has been compliant with his medication and took his AM dosage of his medications. Patient also complains of shortness of breath, dizziness, but denies any nausea, vomiting, abdominal pain, fever, chills, or any other complaints at this time. SxH: IVC filter placement SocH: denies smoking, alcohol, recreational drug use FamH: mom- at 70, CVA, DM. dad- at 70, heart disease Allergies: NKDA Meds: Eliquis 5 BID, lipitor 40, brimonidine tartrate/timolol drops, protonix 40, norvasc 10, ASA 81, plavix 75, losartan 100 PMD: Dr. Roth Manager Interventional: Dr. Hernandez Pharmacy: [facility] [phone] Present on Admission - Present on Admission Any Indicators Present on Admission: No Review of Systems - Constitutional Constitutional: absent: Anorexia, Chills, Fatigue, Fever - Cardiovascular Cardiovascular: Chest Pain, Dyspnea on Exertion, Pain Radiating to Arm/Neck/Jaw. absent: Diaphoresis, Rapid Heart Rate, Syncope - Respiratory Respiratory: absent: Cough, Wheezing - Gastrointestinal Gastrointestinal: absent: Abdominal Pain, Constipation, Diarrhea, Nausea, Vomiting - Musculoskeletal Musculoskeletal: absent: Atrophy, Back Pain, Tingling - Neurological Neurological: absent: Numbness, Tingling, Weakness Past Patient History - Infectious Disease Hx of Infectious Diseases: None - Tetanus Immunizations Tetanus Immunization: Unknown - Past Medical History & Family History Past Medical History?: Yes - Past Social History Smoking Status: Never Smoked - CARDIAC Hx Cardiac Disorders: Yes Hx Hypertension: Yes - PULMONARY Hx Respiratory Disorders: Yes - NEUROLOGICAL HX Cerebrovascular Accident: Yes (left sided weakness) - HEENT Hx HEENT Problems: Yes Hx Glaucoma: Yes - RENAL Hx Chronic Kidney Disease: No - ENDOCRINE/METABOLIC Hx Diabetes Mellitus Type 2: Yes - HEMATOLOGICAL/ONCOLOGICAL Hx Blood Transfusions: No - INTEGUMENTARY Hx Dermatological Problems: No - MUSCULOSKELETAL/RHEUMATOLOGICAL Hx Musculoskeletal Disorders: Yes Hx Falls: Yes - GASTROINTESTINAL Hx Gastrointestinal Disorders: No - GENITOURINARY/GYNECOLOGICAL Hx Genitourinary Disorders: Yes Hx Prostate Problems: Yes - PSYCHIATRIC Hx Psychophysiologic Disorder: No Hx Substance Use: Yes - SURGICAL HISTORY Hx Cardiac Catheterization: Yes (stents) Hx Coronary Stent: Yes Other/Comment: ICV filter - ANESTHESIA Hx Anesthesia: Yes Hx Anesthesia Reactions: No Hx Malignant Hyperthermia: No Meds Allergies/Adverse Reactions: Allergies Allergy/AdvReac Type Severity Reaction Status Date / Time No Known Allergies Allergy Verified 02/07/18 16:45 Physical Exam - Constitutional Appears: Well, Non-toxic, No Acute Distress - Head Exam Head Exam: ATRAUMATIC, NORMAL INSPECTION, NORMOCEPHALIC - Eye Exam Eye Exam: EOMI, Normal appearance Pupil Exam: NORMAL ACCOMODATION - ENT Exam ENT Exam: Mucous Membranes Moist, Normal Exam - Respiratory Exam Respiratory Exam: Clear to Auscultation Bilateral, NORMAL BREATHING PATTERN - Cardiovascular Exam Cardiovascular Exam: REGULAR RHYTHM, +S1, +S2 - GI/Abdominal Exam GI & Abdominal Exam: Normal Bowel Sounds, Soft. absent: Tenderness - Extremities Exam Extremities exam: Positive for: pedal pulses present. Negative for: calf tenderness, pedal edema - Neurological Exam Neurological exam: Alert, CN II-XII Intact, Oriented x3 - Skin Skin Exam: Dry, Intact, Warm Results - Vital Signs Recent Vital Signs: Last Vital Signs Temp 98.4 F 10/20/18 17:58 Pulse 63 10/20/18 17:58 Resp 19 10/20/18 17:58 BP 133/78 10/20/18 17:58 Pulse Ox 97 10/20/18 17:58 - Labs Result Diagrams: 10/20/18 17:46 10/20/18 17:46 Labs: Laboratory Results - last 24 hr 10/20/18 10/20/18 10/20/18 17:46 17:46 17:46 WBC 3.8 L RBC 4.66 Hgb 14.6 Hct 41.2 L MCV 88.4 MCH 31.3 MCHC 35.4 RDW 12.2 Plt Count 177 MPV 8.1 Gran % 56.4 Lymph % (Auto) 34.0 Madison % (Auto) 7.4 H Eos % (Auto) 1.9 Baso % (Auto) 0.3 Gran # 2.13 Lymph # (Auto) 1.3 Madison # (Auto) 0.3 Eos # (Auto) 0.1 Baso # (Auto) 0.01 D-Dimer, Quantitative < 200 Sodium 135 Potassium 4.3 Chloride 103 Carbon Dioxide 24 Anion Gap 13 BUN 15 Creatinine 0.8 Est GFR ( Amer) > 60 Est GFR (Non-Af Amer) > 60 Random Glucose 196 H Calcium 9.7 Magnesium 1.8 Total Bilirubin 0.4 AST 22 ALT 43 Alkaline Phosphatase 75 Troponin I < 0.01 Total Protein 7.3 Albumin 4.4 Globulin 2.9 Albumin/Globulin Ratio 1.5 Assessment & Plan - Assessment and Plan (Free Text) Assessment: 53M with PMH of CVA, CAD, 3 MIs s/p stent placements, DM2, DVT, HTN, HLD, and angina presents to ED complaining of chest pain which began 3 days ago. Plan: Chest Pain, ACS r/o - EKG: rate: 93, NSR, No stemi. Deep T wave inversions which were present in previous EKG. No major changes from previous EKG. - troponins neg x1 - f/u serial troponins - f/u repeat EKG in AM - admit to tele - CXR: no active disease - ECHO 03/02: moderate LVH, low normal LV systolic function, mild TR, EF 50% - cardiac cath done in september was negative - Stress test 03/02: normal wall motion of LV, distal anteroseptal defect suspicious of ischemia - TSH/T4 pending - cardio consulted, David, follow recs CAD - continue home lipitor 40mg - continue home plavix 75mg HTN - continue home norvasc 10mg PO daily - continue home hydralazine 50mg PO q8h - continue home losartan 100mg PO daily Hx of DVT - continue home eliquis 5mg PO BID DM2 -sliding scale medium -NPO Hx of Glaucoma - continue home combigan drops daily PPX DVT: pt on eliquis GI: Protonix 40 po NPO <Vance Ramsey - Last Filed: 10/21/18 00:56> Results - Vital Signs Recent Vital Signs: Last Vital Signs Temp 98.4 F 10/20/18 17:58 Pulse 55 L 10/21/18 00:14 Resp 18 10/21/18 00:14 BP 136/74 10/21/18 00:14 Pulse Ox 99 10/21/18 00:14 - Labs Result Diagrams: 10/20/18 17:46 10/20/18 17:46 Labs: Laboratory Results - last 24 hr 10/20/18 10/20/18 10/20/18 17:46 17:46 17:46 WBC 3.8 L RBC 4.66 Hgb 14.6 Hct 41.2 L MCV 88.4 MCH 31.3 MCHC 35.4 RDW 12.2 Plt Count 177 MPV 8.1 Gran % 56.4 Lymph % (Auto) 34.0 Madison % (Auto) 7.4 H Eos % (Auto) 1.9 Baso % (Auto) 0.3 Gran # 2.13 Lymph # (Auto) 1.3 Madison # (Auto) 0.3 Eos # (Auto) 0.1 Baso # (Auto) 0.01 D-Dimer, Quantitative < 200 Sodium 135 Potassium 4.3 Chloride 103 Carbon Dioxide 24 Anion Gap 13 BUN 15 Creatinine 0.8 Est GFR ( Amer) > 60 Est GFR (Non-Af Amer) > 60 POC Glucose (mg/dL) Random Glucose 196 H Calcium 9.7 Magnesium 1.8 Total Bilirubin 0.4 AST 22 ALT 43 Alkaline Phosphatase 75 Troponin I < 0.01 Total Protein 7.3 Albumin 4.4 Globulin 2.9 Albumin/Globulin Ratio 1.5 Triglycerides Cholesterol LDL Cholesterol Direct HDL Cholesterol Thyroxine (T4) TSH 3rd Generation 10/20/18 10/20/18 10/20/18 21:00 21:00 22:53 WBC RBC Hgb Hct MCV MCH MCHC RDW Plt Count MPV Gran % Lymph % (Auto) Madison % (Auto) Eos % (Auto) Baso % (Auto) Gran # Lymph # (Auto) Madison # (Auto) Eos # (Auto) Baso # (Auto) D-Dimer, Quantitative Sodium Potassium Chloride Carbon Dioxide Anion Gap BUN Creatinine Est GFR ( Amer) Est GFR (Non-Af Amer) POC Glucose (mg/dL) 201 H Random Glucose Calcium Magnesium Total Bilirubin AST ALT Alkaline Phosphatase Troponin I Total Protein Albumin Globulin Albumin/Globulin Ratio Triglycerides 145 Cholesterol 104 L LDL Cholesterol Direct 61 HDL Cholesterol 29 Thyroxine (T4) 5.7 TSH 3rd Generation 1.72 Attending/Attestation - Attestation I have personally seen and examined this patient.: Yes I have fully participated in the care of the patient.: Yes I have reviewed all pertinent clinical information: Yes Notes (Text): 10/21/18 00:55 Patient was seen when he was in bed # 7 in the ER. Agree with history , physical examination, assessment and plan.
[2018-10-20 21:57] LABS: HDL CHOLESTEROL 29 mg/dL (29-60)
[2018-10-20 22:08] LABS: LDL CHOLESTEROL 61 mg/dL (0-129)
[2018-10-20 22:14] LABS: T4 5.7 ug/dL (5.5-11.0)
[2018-10-20] MEDS: Insulin Reg-MEDIUM-Coverage SC SCH (22:55)
[2018-10-21 07:24] LABS: BASO # 0.01 K/mm3 (0.0-2.0); BASO % 0.3 % (0.0-3.0); EOS # 0.1 (0.0-0.7); EOS % 2.4 % (1.5-5.0); GRAN # 1.93 (1.4-6.5); GRAN % 52.3 % (50.0-68.0); HEMOGLOBIN 12.9 g/dL (14.0-18.0); LYMPH # 1.4 (1.2-3.4); LYMPH % 37.7 % (22.0-35.0); MEAN CORPUSCULAR HGB CONC 35.2 g/dl (31.0-37.0); MEAN PLATELET VOLUME 7.9 fl (7.0-11.0); MONO # 0.3 (0.1-0.6); MONO % 7.3 % (1.0-6.0); RBC 4.16 10^6/uL (3.5-6.1); RED CELL DISTRIBUTION WIDTH 12.1 % (11.5-14.5); WHITE BLOOD COUNT 3.7 10^3/uL (4.5-11.0)
[2018-10-21 07:44] LABS: TROPONIN I 0.01 ng/mL
[2018-10-21 07:45] LABS: ALB/GLOB RATIO 1.4 (1.1-1.8); ALT/SGPT 40 U/L (7-56); AST/SGOT 20 U/L (17-59); BLOOD UREA NITROGEN 11 mg/dL (7-21); CALCIUM 9.3 mg/dL (8.4-10.5); GFR NON-AFRICAN AMERICAN > 60
[2018-10-21] MEDS: Insulin Reg-MEDIUM-Coverage SC SCH ×4 (08:00→23:48)
--- NOTE | 2018-10-21 08:48 | RAD ---
Date of service: 10/20/2018 HISTORY: cp COMPARISON: 10/03/2018 FINDINGS: LUNGS: No active pulmonary disease. PLEURA: No significant pleural effusion identified, no pneumothorax apparent. CARDIOVASCULAR: No aortic atherosclerotic calcification present. Normal cardiac size. No pulmonary vascular congestion. OSSEOUS STRUCTURES: No significant abnormalities. VISUALIZED UPPER ABDOMEN: Normal. OTHER FINDINGS: None. IMPRESSION: No active disease.
[2018-10-21] MEDS ORDERED: Insulin Reg-LOW-Coverage SC SCH (11:30)
[2018-10-21] MEDS ORDERED: Iohexol 350 MG/100 ML VIAL ONE (12:29)
--- NOTE | 2018-10-21 13:45 | CT ---
Date of service: 10/21/2018 PROCEDURE: CT Chest with contrast (Pulmonary Angiogram) HISTORY: R/O PE COMPARISON: CT 10/06/2018 TECHNIQUE: Axial computed tomography images were obtained of the chest in the pulmonary arterial phase of enhancement. Coronal and sagittal reformatted images were created and reviewed. Intravenous contrast dose: 100 cc of Omni 350 Radiation dose: Total exam DLP = 461.57 mGy-cm. This CT exam was performed using one or more of the following dose reduction techniques: Automated exposure control, adjustment of the mA and/or kV according to patient size, and/or use of iterative reconstruction technique. FINDINGS: PULMONARY ARTERIES: Unremarkable. No pulmonary embolism. AORTA: No acute findings. No thoracic aortic aneurysm. No aortic atherosclerotic calcification or mural plaque present. LUNGS: Unremarkable. No nodule, mass or pulmonary consolidation. PLEURAL SPACES: Unremarkable. No effusion or pneumothorax. HEART: Mild cardiomegaly LYMPH NODES: No lymphadenopathy. BONES, CHEST WALL: Unremarkable. No fracture or destructive lesion OTHER FINDINGS: Gallstones IMPRESSION: Unremarkable CT pulmonary angiogram. No pulmonary embolus.
--- NOTE | 2018-10-21 15:31 | CP.PCM.PN ---
<Raiza Dong - Last Filed: 10/21/18 15:49> Subjective - Date & Time of Evaluation Date of Evaluation: 10/21/18 Time of Evaluation: 08:27 - Subjective Subjective: PYG1 Medicine Progress Note for Dr. Tsang Patient seen and evaluated at bedside this morning. Patient states he still has left-sided chest pain that radiates to his left arm. Patient states the pain is 8/10 at its worst and is worsened by walking up the stairs. Patient states he is only able to take 4-5 stairs prior to having increased chest pain. Patient s tates the pain is throbbing in quality, as if "someone is punching me in the chest." Of note, Patient also complains of continued dizziness (unchanged from prior visit). Patient otherwise denies nausea, vomiting, headache, weakness in upper and/or lower extremities. 12 Point ROS otherwise unremarkable. Objective - Vital Signs/Intake and Output Vital Signs (last 24 hours): Temp Pulse Resp BP Pulse Ox 98.5 F 59 L 18 123/69 100 10/21/18 12:04 10/21/18 15:00 10/21/18 15:00 10/21/18 15:00 10/21/18 15:00 - Medications Medications: Current Medications Amlodipine Besylate (Norvasc) 10 mg PO DAILY [facility] Last Admin: 10/21/18 10:56 Dose: 10 mg Apixaban (Eliquis) 5 mg PO BID [facility]; Protocol Last Admin: 10/21/18 10:58 Dose: 5 mg Atorvastatin Calcium (Lipitor) 40 mg PO HS [facility] Last Admin: 10/21/18 00:10 Dose: 40 mg Clopidogrel Bisulfate (Plavix) 75 mg PO DAILY [facility] Last Admin: 10/21/18 10:56 Dose: 75 mg Gabapentin (Neurontin) 600 mg PO TID [facility]; Protocol Hydralazine HCl (Apresoline) 50 mg PO Q8 [facility] Last Admin: 10/21/18 06:10 Dose: 50 mg Insulin Human Regular (Humulin R Med) 0 units SC ACHS [facility]; Protocol Last Admin: 10/21/18 08:00 Dose: Not Given Losartan Potassium (Cozaar) 100 mg PO DAILY [facility] Last Admin: 10/21/18 10:56 Dose: 100 mg Brimonidine Tartrate /Timolol [Combigan 0 .2%-0.5% Eye Drops] 1 Dr (Home Med) 1 drop EACHEYE Q12 [facility] Pantoprazole Sodium (Protonix Inj) 40 mg IVP DAILY [facility] Last Admin: 10/21/18 10:56 Dose: 40 mg - Labs Labs: 10/21/18 07:10 10/21/18 07:10 - Additional Findings Additional findings: - Constitutional Appears: Well, Non-toxic, No Acute Distress - Head Exam Head Exam: ATRAUMATIC, NORMAL INSPECTION, NORMOCEPHALIC - Eye Exam Eye Exam: EOMI, Normal appearance Pupil Exam: NORMAL ACCOMODATION - ENT Exam ENT Exam: Mucous Membranes Moist, Normal Exam - Respiratory Exam Respiratory Exam: Clear to Auscultation Bilateral, NORMAL BREATHING PATTERN - Cardiovascular Exam Cardiovascular Exam: REGULAR RHYTHM, +S1, +S2. Chest wall non-tender to palpation. - GI/Abdominal Exam GI & Abdominal Exam: Normal Bowel Sounds, Soft. absent: Tenderness - Extremities Exam Extremities exam: Positive for: pedal pulses present. Negative for: calf tenderness, pedal edema - Neurological Exam Neurological exam: Alert, CN II-XII Intact, Oriented x3 - Psychiatric Exam Psychiatric exam: Normal mood, Normal affect. - Skin Skin Exam: Dry, Intact, Warm Assessment and Plan - Assessment and Plan (Free Text) Assessment: Mr. Caicedo is a 53-year-old Male with PMH of CVA, CAD, 3 MIs s/p stent placements, DM2, DVT, HTN, HLD, and angina, who presents to [facility] ED complaining of chest pain which began 3 days ago while walking up stairs during physical therapy session. Patient was recently hospitalized and was admitted for same complaint. Patient recently underwent thorough cardiac workup. Please see Patient's Charts for details. Cardiology consulted; Dr. Hernandez; Recommendations appreciated. Patient is admitted to telemetry for ACS Rule-Out. Chest Pain, ACS Rule-Out - EKG 10/20: rate: 93, NSR, No stemi. Deep T wave inversions which were present in previous EKG. No major changes from previous EKG. - Troponins neg x2 - Follow-up serial troponins - Repeat EKG 10/21: No significant changes from 10/20 EKG noted above (see report for details.) - CXR: no active disease - ECHO 03/02: moderate LVH, low normal LV systolic function, mild TR, EF 50% - Cardiac cath done in 10/05/18; Per Cardiology: No indications for stent placement at that time (Please see report for details) - Stress test 03/02: normal wall motion of LV, distal anteroseptal defect suspicious of ischemia - TSH=1.72 - Free T4= 5.7 - Cardiology consulted; Dr. Hernandez; recommendations appreciated. - Monitor in Telemetry - Physical Therapy: evaluate and treat CAD - Continue home lipitor 40mg - Continue home plavix 75mg Hypertension - Continue home norvasc 10mg PO daily - Continue home hydralazine 50mg PO q8h - Continue home losartan 100mg PO daily History of DVT - Continue home eliquis 5mg PO BID Diabetes Mellitus Type 2 - Insulin sliding scale medium - NPO Neuropathy - Continue Home Meds: Neurontin 600mg PO BID as needed History of Glaucoma - Continue home combigan drops daily PPX DVT: Patient is on eliquis GI: Protonix 40 PO Daily NPO Patient seen and case discussed with Dr. Sharan Dong PGY1 <Patrice Tsang - Last Filed: 10/21/18 18:00> Objective - Vital Signs/Intake and Output Vital Signs (last 24 hours): Temp Pulse Resp BP Pulse Ox 98.5 F 66 18 135/91 H 100 10/21/18 12:04 10/21/18 15:34 10/21/18 15:00 10/21/18 15:34 10/21/18 15:00 - Medications Medications: Current Medications Amlodipine Besylate (Norvasc) 10 mg PO DAILY [facility] Last Admin: 10/21/18 10:56 Dose: 10 mg Apixaban (Eliquis) 5 mg PO BID [facility]; Protocol Last Admin: 10/21/18 10:58 Dose: 5 mg Atorvastatin Calcium (Lipitor) 40 mg PO HS [facility] Last Admin: 10/21/18 00:10 Dose: 40 mg Clopidogrel Bisulfate (Plavix) 75 mg PO DAILY [facility] Last Admin: 10/21/18 10:56 Dose: 75 mg Dextrose (Dextrose 50% Inj) 0 ml IV STAT PRN; Protocol PRN Reason: Hypoglycemia Protocol Gabapentin (Neurontin) 600 mg PO TID [facility]HAEL; Protocol Last Admin: 10/21/18 15:33 Dose: 600 mg Hydralazine HCl (Apresoline) 50 mg PO Q8 [facility] Last Admin: 10/21/18 15:34 Dose: 50 mg Dextrose (Dextrose 5% In Water 1000 Ml) 1,000 mls @ 0 mls/hr IV .Q0M PRN; Protocol PRN Reason: Hypoglycemia Protocol Insulin Human Regular (Humulin R Med) 0 units SC ACHS [facility]HA[facility]; Protocol Last Admin: 10/21/18 16:39 Dose: 1 u Losartan Potassium (Cozaar) 100 mg PO DAILY [facility] Last Admin: 10/21/18 10:56 Dose: 100 mg Brimonidine Tartrate /Timolol [Combigan 0 .2%-0.5% Eye Drops] 1 Dr (Home Med) 1 drop EACHEYE Q12 [facility] Pantoprazole Sodium (Protonix Inj) 40 mg IVP DAILY [facility] Last Admin: 10/21/18 10:56 Dose: 40 mg - Labs Labs: 10/21/18 07:10 10/21/18 07:10 Attending/Attestation - Attestation I have personally seen and examined this patient.: Yes I have fully participated in the care of the patient.: Yes I have reviewed all pertinent clinical information, including history, physical exam and plan: Yes Notes (Text): CP r/o ACS: Pt has significant cardiac history, so far trop and EKG negative cardio consulted with Dr Hernandez c/w plavix (unclear why ASA was held during last admission) History of DVT c/w [facility] PT eval 10/21/18 17:58
--- NOTE | 2018-10-21 16:20 | CARD ---
APPROVED REPORT Date of service: 10/21/2018 EKG Measurement Heart [id number] <Conclusion> Sinus bradycardia ST & Marked T wave abnormality, consider anterolateral ischemia Abnormal ECG
--- NOTE | 2018-10-21 16:26 | CARD ---
APPROVED REPORT Date of service: 10/20/2018 EKG Measurement Heart [id number] <Conclusion> Sinus bradycardia SymmetricalT Wave Inversion in anterior Leads Minimal ST elevation in II, and AVF C/w recent IWMI and Anterior Ischemia, corelate clinically Abnormal ECG
[2018-10-21] MEDS ORDERED: Insulin Regular 1 UNITS/0.01 ML ML ONE (16:40)
--- NOTE | 2018-10-21 17:17 | CON ---
DATE: 10/21/2018 CARDIOLOGY CONSULTATION REASON FOR CONSULTATION: Chest discomfort. HISTORY OF PRESENT ILLNESS: The patient is a 63-year-old male who has a history of coronary artery disease. The most recent cardiac catheterization performed was two weeks ago, which revealed patent coronary stents with 50% stenosis in the distal LAD and normal ejection fraction. At that time, it was considered that his chest pain is noncardiac and no further cardiac workup was necessary. The patient has a history of DVT and pulmonary embolism and IVC filter placed many years ago. He presents because of chest tightness in left upper pectoral area. The patient denies any radiation, associated diaphoresis or shortness of breath. The patient is experiencing left calf pain. The patient's most recent venous Doppler of the lower extremity on record was from 03/2017, which revealed no sonographic evidence of DVT. The patient has a history of CVA and MRI of the brain done two weeks ago revealed chronic right posterior cerebral artery territory infarct with relatively large area of encephalomalacia and flow within the right occipital lobe as well as the posterior basal ganglia bordering the middle cerebral artery territory and generalized volume loss. SOCIAL HISTORY: Nonsmoker. MEDICATIONS: Hydralazine 50 mg every 8 hours, Cozaar 100 mg daily, Eliquis 5 mg twice a day, Lipitor 40 mg once a day, Norvasc 10 mg once a day, Plavix 75 mg once a day, Protonix 40 mg once a day. PHYSICAL EXAMINATION: GENERAL: The patient is a middle-aged male, who does not appear to be in any distress. VITAL SIGNS: Blood pressure 125/72, heart rate 56, temperature 98.5, respirations 18. HEENT: Normocephalic. CHEST: Clear. HEART: S1, S2 regular. ABDOMEN: Soft. EXTREMITIES: Exquisite left calf tenderness. LABORATORY DATA: Hemoglobin and hematocrit of 12.9 and 36.6, white count 3.7, platelet count 180,000. SMA-7 is within normal limits except for a glucose of 179. Troponins, three sets were not in elevated range. EKG revealed sinus rhythm with anterolateral ischemic T-wave changes. Those changes are similar to an EKG done on 10/04/2018. D-dimer is less than 200. ASSESSMENT: 1. Chest pain, rule out recurrent pulmonary infarction. 2. Rule out deep venous thrombosis. 3. History of coronary artery stenting with patent stents and a recent cardiac catheterization. 4. History of cerebrovascular accident involving the right occipital area. RECOMMENDATIONS: Continue hydralazine 50 mg every 8 hours, Cozaar 100 mg once a day, Eliquis 5 mg twice a day, Lipitor 40 mg once a day, Norvasc 10 mg once a day, Plavix 75 mg once a day. Obtain chest CT angio to rule out pulmonary embolism and the less likely possibility of aortic dissection and obtain venous Doppler of lower extremities. Piotr Enriquez MD
[2018-10-21] MEDS: BRIMONIDINE TARTRATE EACHEYE SCH ×2 (17:53→23:48)
[2018-10-21] MEDS: TIMOLOL EACHEYE SCH ×2 (17:53→23:48)
[2018-10-21] MEDS ORDERED: Dextrose 50% SYRINGE Inj (50 ml) IV PRN (17:54)
[2018-10-21 18:39] VITALS: BMI 27.3
[2018-10-21] MEDS ORDERED: Oxycodone/Acetaminophen 5/325 mg Tab PO ONE (23:22)
[2018-10-22] MEDS: Insulin Reg-MEDIUM-Coverage SC SCH ×4 (07:54→22:25)
[2018-10-22 08:12] LABS: BASO # 0.01 K/mm3 (0.0-2.0); BASO % 0.2 % (0.0-3.0); EOS # 0.1 (0.0-0.7); EOS % 1.7 % (1.5-5.0); GRAN # 2.25 (1.4-6.5); GRAN % 55.3 % (50.0-68.0); HEMOGLOBIN 13.1 g/dL (14.0-18.0); LYMPH # 1.5 (1.2-3.4); LYMPH % 35.9 % (22.0-35.0); MEAN CELL VOLUME 88.5 fl (80.0-105.0); MEAN CORPUSCULAR HEMOGLOBIN 30.8 pg (25.0-35.0); MEAN CORPUSCULAR HGB CONC 34.8 g/dl (31.0-37.0); MEAN PLATELET VOLUME 8.2 fl (7.0-11.0); MONO # 0.3 (0.1-0.6); MONO % 6.9 % (1.0-6.0); RBC 4.25 10^6/uL (3.5-6.1); RED CELL DISTRIBUTION WIDTH 12.1 % (11.5-14.5); WHITE BLOOD COUNT 4.1 10^3/uL (4.5-11.0)
[2018-10-22 08:48] LABS: ALB/GLOB RATIO 1.5 (1.1-1.8); ALBUMIN 4.1 g/dL (3.0-4.8); ALT/SGPT 39 U/L (7-56); AST/SGOT 23 U/L (17-59); BLOOD UREA NITROGEN 12 mg/dL (7-21); CALCIUM 9.3 mg/dL (8.4-10.5); GFR NON-AFRICAN AMERICAN > 60
--- NOTE | 2018-10-22 09:55 | CP.PCM.PN ---
Subjective - Date & Time of Evaluation Date of Evaluation: 10/22/18 Time of Evaluation: 07:10 - Subjective Subjective: Awake, alert, no distress Reason for consultation and follow up: Cardiac evaluation of chest pain, history of coronary artery disease with stents, history of CVA Seen and examined by me and Dr. Rodriguez COVERING Dr. Monico Hernandez Objective - Vital Signs/Intake and Output Vital Signs (last 24 hours): Temp Pulse Resp BP Pulse Ox 97.5 F L 52 L 18 124/80 100 10/22/18 06:00 10/22/18 06:15 10/22/18 06:00 10/22/18 06:15 10/22/18 06:00 - Medications Medications: Current Medications Acetaminophen (Tylenol 325mg Tab) 650 mg PO Q6H PRN PRN Reason: Fever >100.4 F Last Admin: 10/21/18 21:34 Dose: 650 mg Amlodipine Besylate (Norvasc) 10 mg PO DAILY [facility] Last Admin: 10/21/18 10:56 Dose: 10 mg Apixaban (Eliquis) 5 mg PO BID [facility]; Protocol Last Admin: 10/21/18 17:53 Dose: 5 mg Atorvastatin Calcium (Lipitor) 40 mg PO HS [facility] Last Admin: 10/21/18 21:34 Dose: 40 mg Clopidogrel Bisulfate (Plavix) 75 mg PO DAILY [facility] Last Admin: 10/21/18 10:56 Dose: 75 mg Dextrose (Dextrose 50% Inj) 0 ml IV STAT PRN; Protocol PRN Reason: Hypoglycemia Protocol Gabapentin (Neurontin) 600 mg PO TID [facility]; Protocol Last Admin: 10/21/18 17:52 Dose: 600 mg Hydralazine HCl (Apresoline) 50 mg PO Q8 [facility] Last Admin: 10/22/18 06:15 Dose: 50 mg Dextrose (Dextrose 5% In Water 1000 Ml) 1,000 mls @ 0 mls/hr IV .Q0M PRN; Protocol PRN Reason: Hypoglycemia Protocol Insulin Human Regular (Humulin R Med) 0 units SC ACHS [facility]; Protocol Last Admin: 10/22/18 07:54 Dose: Not Given Losartan Potassium (Cozaar) 100 mg PO DAILY [facility] Last Admin: 10/21/18 10:56 Dose: 100 mg Brimonidine Tartrate /Timolol [Combigan 0 .2%-0.5% Eye Drops] 1 Dr (Home Med) 1 drop EACHEYE Q12 [facility] Last Admin: 10/21/18 23:48 Dose: Not Given Pantoprazole Sodium (Protonix Inj) 40 mg IVP DAILY [facility] Last Admin: 10/21/18 10:56 Dose: 40 mg Tramadol HCl (Ultram) 50 mg PO Q12H PRN PRN Reason: severe pain - Labs Labs: 10/22/18 08:01 10/22/18 08:01 - Constitutional Appears: Non-toxic, No Acute Distress - Head Exam Head Exam: NORMAL INSPECTION, NORMOCEPHALIC - Eye Exam Eye Exam: Normal appearance Pupil Exam: NORMAL ACCOMODATION - ENT Exam ENT Exam: Mucous Membranes Moist, Normal Exam - Respiratory Exam Respiratory Exam: Decreased Breath Sounds, NORMAL BREATHING PATTERN - Cardiovascular Exam Cardiovascular Exam: Bradycardia, +S1, +S2 Additional comments: Telemetry 50's - GI/Abdominal Exam GI & Abdominal Exam: Soft - Extremities Exam Extremities Exam: Full ROM Additional comments: 2+edema - Neurological Exam Neurological Exam: Alert, Awake, Oriented x3 - Psychiatric Exam Psychiatric exam: Normal Affect, Normal Mood - Skin Skin Exam: Dry, Normal Color, Warm Assessment and Plan - Assessment and Plan (Free Text) Assessment: A 53 year old male who came in to the ER due to mid sternal chest pain radiating to left arm, worse when he moves. History of Myocardial infarction, coronary artery disease post stents. Recent cardiac cath 10/05/18 showed patent stents on RCA and LAD, distal LAD stent stenosis 50%. History of CVA, pulmonary embolism with IVC filter. hypertension ,diabetes, prostate problems, history of falls. CT of chest negative for pulmonary embolism, positive for gallstones. Negative for DVT. Atypical chest pain, muskuloskeletal in nature, tenderness to touch mid chest. Plan: Atypical chest pain, tenderness on chest Was given Percocet director of housing and energy services with relief Will start Motrin every 8 hours Blood pressure controlled Heart rate controlled On Norvasc 10 mg daily, Eliquis 5 mg BID, Lipitor 40 mg daily, Plavix 75 mg daily,Hydralazine 50 mg every 8 hours,Losartan 100 mg daily Continue current treatment Continue current medications Will follow up Plan and treatment discussed with Dr. Rodriguez Covering Dr. Monico Hernandez
[2018-10-22] MEDS: TIMOLOL EACHEYE SCH ×2 (09:56→22:25)
[2018-10-22] MEDS: BRIMONIDINE TARTRATE EACHEYE SCH ×2 (09:56→22:25)
--- NOTE | 2018-10-22 15:24 | CP.PCM.PN ---
<Johana Smith - Last Filed: 10/22/18 15:20> Subjective - Date & Time of Evaluation Date of Evaluation: 10/22/18 Time of Evaluation: 10:30 - Subjective Subjective: Johana Smith, PGY-1 Medicine Progress Note for Dr. Renae Espinoza: Pt was seen and examined this AM at bedside. Pt denies any acute overnight events. He states that he is still having chest pain, but it is reproducible and located centrally. He states that if he pushes on that spot he notices that it illicits the pain throughout the chest. Otherwise he is denying any headaches, lightheadedness, weakness, SOB, cough, abd pain, n/v, c/d, or dysuria. He has no other acute complaints at this time. Objective - Vital Signs/Intake and Output Vital Signs (last 24 hours): Temp Pulse Resp BP Pulse Ox 97.5 F L 62 18 146/86 100 10/22/18 06:00 10/22/18 14:53 10/22/18 06:00 10/22/18 14:53 10/22/18 06:00 - Medications Medications: Current Medications Acetaminophen (Tylenol 325mg Tab) 650 mg PO Q6H PRN PRN Reason: Fever >100.4 F Last Admin: 10/21/18 21:34 Dose: 650 mg Amlodipine Besylate (Norvasc) 10 mg PO DAILY [facility] Last Admin: 10/22/18 09:55 Dose: 10 mg Apixaban (Eliquis) 5 mg PO BID [facility]; Protocol Last Admin: 10/22/18 09:55 Dose: 5 mg Atorvastatin Calcium (Lipitor) 40 mg PO HS [facility] Last Admin: 10/21/18 21:34 Dose: 40 mg Clopidogrel Bisulfate (Plavix) 75 mg PO DAILY [facility] Last Admin: 10/22/18 09:55 Dose: 75 mg Dextrose (Dextrose 50% Inj) 0 ml IV STAT PRN; Protocol PRN Reason: Hypoglycemia Protocol Gabapentin (Neurontin) 600 mg PO TID [facility]; Protocol Last Admin: 10/22/18 14:53 Dose: 600 mg Hydralazine HCl (Apresoline) 50 mg PO Q8 [facility] Last Admin: 10/22/18 14:53 Dose: 50 mg Dextrose (Dextrose 5% In Water 1000 Ml) 1,000 mls @ 0 mls/hr IV .Q0M PRN; Protocol PRN Reason: Hypoglycemia Protocol Ibuprofen (Motrin Tab) 600 mg PO TID [facility] Last Admin: 10/22/18 14:53 Dose: 600 mg Insulin Human Regular (Humulin R Med) 0 units SC ACHS [facility]; Protocol Last Admin: 10/22/18 12:34 Dose: 3 units Losartan Potassium (Cozaar) 100 mg PO DAILY [facility] Last Admin: 10/22/18 09:55 Dose: 100 mg Brimonidine Tartrate /Timolol [Combigan 0 .2%-0.5% Eye Drops] 1 Dr (Home Med) 1 drop EACHEYE Q12 [facility] Last Admin: 10/22/18 09:56 Dose: Not Given Pantoprazole Sodium (Protonix Inj) 40 mg IVP DAILY [facility] Last Admin: 10/22/18 09:55 Dose: 40 mg Tramadol HCl (Ultram) 50 mg PO Q12H PRN PRN Reason: severe pain - Labs Labs: 10/22/18 08:01 10/22/18 08:01 - Constitutional Appears: Well, Non-toxic, No Acute Distress - Head Exam Head Exam: ATRAUMATIC, NORMAL INSPECTION, NORMOCEPHALIC - Eye Exam Eye Exam: EOMI, Normal appearance, PERRL - Respiratory Exam Respiratory Exam: Chest Wall Tenderness (is reproducible to palpation ), Clear to Ausculation Bilateral, NORMAL BREATHING PATTERN. absent: Accessory Muscle Use, Decreased Breath Sounds, Rales, Rhonchi, Wheezes, Respiratory Distress, Stridor - Cardiovascular Exam Cardiovascular Exam: RRR, +S1, +S2. absent: Gallop, Rubs - GI/Abdominal Exam GI & Abdominal Exam: Soft, Normal Bowel Sounds. absent: Firm, Guarding, Tenderness - Extremities Exam Extremities Exam: absent: Pedal Edema, Tenderness - Back Exam Back Exam: NORMAL INSPECTION. absent: CVA tenderness (L), CVA tenderness (R) - Neurological Exam Neurological Exam: Alert, Awake, Oriented x3 - Psychiatric Exam Psychiatric exam: Normal Affect, Normal Mood - Skin Skin Exam: Dry, Normal Color, Warm Assessment and Plan - Assessment and Plan (Free Text) Assessment: Pt is a 53-year-old Male with PMH of CVA, CAD, 3 MIs s/p stent placements, DM2, DVT, HTN, HLD, and angina, who presents to [facility] ED complaining of chest pain which began 3 days ago while walking up stairs during physical therapy session. Patient was recently hospitalized and was admitted for same complaint. Cardiology did cath 2 weeks ago. Cardiology consulted; Dr. Hernandez; Recommendations appreciated. Patient is admitted to telemetry for ACS Rule-Out. Plan: 1. Chest Pain, ACS Rule-Out - EKG 10/20: rate: 93, NSR, No stemi. Deep T wave inversions which were present in previous EKG. No major changes from previous EKG. - Troponins neg x3 - Repeat EKG 10/21: No significant changes from 10/20 EKG noted above (see report for details.) - CXR: no active disease - ECHO 03/02: moderate LVH, low normal LV systolic function, mild TR, EF 50% - Cardiac cath done in 10/05/18; Per Cardiology: No indications for stent placement at that time (Please see report for details) - Stress test 03/02: normal wall motion of LV, distal anteroseptal defect suspicious of ischemia - TSH=1.72 - Free T4= 5.7 - Cardiology consulted; Dr. Hernandez; recommendations appreciated. - Physical Therapy: evaluate and treat - CTA and LE US are negative for PE/DVT 2. CAD - Continue home lipitor 40mg - Continue home plavix 75mg 3. Hypertension - Continue home norvasc 10mg PO daily - Continue home hydralazine 50mg PO q8h - Continue home losartan 100mg PO daily 4. History of DVT - Continue home eliquis 5mg PO BID 5. Diabetes Mellitus Type 2 - Insulin sliding scale medium 6. Neuropathy - Continue Home Meds: Neurontin 600mg PO BID as needed 7. History of Glaucoma - Continue home combigan drops daily 8. PPX DVT: Patient is on eliquis GI: Protonix 40 PO Daily [facility] Patient seen and case discussed with Dr. Renae Smith DO Internal Medicine Resident PGY-1 <Kim Espinoza R - Last Filed: 10/23/18 16:22> Objective - Vital Signs/Intake and Output Vital Signs (last 24 hours): Temp Pulse Resp BP Pulse Ox 97.2 F L 60 20 133/75 99 10/23/18 06:00 10/23/18 13:34 10/23/18 06:00 10/23/18 13:34 10/23/18 06:00 Intake and Output: 10/23/18 10/23/18 06:59 18:59 Intake Total 240 Output Total 600 Balance -360 - Medications Medications: Current Medications Acetaminophen (Tylenol 325mg Tab) 650 mg PO Q6H PRN PRN Reason: Fever >100.4 F Last Admin: 10/21/18 21:34 Dose: 650 mg Amlodipine Besylate (Norvasc) 10 mg PO DAILY [facility] Last Admin: 10/23/18 09:45 Dose: 10 mg Apixaban (Eliquis) 5 mg PO BID [facility]; Protocol Last Admin: 10/23/18 09:45 Dose: 5 mg Atorvastatin Calcium (Lipitor) 40 mg PO HS [facility] Last Admin: 10/22/18 22:29 Dose: 40 mg Clopidogrel Bisulfate (Plavix) 75 mg PO DAILY [facility] Last Admin: 10/23/18 09:45 Dose: 75 mg Dextrose (Dextrose 50% Inj) 0 ml IV STAT PRN; Protocol PRN Reason: Hypoglycemia Protocol Gabapentin (Neurontin) 600 mg PO TID [facility]; Protocol Last Admin: 10/23/18 15:19 Dose: 600 mg Hydralazine HCl (Apresoline) 50 mg PO Q8 [facility] Last Admin: 10/23/18 13:34 Dose: 50 mg Dextrose (Dextrose 5% In Water 1000 Ml) 1,000 mls @ 0 mls/hr IV .Q0M PRN; Protocol PRN Reason: Hypoglycemia Protocol Ibuprofen (Motrin Tab) 600 mg PO TID [facility] Last Admin: 10/23/18 09:45 Dose: 600 mg Insulin Human Regular (Humulin R Med) 0 units SC ACHS [facility]; Protocol Last Admin: 10/23/18 11:49 Dose: Not Given Losartan Potassium (Cozaar) 100 mg PO DAILY [facility] Last Admin: 10/23/18 09:45 Dose: 100 mg Brimonidine Tartrate /Timolol [Combigan 0 .2%-0.5% Eye Drops] 1 Dr (Home Med) 1 drop EACHEYE Q12 [facility] Last Admin: 10/23/18 10:00 Dose: Not Given Pantoprazole Sodium (Protonix Inj) 40 mg IVP DAILY [facility] Last Admin: 10/23/18 09:45 Dose: 40 mg Tramadol HCl (Ultram) 50 mg PO Q12H PRN PRN Reason: severe pain Last Admin: 10/23/18 15:16 Dose: 50 mg - Labs Labs: 10/23/18 07:42 10/23/18 07:42 Attending/Attestation - Attestation I have personally seen and examined this patient.: Yes I have fully participated in the care of the patient.: Yes I have reviewed all pertinent clinical information, including history, physical exam and plan: Yes Notes (Text): Patient seen and examined by me with resident at 9:25AM on 10/22/18. Case including HPI, physical exam, and assessment and plan discussed with resident. Agree with above with following additions/corrections. Patient is a 53-year-old male with past medical history significant for CVA, coronary artery disease, type 2 diabetes, DVT, PE, hypertension, hyperlipidemia, and angina that presented to the emergency room with chest pain. Patient states he is feeling ok. States he is still having some chest pain that comes and goes. Pain medications are helping. No shortness of breath or palpitations. Patient denies any abdominal pain, nausea, or vomiting. No dizziness, headaches, or lightheadedness. No fevers or chills. No dysuria. Physical exam: General: Awake and alert lying in bed in no acute distress HEENT: Normocephalic, atraumatic. Extraocular muscles intact, pupils equal and reactive, no scleral icterus. Oropharynx is pink and moist. Neck is supple. Cardiovascular: Regular rhythm. Normal S1 and S2. No murmurs, rubs, or gallops appreciated Pulmonary: Normal respiratory effort. No rhonchi, rales, or wheezing appreciated. Gastrointestinal: Soft, nondistended. Nontender. Positive bowel sounds all 4 quadrants. No guarding. Musculoskeletal: Moves all extremities. No calf tenderness. No edema appreciated. Central nervous system: AAOx3 Dermatologic: Skin warm and dry. Assessment and plan: Patient is a 53-year-old male with past medical history significant for CVA, coronary artery disease, type 2 diabetes, DVT, PE, hypertension, hyperlipidemia, and angina that presented to the emergency room with chest pain. 1. Chest pain. History of coronary artery disease. Likely musculoskeletal. ACS ruled out. Troponins within normal limits. Cardiology following, recommendations appreciated. Continue Eliquis, Cozaar, Lipitor, and Plavix. Ibuprofen started by cardiology. Chest CT per radiologist showed unremarkable CT pulmonary angiogram, no pulmonary embolus. Patient s/p cardiac catheterization 10/05/18 for same chest pain which per ore trimmer showed patent stents in corornary tree, diffuse atherosclerosis, 50% stenosis in the distal LAD which is unchanged, normal LV function. 2. Hypertension. Continue Norvasc, hydralazine, and Cozaar. 3. History of DVT/PE. Bilateral lower extremity pain likely secondary to history of DVT. Continue Eliquis. 4. Type 2 diabetes. Continue insulin sliding scale. Monitor Accu-Cheks. 5. Peripheral neuropathy. Continue with gabapentin. 6. History of glaucoma. Continue home combigan drops 7. GI/DVT prophylaxis. Protonix/Eliquis Case was discussed in detail with the patient regarding current diagnosis and treatment plan. All questions answered.
[2018-10-23 07:47] LABS: BASO # 0.01 K/mm3 (0.0-2.0); BASO % 0.3 % (0.0-3.0); EOS # 0.1 (0.0-0.7); EOS % 1.8 % (1.5-5.0); GRAN # 2.28 (1.4-6.5); GRAN % 58.7 % (50.0-68.0); LYMPH # 1.3 (1.2-3.4); LYMPH % 32.2 % (22.0-35.0); MEAN CELL VOLUME 88.6 fl (80.0-105.0); MEAN CORPUSCULAR HGB CONC 34.9 g/dl (31.0-37.0); MEAN PLATELET VOLUME 8.1 fl (7.0-11.0); MONO # 0.3 (0.1-0.6); RBC 4.2 10^6/uL (3.5-6.1); RED CELL DISTRIBUTION WIDTH 12.2 % (11.5-14.5); WHITE BLOOD COUNT 3.9 10^3/uL (4.5-11.0)
[2018-10-23 08:36] LABS: ALB/GLOB RATIO 1.4 (1.1-1.8); ALBUMIN 4.1 g/dL (3.0-4.8); ALT/SGPT 35 U/L (7-56); AST/SGOT 21 U/L (17-59); BLOOD UREA NITROGEN 12 mg/dL (7-21); CALCIUM 9.4 mg/dL (8.4-10.5); GFR NON-AFRICAN AMERICAN > 60
[2018-10-23] MEDS: Insulin Reg-MEDIUM-Coverage SC SCH ×4 (08:48→22:14)
--- NOTE | 2018-10-23 09:18 | CP.PCM.PN ---
Subjective - Date & Time of Evaluation Date of Evaluation: 10/23/18 Time of Evaluation: 06:40 - Subjective Subjective: Lying in bed, awake, alert, no distress,denies chest pain Reason for consultation and follow up: Cardiac evaluation of chest pain, history of coronary artery disease with stents, history of CVA Seen and examined by me and Dr. Rodriguez Objective - Vital Signs/Intake and Output Vital Signs (last 24 hours): Temp Pulse Resp BP Pulse Ox 97.2 F L 54 L 20 132/81 99 10/23/18 06:00 10/23/18 06:00 10/23/18 06:00 10/23/18 06:00 10/23/18 06:00 Intake and Output: 10/23/18 10/23/18 06:59 18:59 Intake Total 240 Output Total 600 Balance -360 - Medications Medications: Current Medications Acetaminophen (Tylenol 325mg Tab) 650 mg PO Q6H PRN PRN Reason: Fever >100.4 F Last Admin: 10/21/18 21:34 Dose: 650 mg Amlodipine Besylate (Norvasc) 10 mg PO DAILY [facility] Last Admin: 10/22/18 09:55 Dose: 10 mg Apixaban (Eliquis) 5 mg PO BID [facility]; Protocol Last Admin: 10/22/18 17:09 Dose: 5 mg Atorvastatin Calcium (Lipitor) 40 mg PO HS [facility] Last Admin: 10/22/18 22:29 Dose: 40 mg Clopidogrel Bisulfate (Plavix) 75 mg PO DAILY [facility] Last Admin: 10/22/18 09:55 Dose: 75 mg Dextrose (Dextrose 50% Inj) 0 ml IV STAT PRN; Protocol PRN Reason: Hypoglycemia Protocol Gabapentin (Neurontin) 600 mg PO TID [facility]; Protocol Last Admin: 10/22/18 17:09 Dose: 600 mg Hydralazine HCl (Apresoline) 50 mg PO Q8 [facility] Last Admin: 10/23/18 06:19 Dose: Not Given Dextrose (Dextrose 5% In Water 1000 Ml) 1,000 mls @ 0 mls/hr IV .Q0M PRN; Protocol PRN Reason: Hypoglycemia Protocol Ibuprofen (Motrin Tab) 600 mg PO TID [facility] Last Admin: 10/22/18 17:10 Dose: 600 mg Insulin Human Regular (Humulin R Med) 0 units SC ACHS [facility]; Protocol Last Admin: 10/23/18 08:48 Dose: 1 units Losartan Potassium (Cozaar) 100 mg PO DAILY [facility] Last Admin: 10/22/18 09:55 Dose: 100 mg Brimonidine Tartrate /Timolol [Combigan 0 .2%-0.5% Eye Drops] 1 Dr (Home Med) 1 drop EACHEYE Q12 [facility] Last Admin: 10/22/18 22:25 Dose: Not Given Pantoprazole Sodium (Protonix Inj) 40 mg IVP DAILY [facility] Last Admin: 10/22/18 09:55 Dose: 40 mg Tramadol HCl (Ultram) 50 mg PO Q12H PRN PRN Reason: severe pain Last Admin: 10/22/18 19:47 Dose: 50 mg - Labs Labs: 10/23/18 07:42 10/23/18 07:42 - Constitutional Appears: Non-toxic, No Acute Distress - Head Exam Head Exam: NORMAL INSPECTION, NORMOCEPHALIC - Eye Exam Eye Exam: Normal appearance Pupil Exam: NORMAL ACCOMODATION - ENT Exam ENT Exam: Mucous Membranes Moist, Normal Exam - Respiratory Exam Respiratory Exam: Decreased Breath Sounds, NORMAL BREATHING PATTERN - Cardiovascular Exam Cardiovascular Exam: Bradycardia, +S1, +S2 - GI/Abdominal Exam GI & Abdominal Exam: Soft, Normal Bowel Sounds - Neurological Exam Neurological Exam: Alert, Awake, Oriented x3 - Psychiatric Exam Psychiatric exam: Normal Affect, Normal Mood - Skin Skin Exam: Dry, Normal Color, Warm Assessment and Plan - Assessment and Plan (Free Text) Assessment: A 53 year old male who came in to the ER due to mid sternal chest pain radiating to left arm, worse when he moves. History of Myocardial infarction, coronary artery disease post stents. Recent cardiac cath 10/05/18 showed patent stents on RCA and LAD, distal LAD stent stenosis 50%. History of CVA, pulmonary embolism with IVC filter. hypertension ,diabetes, prostate problems, history of falls. CT of chest negative for pulmonary embolism, positive for gallstones. Negative for DVT. Atypical chest pain, muskuloskeletal in nature, tenderness to touch mid chest. started on Motrin. Plan: Denies chest discomfort No distress Blood pressure controlled Heart rate controlled On Norvasc 10 mg daily, Eliquis 5 mg BID, Lipitor 40 mg daily, Plavix 75 mg daily,Hydralazine 50 mg every 8 hours,Losartan 100 mg daily Continue current treatment Continue current medications Requesting to see Social service Will follow up Plan and treatment discussed with Dr. Rodriguez Covering Dr. Monico Hernandez
[2018-10-23] MEDS: TIMOLOL EACHEYE SCH ×2 (10:00→22:24)
[2018-10-23] MEDS: BRIMONIDINE TARTRATE EACHEYE SCH ×2 (10:00→22:24)
--- NOTE | 2018-10-23 15:25 | CP.PCM.PN ---
<Johana Smith - Last Filed: 10/23/18 15:22> Subjective - Date & Time of Evaluation Date of Evaluation: 10/23/18 Time of Evaluation: 15:22 - Subjective Subjective: Johana Smith, PGY-1 Medicine Progress Note for Dr. Renae Espinoza: Pt was seen and examined this AM at bedside. Pt denies any acute overnight events. He states that he is still having chest pain, still located centrally and is still reproducible upon palpation. Otherwise he is denying any headaches, lightheadedness, weakness, SOB, cough, abd pain, n/v, c/d, or dysuria. He has no other acute complaints at this time. Objective - Vital Signs/Intake and Output Vital Signs (last 24 hours): Temp Pulse Resp BP Pulse Ox 97.2 F L 60 20 133/75 99 10/23/18 06:00 10/23/18 13:34 10/23/18 06:00 10/23/18 13:34 10/23/18 06:00 Intake and Output: 10/23/18 10/23/18 06:59 18:59 Intake Total 240 Output Total 600 Balance -360 - Medications Medications: Current Medications Acetaminophen (Tylenol 325mg Tab) 650 mg PO Q6H PRN PRN Reason: Fever >100.4 F Last Admin: 10/21/18 21:34 Dose: 650 mg Amlodipine Besylate (Norvasc) 10 mg PO DAILY [facility] Last Admin: 10/23/18 09:45 Dose: 10 mg Apixaban (Eliquis) 5 mg PO BID [facility]; Protocol Last Admin: 10/23/18 09:45 Dose: 5 mg Atorvastatin Calcium (Lipitor) 40 mg PO HS [facility] Last Admin: 10/22/18 22:29 Dose: 40 mg Clopidogrel Bisulfate (Plavix) 75 mg PO DAILY [facility] Last Admin: 10/23/18 09:45 Dose: 75 mg Dextrose (Dextrose 50% Inj) 0 ml IV STAT PRN; Protocol PRN Reason: Hypoglycemia Protocol Gabapentin (Neurontin) 600 mg PO TID [facility]; Protocol Last Admin: 10/23/18 15:19 Dose: 600 mg Hydralazine HCl (Apresoline) 50 mg PO Q8 [facility] Last Admin: 10/23/18 13:34 Dose: 50 mg Dextrose (Dextrose 5% In Water 1000 Ml) 1,000 mls @ 0 mls/hr IV .Q0M PRN; Protocol PRN Reason: Hypoglycemia Protocol Ibuprofen (Motrin Tab) 600 mg PO TID [facility] Last Admin: 10/23/18 09:45 Dose: 600 mg Insulin Human Regular (Humulin R Med) 0 units SC ACHS [facility]; Protocol Last Admin: 10/23/18 11:49 Dose: Not Given Losartan Potassium (Cozaar) 100 mg PO DAILY [facility] Last Admin: 10/23/18 09:45 Dose: 100 mg Brimonidine Tartrate /Timolol [Combigan 0 .2%-0.5% Eye Drops] 1 Dr (Home Med) 1 drop EACHEYE Q12 [facility] Last Admin: 10/23/18 10:00 Dose: Not Given Pantoprazole Sodium (Protonix Inj) 40 mg IVP DAILY [facility] Last Admin: 10/23/18 09:45 Dose: 40 mg Tramadol HCl (Ultram) 50 mg PO Q12H PRN PRN Reason: severe pain Last Admin: 10/23/18 15:16 Dose: 50 mg - Labs Labs: 10/23/18 07:42 10/23/18 07:42 - Constitutional Appears: Well, Non-toxic, No Acute Distress - Head Exam Head Exam: ATRAUMATIC, NORMAL INSPECTION, NORMOCEPHALIC - Eye Exam Eye Exam: EOMI, Normal appearance, PERRL - Respiratory Exam Respiratory Exam: Clear to Ausculation Bilateral, NORMAL BREATHING PATTERN. absent: Accessory Muscle Use, Decreased Breath Sounds, Rales, Rhonchi, Wheezes, Respiratory Distress, Stridor - Cardiovascular Exam Cardiovascular Exam: RRR, +S1, +S2. absent: Gallop, Rubs - GI/Abdominal Exam GI & Abdominal Exam: Soft, Normal Bowel Sounds. absent: Firm, Guarding, Rigid, Tenderness - Extremities Exam Extremities Exam: absent: Pedal Edema, Tenderness - Back Exam Back Exam: NORMAL INSPECTION. absent: CVA tenderness (L), CVA tenderness (R) - Neurological Exam Neurological Exam: Alert, Awake, Oriented x3 - Psychiatric Exam Psychiatric exam: Normal Affect, Normal Mood - Skin Skin Exam: Dry, Intact, Normal Color, Warm Assessment and Plan - Assessment and Plan (Free Text) Assessment: Pt is a 53-year-old Male with PMH of CVA, CAD, 3 MIs s/p stent placements, DM2, DVT, HTN, HLD, and angina, who presents to [facility] ED complaining of chest pain which began 3 days ago while walking up stairs during physical therapy session. Patient was recently hospitalized and was admitted for same complaint. Cardiology did cath 2 weeks ago. Cardiology consulted; Dr. Hernandez; Recommendations appreciated. Patient is admitted to telemetry for ACS Rule-Out. Plan: 1. Chest Pain, ACS Rule-Out - EKG 10/20: rate: 93, NSR, No stemi. Deep T wave inversions which were present in previous EKG. No major changes from previous EKG. - Troponins neg x3 - Repeat EKG 10/21: No significant changes from 10/20 EKG noted above - CXR: no active disease - ECHO 03/02: moderate LVH, low normal LV systolic function, mild TR, EF 50% - Cardiac cath done in 10/05/18; Per Cardiology: No indications for stent placement at that time - Stress test 03/02: normal wall motion of LV, distal anteroseptal defect suspicious of ischemia - TSH=1.72 - Free T4= 5.7 - Cardiology consulted; Dr. Hernandez; recommendations appreciated. - Physical Therapy: evaluate and treat - CTA and LE US are negative for PE/DVT 2. CAD - Continue home lipitor 40mg - Continue home plavix 75mg 3. Hypertension - Continue home norvasc 10mg PO daily - Continue home hydralazine 50mg PO q8h - Continue home losartan 100mg PO daily 4. History of DVT - Continue home eliquis 5mg PO BID 5. Diabetes Mellitus Type 2 - Insulin sliding scale medium 6. Neuropathy - Continue Home Meds: Neurontin 600mg PO BID as needed 7. History of Glaucoma - Continue home combigan drops daily 8. PPX DVT: Patient is on eliquis GI: Protonix 40 PO Daily [facility] Patient seen and case discussed with Dr. Renae Smith DO Internal Medicine Resident PGY-1 <Kim Espinoza - Last Filed: 10/24/18 21:46> Objective - Vital Signs/Intake and Output Vital Signs (last 24 hours): Temp Pulse Resp BP Pulse Ox 98.5 F 58 L 20 141/91 H 98 10/24/18 16:21 12/10/18 16:21 10/24/18 16:21 10/24/18 16:21 10/24/18 16:21 - Labs Labs: 10/24/18 06:00 10/24/18 06:00 Attending/Attestation - Attestation I have personally seen and examined this patient.: Yes I have fully participated in the care of the patient.: Yes I have reviewed all pertinent clinical information, including history, physical exam and plan: Yes Notes (Text): Patient seen and examined by me with resident at 10AM on 10/23/18. Case including HPI, physical exam, and assessment and plan discussed with resident. Agree with above with following additions/corrections. Patient is a 53-year-old male with past medical history significant for CVA, coronary artery disease, type 2 diabetes, DVT, PE, hypertension, hyperlipidemia, and angina that presented to the emergency room with chest pain. Patient states he is feeling ok. Still with intermittent chest pain. Feels the ibuprofen is helping. Patient denies shortness of breath or palpitations. Patient denies any abdominal pain, nausea, or vomiting. No dizziness, headaches, or lightheadedness. No fevers or chills. No dysuria. Physical exam: General: Awake and alert lying in bed in no acute distress HEENT: Normocephalic, atraumatic. Extraocular muscles intact, pupils equal and reactive, no scleral icterus. Oropharynx is pink and moist. Neck is supple. Cardiovascular: Regular rhythm. Normal S1 and S2. No murmurs, rubs, or gallops appreciated Pulmonary: Normal respiratory effort. No rhonchi, rales, or wheezing appreciated. Gastrointestinal: Soft, nondistended. Nontender. Positive bowel sounds all 4 quadrants. No guarding. Musculoskeletal: Moves all extremities. No calf tenderness. No edema appreciated. Central nervous system: AAOx3 Dermatologic: Skin warm and dry. Assessment and plan: Patient is a 53-year-old male with past medical history significant for CVA, coronary artery disease, type 2 diabetes, DVT, PE, hypertension, hyperlipidemia, and angina that presented to the emergency room with chest pain. 1. Chest pain. History of coronary artery disease. Likely musculoskeletal. ACS ruled out. Troponins within normal limits. Cardiology following, recommendations appreciated. Patient cleared for discharge by cardiology. Continue Eliquis, Cozaar, Lipitor, and Plavix. Ibuprofen started by cardiology. Chest CT per radiologist showed unremarkable CT pulmonary angiogram, no pulmonary embolus. Patient s/p cardiac catheterization 10/05/18 for same chest pain which per roller turner showed patent stents in corornary tree, diffuse atherosclerosis, 50% stenosis in the distal LAD which is unchanged, normal LV function. 2. Hypertension. Continue Norvasc, hydralazine, and Cozaar. 3. History of DVT/PE. Bilateral lower extremity pain likely secondary to history of DVT. Continue Eliquis. 4. Type 2 diabetes. Continue insulin sliding scale. Monitor Accu-Cheks 5. Peripheral neuropathy. Continue with gabapentin. 6. History of glaucoma. Continue home combigan drops 7. Gait instability. Physical therapy continues to recommend subacute rehabilitation. Pending RICARDO placement. 8. GI/DVT prophylaxis. Protonix/Eliquis Case was discussed in detail with the patient regarding current diagnosis and treatment plan. All questions answered.
[2018-10-23 19:25] VITALS: O2SAT 98
[2018-10-24] MEDS ORDERED: Pantoprazole 40 mg EC Tab PO SCH (06:00)
[2018-10-24 06:51] LABS: BASO # 0.01 K/mm3 (0.0-2.0); BASO % 0.2 % (0.0-3.0); EOS # 0.1 (0.0-0.7); EOS % 1.7 % (1.5-5.0); GRAN # 2.77 (1.4-6.5); HEMOGLOBIN 12.9 g/dL (14.0-18.0); LYMPH # 1.5 (1.2-3.4); MEAN CELL VOLUME 88.7 fl (80.0-105.0); MEAN CORPUSCULAR HEMOGLOBIN 31.6 pg (25.0-35.0); MEAN CORPUSCULAR HGB CONC 35.6 g/dl (31.0-37.0); MEAN PLATELET VOLUME 8.2 fl (7.0-11.0); MONO # 0.3 (0.1-0.6); MONO % 6.1 % (1.0-6.0); RBC 4.08 10^6/uL (3.5-6.1); RED CELL DISTRIBUTION WIDTH 12.1 % (11.5-14.5); WHITE BLOOD COUNT 4.6 10^3/uL (4.5-11.0)
[2018-10-24 06:55] LABS: ALB/GLOB RATIO 1.4 (1.1-1.8); ALBUMIN 3.9 g/dL (3.0-4.8); ALT/SGPT 40 U/L (7-56); AST/SGOT 18 U/L (17-59); BLOOD UREA NITROGEN 13 mg/dL (7-21); CALCIUM 9.3 mg/dL (8.4-10.5); GFR NON-AFRICAN AMERICAN > 60
[2018-10-24 08:05] VITALS: PULSE 58; RESP 20
--- NOTE | 2018-10-24 08:14 | PN ---
DATE: 10/23/2018 The patient being seen on behalf of Dr. Hernandez whom we are covering. Ariadne Bird already noted a detailed progress note, so this is addendum to that. The patient still continues to complain pain in the left mid chest with local tenderness. The patient recently had a cardiac catheterization which showed stents were patent. We have explained to the patient that his chest pain is musculoskeletal and we had continued to reassure him. The patient denies any shortness of breath or palpitation. The patient is known to have pulmonary embolism with IVC filter, hypertension, diabetes, prostate problem, history of falls, gallstones. The patient was started on ibuprofen 600 mg p.o. t.i.d. yesterday along with medications of Eliquis 5 mg b.i.d., losartan 100 mg daily, Lipitor 40 mg daily, gabapentin 600 mg t.i.d., amlodipine 10 mg daily, and Plavix 75 mg daily. Continue present therapy. Josselyn Rodriguez MD
[2018-10-24] MEDS: Insulin Reg-MEDIUM-Coverage SC SCH ×3 (08:25→17:33)
--- NOTE | 2018-10-24 09:35 | CP.PCM.PN ---
<Raiza Dong - Last Filed: 10/24/18 15:13> Subjective - Date & Time of Evaluation Date of Evaluation: 10/24/18 Time of Evaluation: 10:31 - Subjective Subjective: PGY1 Medicine Progress Note for Dr. Buchanan Patient was seen and evaluated at bedside this morning. No acute events overnight. Per Patient, he still has chest pain, abdominal pain, and lower extremity weakness and pain (unchanged in quality from admission). Pain is located to center of his chest radiating down his left arm and reproducible on palpation. Patient is tolerating his diet without issue. Patient denies nausea, vomiting, and/or diarrhea. Patient also states that he still feels dizzy when he gets out of bed, and is only able to get out of bed to chair with Physical Therapy's assistance. 12 Point ROS otherwise unremarkable. Objective - Vital Signs/Intake and Output Vital Signs (last 24 hours): Temp Pulse Resp BP Pulse Ox 97.9 F 58 L 20 116/66 98 10/24/18 08:04 10/24/18 08:04 10/24/18 08:04 10/24/18 08:04 10/24/18 08:04 - Medications Medications: Current Medications Acetaminophen (Tylenol 325mg Tab) 650 mg PO Q6H PRN PRN Reason: Fever >100.4 F Last Admin: 10/21/18 21:34 Dose: 650 mg Amlodipine Besylate (Norvasc) 10 mg PO DAILY [facility] Last Admin: 10/23/18 09:45 Dose: 10 mg Apixaban (Eliquis) 5 mg PO BID [facility]; Protocol Last Admin: 10/23/18 18:01 Dose: 5 mg Atorvastatin Calcium (Lipitor) 40 mg PO HS [facility] Last Admin: 10/23/18 22:24 Dose: 40 mg Clopidogrel Bisulfate (Plavix) 75 mg PO DAILY [facility] Last Admin: 10/23/18 09:45 Dose: 75 mg Dextrose (Dextrose 50% Inj) 0 ml IV STAT PRN; Protocol PRN Reason: Hypoglycemia Protocol Gabapentin (Neurontin) 600 mg PO TID [facility]; Protocol Last Admin: 10/23/18 18:01 Dose: 600 mg Hydralazine HCl (Apresoline) 50 mg PO Q8 [facility] Last Admin: 10/24/18 05:32 Dose: Not Given Dextrose (Dextrose 5% In Water 1000 Ml) 1,000 mls @ 0 mls/hr IV .Q0M PRN; Protocol PRN Reason: Hypoglycemia Protocol Ibuprofen (Motrin Tab) 600 mg PO TID [facility] Last Admin: 10/23/18 18:01 Dose: 600 mg Insulin Human Regular (Humulin R Med) 0 units SC ACHS [facility]; Protocol Last Admin: 10/24/18 08:25 Dose: 1 units Losartan Potassium (Cozaar) 100 mg PO DAILY [facility] Last Admin: 10/23/18 09:45 Dose: 100 mg Brimonidine Tartrate /Timolol [Combigan 0 .2%-0.5% Eye Drops] 1 Dr (Home Med) 1 drop EACHEYE Q12 [facility] Last Admin: 10/23/18 22:24 Dose: Not Given Pantoprazole Sodium (Protonix Ec Tab) 40 mg PO 0600 [facility] Last Admin: 10/24/18 05:32 Dose: 40 mg Tramadol HCl (Ultram) 50 mg PO Q12H PRN PRN Reason: severe pain Last Admin: 10/24/18 05:33 Dose: 50 mg - Labs Labs: 10/24/18 06:00 10/24/18 06:00 - Additional Findings Additional findings: - Head Exam Head Exam: ATRAUMATIC, NORMAL INSPECTION, NORMOCEPHALIC - Eye Exam Eye Exam: EOMI, Normal appearance, PERRL - Respiratory Exam Respiratory Exam: Clear to Ausculation Bilateral, NORMAL BREATHING PATTERN. absent: Accessory Muscle Use, Decreased Breath Sounds, Rales, Rhonchi, Wheezes, Respiratory Distress, Stridor - Cardiovascular Exam Cardiovascular Exam: Bradycardia at 55 beats per minute, +S1, +S2. absent: Gallop, Rubs - GI/Abdominal Exam GI & Abdominal Exam: Soft, Normal Bowel Sounds. absent: Firm, Guarding, Rigid, Tenderness - Extremities Exam Extremities Exam: absent: Pedal Edema, Tenderness - Back Exam Back Exam: NORMAL INSPECTION. absent: CVA tenderness (L), CVA tenderness (R) - Neurological Exam Neurological Exam: Alert, Awake, Oriented x3 - Psychiatric Exam Psychiatric exam: Normal Affect, Normal Mood - Skin Skin Exam: Dry, Intact, Normal Color, Warm Assessment and Plan - Assessment and Plan (Free Text) Assessment: Pt is a 53-year-old Male with PMH of CVA, CAD, 3 MIs s/p stent placements, DM2, DVT, HTN, HLD, and angina, who presents to [facility] ED complaining of chest pain which began 3 days ago while walking up stairs during physical therapy session. Patient was recently hospitalized and was admitted for same complaint. Cardiology did cath on 10/05/18. Cardiology consulted; Dr. Hernandez; Recommendations appreciated. Patient is admitted to telemetry for ACS Rule-Out. Dispo: Per Physical Therapy recommendation: Patient will need placement for RICARDO upon discharge. Plan: Chest Pain, ACS Rule-Out - EKG 10/20: rate: 93, NSR, No stemi. Deep T wave inversions which were present in previous EKG. No major changes from previous EKG. - Troponins neg x3 - Repeat EKG 10/21: No significant changes from 10/20 EKG noted above - CXR: no active disease - ECHO 03/02: moderate LVH, low normal LV systolic function, mild TR, EF 50% - Cardiac cath done in 10/05/18; Per Cardiology: No indications for stent placement at that time - Stress test 03/02: normal wall motion of LV, distal anteroseptal defect suspicious of ischemia - TSH=1.72; Free T4= 5.7 - D-Dimer negative - CTA and LE US are negative for PE/DVT - Cardiology consulted; Dr. Hernandez; recommendations appreciated. - Physical Therapy: evaluate and treat - Patient admits to anxiety during PT sessions because he feels "unsteady" and says he thinks he is "going to collapse" - Xanax 0.5mg PO once to be administered prior to PT session today - Per PT recommendations, Patient needs RICARDO CAD - Continue home lipitor 40mg - Continue home plavix 75mg - EKG 10/20: rate: 93, NSR, No stemi. Deep T wave inversions which were present in previous EKG. No major changes from previous EKG. - ECHO 03/02: moderate LVH, low normal LV systolic function, mild TR, EF 50% - Cardiac cath done in 10/05/18; Per Cardiology: No indications for stent placement at that time - Stress test 03/02: normal wall motion of LV, distal anteroseptal defect suspicious of ischemia Hypertension - Continue home norvasc 10mg PO daily - Continue home hydralazine 50mg PO q8h - Continue home losartan 100mg PO daily History of DVT - Continue home eliquis 5mg PO BID Diabetes Mellitus Type 2 - Insulin sliding scale medium - Hypoglycemic protocol - Accu checks - Monitor Neuropathy - Continue Home Meds: Neurontin 600mg PO TID SCHEDULED History of Glaucoma - Continue home combigan drops daily (Exact brand unavailable, per Pharmacy. Thus, substituted with available NF. PPX DVT: Patient is on eliquis GI: Protonix 40 PO Daily [facility] Patient seen and case discussed in detail with Dr. Chanel Dong PGY1 <Dar Buchanan - Last Filed: 10/25/18 09:27> Objective - Vital Signs/Intake and Output Vital Signs (last 24 hours): Temp Pulse Resp BP Pulse Ox 98.5 F 58 L 20 141/91 H 98 10/24/18 16:21 10/24/18 16:21 10/24/18 16:21 10/24/18 16:21 10/24/18 16:21 - Labs Labs: 10/24/18 06:00 10/24/18 06:00 Attending/Attestation - Attestation I have personally seen and examined this patient.: Yes I have fully participated in the care of the patient.: Yes I have reviewed all pertinent clinical information, including history, physical exam and plan: Yes Notes (Text): Attending note; Patient seen and examined with resident. Patient is a 53-year-old male with past medical history significant for CVA, coronary artery disease, type 2 diabetes, DVT, PE, hypertension, hyperlipidemia, and angina that presented to the emergency room with chest pain. 1. Chest pain. History of coronary artery disease. Likely musculoskeletal. ACS ruled out. Troponins within normal limits. Cardiology evaluation appreciated . Patient is cleared by cardiology for discharge to rehabilitation . Continue Eliquis, Cozaar, Lipitor, and Plavix. 2. Hypertension. Continue Norvasc, hydralazine, and Cozaar. 3. History of DVT/PE. Bilateral lower extremity pain likely secondary to history of DVT. Continue Eliquis. 4. Type 2 diabetes. Continue insulin sliding scale. Monitor Accu-Cheks 5. Peripheral neuropathy. Continue with gabapentin. 6. History of glaucoma. Continue home combigan drops 7. Gait instability. Physical therapy continues to recommend subacute rehabilita tion. 8. GI/DVT prophylaxis. Protonix/Eliquis. Case discussed with telephonic nurse case manager in detail. Transfer back to [facility] today for rehabilitation. Patient agreed with the above recommendations. Case was discussed in detail with the patient regarding current diagnosis and treatment plan. All questions answered.
[2018-10-24] MEDS ORDERED: Brimonidine 0.15% 50 DROP/5 ML BOTTLE OU SCH (11:45)
--- NOTE | 2018-10-24 12:28 | PN ---
DATE: 10/24/2018 CARDIOLOGY FOLLOWUP SUBJECTIVE: The patient's chest pain is much better. His symptoms are reproducible on palpation. PHYSICAL EXAMINATION: VITAL SIGNS: Blood pressure is 116/66, the heart rate is in the 60s. NECK: Negative JVD. LUNGS: Without rales. HEART: S1, S2. EXTREMITIES: Without edema. The left pectoral muscle on palpation was found to reproduce his symptoms. LABORATORY DATA: His hemoglobin is 12.9. BUN and creatinine are unremarkable. Troponins are negative x3. IMPRESSION: 1. Noncardiac chest pain. 2. Stable angina. 3. Coronary artery disease. 4. Diabetes mellitus. 5. Hypertension. 6. Difficulty walking. Given these findings, the patient's cardiac status is stable. The patient needs to go to physical therapy to help with his ambulation. Monico Hernandez MD
[2018-10-24] MEDS: TIMOLOL EACHEYE SCH (12:32)
[2018-10-24] MEDS: BRIMONIDINE TARTRATE EACHEYE SCH (12:32)
[2018-10-24 16:22] VITALS: BP 141/91; TEMP 98.5
--- NOTE | 2018-10-24 16:55 | CP.PCM.DIS ---
<Raiza Dong - Last Filed: 10/24/18 19:38> Provider - Provider Date of Admission: 10/22/18 13:24 Attending physician: Dar Buchanan MD Primary care physician: Dr. Roth Consults: 10/20/18 20:45 Physician Consult Routine Comment: Consulting Provider: Monico Hernandez Consulting Physician: Monico Hernandez Reason for Consult: chest isamar 10/24/18 07:33 [employer] Rec[employer] [Case Management Referral] Routine Comment: Physician Instructions: Reason For Exam: dc to [facility] Reason for Referral: Discharge Planning Time Spent in preparation of Discharge (in minutes): 45 Diagnosis - Discharge Diagnosis (1) Chest pain Status: Acute Priority: Medium (2) Abdominal pain Status: Acute Priority: Medium (3) Back pain Status: Acute Priority: Medium (4) Leg pain Status: Acute Priority: Medium Hospital Course - Lab Results Lab Results: Most Recent Lab Values WBC 4.6 10^3/uL (4.5-11.0) 10/24/18 06:00 RBC 4.08 10^6/uL (3.5-6.1) 10/24/18 06:00 Hgb 12.9 g/dL (14.0-18.0) L 10/24/18 06:00 Hct 36.2 % (42.0-52.0) L 10/24/18 06:00 MCV 88.7 fl (80.0-105.0) 10/24/18 06:00 MCH 31.6 pg (25.0-35.0) 10/24/18 06:00 MCHC 35.6 g/dl (31.0-37.0) 10/24/18 06:00 RDW 12.1 % (11.5-14.5) 10/24/18 06:00 Plt Count 184 10^3/uL (120.0-450.0) 10/24/18 06:00 MPV 8.2 fl (7.0-11.0) 10/24/18 06:00 Gran % 60.0 % (50.0-68.0) 10/24/18 06:00 Lymph % (Auto) 32.0 % (22.0-35.0) 10/24/18 06:00 [place] % (Auto) 6.1 % (1.0-6.0) H 10/24/18 06:00 Eos % (Auto) 1.7 % (1.5-5.0) 10/24/18 06:00 Baso % (Auto) 0.2 % (0.0-3.0) 10/24/18 06:00 Gran # 2.77 (1.4-6.5) 10/24/18 06:00 Lymph # (Auto) 1.5 (1.2-3.4) 10/24/18 06:00 [place] # (Auto) 0.3 (0.1-0.6) 10/24/18 06:00 Eos # (Auto) 0.1 (0.0-0.7) 10/24/18 06:00 Baso # (Auto) 0.01 K/mm3 (0.0-2.0) 10/24/18 06:00 D-Dimer, Quantitative < 200 ng/mlDDU (0-243) 10/20/18 17:46 Sodium 138 mmol/L (132-148) 10/24/18 06:00 Potassium 4.1 mmol/L (3.6-5.0) 10/24/18 06:00 Chloride 104 mmol/L (98-107) 10/24/18 06:00 Carbon Dioxide 25 mmol/L (21-33) 10/24/18 06:00 Anion Gap 12 (10-20) 10/24/18 06:00 BUN 13 mg/dL (7-21) 10/24/18 06:00 Creatinine 0.9 mg/dl (0.8-1.5) 10/24/18 06:00 Est GFR ( Amer) > 60 10/24/18 06:00 Est GFR (Non-Af Amer) > 60 10/24/18 06:00 POC Glucose (mg/dL) 178 mg/dL (65-110) H 10/24/18 16:08 Random Glucose 205 mg/dL (70-110) H 10/24/18 06:00 Calcium 9.3 mg/dL (8.4-10.5) 10/24/18 06:00 Phosphorus 3.6 mg/dL (2.5-4.5) 10/23/18 07:42 Magnesium 1.8 mg/dL (1.7-2.2) 10/23/18 07:42 Total Bilirubin 0.4 mg/dL (0.2-1.3) 10/24/18 06:00 AST 18 U/L (17-59) 10/24/18 06:00 ALT 40 U/L (7-56) 10/24/18 06:00 Alkaline Phosphatase 72 U/L (38-126) 10/24/18 06:00 Troponin I 0.01 ng/mL D 10/21/18 07:10 Total Protein 6.7 g/dL (5.8-8.3) 10/24/18 06:00 Albumin 3.9 g/dL (3.0-4.8) 10/24/18 06:00 Globulin 2.8 gm/dL 10/24/18 06:00 Albumin/Globulin Ratio 1.4 (1.1-1.8) 10/24/18 06:00 Triglycerides 145 mg/dL (35-160) 10/20/18 21:00 Cholesterol 104 mg/dL (130-200) L 10/20/18 21:00 LDL Cholesterol Direct 61 mg/dL (0-129) 10/20/18 21:00 HDL Cholesterol 29 mg/dL (29-60) 10/20/18 21:00 Thyroxine (T4) 5.7 ug/dL (5.5-11.0) 10/20/18 21:00 TSH 3rd Generation 1.72 mIU/mL (0.46-4.68) 10/20/18 21:00 - Hospital Course Hospital Course: PGY1 Discharge Summary and Hospital Course for Dr. Buchanan Patient is a 53-year-old Male with PMH of CVA, CAD, 3 MS's s/p stent placements, DM2, DVT, HTN, HLD, and Angina who presented to [facility] ED complaining of chest pain that was exacerbated by walking up the stairs 3 days prior to arrival. Please see chart for details. Patient stated the pain was similar to the pain he had last time for which he was admitted for chest pain and subsequently had a cardiac cath with Dr. Hernandez. Patient was in subacute rehab. The pain was brought on by PT; specifically, by going up the stairs, per Patient. Patient also complained of dizziness, which has been chronic since his most recent admission. Patient was subsequently admitted for ACS rule-out. Please see chart for details. Cardiology was consulted (Dr. Hernandez). Serial troponins were obtained and were negative. EKG was obtained on 10/20: rate: 93, NSR, No stemi. Deep T wave inversions which were present in previous EKG. No major changes from previous EKG. EKG repeat on 10/21 was obtained and revealed similar to above. Chest x-ray revealed no acute disease. D-Dimer was negative. Patient underwent CTA and LE ultrasound which were negative for PE and DVT respectively. ECHO 03/02: moderate LVH, low normal LV systolic function, mild TR, EF 50% (please see report for details). Cardiac cath done in 10/05/18; Per Cardiology: No indications for stent placement at that time (please see report for details.) Patient was continued on home meds including lipitor, plavix for history of CAD; Norvasc, hydralazine, and losartan for history of HTN; Eliquis, for history of DVT; and insulin sliding scale for history of T2DM. Patient complained of lower extremity pain, thus home meds gabapentin was resumed. Patient underwent physical therapy, and per recommendations needed to subacute rehabilitation upon discharge. Please see progress notes for details. On 10/24, Patient was hemodynamically stable and medically optmized for discharge to home. Patient was given detailed instructions both written and verbal to the level of comprehension of the Patient. Patient both understands and agrees to discharge instructions. Please see discharge instructions for details. Patient seen and case discussed in detail with Dr. Chanel Dong PGY1 Discharge Exam - Additional Findings Additional findings: - Head Exam Head Exam: ATRAUMATIC, NORMAL INSPECTION, NORMOCEPHALIC - Eye Exam Eye Exam: EOMI, Normal appearance, PERRL - Respiratory Exam Respiratory Exam: Clear to Ausculation Bilateral, NORMAL BREATHING PATTERN. absent: Accessory Muscle Use, Decreased Breath Sounds, Rales, Rhonchi, Wheezes, Respiratory Distress, Stridor - Cardiovascular Exam Cardiovascular Exam: Bradycardia at 55 beats per minute, +S1, +S2. absent: Gallop, Rubs - GI/Abdominal Exam GI & Abdominal Exam: Soft, Normal Bowel Sounds. absent: Firm, Guarding, Rigid, Tenderness - Extremities Exam Extremities Exam: absent: Pedal Edema, Tenderness - Back Exam Back Exam: NORMAL INSPECTION. absent: CVA tenderness (L), CVA tenderness (R) - Neurological Exam Neurological Exam: Alert, Awake, Oriented x3 - Psychiatric Exam Psychiatric exam: Normal Affect, Normal Mood - Skin Skin Exam: Dry, Intact, Normal Color, Warm Discharge Plan - Follow Up Plan Condition: GOOD Disposition: TRANSF TO SNF Instructions: Chest Pain (DC), Acute Abdominal Pain (DC) Additional Instructions: Continue current medication regimen while in rehabilitation. If chest pain persist please call primary MD or go to the nearest emergency room. <Dar Buchanan - Last Filed: 10/25/18 14:36> Provider - Provider Date of Admission: 10/22/18 13:24 Attending physician: Dar Buchanan MD Consults: 10/20/18 20:45 Physician Consult Routine Comment: Consulting Provider: Monico Hernandez Consulting Physician: Monico Hernandez Reason for Consult: chest isamar 10/24/18 07:33 Inside [employer] Rec[employer]iter [Case Management Referral] Routine Comment: Physician Instructions: Reason For Exam: dc to [facility] Reason for Referral: Discharge Planning Hospital Course - Lab Results Lab Results: Most Recent Lab Values WBC 4.6 10^3/uL (4.5-11.0) 10/24/18 06:00 RBC 4.08 10^6/uL (3.5-6.1) 10/24/18 06:00 Hgb 12.9 g/dL (14.0-18.0) L 10/24/18 06:00 Hct 36.2 % (42.0-52.0) L 10/24/18 06:00 MCV 88.7 fl (80.0-105.0) 10/24/18 06:00 MCH 31.6 pg (25.0-35.0) 10/24/18 06:00 MCHC 35.6 g/dl (31.0-37.0) 10/24/18 06:00 RDW 12.1 % (11.5-14.5) 10/24/18 06:00 Plt Count 184 10^3/uL (120.0-450.0) 10/24/18 06:00 MPV 8.2 fl (7.0-11.0) 10/24/18 06:00 Gran % 60.0 % (50.0-68.0) 10/24/18 06:00 Lymph % (Auto) 32.0 % (22.0-35.0) 10/24/18 06:00 [place] % (Auto) 6.1 % (1.0-6.0) H 10/24/18 06:00 Eos % (Auto) 1.7 % (1.5-5.0) 10/24/18 06:00 Baso % (Auto) 0.2 % (0.0-3.0) 10/24/18 06:00 Gran # 2.77 (1.4-6.5) 10/24/18 06:00 Lymph # (Auto) 1.5 (1.2-3.4) 10/24/18 06:00 [place] # (Auto) 0.3 (0.1-0.6) 10/24/18 06:00 Eos # (Auto) 0.1 (0.0-0.7) 10/24/18 06:00 Baso # (Auto) 0.01 K/mm3 (0.0-2.0) 10/24/18 06:00 D-Dimer, Quantitative < 200 ng/mlDDU (0-243) 10/20/18 17:46 Sodium 138 mmol/L (132-148) 10/24/18 06:00 Potassium 4.1 mmol/L (3.6-5.0) 10/24/18 06:00 Chloride 104 mmol/L (98-107) 10/24/18 06:00 Carbon Dioxide 25 mmol/L (21-33) 10/24/18 06:00 Anion Gap 12 (10-20) 10/24/18 06:00 BUN 13 mg/dL (7-21) 10/24/18 06:00 Creatinine 0.9 mg/dl (0.8-1.5) 10/24/18 06:00 Est GFR ( Amer) > 60 10/24/18 06:00 Est GFR (Non-Af Amer) > 60 10/24/18 06:00 POC Glucose (mg/dL) 178 mg/dL (65-110) H 10/24/18 16:08 Random Glucose 205 mg/dL (70-110) H 10/24/18 06:00 Calcium 9.3 mg/dL (8.4-10.5) 10/24/18 06:00 Phosphorus 3.6 mg/dL (2.5-4.5) 10/23/18 07:42 Magnesium 1.8 mg/dL (1.7-2.2) 10/23/18 07:42 Total Bilirubin 0.4 mg/dL (0.2-1.3) 10/24/18 06:00 AST 18 U/L (17-59) 10/24/18 06:00 ALT 40 U/L (7-56) 10/24/18 06:00 Alkaline Phosphatase 72 U/L (38-126) 10/24/18 06:00 Troponin I 0.01 ng/mL D 10/21/18 07:10 Total Protein 6.7 g/dL (5.8-8.3) 10/24/18 06:00 Albumin 3.9 g/dL (3.0-4.8) 10/24/18 06:00 Globulin 2.8 gm/dL 10/24/18 06:00 Albumin/Globulin Ratio 1.4 (1.1-1.8) 10/24/18 06:00 Triglycerides 145 mg/dL (35-160) 10/20/18 21:00 Cholesterol 104 mg/dL (130-200) L 10/20/18 21:00 LDL Cholesterol Direct 61 mg/dL (0-129) 10/20/18 21:00 HDL Cholesterol 29 mg/dL (29-60) 10/20/18 21:00 Thyroxine (T4) 5.7 ug/dL (5.5-11.0) 10/20/18 21:00 TSH 3rd Generation 1.72 mIU/mL (0.46-4.68) 10/20/18 21:00 Attending/Attestation - Attestation I have personally seen and examined this patient.: Yes I have fully participated in the care of the patient.: Yes I have reviewed all pertinent clinical information, including history, physical exam and plan: Yes Notes (Text): 10/25/18 14:35 Attending note; Patient seen and examined with resident. Patient is a 53-year-old male with past medical history significant for CVA, coronary artery disease, type 2 diabetes, DVT, PE, hypertension, hyperlipidemia, and angina that presented to the emergency room with chest pain. 1. Chest pain. History of coronary artery disease. Likely musculoskeletal. ACS ruled out. Troponins within normal limits. Cardiology evaluation appreciated . Patient is cleared by cardiology for discharge to rehabilitation . Continue Eliquis, Cozaar, Lipitor, and Plavix. 2. Hypertension. Continue Norvasc, hydralazine, and Cozaar. 3. History of DVT/PE. Bilateral lower extremity pain likely secondary to history of DVT. Continue Eliquis. 4. Type 2 diabetes. Continue insulin sliding scale. Monitor Accu-Cheks 5. Peripheral neuropathy. Continue with gabapentin. 6. History of glaucoma. Continue home combigan drops 7. Gait instability. Physical therapy continues to recommend subacute rehab ilitation. 8. GI/DVT prophylaxis. Protonix/Eliquis. Case discussed with case manager specialist in detail. Transfer back to [facility] today for rehabilitation. Patient agreed with the above recommendations. Follow-up with PMD Dr. Roth. 10/25/18 14:36
--- NOTE | 2018-10-25 08:32 | PN ---
DATE: 10/22/2018 The patient is in room 371, bed 2. The patient's progress note has been already dictated by Dr. Ariadne Bird. This is addendum, and we are doing this progress note on behalf of Dr. Hernandez whom we are covering. The patient was admitted with chest pain, and the patient was noted to have coronary artery disease, and the patient had recent cardiac cath on 10/05/2018 that showed patent stent in RCA and LAD. Distal LAD stent has some stenosis of 50%, history of CVA, pulmonary embolism, IVC filter, hypertension, diabetes. The patient's CT chest and venous Doppler from the legs have been negative for pulmonary embolism and thrombophlebitis. The patient's chest pain is atypical. He has local tenderness so his chest pain is musculoskeletal. I discussed in detail with Dr. Espinoza that the patient from cardiac point of view is stable, and the patient will continue present therapy, and he can try a few days therapy of Motrin to help this musculoskeletal type of pain and Motrin should be only for few days because the patient is also on Eliquis 5 mg b.i.d., so there will be a risk of bleeding so only took for 3 days or so, he can use Motrin therapy. Thank you. We will follow. Josselyn Rodriguez MD
== END 2018-10-24 21:10 | DRG 313 ==
LOC: ED 17:07 → ERH 20:01 → 3RSO 10-21 17:22 → OBSVTOIN 10-22 13:24
PROVIDERS: ADMIT Hospitalist; ATTEND Internal Medicine
DX: R07.89 Other chest pain (principal); I25.118 Atherosclerotic heart disease of native coronary artery with other forms of angina pectoris; E11.42 Type 2 diabetes mellitus with diabetic polyneuropathy; I10 Essential (primary) hypertension; E78.5 Hyperlipidemia, unspecified; R26.2 Difficulty in walking, not elsewhere classified; I25.2 Old myocardial infarction; K80.20 Calculus of gallbladder without cholecystitis without obstruction; Z86.711 Personal history of pulmonary embolism; Z86.718 Personal history of other venous thrombosis and embolism; Z79.01 Long term (current) use of anticoagulants; Z86.73 Personal history of transient ischemic attack (TIA), and cerebral infarction without residual deficits; Z91.81 History of falling; Z79.02 Long term (current) use of antithrombotics/antiplatelets; Z95.5 Presence of coronary angioplasty implant and graft

== ENCOUNTER 2019-03-15 15:32 | Outpatient (CLI) | payer MEDICARE | END 2019-03-15 15:33 | disposition home or self-care (01) | LOC: HLTHCOUN 15:32 ==